=== PATIENT | male | born 1945 | race Caucasian/White ===

== ENCOUNTER 2017-06-18 12:40 | Emergency (ER) | payer OTHER, MEDICARE ==
--- NOTE | 2017-06-18 13:07 | ER Document Report ---
ED General - General Chief Complaint: Blurred Vision Stated Complaint: BLURRED VISION Time Seen by Provider: 06/18/17 12:57 Notes: Patient is a 72-year-old male, past medical history hypertension, spinal stenosis, type 2 diabetes, A. fib, presents from [facility] after 1 day of blurry and double vision and hallucinations. He has also had mild swelling and redness around his GIOVANNI drain. The patient was admitted to [facility] ICU for 2 months after an elective spinal surgery where he became trach dependent, had renal failure and was on hemodialysis and then had a cholecystectomy. He still has a GIOVANNI drain from his right abdomen that has now clotted, but he has an appointment with surgery in 2 days to discuss removal. He is no longer on dialysis. He says that he wears glasses, but he does not have them with him. He has had this intermittent blurry vision in the past. He denies eye injury, nausea, vomiting, fevers, chest pain, shortness of breath , diarrhea, constipation or leg swelling. TRAVEL OUTSIDE OF THE [place] IN LAST 30 DAYS: No - Related Data Allergies/Adverse Reactions: Penicillins Allergy (Verified 06/18/17 13:38) Past Medical History - General Information source: Patient - Social History Smoking Status: Unknown if Ever Smoked Family History: Reviewed & Not Pertinent - Past Medical History Cardiac Medical History: Reports: Hx Atrial Fibrillation, Hx Congestive Heart Failure, Hx Coronary Artery Disease, Hx Hypercholesterolemia, Hx Hypertension, Hx Pulmonary Embolism Denies: Hx Heart Attack, Hx Peripheral Vascular Disease, Hx Heart Murmur Pulmonary Medical History: Reports: Hx Asthma, Hx Bronchitis, Hx COPD, Hx Sleep Apnea - unable to wear cpap Denies: Hx Pneumonia, Hx Respiratory Failure, Hx Tuberculosis Neurological Medical History: Reports: Hx Seizures - in 1968. Denies: Hx Cerebrovascular Accident Endocrine Medical History: Reports: Hx Diabetes Mellitus Type 1, Hx Diabetes Mellitus Type 2. Denies: Hx Graves' Disease, Hx Hyperthyroidism, Hx Hypothyroidism Renal/ Medical History: Reports: Hx Benign Prostatic Hyperplasia. Denies: Hx End Stage Renal Disease, Hx Kidney Stones, Hx Peritoneal Dialysis Malignancy Medical History: Denies Hx Leukemia, Denies Hx Lung Cancer GI Medical History: Reports: Hx Gastroesophageal Reflux Disease, Hx Hiatal Hernia, Hx Irritable Bowel. Denies: Hx Crohn's Disease, Hx Hepatitis, Hx Liver Failure, Hx Ulcer Musculoskeltal Medical History: Reports Hx Arthritis, Denies Hx Fibromyalgia, Denies Hx Multiple Sclerosis, Denies Hx Muscular Dystrophy Psychiatric Medical History: Reports: Hx Depression, Hx Post Traumatic Stress Disorder - nightmares Denies: Hx Bipolar Disorder, Hx Dementia, Hx Schizophrenia Traumatic Medical History: Reports: Hx Fractures - Rt elbow and scattered radial head Infectious Medical History: Denies: Hx Hepatitis, Hx HIV Past Surgical History: Reports: Hx Appendectomy, Hx Cardiac Catheterization - 3 VESSEL DISEASE NOT CANDIDATE FOR INTERVENTION, Hx Orthopedic Surgery - CERVICAL AND L-S FUSION. Denies: Hx Bowel Surgery, Hx Cholecystectomy, Hx Colostomy, Hx Coronary Artery Bypass Graft, Hx Gastric Bypass Surgery, Hx Herniorrhaphy, Hx Open Heart Surgery, Hx Pacemaker, Hx Tonsillectomy - Immunizations Hx Diphtheria, Pertussis, Tetanus Vaccination: Yes Hx Pneumococcal Vaccination: 08/22/12 Review of Systems - Review of Systems Notes: REVIEW OF SYSTEMS: CONSTITUTIONAL: -fevers, -chills EENT: -eye pain, +blurry vision, -difficulty swallowing, -nasal congestion CARDIOVASCULAR:-chest pain, -syncope. RESPIRATORY: -cough, -SOB GASTROINTESTINAL: -abdominal pain, - nausea, -vomiting, -diarrhea GENITOURINARY: -dysuria, -hematuria MUSCULOSKELETAL: -back pain, -neck pain SKIN: +redness around GIOVANNI site HEMATOLOGIC: -easy bruising or bleeding. LYMPHATIC: -swollen, enlarged glands. NEUROLOGICAL: -altered mental status or loss of consciousness, -headache, - neurologic symptoms PSYCHIATRIC: +hallucinations, -anxiety, -depression. ALL OTHER SYSTEMS REVIEWED AND NEGATIVE. Physical Exam - Vital signs Vitals: Temp 98.8 F 06/18/17 12:40 - Notes Notes: PHYSICAL EXAMINATION: GENERAL: Well-appearing, well-nourished and in no acute distress. HEAD: Atraumatic, normocephalic. EYES: Pupils equal round and reactive to light, extraocular movements intact, sclera anicteric, conjunctiva are normal. No retinal detachment on bedside ultrasound. ENT: nares patent, oropharynx clear without exudates. Moist mucous membranes. NECK: Normal range of motion, supple without lymphadenopathy. Healing tracheotomy scar. LUNGS: Breath sounds clear to auscultation bilaterally and equal. No wheezes rales or rhonchi. HEART: Irregularly irregular heart rate ABDOMEN: Soft, nontender, normoactive bowel sounds. GIOVANNI drain out of right anterior abdomen without drainage, small amount of erythema and tenderness. No guarding, no rebound. No masses appreciated. EXTREMITIES: Normal range of motion, no pitting or edema. No cyanosis. NEUROLOGICAL: Cranial nerves grossly intact. Normal speech, normal gait. Normal sensory and motor exams. PSYCH: Normal mood, normal affect. Course - Re-evaluation Re-evalutation: Patient appears well. He has evidence of early cellulitis surrounding his GIOVANNI drain. CT abdomen and pelvis obtained to assess for presence of abscess, but no acute changes noted. Will begin doxycycline and have him follow-up with the surgeon in 2 days for a recheck and removal. No evidence of retinal detachment on eye exam and head CT does not show any evidence of a head bleed. He is not wearing his glasses and says that this is leading to the blurry vision. Instructed him to follow-up with the relays draftsperson this week for further evaluation and testing. Patient slightly tachycardic, which may be from the early cellulitis and pain. He was offered pain meds, but he refuses at this time. His lactate and blood pressure are normal. Given strict return precautions and patient/family understand. - Vital Signs Vital signs: Temp Pulse Resp BP Pulse Ox 98.8 F 25 H 126/92 H 100 06/18/17 12:40 06/18/17 13:02 06/18/17 13:02 06/18/17 13:02 - Laboratory Result Diagrams: 06/18/17 12:55 06/18/17 12:55 Laboratory results interpreted by me: 06/18/17 06/18/17 06/18/17 12:55 12:55 12:55 WBC 16.1 H RBC 3.76 L Hgb 9.6 L Hct 31.1 L MCH 25.4 L MCHC 30.7 L RDW 20.7 H Seg Neuts % (Manual) 82 H Lymphocytes % (Manual) 7 L Abs Neuts (Manual) 13.2 H Abs Monocytes (Manual) 1.6 H PT 16.7 H APTT 45.6 H Glucose 171 H Calcium 8.2 L Creatine Kinase 28 L NT-Pro-B Natriuret Pep 06/18/17 12:55 WBC RBC Hgb Hct MCH MCHC RDW Seg Neuts % (Manual) Lymphocytes % (Manual) Abs Neuts (Manual) Abs Monocytes (Manual) PT APTT Glucose Calcium Creatine Kinase NT-Pro-B Natriuret Pep 64051 H - Diagnostic Test Radiology reviewed: Image reviewed, Reports reviewed Radiology results interpreted by me: Head CT: NAD CT A/P: GIOVANNI drain in place, no abscesses Discharge - Discharge Clinical Impression: Abdominal wall cellulitis, Blurry vision Condition: Stable Disposition: HOME, SELF-CARE Additional Instructions: Take the full course of antibiotics to help with your early abdominal wall cellulitis. Follow-up with surgeon as already scheduled this week. Follow-up with the relays draftsperson for further evaluation of your eyes. Wear your glasses. MRSA CELLULITIS: You have an infection of your skin and underlying soft tissues called cellulitis. This is due to bacteria, which can enter through any break in the skin, or even through an irritated hair follicle. Untreated, cellulitis will usually worsen and may form an abscess which requires draining. Although many bacterial organisms can cause cellulitis and abscess formations, the most likely bacteria is Methicillin-Resistant Staph Aureus, or MRSA for short. Antibiotics are required. Usually, warm packs or warm soaks, and elevation of the infected area are recommended. You should start getting better within 24 to 36 hours. Most infections respond quickly to the right medication. Follow-up care is important, however, to check for abscess (boil) formation, unsuspected foreign body, or resistant infection. If you develop fever, chills, or if the area of infection is becoming rapidly more swollen or painful, call the doctor at once. ANTIBIOTIC THERAPY: You have been given an antibiotic prescription. It's important that you take all the medication, unless instructed otherwise by your physician. Failure to complete the entire course can result in relapse of your condition. Common side effects of antibiotics include nausea, intestinal cramping, or diarrhea. Women may develop vaginal yeast infections, and babies can get yeast (thrush) in the mouth following the use of antibiotics. Contact your physician if you develop significant side effects from this medication. Allergy to this antibiotic can result in hives, wheezing, faintness, or itching. If symptoms of allergy occur, stop the medication and call the doctor. DOXYCYCLINE: Doxycycline (Vibramycin, Doryx) is an antibiotic of the tetracycline family. This type of drug is useful for infections of the respiratory tract and genital tract, and is sometimes used for intestinal infections. Unlike most tetracyclines, doxycycline can be taken with food. It is longer acting, and (usually) less prone to side effects than regular tetracycline. Tetracycline antibiotics can stain immature teeth and SHOULD NOT BE TAKEN BY CHILDREN, NURSING MOTHERS, OR WOMEN. Tetracyclines can make you more prone to sunburn. Abdominal cramping, nausea, and diarrhea are occasional side effects. Women may experience vaginal yeast infections. Call the doctor at once if you develop hives, itching, shortness of breath , or lightheadedness. FOLLOW-UP CARE: If you have been referred to a physician for follow-up care, call the physician s office for an appointment as you were instructed or within the next two days. If you experience worsening or a significant change in your symptoms, notify the physician immediately or return to the Emergency Department at any time for re-evaluation. Prescriptions: Doxycycline Hyclate 100 mg PO BID #14 capsule Referrals: MARS BRAUN DO [Primary Care Provider] - Follow up as needed ZULEIMA MCNEAL DO [ACTIVE STAFF] - Follow up as needed
[2017-06-18 13:31] LABS: HEMATOCRIT 31.1 % (37.9-51.0); HEMOGLOBIN 9.6 g/dL (13.5-17.0); HGB HCT DIFFERENCE -2.3; MEAN CORPUSCULAR HEMOGLOBIN 25.4 pg (27.0-33.4); MEAN CORPUSCULAR HGB CONC 30.7 g/dL (32.0-36.0); MEAN CORPUSCULAR VOLUME 83 fl (80-97); RED BLOOD COUNT 3.76 10^6/uL (4.35-5.55); RED CELL DISTRIBUTION WIDTH 20.7 % (11.5-14.0); WHITE BLOOD COUNT 16.1 10^3/uL (4.0-10.5)
[2017-06-18 13:32] LABS: PROTHROMBIN TIME 16.7 SEC (11.4-15.4)
[2017-06-18 13:33] LABS: PARTIAL THROMBOPLASTIN TIME 45.6 SEC (23.5-35.8)
--- NOTE | 2017-06-18 13:33 | RADIOLOGY REPORT (SQ) ---
EXAM DESCRIPTION: CT HEAD WITHOUT COMPLETED DATE/TIME: 06/18/2017 1:23 pm REASON FOR STUDY: blurry vision COMPARISON: 09/30/2012. TECHNIQUE: Axial images acquired through the brain without intravenous contrast. Images reviewed wi th bone, brain and subdural windows. Images stored on PACS. All CT scanners at this facility use dose modulation, iterative reconstruction, and/or weight based d osing when appropriate to reduce radiation dose to as low as reasonably achievable (ALARA). [facility]: Dose Right [facility]: CareDose [facility]: Dose Right [facility]: Teradose 4D [facility]: Smart VisualShare RADIATION DOSE: Up-to-date CT equipment and radiation dose reduction techniques were employed. CTDIv ol: 64.6 mGy. DLP: 1163 mGy-cm. mGy. LIMITATIONS: None. FINDINGS: VENTRICLES: Normal size and contour. CEREBRUM: No masses. No hemorrhage. No midline shift. Normal miller/white matter differentiation. N o evidence for acute infarction. CEREBELLUM: No masses. No hemorrhage. No alteration of density. No evidence for acute infarction. EXTRAAXIAL SPACES: No fluid collections. No masses. ORBITS AND GLOBE: No intra- or extraconal masses. Normal contour of globe without masses. CALVARIUM: No fracture. PARANASAL SINUSES: No fluid or mucosal thickening. SOFT TISSUES: No mass or hematoma. OTHER: No other significant finding. IMPRESSION: NORMAL BRAIN CT WITHOUT CONTRAST. TECHNICAL DOCUMENTATION: JOB ID: [id number] Quality ID # [id number]: Final reports with documentation of one or more dose reduction techniques (e.g., Au tomated exposure control, adjustment of the mA and/or kV according to patient size, use of iterative reconstruction technique) 2010 [employer]- All Rights Reserved
--- NOTE | 2017-06-18 13:46 | RADIOLOGY REPORT (SQ) ---
EXAM DESCRIPTION: CHEST SINGLE VIEW COMPLETED DATE/TIME: 06/18/2017 1:32 pm REASON FOR STUDY: fever COMPARISON: 10/13/2016. NUMBER OF VIEWS: One view. TECHNIQUE: Single frontal radiographic view of the chest acquired. LIMITATIONS: None. FINDINGS: LUNGS AND PLEURA: No opacities, masses or pneumothorax. No pleural effusion. MEDIASTINUM AND HILAR STRUCTURES: No masses or contour abnormality. HEART AND VASCULATURE: Cardiac enlargement. Mild vascular congestion. BONES: No acute findings. HARDWARE: Cardiac recorder. Hardware in the cervical spine. OTHER: No other significant finding. IMPRESSION: CARDIAC ENLARGEMENT. MILD VASCULAR CONGESTION. TECHNICAL DOCUMENTATION: JOB ID: [id number] [employer]- All Rights Reserved
[2017-06-18 13:52] LABS: BASOPHILS % (MANUAL) 1 % (0-2); EOSINOPHILS % (MANUAL) 0 % (0-6); LYMPHOCYTES % (MANUAL) 7 % (13-45); TOTAL CELLS COUNTED 100; TOXIC GRANULATION SLIGHT
[2017-06-18 13:53] LABS: ANISOCYTOSIS 2+; HYPOCHROMASIA 1+; OVALOCYTES 1+; PLATELET CLUMPS PRESENT; POIKILOCYTOSIS 1+
[2017-06-18 13:54] LABS: ANION GAP 9 (5-19); BLOOD UREA NITROGEN 18 mg/dL (7-20); CALCIUM 8.2 mg/dL (8.4-10.2); CARBON DIOXIDE 28 mmol/L (22-30); CHLORIDE 102 mmol/L (98-107); CREATINE KINASE 28 U/L (55-170); CREATININE RESULT 1.19 mg/dL (0.52-1.25); GLUCOSE 171 mg/dL (75-110); LIPASE 44.8 U/L (23-300); POTASSIUM 4.1 mmol/L (3.6-5.0); SODIUM 139.4 mmol/L (137-145)
[2017-06-18 14:05] LABS: TROPONIN I 0.019 ng/mL
--- NOTE | 2017-06-18 15:22 | RADIOLOGY REPORT (SQ) ---
EXAM DESCRIPTION: CT ABD/PELVIS WITH IV ONLY COMPLETED DATE/TIME: 06/18/2017 3:00 pm REASON FOR STUDY: RUQ pain, indwelling GIOVANNI drain; abscess? COMPARISON: None. TECHNIQUE: CT scan of the abdomen and pelvis performed using helical scanning technique with dynamic intravenous contrast injection. No oral contrast. Images reviewed with lung, soft tissue, and bone windows. Reconstructed coronal and sagittal MPR images reviewed. Delayed images for evaluation of the urinary system also acquired. All images stored on PACS. All CT scanners at this facility use dose modulation, iterative reconstruction, and/or weight based d osing when appropriate to reduce radiation dose to as low as reasonably achievable (ALARA). [facility]: Dose Right [facility]: CareDose [facility]: Dose Right [facility]: Teradose 4D [facility]: Fighters CONTRAST TYPE AND DOSE: contrast/concentration: Isovue 370.00 mg/ml; Total Contrast Delivered: 100.0 ml; Total Saline Delivered: 68.0 ml RENAL FUNCTION: BUN 18 creatinine 1.19. RADIATION DOSE: Up-to-date CT equipment and radiation dose reduction techniques were employed. CTDIv ol: 21.0 - 24.6 mGy. DLP: 2675 mGy-cm.. LIMITATIONS: None. FINDINGS: LOWER CHEST: Small pleural effusions with basilar atelectasis/scarring. LIVER: Normal size. No masses. No dilated ducts. SPLEEN: Normal size. No focal lesions. PANCREAS: No masses. No significant calcifications. No adjacent inflammation or peripancreatic fluid collections. Pancreatic duct not dilated. GALLBLADDER: Surgically absent. There is an external drainage catheter with the proximal portion in the gallbladder fossa. ADRENAL GLANDS: No significant masses or asymmetry. RIGHT KIDNEY AND URETER: No solid masses. No significant calcifications. No hydronephrosis or hyd roureter. LEFT KIDNEY AND URETER: No solid masses. No significant calcifications. No hydronephrosis or hydr oureter. AORTA AND VESSELS: No aneurysm. No dissection. Renal arteries, SMA, celiac without stenosis. RETROPERITONEUM: No retroperitoneal adenopathy, hemorrhage or masses. BOWEL AND PERITONEAL CAVITY: No masses or inflammatory changes. Small amount of free fluid throughou t the abdomen. APPENDIX: Not visualized. PELVIS: No mass. No free fluid. Normal bladder. ABDOMINAL WALL: No masses. No hernias. BONES: No significant or acute findings. Surgical changes in the spine with hardware. OTHER: No other significant finding. IMPRESSION: 1. EXTERNAL DRAINAGE CATHETER WITH THE PROXIMAL PORTION IN THE GALLBLADDER FOSSA. SMALL AMOUNT OF FR EE FLUID THROUGHOUT THE ABDOMEN. NO EVIDENCE OF ABSCESS. 2. SMALL PLEURAL EFFUSIONS WITH BASILAR ATELECTASIS/SCARRING. 3. NO OTHER SIGNIFICANT OR ACUTE FINDING IN THE ABDOMEN OR PELVIS ON CT SCAN WITH IV CONTRAST. TECHNICAL DOCUMENTATION: JOB ID: [id number] Quality ID # [id number]: Final reports with documentation of one or more dose reduction techniques (e.g., Au tomated exposure control, adjustment of the mA and/or kV according to patient size, use of iterative reconstruction technique) 2010 [employer]- All Rights Reserved
[2017-06-18] MEDS ORDERED: DOXYCYCLINE HYCLATE 100 MG TABLET PO ONE (15:43)
[2017-06-18 18:06] VITALS: BP 145/86
--- NOTE | 2017-06-18 18:57 | EKG REPORT ---
SEVERITY:- ABNORMAL ECG - SINUS TACHYCARDIA LEFT ANTERIOR FASCICULAR BLOCK PROBABLE LVH WITH SECONDARY REPOL ABNRM : Confirmed by: Trisha Llamas MD 18-Jun-2017 18:57:24
== END 2017-06-18 18:17 | disposition home or self-care (01) ==
LOC: ER 12:40
DX: L03.311 Cellulitis of abdominal wall (principal); H53.8 Other visual disturbances; I10 Essential (primary) hypertension; E11.9 Type 2 diabetes mellitus without complications; I48.91 Unspecified atrial fibrillation
CPT/HCPCS: 36415; 70450; 71010; 74177; 80048; 82550; 83605; 83690; 83880; 84484; 85025; 85610; 85730; 87040; 93005; 93010; 99285

== ENCOUNTER 2017-06-19 13:41 | Inpatient (IN) | payer OTHER, MEDICARE ==
--- NOTE | 2017-06-19 14:18 | ER Document Report ---
ED General - General Chief Complaint: Fall Stated Complaint: HALLUCINATIONS Time Seen by Provider: 06/19/17 13:45 Mode of Arrival: Medic Information source: Patient, Relative, Emergency Med Personnel Notes: 72-year-old male who has a percutaneous biliary drain presents from care facility with concerns for hallucinations. Patient was seen here yesterday at that time CT was performed patient was noted to have an elevated white count, and started on antibiotics. Patient was noted today to be talking to people that were not in the room. Denies any fevers TRAVEL OUTSIDE OF THE [place] IN LAST 30 DAYS: No - HPI Onset: Yesterday Onset/Duration: Sudden Quality of pain: No pain Severity: Mild Pain Level: Denies Associated symptoms: Other Exacerbated by: Denies Relieved by: Denies Similar symptoms previously: No Recently seen / treated by doctor: No - Related Data Allergies/Adverse Reactions: Penicillins Allergy (Verified 06/18/17 13:38) Past Medical History - Social History Smoking Status: Never Smoker Cigarette use (# per day): No Chew tobacco use (# tins/day): No Smoking Education Provided: No Family History: Reviewed & Not Pertinent - Past Medical History Cardiac Medical History: Reports: Hx Atrial Fibrillation, Hx Congestive Heart Failure, Hx Coronary Artery Disease, Hx Hypercholesterolemia, Hx Hypertension, Hx Pulmonary Embolism Denies: Hx Heart Attack, Hx Peripheral Vascular Disease, Hx Heart Murmur Pulmonary Medical History: Reports: Hx Asthma, Hx Bronchitis, Hx COPD, Hx Sleep Apnea - unable to wear cpap Denies: Hx Pneumonia, Hx Respiratory Failure, Hx Tuberculosis Neurological Medical History: Reports: Hx Seizures - in 1968. Denies: Hx Cerebrovascular Accident Endocrine Medical History: Reports: Hx Diabetes Mellitus Type 1, Hx Diabetes Mellitus Type 2. Denies: Hx Graves' Disease, Hx Hyperthyroidism, Hx Hypothyroidism Renal/ Medical History: Reports: Hx Benign Prostatic Hyperplasia. Denies: Hx End Stage Renal Disease, Hx Kidney Stones, Hx Peritoneal Dialysis Malignancy Medical History: Denies Hx Leukemia, Denies Hx Lung Cancer GI Medical History: Reports: Hx Gastroesophageal Reflux Disease, Hx Hiatal Hernia, Hx Irritable Bowel. Denies: Hx Crohn's Disease, Hx Hepatitis, Hx Liver Failure, Hx Ulcer Musculoskeltal Medical History: Reports Hx Arthritis, Denies Hx Fibromyalgia, Denies Hx Multiple Sclerosis, Denies Hx Muscular Dystrophy Psychiatric Medical History: Reports: Hx Depression, Hx Post Traumatic Stress Disorder - nightmares Denies: Hx Bipolar Disorder, Hx Dementia, Hx Schizophrenia Traumatic Medical History: Reports: Hx Fractures - Rt elbow and scattered radial head Infectious Medical History: Denies: Hx Hepatitis, Hx HIV Past Surgical History: Reports: Hx Appendectomy, Hx Cardiac Catheterization - 3 VESSEL DISEASE NOT CANDIDATE FOR INTERVENTION, Hx Orthopedic Surgery - CERVICAL AND L-S FUSION. Denies: Hx Bowel Surgery, Hx Cholecystectomy, Hx Colostomy, Hx Coronary Artery Bypass Graft, Hx Gastric Bypass Surgery, Hx Herniorrhaphy, Hx Open Heart Surgery, Hx Pacemaker, Hx Tonsillectomy - Immunizations Hx Diphtheria, Pertussis, Tetanus Vaccination: Yes Hx Pneumococcal Vaccination: 08/22/12 Review of Systems - Review of Systems Notes: REVIEW OF SYSTEMS: CONSTITUTIONAL : Denies fever, chills, or sweats. Denies recent illness. EENT: Denies eye, ear, throat, or mouth pain or symptoms. Denies nasal or sinus congestion or discharge. Denies throat, tongue, or mouth swelling or difficulty swallowing. CARDIOVASCULAR: Denies chest pain. Denies palpitations or racing or irregular heart beat. Denies ankle edema. RESPIRATORY: Denies cough, cold, or chest congestion. Denies shortness of breath, difficulty breathing, or wheezing. GASTROINTESTINAL: Denies abdominal pain or distention. Denies nausea, vomiting , or diarrhea. Denies blood in vomitus, stools, or per rectum. Denies black, tarry stools. Denies constipation. GENITOURINARY: Denies difficulty urinating, painful urination, burning, frequency, blood in urine, or discharge. MUSCULOSKELETAL: Denies back or neck pain or stiffness. Denies joint pain or swelling. SKIN: Denies rash, lesions or sores. HEMATOLOGIC : Denies easy bruising or bleeding. LYMPHATIC: Denies swollen, enlarged glands. NEUROLOGICAL: Admits to altered mental status PSYCHIATRIC: Denies anxiety or stress. Denies depression, suicidal ideation, or homicidal ideation. ALL OTHER SYSTEMS REVIEWED AND NEGATIVE. Dictation was performed using [employer] voice recognition software PHYSICAL EXAMINATION: GENERAL: Well-appearing, well-nourished and in no acute distress. HEAD: Atraumatic, normocephalic. EYES: Pupils equal round and reactive to light, extraocular movements intact, sclera anicteric, conjunctiva are normal. ENT: Nares patent, oropharynx clear without exudates. Moist mucous membranes. NECK: Normal range of motion, supple without lymphadenopathy LUNGS: Breath sounds clear to auscultation bilaterally and equal. No wheezes rales or rhonchi. HEART: Regular rate and rhythm without murmurs ABDOMEN: Soft, nontender, nondistended abdomen. No guarding, no rebound. No masses appreciated. Musculoskeletal: Normal range of motion, no pitting or edema. No cyanosis. NEUROLOGICAL: Cranial nerves grossly intact. Normal speech, normal gait. Normal sensory, motor exams PSYCH: Normal mood, normal affect. SKIN: Pus draining from around abdominal drain Physical Exam - Vital signs Vitals: Temp Pulse Resp BP Pulse Ox 97.7 F 72 18 113/87 H 100 06/19/17 13:53 06/19/17 13:53 06/19/17 13:53 06/19/17 13:53 06/19/17 13:53 Course - Re-evaluation Re-evalutation: 06/19/17 15:29 I spoke with surgeon transmission worker as vitals as the hospitalist. We will admit the patient as he has obvious pus draining from the wound. Patient otherwise looks well white count has improved since yesterday - Vital Signs Vital signs: Temp Pulse Resp BP Pulse Ox 97.7 F 72 18 113/87 H 100 06/19/17 13:53 06/19/17 13:53 06/19/17 13:53 06/19/17 13:53 06/19/17 13:53 - Laboratory Result Diagrams: 06/19/17 14:43 06/19/17 14:43 Laboratory results interpreted by me: 06/19/17 06/19/17 14:43 14:43 WBC 12.2 H RBC 3.40 L Hgb 8.5 L Hct 27.8 L MCH 25.2 L MCHC 30.8 L RDW 20.4 H Lymphocytes % 7.7 L Monocytes % 13.3 H Absolute Neutrophils 9.2 H Absolute Monocytes 1.6 H Glucose 124 H Calcium 7.8 L Direct Bilirubin 0.5 H AST 12 L ALT 19 L Albumin 2.8 L Discharge - Discharge Clinical Impression: Abdominal abscess Leukocytosis Qualifiers: Leukocytosis type: unspecified Qualified Code(s): D72.829 - Elevated white blood cell count, unspecified Altered mental status Qualifiers: Altered mental status type: disorientation Qualified Code(s): R41.0 - Disorientation, unspecified Condition: Stable Disposition: ADMITTED INPATIENT Admitting Provider: Hospitalist Unit Admitted: Telemetry
[2017-06-19] MEDS ORDERED: ERTAPENEM SODIUM INJ 1 GM VIAL IV ONE (14:36)
[2017-06-19 15:02] LABS: VENOUS BLOOD BASE EXCESS -0.1 mmol/L; VENOUS BLOOD HCO3 25.7 mmol/L (20-32); VENOUS BLOOD PCO2 47.1 mmHg (35-63); VENOUS BLOOD PH 7.36 (7.30-7.42)
[2017-06-19 15:04] LABS: ABSOLUTE BASOPHILS # (AUTO) 0.2 10^3/uL (0.0-0.2); ABSOLUTE EOSINOPHILS # (AUTO) 0.3 10^3/uL (0.0-0.6); ABSOLUTE LYMPHOCYTES (AUTO) 0.9 10^3/uL (0.5-4.7); ABSOLUTE MONOCYTES (AUTO) 1.6 10^3/uL (0.1-1.4); ABSOLUTE NEUT (AUTO) 9.2 10^3/uL (1.7-8.2); BASOPHILS % (AUTO) 1.3 % (0-2); EOSINOPHILS % (AUTO) 2.1 % (0-6); HEMATOCRIT 27.8 % (37.9-51.0); HEMOGLOBIN 8.5 g/dL (13.5-17.0); HGB HCT DIFFERENCE -2.3; LYMPHOCYTES % (AUTO) 7.7 % (13-45); MEAN CORPUSCULAR HEMOGLOBIN 25.2 pg (27.0-33.4); MEAN CORPUSCULAR HGB CONC 30.8 g/dL (32.0-36.0); MEAN CORPUSCULAR VOLUME 82 fl (80-97); MONOCYTES % (AUTO) 13.3 % (3-13); RED CELL DISTRIBUTION WIDTH 20.4 % (11.5-14.0); SEGMENTED NEUTROPHILS % (AUTO) 75.6 % (42-78); WHITE BLOOD COUNT 12.2 10^3/uL (4.0-10.5)
[2017-06-19 15:18] LABS: ALANINE AMINOTRANSFERASE 19 U/L (21-72); ALBUMIN 2.8 g/dL (3.5-5.0); ALKALINE PHOSPHATASE 91 U/L (38-126); ANION GAP 8 (5-19); ASPARTATE AMINO TRANSFERASE 12 U/L (17-59); BILIRUBIN,DIRECT 0.5 mg/dL (0.0-0.4); BLOOD UREA NITROGEN 16 mg/dL (7-20); CALCIUM 7.8 mg/dL (8.4-10.2); CARBON DIOXIDE 28 mmol/L (22-30); CHLORIDE 104 mmol/L (98-107); CREATININE RESULT 1.18 mg/dL (0.52-1.25); GLUCOSE 124 mg/dL (75-110); POTASSIUM 3.6 mmol/L (3.6-5.0); SODIUM 139.9 mmol/L (137-145); TOTAL PROTEIN 6.3 g/dL (6.3-8.2)
[2017-06-19] MEDS ORDERED: ACETAMINOPHEN 325 MG TABLET PO PRN (15:27)
[2017-06-19] MEDS ORDERED: ALBUTEROL SULFATE 0.083% NEB 2.5 MG/3 ML AMPUL NEB PRN (15:27)
[2017-06-19] MEDS ORDERED: ONDANSETRON HCL INJ/PF 4 MG/2 ML SDV IV PRN (15:27)
[2017-06-19] MEDS ORDERED: VANCOMYCIN HCL 0 MG in DEXTROSE 5%-WATER 250 ML IV NR (15:30)
[2017-06-19] MEDS ORDERED: DEXTROSE 40% GEL 15 GM TUBE PO PRN ×2 (15:35)
[2017-06-19] MEDS ORDERED: GLUCAGON,HUMAN RECOMB 1 MG INJ IM PRN (15:35)
[2017-06-19] MEDS ORDERED: DEXTROSE 50%-WATER 25 GM/50 ML DISP.SYRIN IV PRN ×2 (15:35)
[2017-06-19] MEDS ORDERED: INSULIN LISPRO 100 UNIT/ML 3 ML VIAL SUBCUT PRN (15:35)
--- NOTE | 2017-06-19 16:08 | PDOC H&P ---
History of Present Illness Admission Date/PCP: [place] Patient complains of: Confusion History of Present Illness: DIVYA JAIN is a 72 year old male with very complex past medical history is sent to the emergency department for the second time and 24 hours for confusion. Patient was admitted to [facility] for elective spine surgery that resulted in complications in prolonged hospitalization for approximately 2 months recently. He had a prolonged ICU course and required tracheostomy and gastrostomy tube placement. He was subsequently decannulated and gastrostomy tube was removed at [facility] in [facility]. He had acute cholecystitis and underwent it appears open cholecystectomy at which time he had right upper quadrant drain placed in the gallbladder fossa. Drain has been placed for the past couple months and remains in place at this time. After being at [facility] patient was transferred to [place] for ongoing rehab. Recently he has developed worsening confusion. He was noted in the emergency department to have elevated white blood count and purulent drainage from around right upper quadrant drain. Medications have not been verified Past Medical History Cardiac Medical History: Reports: Atrial Fibrillation, Congestive Heart Failure , Coronary Artery Disease, Hyperlipidema, Hypertension, Pulmonary Embolism Denies: Myocardial Infarction, Peripheral Vascular Disease, Heart Murmur Pulmonary Medical History: Reports: Asthma, Bronchitis, Chronic Obstructive Pulmonary Disease (COPD), Sleep Apnea - unable to wear cpap Denies: Pneumonia, Respiratory Failure, Tuberculosis Neurological Medical History: Reports: Seizures - in 1968 Endocrine Medical History: Reports: Diabetes Mellitus Type 1 Denies: Hyperthyroidism, Hypothyroidism Renal/ Medical History: Denies: End Stage Renal Disease Malignancy Medical History: Denies: Leukemia, Lung Cancer GI Medical History: Reports: Gastroesophageal Reflux Disease, Hiatal Hernia Denies: Crohn's Disease, Hepatitis Musculoskeltal Medical History: Reports: Arthritis Denies: Fibromyalgia Psychiatric Medical History: Reports: Depression, Post Traumatic Stress Disorder - nightmares Denies: Bipolar Disorder, Dementia Hematology: Denies: Anemia, Hemophilia, Sickle Cell Disease Infectious Medical History: Denies: HIV Past Surgical History Past Surgical History: Reports: Appendectomy, Cardiac Catheterization - 3 VESSEL DISEASE NOT CANDIDATE FOR INTERVENTION, Cholecystectomy, Orthopedic Surgery - CERVICAL AND L-S FUSION, Other - Tracheostomy-decannulated. PEG tube- removed Denies: Colostomy, Coronary Artery Bypass Graft, Gastric Bypass Surgery, Herniorrhaphy, Pacemaker, Tonsillectomy Social History Information Source: Relative Lives with: Assisted Smoking Status: Never Smoker Frequency of Alcohol Use: None Hx Recreational Drug Use: No Hx Prescription Drug Abuse: No - Advance Directive Resuscitation Status: Full Code Family History Family History: Reviewed & Not Pertinent Parental Family History Reviewed: Yes Children Family History Reviewed: Yes Sibling(s) Family History Reviewed.: Yes Medication/Allergy Home Medications: Carvedilol [Coreg 3.125 mg Tablet] 12.5 mg PO BID 05/12/12 Amitriptyline HCl [Elavil 25 Mg Tablet] 25 mg PO QHS 02/24/13 Nitroglycerin [Nitrostat 0.4 mg (1/150 Gr) Tabs 25/Bottle] 1 tab SL Q5MP PRN 04/03 Aspirin [Aspirin 81 mg Chewable Tablet] 81 mg PO DAILY 04/08/14 Magnesium Oxide [Magnesium] 400 mg PO DAILY 04/08/14 Prasugrel Hydrochloride [Effient] 10 mg PO DAILY 04/08/14 Acetaminophen [Pain Relief] 650 mg PO Q6HP PRN 06/19/17 Amiodarone HCl [Cordarone 200 mg Tablet] 200 mg PO Q12 06/19/17 Atorvastatin Calcium 40 mg PO DAILY 06/19/17 Famotidine [Acid Employee Relations Director] 20 mg PO Q12 06/19/17 Gabapentin 300 mg PO Q12 06/19/17 Insulin Lispro [Humalog Insulin 100 Unit/1 ml 3 ml Vial] 0 unit SUBCUT .SLD SCALE 06/19/17 Ondansetron [Zofran Odt 4 mg Tablet] 4 mg PO Q4HP PRN 06/19/17 Quetiapine Fumarate [Seroquel] 50 mg PO Q8HP PRN 06/19/17 Sertraline HCl [Zoloft] 25 mg PO DAILY 06/19/17 Allergies/Adverse Reactions: Penicillins Allergy (Verified 06/18/17 13:38) Review of Systems ROS unobtainable: Due to mental status Physical Exam Vital Signs: Temp Pulse Resp BP Pulse Ox 97.7 F 72 18 113/87 H 100 06/19/17 13:53 06/19/17 13:53 06/19/17 13:53 06/19/17 13:53 06/19/17 13:53 Intake & Output 06/18/17 06/19/17 06/20/17 06:59 06:59 06:59 Weight 104.099 kg PHYSICAL EXAM: GENERAL: Appears well, no acute distress HEENT: Normocephalic, no scleral icterus, conjunctiva clear, EOEM intact, PERRLA , moist mucous membranes NECK: trachea midline, no thyromegally RESPIRATORY: Clear to auscultation, no wheezes/rhonchi CARDIAC: Regular rate and rhythm, no murmur/anibal/rub ABDOMEN: Soft, obese, right upper quadrant drain in place with purulent discharge around drain and surrounding erythema RECTAL: deferred : deferred EXTREMITIES: 2+ bilateral lower extremity edema MUSCULOSKELETAL: No joint swelling or deformity VASCULAR: normal peripheral pulses NEUROLOGIC: Alert, disoriented, normal speech, cranial nerves grossly intact, 5/ 5 strength in all extremities, tactile sensation intact in all extremities SKIN: Sedated and erythema around right upper quadrant PSYCHIATRIC: Normal mood, normal affect Results Laboratory Results: 06/19/17 14:43 06/19/17 14:43 06/19/17 06/19/17 06/19/17 14:43 14:43 14:43 WBC 12.2 H RBC 3.40 L Hgb 8.5 L Hct 27.8 L MCV 82 MCH 25.2 L MCHC 30.8 L RDW 20.4 H Plt Count 282 Seg Neutrophils % 75.6 Lymphocytes % 7.7 L Monocytes % 13.3 H Eosinophils % 2.1 Basophils % 1.3 Absolute Neutrophils 9.2 H Absolute Lymphocytes 0.9 Absolute Monocytes 1.6 H Absolute Eosinophils 0.3 Absolute Basophils 0.2 VBG pH 7.36 VBG pCO2 47.1 VBG HCO3 25.7 VBG Base Excess -0.1 Sodium 139.9 Potassium 3.6 Chloride 104 Carbon Dioxide 28 Anion Gap 8 BUN 16 Creatinine 1.18 Est GFR ( Amer) > 60 Est GFR (Non-Af Amer) > 60 Glucose 124 H Lactic Acid Calcium 7.8 L Total Bilirubin 1.0 AST 12 L ALT 19 L Alkaline Phosphatase 91 Total Protein 6.3 Albumin 2.8 L 06/19/17 14:43 WBC RBC Hgb Hct MCV MCH MCHC RDW Plt Count Seg Neutrophils % Lymphocytes % Monocytes % Eosinophils % Basophils % Absolute Neutrophils Absolute Lymphocytes Absolute Monocytes Absolute Eosinophils Absolute Basophils VBG pH VBG pCO2 VBG HCO3 VBG Base Excess Sodium Potassium Chloride Carbon Dioxide Anion Gap BUN Creatinine Est GFR ( Amer) Est GFR (Non-Af Amer) Glucose Lactic Acid 1.5 Calcium Total Bilirubin AST ALT Alkaline Phosphatase Total Protein Albumin ProBNP 06/18/2017: 10,700 EKG Comments: EKG 06/10/2017: Sinus tachycardia Impressions: Chest x-ray 06/18/2017: Cardiomegaly, vascular congestion Assessment & Plan - Diagnosis (1) Systemic inflammatory response syndrome Is this a current diagnosis for this admission?: YesPlan: Secondary to abdominal wall cellulitis/abscess. (2) Abdominal wall cellulitis Is this a current diagnosis for this admission?: YesPlan: Likely introduced by prolonged GIOVANNI drain in right upper quadrant. CT scan from shows drain in gallbladder fossa, no abscess in gallbladder fossa, gallbladder surgically absent. Start IV ertapenem and IV vancomycin. Check wound culture. Check blood cultures. Consult surgery for recommendations. Perhaps IGOVANNI drain can be discontinued at this point. (3) Encephalopathy Is this a current diagnosis for this admission?: YesPlan: Likely secondary to infection. Continue supportive care. (4) Acute CHF Qualifiers: Congestive heart failure type: unspecified congestive heart failure type Qualified Code(s): I50.9 - Heart failure, unspecified Is this a current diagnosis for this admission?: YesPlan: Start Lasix 20 mg IV every 12 hours. Verify outpatient medications and resume. Check echocardiogram. (5) Anemia Is this a current diagnosis for this admission?: YesPlan: Hemoccult stool. Check iron studies. Monitor H&H. Transfuse for hemoglobin less than 8.0. (6) History of pulmonary embolism Is this a current diagnosis for this admission?: YesPlan: Verify outpatient medications. Prophylactic Lovenox for now. (7) Coronary artery disease Is this a current diagnosis for this admission?: Yes (8) Diabetes Is this a current diagnosis for this admission?: YesPlan: Sliding scale insulin for now. Verify outpatient medication (9) Atrial fibrillation Is this a current diagnosis for this admission?: YesPlan: Currently in sinus rhythm. Monitor on telemetry. Verify outpatient medications. (10) Obstructive sleep apnea Is this a current diagnosis for this admission?: Yes (11) Hypertension Is this a current diagnosis for this admission?: Yes (12) Pulmonary hypertension Is this a current diagnosis for this admission?: Yes - Time Time Spent: Greater than 70 Minutes Anticipated discharge: SNF
--- NOTE | 2017-06-19 16:32 | RADIOLOGY REPORT (SQ) ---
EXAM DESCRIPTION: CT HEAD WITHOUT COMPLETED DATE/TIME: 06/19/2017 3:50 pm REASON FOR STUDY: altered COMPARISON: 06/18/2017 TECHNIQUE: Axial images acquired through the brain without intravenous contrast. Images reviewed wi th bone, brain and subdural windows. Images stored on PACS. All CT scanners at this facility use dose modulation, iterative reconstruction, and/or weight based d osing when appropriate to reduce radiation dose to as low as reasonably achievable (ALARA). [facility]: Dose Right [facility]: CareDose [facility]: Dose Right [facility]: Teradose 4D [facility]: [employer] RADIATION DOSE: Up-to-date CT equipment and radiation dose reduction techniques were employed. CTDIv ol: 64.6 mGy. DLP: 1163 mGy-cm. mGy. LIMITATIONS: None. FINDINGS: VENTRICLES: Normal size and contour. CEREBRUM: No masses. No hemorrhage. No midline shift. Subtly decreased attenuation within the yony ventricular white matter (left greater than right) is consistent with microvascular ischemic change. No evidence for acute infarction. CEREBELLUM: No masses. No hemorrhage. No alteration of density. No evidence for acute infarction. EXTRAAXIAL SPACES: No fluid collections. No masses. ORBITS AND GLOBE: No intra- or extraconal masses. Normal contour of globe without masses. CALVARIUM: No fracture. PARANASAL SINUSES: No fluid or mucosal thickening. SOFT TISSUES: No mass or hematoma. OTHER: Dense atherosclerotic vascular calcifications are seen within the cavernous segments of the in ternal carotid arteries bilaterally. IMPRESSION: Stable CT appearance of the brain. TECHNICAL DOCUMENTATION: JOB ID: [id number] Quality ID # [id number]: Final reports with documentation of one or more dose reduction techniques (e.g., Au tomated exposure control, adjustment of the mA and/or kV according to patient size, use of iterative reconstruction technique) 2010 [employer]- All Rights Reserved
--- NOTE | 2017-06-19 16:44 | RADIOLOGY REPORT (SQ) ---
EXAM DESCRIPTION: CT ABDOMEN IV CONTRAST ONLY COMPLETED DATE/TIME: 06/19/2017 3:50 pm REASON FOR STUDY: pus from around biliary drain COMPARISON: CT abdomen 06/18/2017 TECHNIQUE: CT scan of the abdomen performed with intravenous and without oral contrast using helical scanning technique with dynamic intravenous contrast injection. Images reviewed with lung, soft tiss ue, and bone windows. Reconstructed coronal and sagittal MPR images reviewed. Delayed images for eval uation of the urinary system also acquired and evaluated. All images stored on PACS. All CT scanners at this facility use dose modulation, iterative reconstruc tion, and/or weight based dosing when appropriate to reduce radiation dose to as low as reasonably ac hievable (ALARA). [facility]: Dose Right [facility]: CareDose [facility]: Dose Right [facility]: Teradose 4D [facility]: ProtAb CONTRAST TYPE AND DOSE: contrast/concentration: Isovue 370.00 mg/ml; Total Contrast Delivered: 100.0 ml; Total Saline Delivered: 72.0 ml RENAL FUNCTION: BUN 18; creatinine 1.19 RADIATION DOSE: Up-to-date CT equipment and radiation dose reduction techniques were employed. CTDIv ol: 9.6 - 14.4 mGy. DLP: 921 mGy-cm. . LIMITATIONS: None. FINDINGS: LOWER CHEST: Re- demonstration of small bilateral pleural effusions. LIVER: Normal size. No masses. No dilated ducts. SPLEEN: Normal size. No focal lesions. PANCREAS: No masses. No significant calcifications. No adjacent inflammation or peripancreatic fluid collections. Pancreatic duct not dilated. GALLBLADDER: Surgically absent. Re- demonstration of a percutaneous drainage catheter with the tip i n the gallbladder fossa. ADRENAL GLANDS: No significant masses or asymmetry. RIGHT KIDNEY AND URETER: No solid masses. No significant calcifications. No hydronephrosis or hyd roureter. LEFT KIDNEY AND URETER: No solid masses. No significant calcifications. No hydronephrosis or hydr oureter. AORTA AND VESSELS: No aneurysm. No dissection. Renal arteries, SMA, celiac without stenosis. RETROPERITONEUM: No retroperitoneal adenopathy, hemorrhage or masses. BOWEL AND PERITONEAL CAVITY: Visualized bowel appears grossly normal. Re- demonstration of mild, dif fuse ascites. APPENDIX: Not visualized. ABDOMINAL WALL: Persistent subcutaneous fat stranding. BONES: No significant or acute findings. OTHER: No other significant finding. IMPRESSION: Percutaneous biliary drain demonstrating stable position and appearance. No evidence of abscess. Persistent mild ascites. TECHNICAL DOCUMENTATION: JOB ID: [id number] Quality ID # [id number]: Final reports with documentation of one or more dose reduction techniques (e.g., Au tomated exposure control, adjustment of the mA and/or kV according to patient size, use of iterative reconstruction technique) 2010 [employer]- All Rights Reserved
[2017-06-19] MEDS ORDERED: ENOXAPARIN SODIUM INJ 40 MG/0.4 ML DISP.SYRIN SUBCUT ONE ×2 (17:00→18:15)
[2017-06-19] MEDS ORDERED: FUROSEMIDE INJ/PF 20 MG/2 ML SDV IV SCH (18:00)
[2017-06-19 18:02] LABS: FOLATE 6.15 ng/mL (>2.76)
[2017-06-19] MEDS: VANCOMYCIN HCL 1,500 MG in DEXTROSE 5%-WATER 250 ML IV SCH (18:16)
[2017-06-19] MEDS ORDERED: FUROSEMIDE INJ/PF 20 MG/2 ML SDV IV ONE (20:45)
[2017-06-19] MEDS: GABAPENTIN 300 MG CAPSULE PO SCH (22:27)
[2017-06-19] MEDS: AMITRIPTYLINE HCL 25 MG TABLET PO SCH (22:27)
[2017-06-19] MEDS: FAMOTIDINE 20 MG TABLET PO SCH (22:27)
[2017-06-19] MEDS: MAGNESIUM OXIDE 400 MG TABLET PO SCH (22:28)
[2017-06-19] MEDS: CARVEDILOL 3.125 MG TABLET PO SCH (22:29)
[2017-06-19] MEDS: AMIODARONE HCL 200 MG TABLET PO SCH (22:29)
[2017-06-20 04:58] LABS: APPEARANCE,URINE CLEAR; BILIRUBIN,URINE NEGATIVE (NEGATIVE); GLUCOSE, URINE NEGATIVE (NEGATIVE); KETONES,URINE NEGATIVE (NEGATIVE); LEUKOCYTE ESTERASE,URINE NEGATIVE (NEGATIVE); NITRITE,URINE NEGATIVE (NEGATIVE); PROTEIN,URINE NEGATIVE (NEGATIVE); URINE SPECIFIC GRAVITY 1.018; UROBILINOGEN,URINE NEGATIVE mg/dL (<2.0)
[2017-06-20] MEDS: FUROSEMIDE INJ/PF 20 MG/2 ML SDV IV SCH ×2 (05:23→17:02)
[2017-06-20 05:35] LABS: ABSOLUTE BASOPHILS # (AUTO) 0.1 10^3/uL (0.0-0.2); ABSOLUTE EOSINOPHILS # (AUTO) 0.3 10^3/uL (0.0-0.6); ABSOLUTE LYMPHOCYTES (AUTO) 0.9 10^3/uL (0.5-4.7); ABSOLUTE MONOCYTES (AUTO) 1.1 10^3/uL (0.1-1.4); ABSOLUTE NEUT (AUTO) 6.6 10^3/uL (1.7-8.2); BASOPHILS % (AUTO) 1.1 % (0-2); HEMATOCRIT 29.1 % (37.9-51.0); HEMOGLOBIN 9.1 g/dL (13.5-17.0); HGB HCT DIFFERENCE -1.8; LYMPHOCYTES % (AUTO) 10.4 % (13-45); MEAN CORPUSCULAR HEMOGLOBIN 25.6 pg (27.0-33.4); MEAN CORPUSCULAR HGB CONC 31.1 g/dL (32.0-36.0); MEAN CORPUSCULAR VOLUME 82 fl (80-97); MONOCYTES % (AUTO) 12.7 % (3-13); RED BLOOD COUNT 3.55 10^6/uL (4.35-5.55); RED CELL DISTRIBUTION WIDTH 19.9 % (11.5-14.0); SEGMENTED NEUTROPHILS % (AUTO) 72.8 % (42-78)
[2017-06-20 05:48] LABS: ANION GAP 12 (5-19); BLOOD UREA NITROGEN 18 mg/dL (7-20); CALCIUM 8.3 mg/dL (8.4-10.2); CARBON DIOXIDE 24 mmol/L (22-30); CHLORIDE 103 mmol/L (98-107); CREATININE RESULT 1.33 mg/dL (0.52-1.25); GLUCOSE 142 mg/dL (75-110); MAGNESIUM 1.7 mg/dL (1.6-2.3); POTASSIUM 4.3 mmol/L (3.6-5.0)
[2017-06-20 05:50] LABS: PROTHROMBIN TIME 16.1 SEC (11.4-15.4)
[2017-06-20 05:51] LABS: PARTIAL THROMBOPLASTIN TIME 58.3 SEC (23.5-35.8)
[2017-06-20] MEDS ORDERED: ATORVASTATIN CALCIUM 40 MG TABLET PO SCH (10:00)
[2017-06-20] MEDS: ERTAPENEM SODIUM 1 GM in NORMAL SALINE 50 ML IV SCH (10:00)
[2017-06-20] MEDS ORDERED: ENOXAPARIN SODIUM INJ 40 MG/0.4 ML DISP.SYRIN SUBCUT SCH (10:00)
[2017-06-20] MEDS: GABAPENTIN 300 MG CAPSULE PO SCH ×2 (10:42→22:00)
[2017-06-20] MEDS: AMIODARONE HCL 200 MG TABLET PO SCH ×2 (10:43→22:00)
[2017-06-20] MEDS: FAMOTIDINE 20 MG TABLET PO SCH ×2 (10:43→22:00)
[2017-06-20] MEDS: CARVEDILOL 3.125 MG TABLET PO SCH ×2 (10:43→22:00)
[2017-06-20] MEDS: MAGNESIUM OXIDE 400 MG TABLET PO SCH ×2 (10:44→22:00)
[2017-06-20] MEDS: ASPIRIN 81 MG TABLET, CHEWABLE PO SCH (10:45)
[2017-06-20] MEDS: SERTRALINE HCL 50 MG TABLET PO SCH (10:45)
--- NOTE | 2017-06-20 11:10 | EKG REPORT ---
SEVERITY:- ABNORMAL ECG - ATRIAL FLUTTER/FIBRILLATION, A-RATE 226 LEFT BUNDLE BRANCH BLOCK : Confirmed by: Trisha Llamas MD 20-Jun-2017 11:09:27
[2017-06-20] MEDS ORDERED: LORAZEPAM INJ 2 MG/1 ML VIAL IV PRN (11:32)
--- NOTE | 2017-06-20 12:12 | PDOC PROGRESS REPORT ---
Subjective Progress Note for:: 06/20/17 Subjective:: Patient is more alert today but he is still very confused and having visual hallucinations. He denies somatic pain, chest pain, abdominal pain, shortness of breath. Physical Exam Vital Signs: Temp Pulse Resp BP Pulse Ox 98.1 F 115 H 16 141/94 H 98 06/20/17 04:41 06/20/17 04:41 06/20/17 04:41 06/20/17 04:41 06/20/17 04:41 Intake & Output 06/19/17 06/20/17 06/21/17 06:59 06:59 06:59 Intake Total 265 Output Total 0 Balance 265 Weight 104.09 kg GENERAL: No acute distress HEENT: Conjunctiva clear, nonicteric, moist mucous membranes, no JVD, midline trachea RESPIRATORY: Clear to auscultation bilaterally, no wheezes, no rhonchi CARDIAC: Irregular ABDOMEN: Soft, nondistended, nontender, positive bowel sounds, no rebound, no guarding EXTREMETIES: 1+ bilateral lower extremity edema NEUROLOGIC: Alert, disoriented, CN's grossly intact, no focal deficits SKIN: Prior drain site in right upper quadrant with decreased erythema PSYCH: Unusual affect Results Laboratory Results: 06/20/17 04:34 06/20/17 04:34 06/20/17 06/20/17 06/20/17 00:00 04:34 04:34 WBC 9.0 RBC 3.55 L Hgb 9.1 L Hct 29.1 L MCV 82 MCH 25.6 L MCHC 31.1 L RDW 19.9 H Plt Count 294 Seg Neutrophils % 72.8 Lymphocytes % 10.4 L Monocytes % 12.7 Eosinophils % 3.0 Basophils % 1.1 Absolute Neutrophils 6.6 Absolute Lymphocytes 0.9 Absolute Monocytes 1.1 Absolute Eosinophils 0.3 Absolute Basophils 0.1 Sodium 139.0 Potassium 4.3 Chloride 103 Carbon Dioxide 24 Anion Gap 12 BUN 18 Creatinine 1.33 H Est GFR ( Amer) > 60 Est GFR (Non-Af Amer) 53 L Glucose 142 H Calcium 8.3 L Magnesium 1.7 TSH Urine Color Urine Appearance Urine pH Ur Specific [place] Urine Protein Urine Glucose (UA) Urine Ketones Urine Blood Urine Nitrite Ur Leukocyte Esterase Urine WBC (Auto) Urine RBC (Auto) Stool Occult Blood NEGATIVE 06/20/17 06/20/17 04:34 04:40 WBC RBC Hgb Hct MCV MCH MCHC RDW Plt Count Seg Neutrophils % Lymphocytes % Monocytes % Eosinophils % Basophils % Absolute Neutrophils Absolute Lymphocytes Absolute Monocytes Absolute Eosinophils Absolute Basophils Sodium Potassium Chloride Carbon Dioxide Anion Gap BUN Creatinine Est GFR ( Amer) Est GFR (Non-Af Amer) Glucose Calcium Magnesium TSH 8.98 H Urine Color YELLOW Urine Appearance CLEAR Urine pH 5.0 Ur Specific [place] 1.018 Urine Protein NEGATIVE Urine Glucose (UA) NEGATIVE Urine Ketones NEGATIVE Urine Blood SMALL H Urine Nitrite NEGATIVE Ur Leukocyte Esterase NEGATIVE Urine WBC (Auto) 1 Urine RBC (Auto) 1 Stool Occult Blood Impressions: Head CT 06/19/17 13:45 IMPRESSION: Stable CT appearance of the brain. Abdomen CT 06/19/17 14:20 IMPRESSION: Percutaneous biliary drain demonstrating stable position and appearance. No evidence of abscess. Persistent mild ascites. Assessment & Plan - Diagnosis (1) Systemic inflammatory response syndrome Is this a current diagnosis for this admission?: YesPlan: Secondary to abdominal wall cellulitis/abscess. (2) Abdominal wall cellulitis Is this a current diagnosis for this admission?: YesPlan: Likely introduced by prolonged GIOVANNI drain in right upper quadrant. CT scan from shows drain in gallbladder fossa, no abscess in gallbladder fossa, gallbladder surgically absent. Continue IV ertapenem and IV vancomycin pending wound culture and blood cultures. Surgery removed GIOVANNI drain on day of admission. (3) Encephalopathy Is this a current diagnosis for this admission?: YesPlan: Likely secondary to infection. Continue supportive care. Start Seroquel 50 mg nightly. (4) Acute CHF Qualifiers: Congestive heart failure type: unspecified congestive heart failure type Qualified Code(s): I50.9 - Heart failure, unspecified Is this a current diagnosis for this admission?: YesPlan: Continue Lasix 20 mg IV every 12 hours. Repeat chest x-ray in proBNP level in the morning. Check echocardiogram. (5) Anemia Is this a current diagnosis for this admission?: YesPlan: Hemoccult stool negative. Start iron supplementation. Monitor H&H. Transfuse for hemoglobin less than 8.0. (6) Coronary artery disease Is this a current diagnosis for this admission?: YesPlan: Continue Effient, Coreg, Lipitor, aspirin. (7) Diabetes Is this a current diagnosis for this admission?: YesPlan: Sliding scale insulin for now. (8) Atrial fibrillation Is this a current diagnosis for this admission?: YesPlan: Heart rate stable on amiodarone. Monitor on telemetry. (9) Obstructive sleep apnea Is this a current diagnosis for this admission?: Yes (10) Hypertension Is this a current diagnosis for this admission?: Yes (11) Pulmonary hypertension Is this a current diagnosis for this admission?: Yes - Time Time Spent with patient: 35 or more minutes Anticipated discharge: SNF Within: within 72 hours
--- NOTE | 2017-06-20 13:39 | PDOC PROGRESS REPORT ---
Subjective Progress Note for:: 06/20/17 Subjective:: Pain minimal tolerating diet Physical Exam Vital Signs: Temp Pulse Resp BP Pulse Ox 98.1 F 115 H 16 141/94 H 98 06/20/17 04:41 06/20/17 04:41 06/20/17 04:41 06/20/17 04:41 06/20/17 04:41 Intake & Output 06/19/17 06/20/17 06/21/17 06:59 06:59 06:59 Intake Total 265 Output Total 0 Balance 265 Weight 104.09 kg GI/Abdominal exam: PRESENT: other - Right upper quadrqant area - 1-2 cm area of the wound hall cleaner, minimal drainage Results Laboratory Results: 06/20/17 04:34 06/20/17 04:34 06/20/17 06/20/17 06/20/17 00:00 04:34 04:34 WBC 9.0 RBC 3.55 L Hgb 9.1 L Hct 29.1 L MCV 82 MCH 25.6 L MCHC 31.1 L RDW 19.9 H Plt Count 294 Seg Neutrophils % 72.8 Lymphocytes % 10.4 L Monocytes % 12.7 Eosinophils % 3.0 Basophils % 1.1 Absolute Neutrophils 6.6 Absolute Lymphocytes 0.9 Absolute Monocytes 1.1 Absolute Eosinophils 0.3 Absolute Basophils 0.1 Sodium 139.0 Potassium 4.3 Chloride 103 Carbon Dioxide 24 Anion Gap 12 BUN 18 Creatinine 1.33 H Est GFR ( Amer) > 60 Est GFR (Non-Af Amer) 53 L Glucose 142 H Calcium 8.3 L Magnesium 1.7 TSH Urine Color Urine Appearance Urine pH Ur Specific [place] Urine Protein Urine Glucose (UA) Urine Ketones Urine Blood Urine Nitrite Ur Leukocyte Esterase Urine WBC (Auto) Urine RBC (Auto) Stool Occult Blood NEGATIVE 06/20/17 06/20/17 04:34 04:40 WBC RBC Hgb Hct MCV MCH MCHC RDW Plt Count Seg Neutrophils % Lymphocytes % Monocytes % Eosinophils % Basophils % Absolute Neutrophils Absolute Lymphocytes Absolute Monocytes Absolute Eosinophils Absolute Basophils Sodium Potassium Chloride Carbon Dioxide Anion Gap BUN Creatinine Est GFR ( Amer) Est GFR (Non-Af Amer) Glucose Calcium Magnesium TSH 8.98 H Urine Color YELLOW Urine Appearance CLEAR Urine pH 5.0 Ur Specific [place] 1.018 Urine Protein NEGATIVE Urine Glucose (UA) NEGATIVE Urine Ketones NEGATIVE Urine Blood SMALL H Urine Nitrite NEGATIVE Ur Leukocyte Esterase NEGATIVE Urine WBC (Auto) 1 Urine RBC (Auto) 1 Stool Occult Blood Impressions: Head CT 06/19/17 13:45 IMPRESSION: Stable CT appearance of the brain. Abdomen CT 06/19/17 14:20 IMPRESSION: Percutaneous biliary drain demonstrating stable position and appearance. No evidence of abscess. Persistent mild ascites. Assessment & Plan - Plan Summary Plan Summary: S/p Removal of the 2 months old surgical drain yesterday in ER by myself , along with draiange of associated abscess, wound site much better expect to have continued drainage for few days, , wound care wet to dry dressings daily Patient can be discharged when his medical problems resolved Follow up in surgery clinic 2 weeks
[2017-06-20] MEDS ORDERED: ENOXAPARIN SODIUM INJ 40 MG/0.4 ML DISP.SYRIN SUBCUT ONE (13:45)
[2017-06-20] MEDS ORDERED: VANCOMYCIN HCL INJ 1000 MG VIAL ONE (18:43)
[2017-06-20] MEDS: VANCOMYCIN HCL 1,500 MG in DEXTROSE 5%-WATER 250 ML IV SCH (19:00)
[2017-06-20] MEDS: AMITRIPTYLINE HCL 25 MG TABLET PO SCH (22:00)
[2017-06-20] MEDS ORDERED: (PENDING PHARMACY ID) (Quetiapine Fumarate [Seroquel] 50 MG) PO SCH (22:00)
[2017-06-20] MEDS: QUETIAPINE FUMARATE 25 MG TABLET PO SCH (22:00)
--- NOTE | 2017-06-21 00:09 | CONSULTATION REPORT E ---
Consultation Report NAME: DIVYA JAIN : 1945 AGE: 72Y DATE: 06/19/2017 307 A TO: VIET WATERMAN M.D. FROM: POONAM DICKERSON Requesting Physician HISTORY OF PRESENT ILLNESS: The patient is a 72-year-old male patient, consultation from the hospitalist for evaluation and management of abdominal wall cellulitis on the right side, and also there is an abscess around the peritoneal drain from the previous surgery 2 months. The patient apparently has had a complicated cholecystitis. He had an open cholecystectomy about 03/2017, almost 2-1/2 months ago, and then he was sent to rehab. He was suppose to be followed up, but then he developed pain and abdominal wall cellulitis and draining first and altered mental status and brought to the emergency room in [facility]. He was found to have a lot of redness and induration, swelling in the right upper quadrant area where the drain is still present, and there is a purulent drainage around the drain. From the drain itself, apparently has not had any fluid at all which has been draining for the last several weeks. It has been dry now. No drainage from intra-abdominal cavity. PAST MEDICAL HISTORY: 1. History of complicated cholecystitis. 2. Diabetes. 3. Hypertension. 4. Debility. PAST SURGICAL HISTORY: Open cholecystectomy. REVIEW OF FURTHER SYSTEMS: As per examination. PHYSICAL EXAMINATION: GENERAL: This is an elderly gentleman, 72 year old, not in any apparent distress. He is still able to communicate verbally. HEAD AND NECK: No lymphadenopathy, no masses, and no thyromegaly. RESPIRATORY: Both lungs are clear to auscultation. CARDIOVASCULAR: Rhythm is regular. ABDOMEN: Soft. Obese abdomen. In the right upper quadrant area there is a significant amount of cellulitis of the abdominal wall present, and there is a necrotic wound with a subcutaneous abscess around a Brando drain present in the right upper quadrant area, and there is some a more indurated area along with abscess in that area. EXTREMITIES: Warm, well perfused. DIAGNOSTIC DATA: He had a CT scan done which revealed no intra-abdominal abscess, but there is a subcutaneous area of possibly collection cellulitis. His white cell count was 17. IMPRESSION: 1. Abdominal wall cellulitis. 2. Abdominal wall abscess due to indwelling and longstanding drainage catheter and a foreign body reaction. PLAN: 1. He is being admitted to the hospital under the hospitalist service. I will be following as a surgical consult. The plan is for intravenous antibiotic Zosyn. 2. The Brando drain tube had been removed completely with . 3. I will drain the subcutaneous loculated abdominal wall abscess at the bedside after cleaning the area. PROCEDURE NOTE: After explaining to the patient and patient's family about the need for the drainage of the abscess, the area was cleaned and draped. He already had a pain medication, did not require a local anesthetic and also because of inflammation. Continued with the removal of the suture and then the subcutaneous pocket area opened up with the scissors, and then the underlying pus was drained out and the entire abscess cavity drained, and then the wound was irrigated copiously with a dilute Betadine. The wound was packed. Dressings were applied. The patient tolerated the procedure very well, and for the wound care daily dressings on the floor and he will receive IV antibiotic. TIME SPENT: Entire consultation about close to an hour and 10 minutes; evaluation/management/dictation is about 45 minutes and the procedure about 15 minutes. DICTATING PHYSICIAN: VIET WATERMAN M.D. [id number] PHY#: [id number] ID: [id number] JOB#: [id number] ACCT: [id number] cc:VIET WATERMAN M.D. > MTDD
[2017-06-21 05:04] LABS: ABSOLUTE BASOPHILS # (AUTO) 0.1 10^3/uL (0.0-0.2); ABSOLUTE EOSINOPHILS # (AUTO) 0.2 10^3/uL (0.0-0.6); ABSOLUTE LYMPHOCYTES (AUTO) 1.1 10^3/uL (0.5-4.7); ABSOLUTE MONOCYTES (AUTO) 0.9 10^3/uL (0.1-1.4); ABSOLUTE NEUT (AUTO) 4.2 10^3/uL (1.7-8.2); BASOPHILS % (AUTO) 1.1 % (0-2); EOSINOPHILS % (AUTO) 3.6 % (0-6); HEMATOCRIT 30.7 % (37.9-51.0); HEMOGLOBIN 9.5 g/dL (13.5-17.0); HGB HCT DIFFERENCE -2.2; LYMPHOCYTES % (AUTO) 16.7 % (13-45); MEAN CORPUSCULAR HEMOGLOBIN 25.7 pg (27.0-33.4); MEAN CORPUSCULAR HGB CONC 31.1 g/dL (32.0-36.0); MEAN CORPUSCULAR VOLUME 83 fl (80-97); MONOCYTES % (AUTO) 14.1 % (3-13); RED BLOOD COUNT 3.71 10^6/uL (4.35-5.55); RED CELL DISTRIBUTION WIDTH 19.7 % (11.5-14.0); SEGMENTED NEUTROPHILS % (AUTO) 64.5 % (42-78); WHITE BLOOD COUNT 6.6 10^3/uL (4.0-10.5)
[2017-06-21 05:27] LABS: ANION GAP 15 (5-19); BLOOD UREA NITROGEN 20 mg/dL (7-20); CALCIUM 8.6 mg/dL (8.4-10.2); CARBON DIOXIDE 28 mmol/L (22-30); CHLORIDE 101 mmol/L (98-107); CREATININE RESULT 1.44 mg/dL (0.52-1.25); GLUCOSE 152 mg/dL (75-110); POTASSIUM 4.4 mmol/L (3.6-5.0); SODIUM 143.6 mmol/L (137-145)
[2017-06-21 05:39] LABS: FREE T3 3.13 pg/mL (2.77-5.27)
[2017-06-21 05:53] LABS: THYROID STIMULATING HORMONE 6.47 uIU/mL (0.47-4.68)
[2017-06-21] MEDS: FUROSEMIDE INJ/PF 20 MG/2 ML SDV IV SCH ×2 (06:15→17:32)
[2017-06-21] MEDS ORDERED: ONDANSETRON HCL INJ/PF 4 MG/2 ML SDV IV PRN (07:35)
--- NOTE | 2017-06-21 10:15 | RADIOLOGY REPORT (SQ) ---
EXAM DESCRIPTION: CHEST SINGLE VIEW COMPLETED DATE/TIME: 06/21/2017 8:37 am REASON FOR STUDY: CHF COMPARISON: 06/18/2017 NUMBER OF VIEWS: One view. TECHNIQUE: Single frontal radiographic view of the chest acquired. LIMITATIONS: Patient body habitus FINDINGS: LUNGS AND PLEURA: No opacities, masses or pneumothorax. No pleural effusion. MEDIASTINUM AND HILAR STRUCTURES: Stable appearance. HEART AND VASCULAR STRUCTURES: Cardiomegaly stable. Minor vascular congestion. BONES: No acute findings. HARDWARE: Operative changes lower cervical spine. OTHER: No other significant finding. IMPRESSION: Cardiomegaly. Mild vascular congestion. TECHNICAL DOCUMENTATION: JOB ID: [id number] [employer]- All Rights Reserved
[2017-06-21] MEDS: ASPIRIN 81 MG TABLET, CHEWABLE PO SCH (10:16)
[2017-06-21] MEDS: CARVEDILOL 12.5 MG TABLET PO SCH ×2 (10:17→21:24)
[2017-06-21] MEDS: FAMOTIDINE 20 MG TABLET PO SCH ×2 (10:17→21:24)
[2017-06-21] MEDS: MAGNESIUM OXIDE 400 MG TABLET PO SCH ×2 (10:17→21:24)
[2017-06-21] MEDS: SERTRALINE HCL 50 MG TABLET PO SCH (10:18)
[2017-06-21] MEDS: FERROUS SULFATE 325 MG TABLET PO SCH (10:18)
[2017-06-21] MEDS: GABAPENTIN 300 MG CAPSULE PO SCH ×2 (10:18→21:24)
[2017-06-21] MEDS: AMIODARONE HCL 200 MG TABLET PO SCH ×2 (10:19→21:29)
[2017-06-21] MEDS: ERTAPENEM SODIUM 1 GM in NORMAL SALINE 50 ML IV SCH (10:19)
--- NOTE | 2017-06-21 12:49 | Physician Advisory Note ---
Physician Advisor ProgressNote .: Pursuant to the plan for [facility], I have reviewed the medical record for this patient. Physician Advisor Statement: Please document: 1. Findings that support the initial dx Acute ___ type CHF - at present, there is no mention of SOB/crackles/... - just BLE edema & high BNP, lungs documented as CTA consistently. - CXR was 06/18, 1 day prior to adm, then repeat 06/21 without change per report despite IV Lasix x 2 days. 2. CHF type - "[?Acute on] chronic ____ CHF" [syst? diast? ...] 3. type of Afib - persistent or paroxysmal? 4. "obesity w/BMI 42.3" - & note what extra measures required because of this. 5. Is pt developing possible ARF? (BNP worsening while on IV Lasix, Cr up from 1.18 to 1.44 now) 6. Please make it clear whether pt clinically septic or not, to avoid query later. It is FINE to say you don't think pt was septic, if that is accurate - it's just that coders have to ask whenever SIRS is documented with cause being an infection. Status: 72yo w/very complex PMH, underlying chronic __ type CHF, __ type Afib, CAD 3vessel not candidate for intervention, HTN, HLD, past PE, asthma, COPD, RE unable to tolerate CPAP, DM type __, BPH, GERD, IBS, PTSD, depression, cervical & L-S fusion, recent 2mo stay at [facility] for elective spinal surg, prolonged ICU course w/trach & G-tube, then LTAC, required open irving with RUQ drain which was left in place x 2mo despite stopping draining fluid several weeks ago. Developed confusion/disorientation w/leukocytosis, meeting SIRS criteria on the day before this adm w/HR 112, BP 94/80, RR22, WBC 16, & on day of adm w/HR 90s at times, WBC 12.2. Draining pus from around tube site, w/surrounding erythema & subcutaneous abscess. BNP high at 10,700. Last BNP was only 3010 in September 2016. Begun on IV abx, drain removed, abscess drained, though with continued significant confusion & continued hallucinations the day after admission, along with tachycardia to 115. Treated for possible mild acute on chronic __ CHF with IV Lasix bid, with resultant worsened BNP & Cr. Ongoing persistent tachycardia increases his risks for ACS & acute CHF. It also indicates he may not yet be hemodynamically stable. HR was baseline 60s- 70s in Sep 2016. Now cleared for d/c from surgical perspective, but with worsened renal function he is not likely to be considered ready for d/c from medical perspective. Appropriate for Inpt status. Thanks! CK
--- NOTE | 2017-06-21 13:34 | PDOC PROGRESS REPORT ---
Subjective Progress Note for:: 06/21/17 Subjective:: No complaints; sonorous respirations; arouses but appears stuporous Physical Exam Vital Signs: Temp Pulse Resp BP Pulse Ox 97.8 F 104 H 18 146/89 H 97 06/21/17 11:36 06/21/17 11:36 06/21/17 11:36 06/21/17 11:36 06/21/17 11:36 Intake & Output 06/20/17 06/21/17 06/22/17 06:59 06:59 06:59 Intake Total 265 697 80 Output Total 0 Balance 265 697 80 Weight 104.09 kg 108.4 kg 108.4 kg GI/Abdominal exam: PRESENT: other - All dressings removed; I right upper quadrant status post debridement clean with minimal fibrinous debris Results Laboratory Results: 06/21/17 04:25 06/21/17 04:25 06/21/17 06/21/17 06/21/17 04:25 04:25 04:25 WBC 6.6 RBC 3.71 L Hgb 9.5 L Hct 30.7 L MCV 83 MCH 25.7 L MCHC 31.1 L RDW 19.7 H Plt Count 350 Seg Neutrophils % 64.5 Lymphocytes % 16.7 Monocytes % 14.1 H Eosinophils % 3.6 Basophils % 1.1 Absolute Neutrophils 4.2 Absolute Lymphocytes 1.1 Absolute Monocytes 0.9 Absolute Eosinophils 0.2 Absolute Basophils 0.1 Sodium 143.6 Potassium 4.4 Chloride 101 Carbon Dioxide 28 Anion Gap 15 BUN 20 Creatinine 1.44 H Est GFR ( Amer) 59 L Est GFR (Non-Af Amer) 48 L Glucose 152 H Calcium 8.6 TSH 6.47 H Free T4 1.85 Free T3 pg/mL 3.13 06/19/17 18:15 Abdomen - Abscess Gram Stain - Final 06/21/17 04:25 NT-Pro-B Natriuret Pep [id number] H Impressions: Head CT 06/19/17 13:45 IMPRESSION: Stable CT appearance of the brain. Abdomen CT 06/19/17 14:20 IMPRESSION: Percutaneous biliary drain demonstrating stable position and appearance. No evidence of abscess. Persistent mild ascites. Chest X-Ray 06/21/17 06:00 IMPRESSION: Cardiomegaly. Mild vascular congestion. Assessment & Plan - Diagnosis (1) Abdominal abscess Is this a current diagnosis for this admission?: YesPlan: Status post debridement, with clean wound, beginning to granulate. Plan 1. Can switch to p.o. antibiotics as cellulitis is resolved\ 2. Begin dressing changes; discussed with nursing staff 3. Reconsult surgery if needed.
--- NOTE | 2017-06-21 13:40 | PDOC PROGRESS REPORT ---
Subjective Progress Note for:: 06/21/17 Subjective:: Patient has no complaints today. Patient denies fever, chills, headache, new focal weakness, chest pain, shortness of breath, abdominal pain, nausea, vomiting, diarrhea, constipation. Physical Exam Vital Signs: Temp Pulse Resp BP Pulse Ox 97.8 F 104 H 18 146/89 H 97 06/21/17 11:36 06/21/17 11:36 06/21/17 11:36 06/21/17 11:36 06/21/17 11:36 Intake & Output 06/20/17 06/21/17 06/22/17 06:59 06:59 06:59 Intake Total 265 697 80 Output Total 0 Balance 265 697 80 Weight 104.09 kg 108.4 kg 108.4 kg GENERAL: No acute distress HEENT: Conjunctiva clear, nonicteric, moist mucous membranes, no JVD, midline trachea with previous tracheostomy site healing well RESPIRATORY: Clear to auscultation bilaterally, no wheezes, no rhonchi CARDIAC: Irregular ABDOMEN: Soft, nondistended, nontender, positive bowel sounds, no rebound, no guarding EXTREMETIES: 1+ bilateral lower extremity edema NEUROLOGIC: Drowsy but arousable, oriented 3, CN's grossly intact, no focal deficits SKIN: Prior drain site in right upper quadrant with decreased erythema PSYCH: Unusual affect Results Laboratory Results: 06/21/17 04:25 06/21/17 04:25 06/21/17 06/21/17 06/21/17 04:25 04:25 04:25 WBC 6.6 RBC 3.71 L Hgb 9.5 L Hct 30.7 L MCV 83 MCH 25.7 L MCHC 31.1 L RDW 19.7 H Plt Count 350 Seg Neutrophils % 64.5 Lymphocytes % 16.7 Monocytes % 14.1 H Eosinophils % 3.6 Basophils % 1.1 Absolute Neutrophils 4.2 Absolute Lymphocytes 1.1 Absolute Monocytes 0.9 Absolute Eosinophils 0.2 Absolute Basophils 0.1 Sodium 143.6 Potassium 4.4 Chloride 101 Carbon Dioxide 28 Anion Gap 15 BUN 20 Creatinine 1.44 H Est GFR ( Amer) 59 L Est GFR (Non-Af Amer) 48 L Glucose 152 H Calcium 8.6 TSH 6.47 H Free T4 1.85 Free T3 pg/mL 3.13 06/19/17 18:15 Abdomen - Abscess Gram Stain - Final 06/21/17 04:25 NT-Pro-B Natriuret Pep [id number] H Impressions: Head CT 06/19/17 13:45 IMPRESSION: Stable CT appearance of the brain. Abdomen CT 06/19/17 14:20 IMPRESSION: Percutaneous biliary drain demonstrating stable position and appearance. No evidence of abscess. Persistent mild ascites. Chest X-Ray 06/21/17 06:00 IMPRESSION: Cardiomegaly. Mild vascular congestion. Assessment & Plan - Diagnosis (1) Systemic inflammatory response syndrome Is this a current diagnosis for this admission?: YesPlan: Secondary to abdominal wall cellulitis/abscess. (2) Abdominal wall cellulitis Is this a current diagnosis for this admission?: YesPlan: Likely introduced by prolonged GIOVANNI drain in right upper quadrant. CT scan from shows drain in gallbladder fossa, no abscess in gallbladder fossa, gallbladder surgically absent. Continue IV ertapenem and IV vancomycin pending wound culture and blood cultures. Wound culture tentatively growing gram-positive cocci. Surgery removed GIOVANNI drain on day of admission. Patient can discharge back to [facility] once culture and sensitivity are back and we can determine antibiotic regimen (3) Encephalopathy Is this a current diagnosis for this admission?: YesPlan: Much improved. Patient alert and oriented 3 still a little drowsy. (4) Acute CHF Qualifiers: Congestive heart failure type: unspecified congestive heart failure type Qualified Code(s): I50.9 - Heart failure, unspecified Is this a current diagnosis for this admission?: YesPlan: Patient has acutely CHF with unknown EF. Continue Lasix 20 mg IV every 12 hours. Repeat chest x-ray in proBNP level in the morning. Echocardiogram pending. Continue Coreg. (5) Anemia Is this a current diagnosis for this admission?: YesPlan: Hemoccult stool negative. Started iron supplementation. Monitor H&H. Transfuse for hemoglobin less than 8.0. (6) Coronary artery disease Is this a current diagnosis for this admission?: YesPlan: Continue Effient, Coreg, Lipitor, aspirin. (7) Diabetes Is this a current diagnosis for this admission?: YesPlan: Sliding scale insulin for now. (8) Atrial fibrillation Is this a current diagnosis for this admission?: YesPlan: Heart rate stable on amiodarone. Monitor on telemetry. (9) Obstructive sleep apnea Is this a current diagnosis for this admission?: Yes (10) Hypertension Is this a current diagnosis for this admission?: Yes (11) Pulmonary hypertension Is this a current diagnosis for this admission?: Yes - Time Time Spent with patient: 35 or more minutes Anticipated discharge: Acute Rehab Within: within 48 hours
[2017-06-21] MEDS ORDERED: ENOXAPARIN SODIUM INJ 40 MG/0.4 ML DISP.SYRIN SUBCUT ONE (16:00)
[2017-06-21] MEDS: VANCOMYCIN HCL 1,500 MG in DEXTROSE 5%-WATER 250 ML IV SCH (17:32)
--- NOTE | 2017-06-21 19:01 | XCELERA REPORT ---
[address] [address] Transthoracic Echocardiogram Report Name: DIVYA JAIN Age: 72 yrs Gender: Male : 1945 Patient Status: Inpatient Patient Location: [id number]\307\[id number]\A Study Date: 06/21/2017 09:19 AM Height: 63 in Weight: 229 lb BSA: 2.0 m2 Procedure: A complete two-dimensional transthoracic echocardiogram was performed (2D, M-mode, spectral and color flow Doppler). The study was technically difficult with many images being suboptimal in quality. Reason For Study: acute CHF Ordering Physician: POONAM DICKERSON Performed By: Ana Maria Eckert Interpretation Summary The Ejection Fraction estimate is 40-45% Left ventricular systolic function is mildly reduced. Doppler measurements suggest pseudonormalized left ventricular relaxation, which is associated with grade II/IV or mild to moderate diastolic dysfunction There is septal wall hypokinesis The left ventricle is grossly normal size. There is moderate concentric left ventricular hypertrophy. The right ventricular systolic function is moderately reduced. The right ventricle appears to be hypertrophied The right ventricle is moderately dilated. The left atrium is moderately dilated. The right atrium is moderately dilated. There is a mild amount of mitral regurgitation There is no mitral valve stenosis. There is no aortic valve stenosis No aortic regurgitation is present. There is a trace to mild amount of tricuspid regurgitation There is mild to moderate pulmonary hypertension by echo Right ventricular systolic pressure is estimated to be elevated at 40- 50mmHg. The aortic root is not well visualized but is probably normal size. The inferior vena cava appeared normal and decreased < 50% with respiration (RAP 10-15 mmHg) There is no pericardial effusion. MMode/2D Measurements \T\ Calculations RVDd: 3.3 cm LVIDd: 3.5 cm FS: 8.2 % Ao root diam: 3.0 cm IVSd: 1.5 cm LVIDs: 3.2 cm EDV(Teich): 50.8 ml LVPWd: 1.5 cm ESV(Teich): 41.2 ml Ao root area: 7.2 cm2 EF(Teich): 18.8 % LA dimension: 4.6 cm LVOT diam: 1.8 cm LVOT area: 2.4 cm2 Doppler Measurements \T\ Calculations MV E max jaswinder: MV P1/2t max jaswinder: Ao V2 max: LV V1 max P.6 cm/sec 107.1 cm/sec 120.7 cm/sec 2.7 mmHg MV A max jaswinder: MV P1/2t: 22.5 msec Ao max PG: LV V1 max: 49.4 cm/sec MVA(P1/2t): 9.8 cm2 5.8 mmHg 81.4 cm/sec MV E/A: 2.1 MV dec slope: NOREEN(V,D): 1.6 cm2 1395 cm/sec2 PA V2 max: PI end-d jaswinder: TR max jaswinder: 67.1 cm/sec 146.6 cm/sec 265.0 cm/sec PA max P.8 mmHg TR max P.1 mmHg Left Ventricle The left ventricle is grossly normal size. There is moderate concentric left ventricular hypertrophy. Left ventricular systolic function is mildly reduced. The Ejection Fraction estimate is 40-45%. Doppler measurements suggest pseudonormalized left ventricular relaxation, which is associated with grade II/IV or mild to moderate diastolic dysfunction. There is septal wall hypokinesis. Right Ventricle The right ventricle is moderately dilated. The right ventricle appears to be hypertrophied. The right ventricular systolic function is moderately reduced. Atria The right atrium is moderately dilated. The left atrium is moderately dilated. Interarterial septum not well visualized and not well dopplered. Cannot comment on ASD/PFO presence. Mitral Valve The mitral valve leaflets are sclerotic and show some degree of functional abnormality. There is mild mitral annular calcification. There is no mitral valve stenosis. There is a mild amount of mitral regurgitation. Aortic Valve The aortic valve is grossly normal. There is no aortic valve stenosis. No aortic regurgitation is present. Tricuspid Valve The tricuspid valve is not well visualized secondary to technical limitations. There is no tricuspid stenosis. There is a trace to mild amount of tricuspid regurgitation. There is mild to moderate pulmonary hypertension by echo. Right ventricular systolic pressure is estimated to be elevated at 40-50mmHg. Pulmonic Valve The pulmonic valve is not well visualized. Great Vessels The aortic root is not well visualized but is probably normal size. The inferior vena cava appeared normal and decreased < 50% with respiration (RAP 10-15 mmHg). Effusions There is no pericardial effusion. : POONAM DICKERSON Shyamal
[2017-06-21] MEDS: QUETIAPINE FUMARATE 25 MG TABLET PO SCH (21:23)
[2017-06-21] MEDS: ATORVASTATIN CALCIUM 40 MG TABLET PO SCH (21:24)
[2017-06-21] MEDS: AMITRIPTYLINE HCL 25 MG TABLET PO SCH (21:27)
[2017-06-22 04:29] LABS: ABSOLUTE BASOPHILS # (AUTO) 0.1 10^3/uL (0.0-0.2); ABSOLUTE EOSINOPHILS # (AUTO) 0.4 10^3/uL (0.0-0.6); ABSOLUTE LYMPHOCYTES (AUTO) 0.9 10^3/uL (0.5-4.7); ABSOLUTE MONOCYTES (AUTO) 0.9 10^3/uL (0.1-1.4); BASOPHILS % (AUTO) 1.2 % (0-2); EOSINOPHILS % (AUTO) 6.3 % (0-6); HEMATOCRIT 28.6 % (37.9-51.0); HEMOGLOBIN 9.1 g/dL (13.5-17.0); HGB HCT DIFFERENCE -1.3; LYMPHOCYTES % (AUTO) 14.8 % (13-45); MEAN CORPUSCULAR HEMOGLOBIN 25.8 pg (27.0-33.4); MEAN CORPUSCULAR HGB CONC 31.8 g/dL (32.0-36.0); MEAN CORPUSCULAR VOLUME 81 fl (80-97); MONOCYTES % (AUTO) 14.2 % (3-13); RED BLOOD COUNT 3.53 10^6/uL (4.35-5.55); RED CELL DISTRIBUTION WIDTH 20.4 % (11.5-14.0); SEGMENTED NEUTROPHILS % (AUTO) 63.5 % (42-78); WHITE BLOOD COUNT 6.4 10^3/uL (4.0-10.5)
[2017-06-22 04:47] LABS: ANION GAP 12 (5-19); BLOOD UREA NITROGEN 20 mg/dL (7-20); CALCIUM 8.1 mg/dL (8.4-10.2); CARBON DIOXIDE 29 mmol/L (22-30); CHLORIDE 101 mmol/L (98-107); GLUCOSE 141 mg/dL (75-110); POTASSIUM 3.6 mmol/L (3.6-5.0); SODIUM 141.7 mmol/L (137-145)
[2017-06-22] MEDS: FUROSEMIDE INJ/PF 20 MG/2 ML SDV IV SCH (06:38)
[2017-06-22] MEDS ORDERED: PHARMACY COMMUNICATION ORDER MC NR ×2 (07:45→15:45)
[2017-06-22] MEDS ORDERED: ALBUTEROL SULFATE 0.083% NEB 2.5 MG/3 ML AMPUL NEB PRN (09:35)
[2017-06-22] MEDS: ENOXAPARIN SODIUM INJ 40 MG/0.4 ML DISP.SYRIN SUBCUT SCH (11:22)
[2017-06-22] MEDS: CARVEDILOL 12.5 MG TABLET PO SCH ×2 (11:22→23:01)
[2017-06-22] MEDS: FERROUS SULFATE 325 MG TABLET PO SCH (11:23)
[2017-06-22] MEDS: SERTRALINE HCL 50 MG TABLET PO SCH (11:23)
[2017-06-22] MEDS: MAGNESIUM OXIDE 400 MG TABLET PO SCH ×2 (11:24→23:02)
[2017-06-22] MEDS: FAMOTIDINE 20 MG TABLET PO SCH ×2 (11:24→23:02)
[2017-06-22] MEDS: AMIODARONE HCL 200 MG TABLET PO SCH ×2 (11:25→23:02)
[2017-06-22] MEDS: GABAPENTIN 300 MG CAPSULE PO SCH ×2 (11:25→22:55)
[2017-06-22] MEDS: ASPIRIN 81 MG TABLET, CHEWABLE PO SCH (11:25)
[2017-06-22] MEDS ORDERED: CEFUROXIME 500 MG TABLET PO ONE (12:00)
[2017-06-22] MEDS ORDERED: CLINDAMYCIN HCL 150 MG CAPSULE PO SCH (12:00)
[2017-06-22] MEDS: CLOPIDOGREL BISULFATE 75 MG TABLET PO SCH (12:15)
--- NOTE | 2017-06-22 15:59 | PDOC PROGRESS REPORT ---
Subjective Progress Note for:: 06/22/17 Subjective:: Patient is seen with and nurse at bedside. No acute events overnight. Patient denies chest pain, shortness of breath, abdominal pain, nausea, vomiting , fevers, chills, diarrhea, constipation, headache, new onset weakness. Patient slightly somnolent but arouses and is oriented and appropriate. Physical Exam Vital Signs: Temp Pulse Resp BP Pulse Ox 97.5 F 69 18 119/73 91 L 06/22/17 04:13 06/22/17 04:13 06/22/17 04:13 06/22/17 04:13 06/22/17 04:13 Intake & Output 06/21/17 06/22/17 06/23/17 06:59 06:59 06:59 Intake Total 697 600 Balance 697 600 Weight 108.4 kg 104.2 kg Exam: GENERAL: No acute distress, A+Ox3 HEENT: Conjunctiva clear, nonicteric, pale conjunctiva, moist mucous membranes, no JVD, midline trachea with previous tracheostomy site healing well, mild surrounding hyperemia RESPIRATORY: Clear to auscultation bilaterally, no wheezes, no rhonchi CARDIAC: Irregular ABDOMEN: Soft, nondistended, nontender, positive bowel sounds, no rebound, no guarding EXTREMETIES: 1+ bilateral lower extremity edema NEUROLOGIC: Drowsy but arousable, oriented 3, CN's grossly intact, no focal deficits SKIN: Prior drain site in right upper quadrant with minimal erythema PSYCH: flat affect, unusual mood Results Laboratory Results: 06/22/17 04:10 06/22/17 04:10 06/22/17 06/22/17 04:10 04:10 WBC 6.4 RBC 3.53 L Hgb 9.1 L Hct 28.6 L MCV 81 MCH 25.8 L MCHC 31.8 L RDW 20.4 H Plt Count 331 Seg Neutrophils % 63.5 Lymphocytes % 14.8 Monocytes % 14.2 H Eosinophils % 6.3 H Basophils % 1.2 Absolute Neutrophils 4.0 Absolute Lymphocytes 0.9 Absolute Monocytes 0.9 Absolute Eosinophils 0.4 Absolute Basophils 0.1 Sodium 141.7 Potassium 3.6 Chloride 101 Carbon Dioxide 29 Anion Gap 12 BUN 20 Creatinine 1.30 H Est GFR ( Amer) > 60 Est GFR (Non-Af Amer) 55 L Glucose 141 H Calcium 8.1 L 07/29/17 18:15 Abdomen - Abscess Gram Stain - Final 06/19/17 18:15 Abdomen - Abscess Wound Culture - Final Staphylococcus Aureus No Anaerobic Organisms 06/21/17 04:25 NT-Pro-B Natriuret Pep 76607 H Impressions: Head CT 06/19/17 13:45 IMPRESSION: Stable CT appearance of the brain. Abdomen CT 06/19/17 14:20 IMPRESSION: Percutaneous biliary drain demonstrating stable position and appearance. No evidence of abscess. Persistent mild ascites. Chest X-Ray 06/21/17 06:00 IMPRESSION: Cardiomegaly. Mild vascular congestion. Assessment & Plan - Diagnosis (1) Sepsis Qualifiers: Sepsis type: methicillin susceptible Staphylococcus aureus Qualified Code(s): A41.01 - Sepsis due to Methicillin susceptible Staphylococcus aureus Is this a current diagnosis for this admission?: YesPlan: Likely present on admission. SIRS criteria met on admission with source of abdominal wall abscess also present on admission now growing MSSA. WBC 12.2, encephalopathic, and tachycardic. (2) Abdominal abscess Is this a current diagnosis for this admission?: YesPlan: Patient with MSSA Placed on Doxycyline 100mg po bid. At this time, am concerned that this may have infiltrated patient's ascitic fluid which was not sampled. At this time, sampling patient's ascitic fluid would have low yield due to being on IV antibiotics, vancomycin and ertapenem, for [address] patient on Ceftin twice daily. Recheck CBC in a.m. Monitor for fever curve (3) Acute CHF Qualifiers: Congestive heart failure type: unspecified congestive heart failure type Qualified Code(s): I50.9 - Heart failure, unspecified Is this a current diagnosis for this admission?: YesPlan: Patient currently euvolemic EF of 40-45% Grade 2 out of 4 diastolic dysfunction Mild to moderate pulmonary hypertension Transition patient to oral Lasix. Patient not required to be on DANUTA or ARB due to EF>40%. Patient's blood pressure at this time will not tolerate additional DANUTA/ARB and GFR is marginal. Patient on Coreg. Generic Name Dose Route Start Last Admin Trade Name Freq PRN Reason Stop Dose Admin Aspirin 81 mg 06/20/17 10:00 06/22/17 11:25 Aspirin 81 Mg Chewable Tablet PO 07/20/17 09:59 81 mg DAILY STEFFI Carvedilol 12.5 mg 06/21/17 10:00 06/22/17 11:22 Coreg 12.5 Mg Tablet PO 07/21/17 09:59 12.5 mg Q12 [facility] Clopidogrel Bisulfate 75 mg 06/22/17 12:00 06/22/17 12:15 Plavix 75 Mg Tablet PO 07/22/17 11:59 75 mg DAILY@1200 STEFFI 06/22/17 04:10 Est GFR (Non-Af Amer) 55 L (4) Anemia Qualifiers: Anemia type: iron deficiency Iron deficiency anemia type: unspecified iron deficiency Qualified Code(s): D50.9 - Iron deficiency anemia, unspecified Is this a current diagnosis for this admission?: YesPlan: Continue patient on oral iron replacement (5) Atrial fibrillation Qualifiers: Atrial fibrillation type: chronic Qualified Code(s): I48.2 - Chronic atrial fibrillation Is this a current diagnosis for this admission?: YesPlan: Patient on aspirin and Plavix On Coreg well-controlled (6) Coronary artery disease Is this a current diagnosis for this admission?: YesPlan: On aspirin, Plavix, Coreg. No DANUTA/ARB secondary to recent hemodialysis at [facility]. 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 Continue patient on sliding scale insulin. Patient has marginal oral intake at this time. Continue diabetic diet (8) Encephalopathy Is this a current diagnosis for this admission?: YesPlan: Improved Likely secondary to polysubstances and sepsis. Stop q8h as needed Seroquel and placed on Seroquel nightly alone. (9) Hypertension Qualifiers: Hypertension type: essential hypertension Qualified Code(s): I10 - Essential (primary) hypertension Is this a current diagnosis for this admission?: YesPlan: Well-controlled on Coreg Generic Name Dose Route Start Last Admin Trade Name Freq PRN Reason Stop Dose Admin Carvedilol 12.5 mg 06/21/17 10:00 06/22/17 11:22 Coreg 12.5 Mg Tablet PO 07/21/17 09:59 12.5 mg Q12 STEFFI (10) Obstructive sleep apnea Is this a current diagnosis for this admission?: YesPlan: Place patient on CPAP at night. Feel that this is contributing to his hypersomnolence. (11) Pulmonary hypertension Is this a current diagnosis for this admission?: YesPlan: Continue oxygen as needed (12) Morbid obesity with BMI of 40.0-44.9, adult Is this a current diagnosis for this admission?: YesPlan: Encourage weight loss and consult dietary. (13) CKD (chronic kidney disease) stage 3, GFR 30-59 ml/min Is this a current diagnosis for this admission?: YesPlan: Patient was initial presenting creatinine that was normal, but suspect that this was secondary to volume overloaded status. Patient's current creatinine likely reflects his underlying GFR. Renally adjust all medications. - Time Time Spent with patient: 45 minute Time Spent with patient: 35 or more minutes Medications reviewed and adjusted accordingly: Yes Anticipated discharge: Acute Rehab Within: within 24 hours - Inpatient Certification Based on my medical assessment, after consideration of the patient's comorbidities, presenting symptoms, or acuity I expect that the services needed warrant INPATIENT care.: Yes I certify that my determination is in accordance with my understanding of Medicare's requirements for reasonable and necessary INPATIENT services [42 CFR 412.3e].: Yes Medical Necessity: Need for IV Antibiotics Post Hospital Care: D/C Marine Cargo Specialist Documentation - Plan Summary Plan Summary: Total time spent with patient including patient education, physical examination , discussion with consultants, and formulation of plan was 45 minutes.
[2017-06-22] MEDS: DOXYCYCLINE HYCLATE 100 MG TABLET PO SCH (20:25)
[2017-06-22] MEDS: AMITRIPTYLINE HCL 25 MG TABLET PO SCH (23:02)
[2017-06-22] MEDS: QUETIAPINE FUMARATE 25 MG TABLET PO SCH (23:02)
[2017-06-22] MEDS: ATORVASTATIN CALCIUM 40 MG TABLET PO SCH (23:02)
[2017-06-22] MEDS: CEFUROXIME 500 MG TABLET PO SCH (23:03)
[2017-06-23 07:06] LABS: ABSOLUTE BASOPHILS # (AUTO) 0.1 10^3/uL (0.0-0.2); ABSOLUTE EOSINOPHILS # (AUTO) 0.5 10^3/uL (0.0-0.6); ABSOLUTE MONOCYTES (AUTO) 0.8 10^3/uL (0.1-1.4); ABSOLUTE NEUT (AUTO) 3.4 10^3/uL (1.7-8.2); BASOPHILS % (AUTO) 1.3 % (0-2); EOSINOPHILS % (AUTO) 8.4 % (0-6); HEMATOCRIT 29.7 % (37.9-51.0); HEMOGLOBIN 9.4 g/dL (13.5-17.0); HGB HCT DIFFERENCE -1.5; LYMPHOCYTES % (AUTO) 17.8 % (13-45); MEAN CORPUSCULAR HEMOGLOBIN 25.5 pg (27.0-33.4); MEAN CORPUSCULAR HGB CONC 31.5 g/dL (32.0-36.0); MEAN CORPUSCULAR VOLUME 81 fl (80-97); RED BLOOD COUNT 3.68 10^6/uL (4.35-5.55); SEGMENTED NEUTROPHILS % (AUTO) 59.5 % (42-78); WHITE BLOOD COUNT 5.8 10^3/uL (4.0-10.5)
[2017-06-23 07:26] LABS: ANION GAP 9 (5-19); BLOOD UREA NITROGEN 20 mg/dL (7-20); CARBON DIOXIDE 32 mmol/L (22-30); CHLORIDE 100 mmol/L (98-107); CREATININE RESULT 1.25 mg/dL (0.52-1.25); GLUCOSE 137 mg/dL (75-110); POTASSIUM 3.6 mmol/L (3.6-5.0); SODIUM 141.1 mmol/L (137-145)
[2017-06-23] MEDS: GABAPENTIN 300 MG CAPSULE PO SCH (10:58)
[2017-06-23] MEDS: FAMOTIDINE 20 MG TABLET PO SCH (10:58)
[2017-06-23] MEDS: ASPIRIN 81 MG TABLET, CHEWABLE PO SCH (10:58)
[2017-06-23] MEDS: DOXYCYCLINE HYCLATE 100 MG TABLET PO SCH (10:59)
[2017-06-23] MEDS: FERROUS SULFATE 325 MG TABLET PO SCH (10:59)
[2017-06-23] MEDS: MAGNESIUM OXIDE 400 MG TABLET PO SCH (10:59)
[2017-06-23] MEDS: SERTRALINE HCL 50 MG TABLET PO SCH (10:59)
[2017-06-23] MEDS: AMIODARONE HCL 200 MG TABLET PO SCH (10:59)
[2017-06-23] MEDS: ENOXAPARIN SODIUM INJ 40 MG/0.4 ML DISP.SYRIN SUBCUT SCH (11:00)
[2017-06-23] MEDS: CARVEDILOL 12.5 MG TABLET PO SCH (11:07)
[2017-06-23] MEDS: CEFUROXIME 500 MG TABLET PO SCH (11:21)
[2017-06-23] MEDS: CLOPIDOGREL BISULFATE 75 MG TABLET PO SCH (11:25)
--- NOTE | 2017-06-23 14:09 | PDOC TRANSFER SUMMARY ---
General - Admit/Disc Date/PCP Admission Date/Primary Care Provider: 06/19/17 15:27 Discharge Date: 06/23/17 - Discharge Diagnosis (1) Sepsis Is this a current diagnosis for this admission?: Yes (2) Abdominal abscess Is this a current diagnosis for this admission?: Yes (3) Acute CHF Is this a current diagnosis for this admission?: Yes (4) Anemia Is this a current diagnosis for this admission?: Yes (5) Atrial fibrillation Is this a current diagnosis for this admission?: Yes (6) Coronary artery disease Is this a current diagnosis for this admission?: Yes (7) Diabetes Is this a current diagnosis for this admission?: Yes (8) Encephalopathy Is this a current diagnosis for this admission?: Yes (9) Hypertension Is this a current diagnosis for this admission?: Yes (10) Obstructive sleep apnea Is this a current diagnosis for this admission?: Yes (11) Pulmonary hypertension Is this a current diagnosis for this admission?: Yes (12) Morbid obesity with BMI of 40.0-44.9, adult Is this a current diagnosis for this admission?: Yes (13) CKD (chronic kidney disease) stage 3, GFR 30-59 ml/min Is this a current diagnosis for this admission?: Yes - Additional Information Resuscitation Status: Full Code Discharge Diet: Cardiac, Diabetic, Other (Comments) - glucerna tid with meals Discharge Activity: Activity As Tolerated, Balance Activity w/Rest, Weigh Daily Home Medications: Carvedilol [Coreg 3.125 mg Tablet] 12.5 mg PO BID 05/12/12 Amitriptyline HCl [Elavil 25 mg Tablet] 25 mg PO QHS 02/24/13 Nitroglycerin [Nitrostat 0.4 mg (1/150 Gr) Tabs 25/Bottle] 1 tab SL Q5MP PRN 04/03 Aspirin [Aspirin 81 mg Chewable Tablet] 81 mg PO DAILY 04/08/14 Magnesium Oxide [Magnesium] 400 mg PO Q12 04/08/14 Prasugrel Hydrochloride [Effient] 10 mg PO DAILY 04/08/14 Acetaminophen [Pain Relief] 650 mg PO Q6HP PRN 06/19/17 Amiodarone HCl [Cordarone 200 mg Tablet] 200 mg PO Q12 06/19/17 Atorvastatin Calcium 40 mg PO DAILY 06/19/17 Famotidine [Acid Butter Maker] 20 mg PO Q12 06/19/17 Gabapentin 300 mg PO Q12 06/19/17 Insulin Lispro [Humalog Insulin (Lispro) 100 unit/mL] 0 unit SUBCUT .SLD SCALE 06/19/17 Ondansetron [Zofran Odt 4 mg Tablet] 4 mg PO Q4HP PRN 06/19/17 Sertraline HCl [Zoloft] 25 mg PO DAILY 06/19/17 Cefuroxime Axetil [Ceftin 500 mg Tablet] 500 mg PO Q12 #14 tablet 06/23/17 Doxycycline Hyclate [Vibramycin 100 mg Tablet] 100 mg PO Q12@0800,2000 #20 tablet 06/23/17 Ferrous Sulfate [Feosol 325 mg Tablet] 325 mg PO DAILY #90 tablet 06/23/17 Quetiapine Fumarate [Seroquel 25 mg Tablet] 50 mg PO QHS #30 tablet 06/23/17 History of Present Illness Admission Date/PCP: 06/19/17 15:27 History of Present Illness: DIVYA JAIN is a 72 year old male with very complex past medical history is sent to the emergency department for the second time and 24 hours for confusion. Patient was admitted to [facility] for elective spine surgery that resulted in complications in prolonged hospitalization for approximately 2 months recently. He had a prolonged ICU course and required tracheostomy and gastrostomy tube placement. He was subsequently decannulated and gastrostomy tube was removed at [facility] in [facility]. He had acute cholecystitis and underwent it appears open cholecystectomy at which time he had right upper quadrant drain placed in the gallbladder fossa. Drain has been placed for the past couple months and remains in place at this time. After being at [facility] patient was transferred to [facility] for ongoing rehab. Recently he has developed worsening confusion. He was noted in the emergency department to have elevated white blood count and purulent drainage from around right upper quadrant drain. Medications have not been verified Hospital Course Hospital Course: Patient was admitted and started initially on Vancomycin and Cefepime. Patient had I+D in ER by surgicalist religious education coordinator. Culture obtained at that time was postive for MSSA. Patient transitioned to doxycycline and ceftin orally. Patient much improved and stable for transfer back to rehab. Patient will need dressing change bid with washed with equal parts chlorhexadine and sterile water then cover with gauze 4x4. Resume all previous services. Patient will need Lasix 40mg po every other day. BMP should be done and reported to [place] physician qweek. Remainder of stay unremarkable. Physical Exam Vital Signs: Temp Pulse Resp BP Pulse Ox 97.3 F 64 18 125/73 94 06/23/17 07:31 06/23/17 07:31 06/23/17 07:31 06/23/17 07:31 06/23/17 07:31 Intake & Output 06/22/17 06/23/17 06/24/17 06:59 06:59 06:59 Intake Total 600 800 Output Total 850 Balance 600 -50 Weight 104.2 kg 104.2 kg Exam: GENERAL: No acute distress, A+Ox3 HEENT: Conjunctiva clear, nonicteric, pale conjunctiva, moist mucous membranes, no JVD, midline trachea with previous tracheostomy site healing well, mild surrounding hyperemia RESPIRATORY: Clear to auscultation bilaterally, no wheezes, no rhonchi CARDIAC: Irregular ABDOMEN: Soft, nondistended, nontender, positive bowel sounds, no rebound, no guarding EXTREMETIES: 1+ bilateral lower extremity edema NEUROLOGIC: Drowsy but arousable, oriented 3, CN's grossly intact, no focal deficits SKIN: Prior drain site in right upper quadrant with minimal erythema PSYCH: flat affect, unusual mood Results Laboratory Results: 06/23/17 06:34 06/23/17 06:34 06/22/17 06/23/17 06/23/17 11:05 06:34 06:34 WBC 5.8 RBC 3.68 L Hgb 9.4 L Hct 29.7 L MCV 81 MCH 25.5 L MCHC 31.5 L RDW 20.0 H Plt Count 354 Seg Neutrophils % 59.5 Lymphocytes % 17.8 Monocytes % 13.0 Eosinophils % 8.4 H Basophils % 1.3 Absolute Neutrophils 3.4 Absolute Lymphocytes 1.0 Absolute Monocytes 0.8 Absolute Eosinophils 0.5 Absolute Basophils 0.1 Sodium 141.1 Potassium 3.6 Chloride 100 Carbon Dioxide 32 H Anion Gap 9 BUN 20 Creatinine 1.25 Est GFR ( Amer) > 60 Est GFR (Non-Af Amer) 57 L Glucose 137 H Calcium 8.0 L Ammonia 13.2 06/21/17 04:25 NT-Pro-B Natriuret Pep 31397 H Impressions: Head CT 06/19/17 13:45 IMPRESSION: Stable CT appearance of the brain. Abdomen CT 06/19/17 14:20 IMPRESSION: Percutaneous biliary drain demonstrating stable position and appearance. No evidence of abscess. Persistent mild ascites. Chest X-Ray 06/21/17 06:00 IMPRESSION: Cardiomegaly. Mild vascular congestion. Transfer Plan - Time Spent with Patient Time spent with patient: Less than 30 Minutes
[2017-06-23 15:54] VITALS: BP 127/71
== END 2017-06-23 16:31 | DRG 920 ==
LOC: ER 13:41 → EH 15:27 → UNDOADMIN 15:47 → EH 16:05 → UNDOADMIN 16:05 → 3N 20:16
PROVIDERS: ADMIT Family Medicine; ATTEND Family Medicine
PROC: 3E0F73Z Introduction of Anti-inflammatory into Respiratory Tract, Via Natural or Artificial Opening (ICD-10-PCS; principal; 2017-06-19)
DX: T85.79XA Infection and inflammatory reaction due to other internal prosthetic devices, implants and grafts, initial encounter (principal); L02.211 Cutaneous abscess of abdominal wall; L03.311 Cellulitis of abdominal wall; I13.0 Hypertensive heart and chronic kidney disease with heart failure and stage 1 through stage 4 chronic kidney disease, or unspecified chronic kidney disease; Z68.41 Body mass index [BMI] 40.0-44.9, adult; I50.9 Heart failure, unspecified; B95.61 Methicillin susceptible Staphylococcus aureus infection as the cause of diseases classified elsewhere; Y83.3 Surgical operation with formation of external stoma as the cause of abnormal reaction of the patient, or of later complication, without mention of misadventure at the time of the procedure; N18.3 Chronic kidney disease, stage 3 (moderate); E11.22 Type 2 diabetes mellitus with diabetic chronic kidney disease; D63.1 Anemia in chronic kidney disease; I48.2 Chronic atrial fibrillation; I25.10 Atherosclerotic heart disease of native coronary artery without angina pectoris; G47.33 Obstructive sleep apnea (adult) (pediatric); I27.2 Other secondary pulmonary hypertension; E66.01 Morbid (severe) obesity due to excess calories; J44.9 Chronic obstructive pulmonary disease, unspecified; M19.90 Unspecified osteoarthritis, unspecified site; F32.9 Major depressive disorder, single episode, unspecified; F43.10 Post-traumatic stress disorder, unspecified; R00.0 Tachycardia, unspecified; N40.0 Benign prostatic hyperplasia without lower urinary tract symptoms; K21.9 Gastro-esophageal reflux disease without esophagitis; K44.9 Diaphragmatic hernia without obstruction or gangrene; K58.9 Irritable bowel syndrome, unspecified; Z79.4 Long term (current) use of insulin; Z79.899 Other long term (current) drug therapy; Z93.1 Gastrostomy status; Z86.711 Personal history of pulmonary embolism; Z90.49 Acquired absence of other specified parts of digestive tract; Z88.0 Allergy status to penicillin
CPT/HCPCS: 36415; 70450; 71010; 74160; 80048; 80053; 81001; 82140; 82272; 82607; 82728; 82746; 82803; 82962; 83036; 83540; 83550; 83605; 83735; 83880; 84439; 84443; 84466; 84481; 85025; 85045; 85610; 85730; 87040; 87070; 87075; 87077; 87186; 87205; 93005; 93010; 93306; 99285; J1335; J1650; J1940; J2060; J3370; J3490; J7060

== ENCOUNTER 2017-06-25 14:57 | Emergency (ER) | payer OTHER, MEDICARE ==
--- NOTE | 2017-06-25 15:18 | ER Document Report ---
ED GI/ - General Chief Complaint: Penile Problem Stated Complaint: PENILE SWELLING Time Seen by Provider: 06/25/17 15:14 Notes: The patient is a 72-year-old male, complicated past medical history after complications from spinal surgery 3 months ago, presents with 1 week of increased swelling of his penis and testicles. He is at [facility] and was sent by EMS. He is taking 40 mg Lasix every other day to help with peripheral edema. He was admitted last week for abdominal wall cellulitis and drainage from his GIOVANNI drain after a cholecystectomy and he said that the pain and swelling has improved around the surgical site. Patient has been bedbound for the past 3 months and is just starting physical therapy. Patient no longer has any blurry vision and is not experiencing any hallucinations, which he was having last week. Patient denies difficulty urinating, penile discharge, fevers , pain in his perineum, diarrhea, constipation, nausea or vomiting. TRAVEL OUTSIDE OF THE [place] IN LAST 30 DAYS: No - Related Data Allergies/Adverse Reactions: Penicillins Allergy (Verified 06/25/17 15:08) piperacillin Allergy (Verified 06/25/17 15:08) Past Medical History - General Information source: Patient - Social History Smoking Status: Never Smoker Family History: Reviewed & Not Pertinent - Past Medical History Cardiac Medical History: Reports: Hx Atrial Fibrillation, Hx Congestive Heart Failure, Hx Coronary Artery Disease, Hx Hypercholesterolemia, Hx Hypertension, Hx Pulmonary Embolism Denies: Hx Heart Attack, Hx Peripheral Vascular Disease, Hx Heart Murmur Pulmonary Medical History: Reports: Hx Asthma, Hx Bronchitis, Hx COPD, Hx Sleep Apnea - unable to wear cpap Denies: Hx Pneumonia, Hx Respiratory Failure, Hx Tuberculosis Neurological Medical History: Reports: Hx Seizures - in 1968. Denies: Hx Cerebrovascular Accident Endocrine Medical History: Reports: Hx Diabetes Mellitus Type 1, Hx Diabetes Mellitus Type 2. Denies: Hx Graves' Disease, Hx Hyperthyroidism, Hx Hypothyroidism Renal/ Medical History: Reports: Hx Benign Prostatic Hyperplasia. Denies: Hx End Stage Renal Disease, Hx Kidney Stones, Hx Peritoneal Dialysis Malignancy Medical History: Denies Hx Leukemia, Denies Hx Lung Cancer GI Medical History: Reports: Hx Gastroesophageal Reflux Disease, Hx Hiatal Hernia, Hx Irritable Bowel. Denies: Hx Crohn's Disease, Hx Hepatitis, Hx Liver Failure, Hx Ulcer Musculoskeltal Medical History: Reports Hx Arthritis, Denies Hx Fibromyalgia, Denies Hx Multiple Sclerosis, Denies Hx Muscular Dystrophy Psychiatric Medical History: Reports: Hx Depression, Hx Post Traumatic Stress Disorder - nightmares Denies: Hx Bipolar Disorder, Hx Dementia, Hx Schizophrenia Traumatic Medical History: Reports: Hx Fractures - Rt elbow and scattered radial head Infectious Medical History: Denies: Hx Hepatitis, Hx HIV Past Surgical History: Reports: Hx Appendectomy, Hx Cardiac Catheterization - 3 VESSEL DISEASE NOT CANDIDATE FOR INTERVENTION, Hx Cholecystectomy, Hx Orthopedic Surgery - CERVICAL AND L-S FUSION, Other - Tracheostomy- decannulated. PEG tube-removed. Denies: Hx Bowel Surgery, Hx Colostomy, Hx Coronary Artery Bypass Graft, Hx Gastric Bypass Surgery, Hx Herniorrhaphy, Hx Open Heart Surgery, Hx Pacemaker, Hx Tonsillectomy - Immunizations Hx Diphtheria, Pertussis, Tetanus Vaccination: Yes Hx Pneumococcal Vaccination: 08/22/12 Review of Systems - Review of Systems Notes: REVIEW OF SYSTEMS: CONSTITUTIONAL: -fevers, -chills EENT: -eye pain, -difficulty swallowing, -nasal congestion CARDIOVASCULAR:-chest pain, -syncope. RESPIRATORY: -cough, -SOB GASTROINTESTINAL: -abdominal pain, - nausea, -vomiting, -diarrhea GENITOURINARY: -dysuria, -hematuria, +penis and testicle swelling MUSCULOSKELETAL: -back pain, -neck pain SKIN: -rash or skin lesions. HEMATOLOGIC: -easy bruising or bleeding. LYMPHATIC: -swollen, enlarged glands. NEUROLOGICAL: -altered mental status or loss of consciousness, -headache, - neurologic symptoms PSYCHIATRIC: -anxiety, -depression. ALL OTHER SYSTEMS REVIEWED AND NEGATIVE. Physical Exam - Vital signs Vitals: Resp 18 06/25/17 15:00 - Notes Notes: PHYSICAL EXAMINATION: GENERAL: Well-appearing, well-nourished and in no acute distress. HEAD: Atraumatic, normocephalic. EYES: Pupils equal round and reactive to light, extraocular movements intact, sclera anicteric, conjunctiva are normal. ENT: nares patent, oropharynx clear without exudates. Moist mucous membranes. NECK: Normal range of motion, supple without lymphadenopathy LUNGS: Breath sounds clear to auscultation bilaterally and equal. No wheezes rales or rhonchi. HEART: Regular rate and rhythm without murmurs ABDOMEN: Soft, nontender, normoactive bowel sounds. No erythema around RUQ surgical site, no drainage and non-tender. No guarding, no rebound. No masses appreciated. : Swollen, non-tender penis and scrotum, easily retracted foreskin, non- tender and normal lie of testicles, no erythema or crepitus EXTREMITIES: Normal range of motion, no pitting or edema. No cyanosis. NEUROLOGICAL: Cranial nerves grossly intact. Normal speech, normal gait. Normal sensory and motor exams. PSYCH: Normal mood, normal affect. SKIN: Warm, Dry, normal turgor, no rashes or lesions noted. Course - Re-evaluation Re-evalutation: No signs of crepitus, erythema or penineal pain to suggest Fourneir's Gangrene. Patient has evidence of mild anasarca in his penis and testicles, most likely from being bedbound. Labs are unremarkable and her pro-BNP is decreased from his prior levels. He is already on 40 mg Lasix every other day. Will increase this to 40 mg daily and have him follow-up with his primary care physician. - Vital Signs Vital signs: Temp Pulse Resp BP Pulse Ox 98.1 F 69 20 155/83 H 98 06/25/17 15:05 06/25/17 15:05 06/25/17 15:05 06/25/17 15:05 06/25/17 15:05 - Laboratory Result Diagrams: 06/25/17 15:25 06/25/17 15:25 Laboratory results interpreted by me: 06/25/17 06/25/17 06/25/17 15:25 15:25 15:25 RBC 3.94 L Hgb 10.1 L Hct 32.8 L MCH 25.5 L MCHC 30.7 L RDW 19.7 H Carbon Dioxide 32 H Glucose 151 H Calcium 8.2 L Direct Bilirubin 0.5 H NT-Pro-B Natriuret Pep 8210 H Albumin 3.3 L Discharge - Discharge Clinical Impression: Anasarca Condition: Stable Additional Instructions: Increase your Lasix dose to 40 mg every day. Swelling around your penis and scrotum is from fluid in your subcutaneous tissue. You must follow-up with your primary care physician for further evaluation and treatment. Physical therapy will also help with your symptoms.
[2017-06-25 15:42] LABS: ABSOLUTE BASOPHILS # (AUTO) 0.1 10^3/uL (0.0-0.2); ABSOLUTE EOSINOPHILS # (AUTO) 0.4 10^3/uL (0.0-0.6); ABSOLUTE MONOCYTES (AUTO) 0.9 10^3/uL (0.1-1.4); ABSOLUTE NEUT (AUTO) 5.1 10^3/uL (1.7-8.2); BASOPHILS % (AUTO) 1.1 % (0-2); EOSINOPHILS % (AUTO) 4.9 % (0-6); HEMATOCRIT 32.8 % (37.9-51.0); HEMOGLOBIN 10.1 g/dL (13.5-17.0); HGB HCT DIFFERENCE -2.5; LYMPHOCYTES % (AUTO) 13.2 % (13-45); MEAN CORPUSCULAR HEMOGLOBIN 25.5 pg (27.0-33.4); MEAN CORPUSCULAR HGB CONC 30.7 g/dL (32.0-36.0); MEAN CORPUSCULAR VOLUME 83 fl (80-97); MONOCYTES % (AUTO) 12.4 % (3-13); RED BLOOD COUNT 3.94 10^6/uL (4.35-5.55); RED CELL DISTRIBUTION WIDTH 19.7 % (11.5-14.0); SEGMENTED NEUTROPHILS % (AUTO) 68.4 % (42-78); WHITE BLOOD COUNT 7.5 10^3/uL (4.0-10.5)
[2017-06-25 15:56] LABS: ALANINE AMINOTRANSFERASE 51 U/L (21-72); ALBUMIN 3.3 g/dL (3.5-5.0); ALKALINE PHOSPHATASE 116 U/L (38-126); ANION GAP 11 (5-19); ASPARTATE AMINO TRANSFERASE 21 U/L (17-59); BILIRUBIN,DIRECT 0.5 mg/dL (0.0-0.4); BILIRUBIN,TOTAL 0.7 mg/dL (0.2-1.3); BLOOD UREA NITROGEN 17 mg/dL (7-20); CALCIUM 8.2 mg/dL (8.4-10.2); CARBON DIOXIDE 32 mmol/L (22-30); CHLORIDE 101 mmol/L (98-107); CREATININE RESULT 1.15 mg/dL (0.52-1.25); GLUCOSE 151 mg/dL (75-110); POTASSIUM 3.9 mmol/L (3.6-5.0); SODIUM 143.9 mmol/L (137-145); TOTAL PROTEIN 6.7 g/dL (6.3-8.2)
[2017-06-25] MEDS ORDERED: FUROSEMIDE 40 MG TABLET PO ONE (16:06)
[2017-06-25 19:00] VITALS: BP 149/101
[2017-06-25] MEDS ORDERED: HALOPERIDOL LACTATE INJ 5 MG/1 ML VIAL IM ONE (19:15)
== END 2017-06-25 19:30 ==
LOC: ER 14:57
DX: R60.1 Generalized edema (principal); I25.10 Atherosclerotic heart disease of native coronary artery without angina pectoris; I10 Essential (primary) hypertension; E11.9 Type 2 diabetes mellitus without complications; J44.9 Chronic obstructive pulmonary disease, unspecified; N48.89 Other specified disorders of penis; Z98.890 Other specified postprocedural states; Z79.899 Other long term (current) drug therapy; Z88.0 Allergy status to penicillin; Z86.711 Personal history of pulmonary embolism
CPT/HCPCS: 99285; 96372; 36415; 85025; 80053; 83880; J1630

== ENCOUNTER 2017-07-05 13:08 | Emergency (ER) | payer OTHER, MEDICARE ==
--- NOTE | 2017-07-05 13:48 | ER Document Report ---
ED Medical Screen (RME) - General Chief Complaint: Fall Stated Complaint: FALL HEAD PAIN Time Seen by Provider: 07/05/17 13:42 Notes: 9-year-old male patient is at [facility] and suffered from lower extremity weakness. Last night he was using the walker returning from the bathroom when his legs gave out and he fell backwards striking the back of his head on a nightstand. He states he did feel little bit dizzy and the symptoms have come and gone but are gone at this time. He is on Plavix. I have greeted and performed a rapid initial assessment of this patient. A comprehensive ED assessment and evaluation of the patient, analysis of test results and completion of the medical decision making process will be conducted by additional ED providers. TRAVEL OUTSIDE OF THE [place] IN LAST 30 DAYS: No - Related Data Allergies/Adverse Reactions: Penicillins Allergy (Verified 07/05/17 13:32) piperacillin Allergy (Verified 07/05/17 13:32) Past Medical History - Past Medical History Cardiac Medical History: Reports: Hx Atrial Fibrillation, Hx Congestive Heart Failure, Hx Coronary Artery Disease, Hx Hypercholesterolemia, Hx Hypertension, Hx Pulmonary Embolism Denies: Hx Heart Attack, Hx Peripheral Vascular Disease, Hx Heart Murmur Pulmonary Medical History: Reports: Hx Asthma, Hx Bronchitis, Hx COPD, Hx Sleep Apnea - unable to wear cpap Denies: Hx Pneumonia, Hx Respiratory Failure, Hx Tuberculosis Neurological Medical History: Reports: Hx Seizures - in 1968. Denies: Hx Cerebrovascular Accident Endocrine Medical History: Reports: Hx Diabetes Mellitus Type 1, Hx Diabetes Mellitus Type 2. Denies: Hx Graves' Disease, Hx Hyperthyroidism, Hx Hypothyroidism Renal/ Medical History: Reports: Hx Benign Prostatic Hyperplasia. Denies: Hx End Stage Renal Disease, Hx Kidney Stones, Hx Peritoneal Dialysis Malignancy Medical History: Denies Hx Leukemia, Denies Hx Lung Cancer GI Medical History: Reports: Hx Gastroesophageal Reflux Disease, Hx Hiatal Hernia, Hx Irritable Bowel. Denies: Hx Crohn's Disease, Hx Hepatitis, Hx Liver Failure, Hx Ulcer Musculoskeltal Medical History: Reports Hx Arthritis, Denies Hx Fibromyalgia, Denies Hx Multiple Sclerosis, Denies Hx Muscular Dystrophy Psychiatric Medical History: Reports: Hx Depression, Hx Post Traumatic Stress Disorder - nightmares Denies: Hx Bipolar Disorder, Hx Dementia, Hx Schizophrenia Traumatic Medical History: Reports: Hx Fractures - Rt elbow and scattered radial head Infectious Medical History: Denies: Hx Hepatitis, Hx HIV Past Surgical History: Reports: Hx Appendectomy, Hx Cardiac Catheterization - 3 VESSEL DISEASE NOT CANDIDATE FOR INTERVENTION, Hx Cholecystectomy, Hx Orthopedic Surgery - CERVICAL AND L-S FUSION, Other - Tracheostomy- decannulated. PEG tube-removed. Denies: Hx Bowel Surgery, Hx Colostomy, Hx Coronary Artery Bypass Graft, Hx Gastric Bypass Surgery, Hx Herniorrhaphy, Hx Open Heart Surgery, Hx Pacemaker, Hx Tonsillectomy - Immunizations Hx Diphtheria, Pertussis, Tetanus Vaccination: Yes Physical Exam - Vital signs Vitals: Temp Pulse Resp BP Pulse Ox 98.6 F 70 18 131/78 H 98 07/05/17 13:29 07/05/17 13:29 07/05/17 13:29 07/05/17 13:29 07/05/17 13:29 Course - Vital Signs Vital signs: Temp Pulse Resp BP Pulse Ox 98.6 F 70 18 131/78 H 98 07/05/17 13:29 07/05/17 13:29 07/05/17 13:29 07/05/17 13:29 07/05/17 13:29
--- NOTE | 2017-07-05 14:16 | RADIOLOGY REPORT (SQ) ---
EXAM DESCRIPTION: CT HEAD WITHOUT COMPLETED DATE/TIME: 07/05/2017 2:04 pm REASON FOR STUDY: fall, hit head, on Plavix COMPARISON: 06/19/2017 TECHNIQUE: Axial images acquired through the brain without intravenous contrast. Images reviewed wi th bone, brain and subdural windows. Images stored on PACS. All CT scanners at this facility use dose modulation, iterative reconstruction, and/or weight based d osing when appropriate to reduce radiation dose to as low as reasonably achievable (ALARA). [facility]: Dose Right [facility]: CareDose [facility]: Dose Right [facility]: Teradose 4D [facility]: Greystripe RADIATION DOSE: Up-to-date CT equipment and radiation dose reduction techniques were employed. CTDIv ol: 64.6 mGy. DLP: 1163 mGy-cm. mGy. LIMITATIONS: None. FINDINGS: VENTRICLES: Prominent. CEREBRUM: No masses. No hemorrhage. No midline shift. Areas of low density in the white matter mos t likely due to chronic micro-vascular ischemic change. No evidence for acute infarction. CEREBELLUM: No masses. No hemorrhage. No alteration of density. No evidence for acute infarction. EXTRAAXIAL SPACES: Mild age-related involutional change. No fluid collections. No masses. ORBITS AND GLOBE: No intra- or extraconal masses. Normal contour of globe without masses. CALVARIUM: No fracture. PARANASAL SINUSES: No fluid or mucosal thickening. SOFT TISSUES: No mass or hematoma. OTHER: No other significant finding. IMPRESSION: MILD CHRONIC CHANGES OF ATROPHY AND MICROVASCULAR ISCHEMIA. NO ACUTE PROCESS. TECHNICAL DOCUMENTATION: JOB ID: [id number] Quality ID # [id number]: Final reports with documentation of one or more dose reduction techniques (e.g., Au tomated exposure control, adjustment of the mA and/or kV according to patient size, use of iterative reconstruction technique) 2010 [employer]- All Rights Reserved
--- NOTE | 2017-07-05 14:19 | ER Document Report ---
ED General - General Chief Complaint: Fall Stated Complaint: FALL HEAD PAIN Time Seen by Provider: 07/05/17 13:42 Mode of Arrival: Medic Information source: Patient Notes: 72-year-old male presents with complaints of mild headache dizziness when he moves his head around. Patient notes last night he had a mechanical fall striking his head on a cabinet. Patient is on Plavix, at that time he refused home in. Patient notes his nurse insisted he be seen today given the symptoms TRAVEL OUTSIDE OF THE [place] IN LAST 30 DAYS: No - HPI Onset: Yesterday Onset/Duration: Sudden, Gone - Patient notes all symptoms have since resolved Quality of pain: Sharp Severity: Mild Pain Level: 1 Associated symptoms: Headache Exacerbated by: Denies Relieved by: Denies Similar symptoms previously: No Recently seen / treated by doctor: No - Related Data Allergies/Adverse Reactions: Penicillins Allergy (Verified 07/05/17 13:32) piperacillin Allergy (Verified 07/05/17 13:32) Past Medical History - Social History Smoking Status: Never Smoker Cigarette use (# per day): No Chew tobacco use (# tins/day): No Smoking Education Provided: No Frequency of alcohol use: None Drug Abuse: None Family History: Reviewed & Not Pertinent - Past Medical History Cardiac Medical History: Reports: Hx Atrial Fibrillation, Hx Congestive Heart Failure, Hx Coronary Artery Disease, Hx Hypercholesterolemia, Hx Hypertension, Hx Pulmonary Embolism Denies: Hx Heart Attack, Hx Peripheral Vascular Disease, Hx Heart Murmur Pulmonary Medical History: Reports: Hx Asthma, Hx Bronchitis, Hx COPD, Hx Sleep Apnea - unable to wear cpap Denies: Hx Pneumonia, Hx Respiratory Failure, Hx Tuberculosis Neurological Medical History: Reports: Hx Seizures - in 1968. Denies: Hx Cerebrovascular Accident Endocrine Medical History: Reports: Hx Diabetes Mellitus Type 1, Hx Diabetes Mellitus Type 2. Denies: Hx Graves' Disease, Hx Hyperthyroidism, Hx Hypothyroidism Renal/ Medical History: Reports: Hx Benign Prostatic Hyperplasia. Denies: Hx End Stage Renal Disease, Hx Kidney Stones, Hx Peritoneal Dialysis Malignancy Medical History: Denies Hx Leukemia, Denies Hx Lung Cancer GI Medical History: Reports: Hx Gastroesophageal Reflux Disease, Hx Hiatal Hernia, Hx Irritable Bowel. Denies: Hx Crohn's Disease, Hx Hepatitis, Hx Liver Failure, Hx Ulcer Musculoskeltal Medical History: Reports Hx Arthritis, Denies Hx Fibromyalgia, Denies Hx Multiple Sclerosis, Denies Hx Muscular Dystrophy Psychiatric Medical History: Reports: Hx Depression, Hx Post Traumatic Stress Disorder - nightmares Denies: Hx Bipolar Disorder, Hx Dementia, Hx Schizophrenia Traumatic Medical History: Reports: Hx Fractures - Rt elbow and scattered radial head Infectious Medical History: Denies: Hx Hepatitis, Hx HIV Past Surgical History: Reports: Hx Appendectomy, Hx Cardiac Catheterization - 3 VESSEL DISEASE NOT CANDIDATE FOR INTERVENTION, Hx Cholecystectomy, Hx Orthopedic Surgery - CERVICAL AND L-S FUSION, Other - Tracheostomy- decannulated. PEG tube-removed. Denies: Hx Bowel Surgery, Hx Colostomy, Hx Coronary Artery Bypass Graft, Hx Gastric Bypass Surgery, Hx Herniorrhaphy, Hx Open Heart Surgery, Hx Pacemaker, Hx Tonsillectomy - Immunizations Hx Diphtheria, Pertussis, Tetanus Vaccination: Yes Hx Pneumococcal Vaccination: 08/22/12 Review of Systems - Review of Systems Notes: REVIEW OF SYSTEMS: CONSTITUTIONAL : Denies fever, chills, or sweats. Denies recent illness. EENT: Denies eye, ear, throat, or mouth pain or symptoms. Denies nasal or sinus congestion or discharge. Denies throat, tongue, or mouth swelling or difficulty swallowing. CARDIOVASCULAR: Denies chest pain. Denies palpitations or racing or irregular heart beat. Denies ankle edema. RESPIRATORY: Denies cough, cold, or chest congestion. Denies shortness of breath, difficulty breathing, or wheezing. GASTROINTESTINAL: Denies abdominal pain or distention. Denies nausea, vomiting , or diarrhea. Denies blood in vomitus, stools, or per rectum. Denies black, tarry stools. Denies constipation. GENITOURINARY: Denies difficulty urinating, painful urination, burning, frequency, blood in urine, or discharge. MUSCULOSKELETAL: Denies back or neck pain or stiffness. Denies joint pain or swelling. SKIN: Denies rash, lesions or sores. HEMATOLOGIC : Denies easy bruising or bleeding. LYMPHATIC: Denies swollen, enlarged glands. NEUROLOGICAL: Admits to dizziness headache PSYCHIATRIC: Denies anxiety or stress. Denies depression, suicidal ideation, or homicidal ideation. ALL OTHER SYSTEMS REVIEWED AND NEGATIVE. Dictation was performed using [employer] voice recognition software PHYSICAL EXAMINATION: GENERAL: Well-appearing, well-nourished and in no acute distress. HEAD: Atraumatic, normocephalic. EYES: Pupils equal round and reactive to light, extraocular movements intact, sclera anicteric, conjunctiva are normal. ENT: Nares patent, oropharynx clear without exudates. Moist mucous membranes. NECK: Normal range of motion, supple without lymphadenopathy LUNGS: Breath sounds clear to auscultation bilaterally and equal. No wheezes rales or rhonchi. HEART: Regular rate and rhythm without murmurs ABDOMEN: Soft, nontender, nondistended abdomen. No guarding, no rebound. No masses appreciated. Musculoskeletal: Normal range of motion, no pitting or edema. No cyanosis. NEUROLOGICAL: Cranial nerves grossly intact. Normal speech, normal gait. Normal sensory, motor exams PSYCH: Normal mood, normal affect. SKIN: Warm, Dry, normal turgor, no rashes or lesions noted. Physical Exam - Vital signs Vitals: Temp Pulse Resp BP Pulse Ox 98.6 F 70 18 131/78 H 98 07/05/17 13:29 07/05/17 13:29 07/05/17 13:29 07/05/17 13:29 07/05/17 13:29 Course - Re-evaluation Re-evalutation: 07/05/17 16:44 CT head noted no acute abnormality, patient overall looks well is in no distress, patient has been given Antivert since symptoms seem to worsen with movement of the head. Patient has probable mild concussion, very strict return precautions have been provided to the patient and . They are happy with the imaging results and discharge home After performing a Medical Screening Examination, I estimate there is LOW risk for ACUTE GLAUCOMA, TEMPORAL ARTERITIS, MENINGITIS, INCRANIAL HEMORRHAGE, or ISCHEMIC STROKE thus I consider the discharge disposition reasonable. I have reevaluated this patient multiple times and no significant life threatening changes are noted. The patient and I have discussed the diagnosis and risks, and we agree with discharging home with close follow-up with the understanding that symptoms and presentations can change. We also discussed returning to the Emergency Department immediately if new or worsening symptoms occur. We have discussed the symptoms which are most concerning (e.g., changing or worsening symptoms, new numbness or weakness, vomiting, fever) that necessitate immediate return. - Vital Signs Vital signs: Temp Pulse Resp BP Pulse Ox 98.2 F 74 18 146/76 H 99 07/05/17 15:30 07/05/17 15:30 07/05/17 13:29 07/05/17 15:30 07/05/17 15:30 - Diagnostic Test Radiology reviewed: Image reviewed, Reports reviewed - No acute abnormality Discharge - Discharge Clinical Impression: Vertigo Head injury Qualifiers: Encounter type: initial encounter Qualified Code(s): S09.90XA - Unspecified injury of head, initial encounter Condition: Stable Disposition: HOME, SELF-CARE Instructions: Concussion ([facility]) Prescriptions: Meclizine HCl [Antivert 25 mg Tablet] 25 mg PO TID PRN #21 tablet PRN Reason: Referrals: SAVI STEPHENS MD [ACTIVE STAFF] - Follow up tomorrow
[2017-07-05 15:08] VITALS: BP 146/76
== END 2017-07-05 17:05 | disposition home or self-care (01) ==
LOC: ER 13:08
DX: S09.90XA Unspecified injury of head, initial encounter (principal); R42 Dizziness and giddiness; R51 Headache; W18.00XA Striking against unspecified object with subsequent fall, initial encounter
CPT/HCPCS: 70450; 99284

== ENCOUNTER 2017-08-10 13:16 | Inpatient (IN) | payer OTHER, MEDICARE ==
[2017-08-10 14:15] LABS: VENOUS BLOOD BASE EXCESS 3.4 mmol/L; VENOUS BLOOD HCO3 29.7 mmol/L (20-32); VENOUS BLOOD PCO2 53.6 mmHg (35-63); VENOUS BLOOD PH 7.36 (7.30-7.42)
[2017-08-10 14:18] LABS: ABSOLUTE BASOPHILS # (AUTO) 0.1 10^3/uL (0.0-0.2); ABSOLUTE EOSINOPHILS # (AUTO) 0.2 10^3/uL (0.0-0.6); ABSOLUTE MONOCYTES (AUTO) 0.9 10^3/uL (0.1-1.4); ABSOLUTE NEUT (AUTO) 5.4 10^3/uL (1.7-8.2); EOSINOPHILS % (AUTO) 2.8 % (0-6); HEMATOCRIT 30.6 % (37.9-51.0); HEMOGLOBIN 9.6 g/dL (13.5-17.0); HGB HCT DIFFERENCE -1.8; LYMPHOCYTES % (AUTO) 13.6 % (13-45); MEAN CORPUSCULAR HGB CONC 31.4 g/dL (32.0-36.0); MEAN CORPUSCULAR VOLUME 80 fl (80-97); MONOCYTES % (AUTO) 11.2 % (3-13); RED BLOOD COUNT 3.83 10^6/uL (4.35-5.55); RED CELL DISTRIBUTION WIDTH 18.5 % (11.5-14.0); SEGMENTED NEUTROPHILS % (AUTO) 71.4 % (42-78); WHITE BLOOD COUNT 7.6 10^3/uL (4.0-10.5)
[2017-08-10 14:28] LABS: ALANINE AMINOTRANSFERASE 16 U/L (21-72); ALKALINE PHOSPHATASE 133 U/L (38-126); ANION GAP 12 (5-19); ASPARTATE AMINO TRANSFERASE 19 U/L (17-59); BILIRUBIN,DIRECT 0.7 mg/dL (0.0-0.4); BILIRUBIN,TOTAL 1.2 mg/dL (0.2-1.3); BLOOD UREA NITROGEN 25 mg/dL (7-20); CALCIUM 9.2 mg/dL (8.4-10.2); CARBON DIOXIDE 26 mmol/L (22-30); CHLORIDE 104 mmol/L (98-107); CREATINE KINASE 41 U/L (55-170); CREATININE RESULT 1.46 mg/dL (0.52-1.25); GLUCOSE 175 mg/dL (75-110); POTASSIUM 4.1 mmol/L (3.6-5.0); SODIUM 141.8 mmol/L (137-145); TOTAL PROTEIN 8.1 g/dL (6.3-8.2)
--- NOTE | 2017-08-10 14:38 | ER Document Report ---
ED General - General Chief Complaint: Shortness Of Breath Stated Complaint: SCROTUM SWELLING SUDDEN WEIGHT GAIN Time Seen by Provider: 08/10/17 14:32 Notes: Patient is here because he has experienced a significant weight gain over the past 4 or 5 days and also he has some swelling of his scrotum noted for the past couple of days. Patient has an extensive history including congestive heart failure. Patient had back surgery March 26 at another hospital. He says he awakened 2 months later, on May 26! Patient says that he went into congestive heart failure, kidney failure and was on dialysis, but not now, had a trach performed , and had his gallbladder removed. He has no memory of what happened for 2 months, but was then transferred to another hospital and then to a snf where he spent 6 weeks at [facility] locally. He was discharged home from that facility on July 23. He has visiting home nurses twice a week and they noted that he had gained 7 pounds in weight since Wednesday. In addition , when sitting on the toilet, over the weekend, patient mashed his scrotum and now it swollen and he is concerned about that. He has swelling of his legs chronically. His belly is swollen and tight. Has shortness of breath and difficulty breathing. On home oxygen at 2 L/min. Ambulates with a walker. He has chronic difficulty breathing and shortness of breath. He is on Lasix 60 mg twice a day which he has been taking any still making urine. Patient has a history of CHF, coronary stents, tachycardia, and a loop monitor. Patient recalls his weight being about 234 pounds when he came home from the snf on July 23. Currently in triage, his weight is 256. TRAVEL OUTSIDE OF THE [place] IN LAST 30 DAYS: No - Related Data Allergies/Adverse Reactions: Penicillins Allergy (Verified 08/10/17 13:43) piperacillin Allergy (Verified 08/10/17 13:43) Past Medical History - Social History Smoking Status: Unknown if Ever Smoked Family History: Reviewed & Not Pertinent Patient has suicidal ideation: No Patient has homicidal ideation: No - Past Medical History Cardiac Medical History: Reports: Hx Atrial Fibrillation, Hx Congestive Heart Failure, Hx Coronary Artery Disease, Hx Hypercholesterolemia, Hx Hypertension, Hx Pulmonary Embolism, Other - Has had coronary stents placed. Denies: Hx Heart Attack, Hx Peripheral Vascular Disease, Hx Heart Murmur Pulmonary Medical History: Reports: Hx Asthma, Hx Bronchitis, Hx COPD, Hx Sleep Apnea - unable to wear cpap Denies: Hx Pneumonia, Hx Respiratory Failure, Hx Tuberculosis Neurological Medical History: Reports: Hx Seizures - in 1968. Denies: Hx Cerebrovascular Accident Endocrine Medical History: Reports: Hx Diabetes Mellitus Type 1, Hx Diabetes Mellitus Type 2. Denies: Hx Graves' Disease, Hx Hyperthyroidism, Hx Hypothyroidism Renal/ Medical History: Reports: Hx Benign Prostatic Hyperplasia, Hx Hemodialysis - Temporarily while he was in the hospital, but no longer requires dialysis.. Denies: Hx End Stage Renal Disease, Hx Kidney Stones, Hx Peritoneal Dialysis Malignancy Medical History: Denies Hx Leukemia, Denies Hx Lung Cancer GI Medical History: Reports: Hx Gastroesophageal Reflux Disease, Hx Hiatal Hernia, Hx Irritable Bowel. Denies: Hx Crohn's Disease, Hx Hepatitis, Hx Liver Failure, Hx Ulcer Musculoskeltal Medical History: Reports Hx Arthritis, Denies Hx Fibromyalgia, Denies Hx Multiple Sclerosis, Denies Hx Muscular Dystrophy Psychiatric Medical History: Reports: Hx Depression, Hx Post Traumatic Stress Disorder - nightmares Denies: Hx Bipolar Disorder, Hx Dementia, Hx Schizophrenia Traumatic Medical History: Reports: Hx Fractures - Rt elbow and scattered radial head Infectious Medical History: Denies: Hx Hepatitis, Hx HIV Past Surgical History: Reports: Hx Appendectomy, Hx Cardiac Catheterization - 3 VESSEL DISEASE NOT CANDIDATE FOR INTERVENTION, Hx Cholecystectomy, Hx Orthopedic Surgery - CERVICAL AND L-S FUSION, Other - Tracheostomy- decannulated. PEG tube-removed. Denies: Hx Bowel Surgery, Hx Colostomy, Hx Coronary Artery Bypass Graft, Hx Gastric Bypass Surgery, Hx Herniorrhaphy, Hx Open Heart Surgery, Hx Pacemaker, Hx Tonsillectomy - Immunizations Hx Diphtheria, Pertussis, Tetanus Vaccination: Yes Hx Pneumococcal Vaccination: 08/22/12 Review of Systems - Review of Systems Notes: REVIEW OF SYSTEMS: CONSTITUTIONAL : Denies fever. EENT: Denies eye, ear, nose or mouth or throat pain or other symptoms. CARDIOVASCULAR: Denies chest pain. RESPIRATORY: Has difficulty breathing and shortness of breath on home oxygen at 2 L/min. See HPI. GASTROINTESTINAL: Denies abdominal pain or nausea, vomiting, or diarrhea. Abdomen is swollen and "tight". GENITOURINARY: Denies difficulty or painful urinating, urinary frequency, blood in urine. Swelling of the scrotum and foreskin. See HPI. MUSCULOSKELETAL: Denies back or neck pain. Denies joint pain or swelling. SKIN: Reports scratches on the lower legs bilaterally with some erythema of the mid anterior lower legs bilaterally. NEUROLOGICAL: Denies LOC or altered mental status. Denies headache. Denies sensory loss or motor deficits. ALL OTHER SYSTEMS REVIEWED AND NEGATIVE. Physical Exam - Vital signs Vitals: Temp Pulse BP Pulse Ox 98.2 F 108 H 106/66 84 L 08/10/17 13:39 08/10/17 13:39 08/10/17 13:39 08/10/17 13:39 Interpretation: Tachycardic, Hypoxic - However, in his bed, patient's O2 sat is 100% on 2 L of oxygen. - Notes Notes: PHYSICAL EXAMINATION: GENERAL: Calm and cooperative and answers questions appropriately. Oriented 3. HEAD: Atraumatic, normocephalic. EYES: Pupils equal round and reactive to light, extraocular movements intact. ENT: oropharynx clear without exudates. Moist mucous membranes. NECK: Normal range of motion, supple. LUNGS: Bi-basilar rales posterior bases. HEART: Regular rate and rhythm without murmurs. ABDOMEN: Appears to be swollen as if with ascites. Tense and tight to palpate or percuss. Scars and wounds from previous surgery for his gallbladder and drainage of the abdomen after that surgery. BACK: No tenderness throughout entire back. EXTREMITIES: Normal range of motion without pain. +3 pitting edema both lower legs. About 10-12 small excoriations of both lower legs anteriorly. There is also some mild erythema of both shins. NEUROLOGICAL: Normal speech, normal gait. Normal sensory, motor, and reflex exams. Awake, alert, and oriented x3. Cranial nerves normal. PSYCH: Normal mood, normal affect. SKIN: Warm, dry, no rashes. Genitourinary: Patient has edema of the penis foreskin and of both sides of the scrotum, but there is no erythema. No evidence of any serious injury. Has no tenderness of either testicle. I think all of this is truly dependent edema. Course - Re-evaluation Re-evalutation: 08/10/17 14:[address] Maza, hospitalist on duty and he will admit the patient to [facility] for care. - Vital Signs Vital signs: Temp Pulse Resp BP Pulse Ox 98.2 F 108 H 26 H 125/83 100 08/10/17 13:39 08/10/17 13:39 08/10/17 14:47 08/10/17 14:47 08/10/17 14:47 - Laboratory Result Diagrams: 08/10/17 14:00 08/10/17 14:00 Laboratory results interpreted by me: 08/10/17 08/10/17 08/10/17 14:00 14:00 14:00 RBC 3.83 L Hgb 9.6 L Hct 30.6 L MCH 25.0 L MCHC 31.4 L RDW 18.5 H BUN 25 H Creatinine 1.46 H Est GFR ( Amer) 58 L Est GFR (Non-Af Amer) 48 L Glucose 175 H Direct Bilirubin 0.7 H ALT 16 L Alkaline Phosphatase 133 H Creatine Kinase 41 L NT-Pro-B Natriuret Pep 4850 H - Diagnostic Test Radiology results interpreted by me: 08/10/17 14:52 Chest x-ray shows cardiomegaly and some congestive changes. - EKG Interpretation by Me EKG shows normal: Sinus rhythm Rate: Tachycardia Rhythm: NSR Discharge - Discharge Clinical Impression: Congestive heart failure, Scrotal edema, Weight gain, Ascites Condition: Fair Disposition: ADMITTED INPATIENT Admitting Provider: Hospitalist Unit Admitted: [facility]
[2017-08-10 14:39] LABS: CREATINE KINASE MB 1.13 ng/mL (<4.55); TROPONIN I < 0.012 ng/mL
[2017-08-10] MEDS ORDERED: FUROSEMIDE INJ/PF 40 MG/4 ML SDV IV ONE (14:44)
--- NOTE | 2017-08-10 15:01 | RADIOLOGY REPORT (SQ) ---
EXAM DESCRIPTION: CHEST SINGLE VIEW COMPLETED DATE/TIME: 08/10/2017 2:33 pm REASON FOR STUDY: shortness of breath COMPARISON: 06/21/2017. NUMBER OF VIEWS: One view. TECHNIQUE: Single frontal radiographic view of the chest acquired. LIMITATIONS: None. FINDINGS: LUNGS AND PLEURA: No opacities, masses or pneumothorax. No pleural effusion. MEDIASTINUM AND HILAR STRUCTURES: No masses or contour abnormality. HEART AND VASCULATURE: Cardiac enlargement. Minimal vascular congestion. BONES: No acute findings. HARDWARE: Hardware in the cervical spine. Cardiac recorder. OTHER: No other significant finding. IMPRESSION: CARDIAC ENLARGEMENT. MINIMAL VASCULAR CONGESTION. TECHNICAL DOCUMENTATION: JOB ID: [id number] [employer]- All Rights Reserved
[2017-08-10 15:53] LABS: APPEARANCE,URINE CLEAR; BILIRUBIN,URINE NEGATIVE (NEGATIVE); GLUCOSE, URINE NEGATIVE (NEGATIVE); KETONES,URINE NEGATIVE (NEGATIVE); LEUKOCYTE ESTERASE,URINE NEGATIVE (NEGATIVE); NITRITE,URINE NEGATIVE (NEGATIVE); PROTEIN,URINE NEGATIVE (NEGATIVE); URINE SPECIFIC GRAVITY 1.008; UROBILINOGEN,URINE NEGATIVE mg/dL (<2.0)
[2017-08-10] MEDS ORDERED: ACETAMINOPHEN 325 MG TABLET PO PRN (16:01)
[2017-08-10] MEDS ORDERED: ONDANSETRON HCL INJ/PF 4 MG/2 ML SDV IV PRN (16:01)
[2017-08-10] MEDS ORDERED: DEXTROSE 50%-WATER 25 GM/50 ML DISP.SYRIN IV PRN ×2 (16:10)
[2017-08-10] MEDS ORDERED: DEXTROSE 40% GEL 15 GM TUBE PO PRN ×2 (16:10)
[2017-08-10] MEDS ORDERED: GLUCAGON,HUMAN RECOMB 1 MG INJ IM PRN (16:10)
[2017-08-10] MEDS ORDERED: INSULIN REG, HUMAN 100 UNIT/ML 3 ML VIAL (PYX) SUBCUT PRN (16:10)
--- NOTE | 2017-08-10 16:17 | PDOC H&P ---
History of Present Illness Admission Date/PCP: 08/10/17 15:26 MARS BRAUN DO Patient complains of: Increasing lower extremity edema History of Present Illness: Patient is here because he has experienced a significant weight gain over the past 4 or 5 days and also he has some swelling of his scrotum noted for the past couple of days. Patient has an extensive history including congestive heart failure. Patient had back surgery March 26 at another hospital. He says he awakened 2 months later, on May 26! Patient says that he went into congestive heart failure, kidney failure and was on dialysis, but not now, had a trach performed , and had his gallbladder removed. He has no memory of what happened for 2 months, but was then transferred to another hospital and then to a [facility] where he spent 6 weeks at [facility] locally. He was discharged home from that facility on July 23. He has visiting home nurses twice a week and they noted that he had gained 7 pounds in weight since Wednesday. In addition , when sitting on the toilet, over the weekend, patient mashed his scrotum and now it swollen and he is concerned about that. He has swelling of his legs chronically. His belly is swollen and tight. Has shortness of breath and difficulty breathing. On home oxygen at 2 L/min. Ambulates with a walker. He has chronic difficulty breathing and shortness of breath. He is on Lasix 60 mg twice a day which he has been taking any still making urine. He was recently discharged from senior living facility for subacute rehabilitation. He has been on home health monitoring for the past 2 weeks. He denies increasing intake of salt or fluid. He denies noncompliance with his medication. He denies any chest pain, substernal nocturnal dyspnea nor any orthopnea. He does have increasing shortness of breath on exertion for the past few days. Patient has a history of CHF, coronary stents, tachycardia, and a loop monitor. Patient recalls his weight being about 234 pounds when he came home from the [facility] on July 23. Currently in triage, his weight is 256. In the emergency room chest x-ray showed mild congestion, intravenous Lasix was given and the patient was referred for admission. Past Medical History Past Medical History: Medication reconciliation pending verification from the patient's pharmacist. Cardiac Medical History: Reports: Atrial Fibrillation, Congestive Heart Failure , Coronary Artery Disease, Hyperlipidema, Hypertension, Pulmonary Embolism, Other - Has had coronary stents placed. Denies: Myocardial Infarction, Peripheral Vascular Disease, Heart Murmur Pulmonary Medical History: Reports: Asthma, Bronchitis, Chronic Obstructive Pulmonary Disease (COPD), Sleep Apnea - unable to wear cpap Denies: Pneumonia, Respiratory Failure, Tuberculosis Neurological Medical History: Reports: Seizures - in 1968 Endocrine Medical History: Reports: Diabetes Mellitus Type 1, Diabetes Mellitus Type 2 Denies: Hyperthyroidism, Hypothyroidism Renal/ Medical History: Denies: End Stage Renal Disease Malignancy Medical History: Denies: Leukemia, Lung Cancer GI Medical History: Reports: Gastroesophageal Reflux Disease, Hiatal Hernia Denies: Crohn's Disease, Hepatitis Musculoskeltal Medical History: Reports: Arthritis Denies: Fibromyalgia Psychiatric Medical History: Reports: Depression, Post Traumatic Stress Disorder - nightmares Denies: Bipolar Disorder, Dementia Hematology: Denies: Anemia, Hemophilia, Sickle Cell Disease Infectious Medical History: Denies: HIV Past Surgical History Past Surgical History: Reports: Appendectomy, Cardiac Catheterization - 3 VESSEL DISEASE NOT CANDIDATE FOR INTERVENTION, Cholecystectomy, Orthopedic Surgery - CERVICAL AND L-S FUSION, Other - Tracheostomy-decannulated. PEG tube- removed Denies: Colostomy, Coronary Artery Bypass Graft, Gastric Bypass Surgery, Herniorrhaphy, Pacemaker, Tonsillectomy Social History Information Source: Patient Smoking Status: Former Smoker Frequency of Alcohol Use: None Hx Recreational Drug Use: No Drugs: None Hx Prescription Drug Abuse: No Family History Family History: CAD, DM, Hypertension Parental Family History Reviewed: Yes Children Family History Reviewed: Yes Sibling(s) Family History Reviewed.: Yes Medication/Allergy Home Medications: Carvedilol [Coreg 3.125 mg Tablet] 12.5 mg PO BID 05/12/12 Amitriptyline HCl [Elavil 25 mg Tablet] 25 mg PO QHS 02/24/13 Nitroglycerin [Nitrostat 0.4 mg (1/150 Gr) Tabs 25/Bottle] 1 tab SL Q5MP PRN 04/03 Aspirin [Aspirin 81 mg Chewable Tablet] 81 mg PO DAILY 04/08/14 Magnesium Oxide [Magnesium] 400 mg PO Q12 04/08/14 Prasugrel Hydrochloride [Effient] 10 mg PO DAILY 04/08/14 Acetaminophen [Pain Relief] 650 mg PO Q6HP PRN 07/29/17 Amiodarone HCl [Cordarone 200 mg Tablet] 200 mg PO Q12 06/19/17 Atorvastatin Calcium 40 mg PO DAILY 06/19/17 Famotidine [Acid Bicycle Assembler] 20 mg PO Q12 06/19/17 Gabapentin 300 mg PO Q12 06/19/17 Insulin Lispro [Humalog Insulin (Lispro) 100 unit/mL] 0 unit SUBCUT .SLD SCALE 06/19/17 Ondansetron [Zofran Odt 4 mg Tablet] 4 mg PO Q4HP PRN 06/19/17 Sertraline HCl [Zoloft] 25 mg PO DAILY 06/19/17 Cefuroxime Axetil [Ceftin 500 mg Tablet] 500 mg PO Q12 #14 tablet 06/23/17 Doxycycline Hyclate [Vibramycin 100 mg Tablet] 100 mg PO Q12@0800,2000 #20 tablet 06/23/17 Ferrous Sulfate [Feosol 325 mg Tablet] 325 mg PO DAILY #90 tablet 06/23/17 Quetiapine Fumarate [Seroquel 25 mg Tablet] 50 mg PO QHS #30 tablet 06/23/17 Meclizine HCl [Antivert 25 mg Tablet] 25 mg PO TID PRN #21 tablet 07/05/17 Allergies/Adverse Reactions: Penicillins Allergy (Verified 08/10/17 13:43) piperacillin Allergy (Verified 08/10/17 13:43) Review of Systems Constitutional: PRESENT: weakness - Generalized, weight gain - As stated above. ABSENT: chills, fever(s), headache(s), night sweats, weight loss Eyes: ABSENT: visual disturbances Ears: ABSENT: hearing changes Nose, Mouth, and Throat: ABSENT: mouth pain, sore throat Cardiovascular: PRESENT: dyspnea on exertion, edema. ABSENT: chest pain, orthropnea, palpitations Respiratory: ABSENT: cough, hemoptysis Gastrointestinal: ABSENT: abdominal pain, constipation, diarrhea, hematemesis, hematochezia, melena, nausea, vomiting Genitourinary: ABSENT: difficulty urinating, dysuria, hematuria Musculoskeletal: ABSENT: joint swelling Integumentary: ABSENT: pruritus, rash, wounds Neurological: ABSENT: abnormal gait, abnormal speech, confusion, dizziness, focal weakness, syncope Psychiatric: ABSENT: anxiety, depression, homidical ideation, suicidal ideation Endocrine: ABSENT: cold intolerance, heat intolerance, polydipsia, polyuria Hematologic/Lymphatic: ABSENT: easy bleeding, easy bruising Physical Exam Vital Signs: Temp Pulse Resp BP Pulse Ox 98.2 F 108 H 28 H 128/79 H 99 08/10/17 13:39 08/10/17 13:39 08/10/17 15:01 08/10/17 15:01 08/10/17 15:01 General appearance: PRESENT: no acute distress, morbidly obese Head exam: PRESENT: atraumatic, normocephalic Eye exam: PRESENT: conjunctiva pale, EOMI, PERRLA. ABSENT: scleral icterus Ear exam: PRESENT: normal external ear exam Mouth exam: PRESENT: moist, neck supple, tongue midline Throat exam: ABSENT: post pharyngeal erythema, tonsillar erythema, tonsillar exudate Neck exam: ABSENT: carotid bruit, JVD, lymphadenopathy, thyromegaly Respiratory exam: PRESENT: clear to auscultation miguel - Anteriorly bilateral, rales - Posteriorly on the lung bases, bilaterally. ABSENT: rhonchi, wheezes Cardiovascular exam: PRESENT: irregular rhythm, +S1, +S2. ABSENT: diastolic murmur, rubs, systolic murmur Pulses: PRESENT: normal dorsalis pedis pul Vascular exam: PRESENT: normal capillary refill GI/Abdominal exam: PRESENT: normal bowel sounds, soft. ABSENT: distended, guarding, mass - Exam limited due to increased abdominal girth, organolmegaly - Exam limited due to increased abdominal girth, rebound, tenderness Rectal exam: PRESENT: deferred Extremities exam: PRESENT: full ROM, +1 edema - From the lower abdomen down to the lower extremities including the scrotum. ABSENT: calf tenderness, clubbing Neurological exam: PRESENT: alert, awake, oriented to person, oriented to place , oriented to time, oriented to situation Psychiatric exam: PRESENT: appropriate affect, normal mood. ABSENT: homicidal ideation, suicidal ideation Skin exam: PRESENT: dry, intact, warm. ABSENT: cyanosis, rash Results Laboratory Results: 08/10/17 15:34 Urine Color YELLOW Urine Appearance CLEAR Urine pH 5.0 Ur Specific [place] 1.008 Urine Protein NEGATIVE Urine Glucose (UA) NEGATIVE Urine Ketones NEGATIVE Urine Blood NEGATIVE Urine Nitrite NEGATIVE Ur Leukocyte Esterase NEGATIVE Urine WBC (Auto) 0 Urine RBC (Auto) 5 Impressions: Chest X-Ray 08/10/17 13:56 IMPRESSION: CARDIAC ENLARGEMENT. MINIMAL VASCULAR CONGESTION. Assessment & Plan - Diagnosis (1) Congestive heart failure Qualifiers: Congestive heart failure type: systolic Congestive heart failure chronicity : acute on chronic Qualified Code(s): I50.23 - Acute on chronic systolic ( congestive) heart failure Is this a current diagnosis for this admission?: Yes (2) Anemia Qualifiers: Anemia type: iron deficiency Iron deficiency anemia type: unspecified iron deficiency Qualified Code(s): D50.9 - Iron deficiency anemia, unspecified Is this a current diagnosis for this admission?: Yes (3) Atrial fibrillation Qualifiers: Atrial fibrillation type: chronic Qualified Code(s): I48.2 - Chronic atrial fibrillation Is this a current diagnosis for this admission?: Yes (4) CKD (chronic kidney disease) stage 3, GFR 30-59 ml/min Is this a current diagnosis for this admission?: Yes (5) Coronary artery disease Qualifiers: Coronary Disease-Associated Artery/Lesion type: [place] artery [place] vs. 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 insulin use: unspecified [facility] insulin use status Qualified Code(s): E11.42 - Type 2 diabetes mellitus with diabetic polyneuropathy Is this a current diagnosis for this admission?: Yes (7) Hypertension Qualifiers: Hypertension type: essential hypertension Qualified Code(s): I10 - Essential (primary) hypertension Is this a current diagnosis for this admission?: Yes (8) Morbid obesity with BMI of 40.0-44.9, adult Is this a current diagnosis for this admission?: Yes (9) Obstructive sleep apnea Is this a current diagnosis for this admission?: Yes (10) Pulmonary hypertension Is this a current diagnosis for this admission?: Yes - Time Time Spent: 50 to 70 Minutes Within: within 72 hours - Inpatient Certification Based on my medical assessment, after consideration of the patient's comorbidities, presenting symptoms, or acuity I expect that the services needed warrant INPATIENT care.: Yes I certify that my determination is in accordance with my understanding of Medicare's requirements for reasonable and necessary INPATIENT services [42 CFR 412.3e].: Yes Medical Necessity: Significant Comorbidiites Make Outpatient Treatment Too Risky , Need Close Monitoring Due to Risk of Patient Decompensation, Need For Continuous Telemetry Monitoring, Risk of Complication if Not Cared For in Hospital, Risk of Diagnosis Which Will Require Inpatient Eval/Care/Monitoring Post Hospital Care: D/C Web Project Manager Documentation - Plan Summary Plan Summary: Admit the patient to [facility]. We will begin intravenous Lasix oral Zaroxolyn. We will monitor creatinine and weight daily. In the meantime I will continue the patient's cardiac medications including amiodarone and likewise his anticoagulant including Effient. Plan mental oxygen will be given. He will be on sliding scale insulin. Further testing depends on initial evaluations outlined above.
[2017-08-10] MEDS ORDERED: ENOXAPARIN SODIUM INJ 40 MG/0.4 ML DISP.SYRIN SUBCUT ONE (17:00)
--- NOTE | 2017-08-10 18:27 | EKG REPORT ---
SEVERITY:- ABNORMAL ECG - SINUS TACHYCARDIA LEFT ANTERIOR FASCICULAR BLOCK PROBABLE LVH WITH SECONDARY REPOL ABNRM : Confirmed by: Benjamin Jane MD 10-Aug-2017 18:26:49
[2017-08-10 18:31] LABS: THYROID STIMULATING HORMONE 14.2 uIU/mL (0.47-4.68)
[2017-08-10] MEDS: FUROSEMIDE INJ/PF 40 MG/4 ML SDV IV SCH (21:04)
[2017-08-10] MEDS: GABAPENTIN 300 MG CAPSULE PO SCH (21:05)
[2017-08-10] MEDS: CARVEDILOL 3.125 MG TABLET PO SCH (21:05)
[2017-08-10] MEDS: AMIODARONE HCL 200 MG TABLET PO SCH (21:05)
[2017-08-10] MEDS: METOLAZONE 2.5 MG TABLET PO SCH (21:05)
[2017-08-11] MEDS: METOLAZONE 2.5 MG TABLET PO SCH (05:08)
[2017-08-11] MEDS: LANSOPRAZOLE 30 MG TAB.RAP.DR PO SCH (05:10)
[2017-08-11] MEDS: FUROSEMIDE INJ/PF 40 MG/4 ML SDV IV SCH ×3 (05:10→21:28)
[2017-08-11 05:50] LABS: ANION GAP 13 (5-19); BLOOD UREA NITROGEN 27 mg/dL (7-20); CALCIUM 9.1 mg/dL (8.4-10.2); CARBON DIOXIDE 30 mmol/L (22-30); CHLORIDE 100 mmol/L (98-107); CREATININE RESULT 1.52 mg/dL (0.52-1.25); GLUCOSE 65 mg/dL (75-110); MAGNESIUM 1.8 mg/dL (1.6-2.3); POTASSIUM 3.5 mmol/L (3.6-5.0); SODIUM 142.8 mmol/L (137-145)
[2017-08-11] MEDS: CARVEDILOL 3.125 MG TABLET PO SCH (10:00)
[2017-08-11] MEDS: AMIODARONE HCL 200 MG TABLET PO SCH (10:00)
[2017-08-11] MEDS ORDERED: CARVEDILOL 3.125 MG TABLET PO SCH (10:50)
--- NOTE | 2017-08-11 11:02 | PDOC PROGRESS REPORT ---
Subjective Progress Note for:: 08/11/17 Subjective:: Patient breathing better. Lower extremity swelling is likewise better. Denies any chest pain or shortness of breath. No nausea or vomiting or sweating. No chills nor fever. Physical Exam Vital Signs: Temp Pulse Resp BP Pulse Ox 97.5 F 107 H 23 H 130/89 H 100 08/11/17 07:25 08/11/17 07:25 08/11/17 07:25 08/11/17 07:25 08/11/17 07:45 Pulse Oximeter Continuous Start: 08/10/17 16: 02 Freq: RTQ4 Status: Active Document 08/11/17 07:45 HCR (Rec: 08/11/17 09:44 HCR [email or web address]) Pulse Oximetry Assessment Oxygen Saturation (92-100) 99 Oxygen Flow Rate (L/min) 4 Oxygen Delivery Method Nasal Cannula Equipment Usage Equipment in Use Continuous SpO2 Machine # 2 Additional RT Notes Other flow decreased to 2lpm nc Intake & Output 08/10/17 08/11/17 08/12/17 06:59 06:59 06:59 Intake Total 936 Output Total 3100 Balance -2164 Weight 108.6 kg General appearance: PRESENT: no acute distress, morbidly obese Head exam: PRESENT: normocephalic Eye exam: PRESENT: EOMI Mouth exam: PRESENT: moist, neck supple Neck exam: ABSENT: JVD Respiratory exam: PRESENT: clear to auscultation miguel - Anteriorly bilateral. ABSENT: rhonchi, wheezes Cardiovascular exam: PRESENT: irregular rhythm. ABSENT: gallop GI/Abdominal exam: PRESENT: soft. ABSENT: distended - Obese Extremities exam: PRESENT: +1 edema Skin exam: PRESENT: dry, warm. ABSENT: cyanosis Results Laboratory Results: 08/11/17 05:07 08/11/17 05:07 Sodium 142.8 Potassium 3.5 L Chloride 100 Carbon Dioxide 30 Anion Gap 13 BUN 27 H Creatinine 1.52 H Est GFR ( Amer) 55 L Est GFR (Non-Af Amer) 46 L Glucose 65 L Calcium 9.1 Magnesium 1.8 Impressions: Chest X-Ray 08/10/17 13:56 IMPRESSION: CARDIAC ENLARGEMENT. MINIMAL VASCULAR CONGESTION. Assessment & Plan - Diagnosis (1) Congestive heart failure Qualifiers: Congestive heart failure type: systolic Congestive heart failure chronicity : acute on chronic Qualified Code(s): I50.23 - Acute on chronic systolic ( congestive) heart failure Is this a current diagnosis for this admission?: Yes (2) Anemia Qualifiers: Anemia type: iron deficiency Iron deficiency anemia type: unspecified iron deficiency Qualified Code(s): D50.9 - Iron deficiency anemia, unspecified Is this a current diagnosis for this admission?: Yes (3) Atrial fibrillation Qualifiers: Atrial fibrillation type: chronic Qualified Code(s): I48.2 - Chronic atrial fibrillation Is this a current diagnosis for this admission?: Yes (4) CKD (chronic kidney disease) stage 3, GFR 30-59 ml/min Is this a current diagnosis for this admission?: Yes (5) Coronary artery disease Qualifiers: Coronary Disease-Associated Artery/Lesion type: [place] artery [place] vs. transplanted heart: [place] heart Associated angina: without angina Qualified Code(s): I25.10 - Atherosclerotic heart disease of [place] coronary artery without angina pectoris Is this a current diagnosis for this admission?: Yes (6) Diabetes Qualifiers: Diabetes mellitus type: type 2 Diabetes mellitus complication status: with neurologic complications Diabetes mellitus complication detail: with polyneuropathy Diabetes mellitus [facility] insulin use: unspecified [facility] insulin use status Qualified Code(s): E11.42 - Type 2 diabetes mellitus with diabetic polyneuropathy Is this a current diagnosis for this admission?: Yes (7) Hypertension Qualifiers: Hypertension type: essential hypertension Qualified Code(s): I10 - Essential (primary) hypertension Is this a current diagnosis for this admission?: Yes (8) Morbid obesity with BMI of 40.0-44.9, adult Is this a current diagnosis for this admission?: Yes (9) Obstructive sleep apnea Is this a current diagnosis for this admission?: Yes (10) Pulmonary hypertension Is this a current diagnosis for this admission?: Yes - Time Time Spent with patient: 25-34 minutes - Plan Summary Plan Summary: We are going to increase the beta-lana. Continue Zaroxolyn and keep the IV Lasix. Again physical therapy and resume his insulin long-acting home dose.
[2017-08-11] MEDS: ASPIRIN 325 MG TABLET, ENT COATED PO SCH (11:17)
[2017-08-11] MEDS: GABAPENTIN 300 MG CAPSULE PO SCH ×2 (11:17→21:28)
[2017-08-11] MEDS: DOCUSATE SODIUM 100 MG CAPSULE PO SCH (11:18)
[2017-08-11] MEDS: ENOXAPARIN SODIUM INJ 40 MG/0.4 ML DISP.SYRIN SUBCUT SCH (11:25)
[2017-08-11] MEDS ORDERED: CARVEDILOL 12.5 MG TABLET PO ONE (11:30)
--- NOTE | 2017-08-11 14:26 | Physician Advisory Note ---
Physician Advisor ProgressNote .: Pursuant to the plan for [facility], I have reviewed the medical record for this patient. Physician Advisor Statement: Please consider documentin. "Acute on chronic hypoxemic respiratory failure, with O2 sat of 84% on his usual 2L O2, with labored breathing per ED nurse assessment " - improved since tx began in ED. Thx, CK
[2017-08-11] MEDS: CARVEDILOL 12.5 MG TABLET PO SCH (21:29)
[2017-08-11] MEDS: INSULIN GLARGINE,HUM.REC.ANLOG 300 UNIT/3 ML INSULN.PEN SUBCUT SCH (22:29)
[2017-08-12] MEDS: FUROSEMIDE INJ/PF 40 MG/4 ML SDV IV SCH (06:23)
[2017-08-12] MEDS: LANSOPRAZOLE 30 MG TAB.RAP.DR PO SCH (06:25)
[2017-08-12] MEDS: DOCUSATE SODIUM 100 MG CAPSULE PO SCH (09:42)
[2017-08-12] MEDS: CARVEDILOL 12.5 MG TABLET PO SCH (09:43)
[2017-08-12] MEDS: ASPIRIN 325 MG TABLET, ENT COATED PO SCH (09:43)
[2017-08-12] MEDS: ENOXAPARIN SODIUM INJ 40 MG/0.4 ML DISP.SYRIN SUBCUT SCH (09:44)
[2017-08-12] MEDS: GABAPENTIN 300 MG CAPSULE PO SCH (09:44)
[2017-08-12] MEDS: INSULIN GLARGINE,HUM.REC.ANLOG 300 UNIT/3 ML INSULN.PEN SUBCUT SCH (09:45)
[2017-08-12] MEDS ORDERED: TAMSULOSIN HCL 0.4 MG CAP.SR.24H PO SCH (10:00)
[2017-08-12] MEDS ORDERED: CLOPIDOGREL BISULFATE 75 MG TABLET PO SCH (10:00)
--- NOTE | 2017-08-12 11:00 | PDOC DISCHARGE SUMMARY ---
General - Admit/Disc Date/PCP Admission Date/Primary Care Provider: 08/10/17 16:01 MARS BRAUN DO Discharge Date: 08/12/17 - Discharge Diagnosis (1) Congestive heart failure Is this a current diagnosis for this admission?: Yes (2) Anemia Is this a current diagnosis for this admission?: Yes (3) Atrial fibrillation Is this a current diagnosis for this admission?: Yes (4) CKD (chronic kidney disease) stage 3, GFR 30-59 ml/min Is this a current diagnosis for this admission?: Yes (5) Coronary artery disease Is this a current diagnosis for this admission?: Yes (6) Diabetes Is this a current diagnosis for this admission?: Yes (7) Hypertension Is this a current diagnosis for this admission?: Yes (8) Morbid obesity with BMI of 40.0-44.9, adult Is this a current diagnosis for this admission?: Yes (9) Obstructive sleep apnea Is this a current diagnosis for this admission?: Yes (10) Pulmonary hypertension Is this a current diagnosis for this admission?: Yes - Additional Information Resuscitation Status: Full Code Discharge Diet: Cardiac - Low-fat low-salt, Diabetic - No concentrated sweets Discharge Activity: Activity As Tolerated, Balance Activity w/Rest, Weigh Daily Home Medications: Aspirin [Aspirin 81 mg Chewable Tablet] 81 mg PO DAILY 08/10/17 Atorvastatin Calcium [Lipitor 80 mg Tablet] 80 mg PO QHS 08/10/17 Clopidogrel Bisulfate [Plavix 75 mg Tablet] 75 mg PO DAILY 08/10/17 Dextrose [Glucose] 4 gm PO PRN PRN 08/10/17 Ferrous Sulfate [Iron] 325 mg PO Q12 08/10/17 Gabapentin [Neurontin 300 mg Capsule] 600 mg PO Q12 08/10/17 Hydralazine HCl [Apresoline 25 mg Tablet] 25 mg PO Q8 08/10/17 Insulin Glargine,Hum.rec.anlog [Lantus Solostar] 45 units SQ Q12 08/10/17 Loratadine [Claritin 10 mg Tablet] 10 mg PO DAILY 08/10/17 Magnesium Oxide [Mag-Ox 400 mg Tablet] 400 mg PO Q12 08/10/17 Pantoprazole Sodium [Protonix] 70 mg PO Q12 08/10/17 Potassium Chloride [Klor-Con 10 Meq Tablet.sa] 20 meq PO Q12 08/10/17 Tamsulosin HCl [Flomax 0.4 mg Cap.sr] 0.4 mg PO DAILY 08/10/17 Carvedilol [Coreg 12.5 mg Tablet] 25 mg PO Q12 #120 tablet 08/12/17 Furosemide [Lasix 20 mg Tablet] 80 mg PO BID #240 08/12/17 Additional Information: Patient to have a basic metabolic as outpatient with primary care physician on next visit History of Present Illness Patient complains of: Increasing edema History of Present Illness: Patient is here because he has experienced a significant weight gain over the past 4 or 5 days and also he has some swelling of his scrotum noted for the past couple of days. Patient has an extensive history including congestive heart failure. Patient had back surgery March 26 at another hospital. He says he awakened 2 months later, on May 26! Patient says that he went into congestive heart failure, kidney failure and was on dialysis, but not now, had a trach performed , and had his gallbladder removed. He has no memory of what happened for 2 months, but was then transferred to another hospital and then to a [facility] where he spent 6 weeks at [facility] locally. He was discharged home from that facility on July 23. He has visiting home nurses twice a week and they noted that he had gained 7 pounds in weight since Wednesday. In addition , when sitting on the toilet, over the weekend, patient mashed his scrotum and now it swollen and he is concerned about that. He has swelling of his legs chronically. His belly is swollen and tight. Has shortness of breath and difficulty breathing. On home oxygen at 2 L/min. Ambulates with a walker. He has chronic difficulty breathing and shortness of breath. He is on Lasix 60 mg twice a day which he has been taking any still making urine. He was recently discharged from [facility] facility for subacute rehabilitation. He has been on home health monitoring for the past 2 weeks. He denies increasing intake of salt or fluid. He denies noncompliance with his medication. He denies any chest pain, substernal nocturnal dyspnea nor any orthopnea. He does have increasing shortness of breath on exertion for the past few days. Patient has a history of CHF, coronary stents, tachycardia, and a loop monitor. Patient recalls his weight being about 234 pounds when he came home from the [facility] on July 23. Currently in triage, his weight is 256. In the emergency room chest x-ray showed mild congestion, intravenous Lasix was given and the patient was referred for admission. Hospital Course Hospital Course: The patient was admitted to [facility]. Patient was continued on Coreg. Norvasc was discontinued due to significant lower extremity edema. Diuretics was given with Zaroxolyn and intravenous Lasix. After 48 hours of hospitalization the patient significantly improved. Swelling improved. Patient has been on chronic oxygen at home on 2 L nasal cannula. Initial chest x-ray revealed some congestion and subsequently patient dramatically improved as well in terms of his respirations. He was noted to be slightly tachycardic but the patient stated has been tachycardic since he had his surgery in his back that became complicated with kidney failure. His Coreg was increased tachycardia improved. He began to ambulate around that improve as well. Patient eventually was to be discharged home the rest of the hospital stays unremarkable. Patient was advised to follow-up with his physician in 5 days and have a basic metabolic panel to recheck creatinine and potassium. Physical Exam Vital Signs: Temp Pulse Resp BP Pulse Ox 97.5 F 103 H 20 105/88 H 94 08/12/17 07:11 08/12/17 07:11 08/12/17 07:11 08/12/17 07:11 08/12/17 07:35 Pulse Oximeter Continuous Start: 08/10/17 16: 02 Freq: RTQ4 Status: Active Document 08/12/17 07:35 HCR (Rec: 08/12/17 10:04 HCR [email or web address]) Pulse Oximetry Assessment Oxygen Saturation (92-100) 94 Oxygen Flow Rate (L/min) 2 Oxygen Delivery Method Nasal Cannula Equipment Usage Equipment in Use Continuous SpO2 Machine # 2 Intake & Output 08/11/17 08/12/17 08/13/17 06:59 06:59 06:59 Intake Total 937 1668 Output Total 5149 0973 Balance -2164 -397 Weight 108.6 kg 108.8 kg General appearance: PRESENT: no acute distress, cooperative, obese Head exam: PRESENT: normocephalic Eye exam: PRESENT: EOMI Mouth exam: PRESENT: moist, neck supple Neck exam: ABSENT: JVD Respiratory exam: PRESENT: clear to auscultation miguel. ABSENT: rhonchi, wheezes Cardiovascular exam: PRESENT: RRR GI/Abdominal exam: PRESENT: soft. ABSENT: distended - Obese, tenderness Extremities exam: PRESENT: other - Trace to +1 lower extremity edema Neurological exam: PRESENT: alert, awake, oriented to person, oriented to place , oriented to time, oriented to situation Skin exam: PRESENT: dry, warm. ABSENT: cyanosis Results Laboratory Results: 08/11/17 05:07 Impressions: Chest X-Ray 08/10/17 13:56 IMPRESSION: CARDIAC ENLARGEMENT. MINIMAL VASCULAR CONGESTION. Qualifiers PATEINT BEING DISCHARGED WITH ANY OF THE FOLLOWING DIAGNOSIS?: Heart Failure HF Pt being discharged on ACEI for LVEF less than 40%?: No Reason(s) for not prescribing ACEI:: Not indicated - renal failure, EF >40% HF Pt being discharged on ARBS for LVEF less than 40%?: No Reason(s) for not prescribing ARBS:: Not indicated - Renal failure, EF > 40% HF Pt with Afib discharged with Warfarin?: No Reason(s) for not prescribing Warfarin:: Drug declined by patient - Patient reports hx of afib but level vial setter at [facility] said no afib and does not want new anticoags. HF Pt discharged on evidence-based Beta Yoan:: Yes Plan Discharge Plan: Follow-up with primary care physician in 3-5 days. Time Spent: Less than 30 Minutes
[2017-08-12 11:28] VITALS: BP 122/88
== END 2017-08-12 11:42 | disposition home health service (06) | DRG 291 ==
LOC: ER 13:16 → EH 15:26 → UNDOADMIN 15:26 → 3S 16:01 → EH 16:45 → 3S 16:45
DX: I13.0 Hypertensive heart and chronic kidney disease with heart failure and stage 1 through stage 4 chronic kidney disease, or unspecified chronic kidney disease (principal); I50.23 Acute on chronic systolic (congestive) heart failure; Z68.41 Body mass index [BMI] 40.0-44.9, adult; N18.3 Chronic kidney disease, stage 3 (moderate); E11.22 Type 2 diabetes mellitus with diabetic chronic kidney disease; E11.42 Type 2 diabetes mellitus with diabetic polyneuropathy; I48.2 Chronic atrial fibrillation; D50.9 Iron deficiency anemia, unspecified; I27.2 Other secondary pulmonary hypertension; I25.10 Atherosclerotic heart disease of native coronary artery without angina pectoris; G47.33 Obstructive sleep apnea (adult) (pediatric); E66.01 Morbid (severe) obesity due to excess calories; Z79.82 Long term (current) use of aspirin; Z79.4 Long term (current) use of insulin; Z79.899 Other long term (current) drug therapy; Z99.81 Dependence on supplemental oxygen
CPT/HCPCS: 36415; 71010; 80048; 80053; 81001; 82550; 82553; 82803; 82962; 83036; 83735; 83880; 84439; 84443; 84484; 85025; 93005; 93010; 94762; 99285; G8978-GP; G8979-GP; J1650; J1815; J1940; J3490

== ENCOUNTER 2017-09-02 12:33 | Inpatient (IN) | payer OTHER, MEDICARE ==
[2017-09-02 13:51] LABS: ABSOLUTE BASOPHILS # (AUTO) 0.1 10^3/uL (0.0-0.2); ABSOLUTE EOSINOPHILS # (AUTO) 0.2 10^3/uL (0.0-0.6); ABSOLUTE LYMPHOCYTES (AUTO) 0.8 10^3/uL (0.5-4.7); ABSOLUTE MONOCYTES (AUTO) 0.8 10^3/uL (0.1-1.4); ABSOLUTE NEUT (AUTO) 5.1 10^3/uL (1.7-8.2); BASOPHILS % (AUTO) 1.2 % (0-2); EOSINOPHILS % (AUTO) 2.9 % (0-6); HEMATOCRIT 28.7 % (37.9-51.0); HEMOGLOBIN 8.9 g/dL (13.5-17.0); MEAN CORPUSCULAR HEMOGLOBIN 24.6 pg (27.0-33.4); MEAN CORPUSCULAR HGB CONC 30.8 g/dL (32.0-36.0); MEAN CORPUSCULAR VOLUME 80 fl (80-97); MONOCYTES % (AUTO) 11.2 % (3-13); RED CELL DISTRIBUTION WIDTH 18.7 % (11.5-14.0); SEGMENTED NEUTROPHILS % (AUTO) 73.7 % (42-78)
[2017-09-02 13:52] LABS: VENOUS BLOOD HCO3 21.9 mmol/L (20-32); VENOUS BLOOD PCO2 43.1 mmHg (35-63); VENOUS BLOOD PH 7.32 (7.30-7.42)
[2017-09-02] MEDS ORDERED: FUROSEMIDE INJ/PF 40 MG/4 ML SDV IV ONE (13:54)
[2017-09-02 14:19] LABS: ALANINE AMINOTRANSFERASE 14 U/L (21-72); ALBUMIN 4.3 g/dL (3.5-5.0); ALKALINE PHOSPHATASE 119 U/L (38-126); ANION GAP 18 (5-19); ASPARTATE AMINO TRANSFERASE 20 U/L (17-59); BILIRUBIN,DIRECT 0.7 mg/dL (0.0-0.4); BILIRUBIN,TOTAL 1.1 mg/dL (0.2-1.3); BLOOD UREA NITROGEN 44 mg/dL (7-20); CALCIUM 8.8 mg/dL (8.4-10.2); CARBON DIOXIDE 23 mmol/L (22-30); CHLORIDE 100 mmol/L (98-107); CREATINE KINASE 70 U/L (55-170); CREATINE KINASE MB 1.97 ng/mL (<4.55); CREATININE RESULT 1.87 mg/dL (0.52-1.25); GLUCOSE 233 mg/dL (75-110); POTASSIUM 4.3 mmol/L (3.6-5.0); SODIUM 140.8 mmol/L (137-145); TOTAL PROTEIN 8.7 g/dL (6.3-8.2); TROPONIN I 0.013 ng/mL
--- NOTE | 2017-09-02 14:26 | RADIOLOGY REPORT (SQ) ---
EXAM DESCRIPTION: CHEST SINGLE VIEW COMPLETED DATE/TIME: 09/02/2017 2:10 pm REASON FOR STUDY: bed 19 db COMPARISON: 08/10/2017 EXAM PARAMETERS: NUMBER OF VIEWS: One view. TECHNIQUE: Single frontal radiographic view of the chest acquired. RADIATION DOSE: NA LIMITATIONS: None. FINDINGS: LUNGS AND PLEURA: No opacities, masses or pneumothorax. No pleural effusion. MEDIASTINUM AND HILAR STRUCTURES: No masses. Contour normal. HEART AND VASCULAR STRUCTURES: Cardiomegaly is present. There is no failure. BONES: No acute findings. HARDWARE: Loop recorder OTHER: No other significant finding. IMPRESSION: Cardiomegaly without failure. TECHNICAL DOCUMENTATION: JOB ID: [id number]
[2017-09-02 14:57] LABS: APPEARANCE,URINE SLIGHTLY-CLOUDY; BILIRUBIN,URINE NEGATIVE (NEGATIVE); GLUCOSE, URINE NEGATIVE (NEGATIVE); KETONES,URINE NEGATIVE (NEGATIVE); LEUKOCYTE ESTERASE,URINE TRACE (NEGATIVE); NITRITE,URINE NEGATIVE (NEGATIVE); PROTEIN,URINE NEGATIVE (NEGATIVE); URINE SPECIFIC GRAVITY 1.009; UROBILINOGEN,URINE NEGATIVE mg/dL (<2.0)
--- NOTE | 2017-09-02 15:33 | ER Document Report ---
ED General - General Chief Complaint: Breathing Difficulty Stated Complaint: DIFFICULTY BREATHING Time Seen by Provider: 09/02/17 13:44 Mode of Arrival: Ambulatory Information source: Patient Notes: This is a 72-year-old male with a coronary artery disease, history of CHF, COPD , obstructive sleep apnea who presents to the emergency room with shortness of breath, increased swelling of the lower extremities and a 12 pound weight gain in the last 2 weeks. TRAVEL OUTSIDE OF THE [place] IN LAST 30 DAYS: No - HPI Onset: Last week Onset/Duration: Gradual Quality of pain: No pain Severity: None Pain Level: Denies Associated symptoms: Shortness of breath. denies: Chest pain, Fever Exacerbated by: Denies Relieved by: Denies Similar symptoms previously: Yes Recently seen / treated by doctor: Yes - Related Data Allergies/Adverse Reactions: Penicillins Allergy (Verified 09/02/17 12:38) piperacillin Allergy (Verified 09/02/17 12:38) Home Medications: Current Home Medications Amlodipine Besylate [Norvasc 10 mg Tablet] 10 mg PO DAILY 09/02/17 [History] Insulin Aspart [Novolog Flexpen] 30 units SQ QAM 09/02/17 [History] Insulin Aspart [Novolog Flexpen] 37 units SQ NOON 09/02/17 [History] Insulin Aspart [Novolog Flexpen] 40 units SQ QPM 09/02/17 [History] Past Medical History - General Information source: Patient - Social History Smoking Status: Never Smoker Cigarette use (# per day): No Chew tobacco use (# tins/day): No Frequency of alcohol use: None Drug Abuse: None Lives with: Family Family History: CAD, DM, Hypertension Patient has suicidal ideation: No - Past Medical History Cardiac Medical History: Reports: Hx Atrial Fibrillation, Hx Congestive Heart Failure, Hx Coronary Artery Disease, Hx Hypercholesterolemia, Hx Hypertension, Hx Pulmonary Embolism Denies: Hx Heart Attack, Hx Peripheral Vascular Disease, Hx Heart Murmur Pulmonary Medical History: Reports: Hx Asthma, Hx Bronchitis, Hx COPD, Hx Sleep Apnea - unable to wear cpap Denies: Hx Pneumonia, Hx Respiratory Failure, Hx Tuberculosis Neurological Medical History: Reports: Hx Seizures - in 1968. Denies: Hx Cerebrovascular Accident Endocrine Medical History: Reports: Hx Diabetes Mellitus Type 1, Hx Diabetes Mellitus Type 2. Denies: Hx Graves' Disease, Hx Hyperthyroidism, Hx Hypothyroidism Renal/ Medical History: Reports: Hx Benign Prostatic Hyperplasia, Hx Hemodialysis - Temporarily while he was in the hospital, but no longer requires dialysis.. Denies: Hx End Stage Renal Disease, Hx Kidney Stones, Hx Peritoneal Dialysis Malignancy Medical History: Denies Hx Leukemia, Denies Hx Lung Cancer GI Medical History: Reports: Hx Gastroesophageal Reflux Disease, Hx Hiatal Hernia, Hx Irritable Bowel. Denies: Hx Crohn's Disease, Hx Hepatitis, Hx Liver Failure, Hx Pancreatitis, Hx Ulcer Musculoskeltal Medical History: Reports Hx Arthritis, Denies Hx Fibromyalgia, Denies Hx Multiple Sclerosis, Denies Hx Muscular Dystrophy Psychiatric Medical History: Reports: Hx Depression, Hx Post Traumatic Stress Disorder - nightmares Denies: Hx Bipolar Disorder, Hx Dementia, Hx Schizophrenia Traumatic Medical History: Reports: Hx Fractures - Rt elbow and scattered radial head Infectious Medical History: Denies: Hx Hepatitis, Hx HIV Past Surgical History: Reports: Hx Appendectomy, Hx Cardiac Catheterization - 3 VESSEL DISEASE NOT CANDIDATE FOR INTERVENTION, Hx Cholecystectomy, Hx Orthopedic Surgery - CERVICAL AND L-S FUSION, Other - Tracheostomy- decannulated. PEG tube-removed. Denies: Hx Bowel Surgery, Hx Colostomy, Hx Coronary Artery Bypass Graft, Hx Gastric Bypass Surgery, Hx Herniorrhaphy, Hx Open Heart Surgery, Hx Pacemaker, Hx Tonsillectomy - Immunizations Hx Diphtheria, Pertussis, Tetanus Vaccination: Yes Hx Pneumococcal Vaccination: 08/22/12 Review of Systems - Review of Systems Constitutional: denies: Chills, Fever EENT: No symptoms reported Cardiovascular: See HPI Respiratory: No symptoms reported Gastrointestinal: No symptoms reported Genitourinary: No symptoms reported Male Genitourinary: No symptoms reported Musculoskeletal: No symptoms reported Skin: No symptoms reported Hematologic/Lymphatic: No symptoms reported Neurological/Psychological: No symptoms reported Physical Exam - Vital signs Vitals: Temp Pulse Resp BP Pulse Ox 97.6 F 98 24 H 96/60 L 86 L 09/02/17 12:41 09/02/17 12:41 09/02/17 12:41 09/02/17 12:41 09/02/17 12:41 Notes: Physical exam: GENERAL: 72-year-old man, alert and oriented 3, no acute distress HEAD: Atraumatic, normocephalic. EYES: Pupils equal round and reactive to light, extraocular movements intact, sclera anicteric, conjunctiva are normal. ENT: TMs normal, nares patent, oropharynx clear without exudates. Moist mucous membranes. NECK: Normal range of motion, supple without obvious mass or JVD. LUNGS: Crackles bilaterally HEART: Regular rate and rhythm without murmurs, rubs or gallops. ABDOMEN: Soft, normoactive bowel sounds. No tenderness to palpation. No guarding, no rebound. No masses appreciated. EXTREMITIES: 3+ lower extremity edema ormal range of motion, no pitting or edema. No clubbing or cyanosis. NEUROLOGICAL: Cranial nerves II through XII grossly intact. Normal speech, moving all extremities. PSYCH: Normal mood, normal affect. SKIN: Warm, Dry, normal turgor, no rashes or lesions noted. Course - Vital Signs Vital signs: Temp Pulse Resp BP Pulse Ox 97.6 F 98 21 H 122/80 95 09/02/17 12:41 09/02/17 12:41 09/02/17 17:01 09/02/17 17:00 09/02/17 17:01 - Laboratory Result Diagrams: 09/02/17 13:30 09/02/17 13:30 Laboratory results interpreted by me: 09/02/17 09/02/17 09/02/17 13:30 13:30 13:30 RBC 3.60 L Hgb 8.9 L Hct 28.7 L MCH 24.6 L MCHC 30.8 L RDW 18.7 H Lymphocytes % 11.0 L BUN 44 H Creatinine 1.87 H Est GFR ( Amer) 43 L Est GFR (Non-Af Amer) 36 L Glucose 233 H Lactic Acid 2.2 H Direct Bilirubin 0.7 H ALT 14 L NT-Pro-B Natriuret Pep Total Protein 8.7 H Ur Leukocyte Esterase 09/02/17 09/02/17 13:30 14:10 RBC Hgb Hct MCH MCHC RDW Lymphocytes % BUN Creatinine Est GFR ( Amer) Est GFR (Non-Af Amer) Glucose Lactic Acid Direct Bilirubin ALT NT-Pro-B Natriuret Pep 2910 H Total Protein Ur Leukocyte Esterase TRACE H - Diagnostic Test Radiology reviewed: Image reviewed, Reports reviewed - EKG Interpretation by Me Rate: Normal Rhythm: NSR - EKG shows sinus tachycardia with a ventricular rate of 102, left anterior hemiblock, poor R-wave progression. No significant change from previous Critical Care Note - Critical Care Note Total time excluding time spent on procedures (mins): 60 Discharge - Discharge Clinical Impression: CHF (congestive heart failure) Qualifiers: Congestive heart failure type: systolic Congestive heart failure chronicity: acute on chronic Qualified Code(s): I50.23 - Acute on chronic systolic ( congestive) heart failure Condition: Serious Disposition: ADMITTED INPATIENT Admitting Provider: Hospitalist - Dr Teran/Christianne wheatley Unit Admitted: Telemetry
--- NOTE | 2017-09-02 19:17 | PDOC H&P ---
History of Present Illness Admission Date/PCP: 09/02/17 16:23 MARS BRAUN DO History of Present Illness: DIVYA JAIN is a 72 year old male who presented to the emergency room with weight gain and shortness of breath. The patient's past medical history is significant for coronary artery disease status post multiple interventions since and stent placements. He has underlying obstructive sleep apnea but is noncompliant with CPAP therapy. During this past year the patient had acute cholecystitis and developed sepsis and multiorgan failure requiring dialysis. During this time. The patient had a tracheostomy. He was in the hospital for several weeks and eventually discharged to an LTAC followed by subacute rehabilitation. He has been doing fairly well but is been having issues with recurrent congestive heart failure exacerbations since that time. He presented to the emergency room with increasing shortness of breath and weight gain. Past Medical History Cardiac Medical History: Reports: Atrial Fibrillation, Congestive Heart Failure , Coronary Artery Disease, Hyperlipidema, Hypertension, Pulmonary Embolism Denies: Myocardial Infarction, Peripheral Vascular Disease, Heart Murmur Pulmonary Medical History: Reports: Asthma, Bronchitis, Chronic Obstructive Pulmonary Disease (COPD), Sleep Apnea - unable to wear cpap Denies: Pneumonia, Respiratory Failure, Tuberculosis EENT Medical History: Reports: None Neurological Medical History: Reports: Seizures - in 1968 Endocrine Medical History: Reports: Diabetes Mellitus Type 1, Diabetes Mellitus Type 2 Denies: Hyperthyroidism, Hypothyroidism Renal/ Medical History: Reports: Other - History of acute kidney injury requiring temporary dialysis. Denies: End Stage Renal Disease Malignancy Medical History: Reports: None Denies: Leukemia, Lung Cancer GI Medical History: Reports: Gastroesophageal Reflux Disease, Hiatal Hernia, Other Denies: Crohn's Disease, Hepatitis Musculoskeltal Medical History: Reports: Arthritis Denies: Fibromyalgia Psychiatric Medical History: Reports: Depression, Post Traumatic Stress Disorder - nightmares Denies: Bipolar Disorder, Dementia Traumatic Medical History: Reports: None Hematology: Denies: Anemia, Hemophilia, Sickle Cell Disease Infectious Medical History: Reports: None Denies: HIV Past Surgical History Past Surgical History: Reports: Appendectomy, Cardiac Catheterization - 3 VESSEL DISEASE NOT CANDIDATE FOR INTERVENTION, Cholecystectomy, Orthopedic Surgery - CERVICAL AND L-S FUSION, Other - Tracheostomy-decannulated. PEG tube- removed Denies: Colostomy, Coronary Artery Bypass Graft, Gastric Bypass Surgery, Herniorrhaphy, Pacemaker, Tonsillectomy Social History Information Source: Patient Lives with: Spouse/Significant other Smoking Status: Unknown if Ever Smoked Frequency of Alcohol Use: None Hx Recreational Drug Use: No Drugs: None Hx Prescription Drug Abuse: No Family History Family History: CAD, DM, Hypertension Parental Family History Reviewed: Yes Children Family History Reviewed: No Sibling(s) Family History Reviewed.: No Medication/Allergy Home Medications: Aspirin [Aspirin 81 mg Chewable Tablet] 81 mg PO DAILY 08/10/17 Atorvastatin Calcium [Lipitor 80 mg Tablet] 80 mg PO QHS 08/10/17 Clopidogrel Bisulfate [Plavix 75 mg Tablet] 75 mg PO DAILY 08/10/17 Dextrose [Glucose] 4 gm PO PRN PRN 08/10/17 Ferrous Sulfate [Iron] 325 mg PO Q12 08/10/17 Gabapentin [Neurontin 300 mg Capsule] 600 mg PO Q12 08/10/17 Hydralazine HCl [Apresoline 25 mg Tablet] 25 mg PO Q8 08/10/17 Insulin Glargine,Hum.rec.anlog [Lantus Solostar] 45 units SQ Q12 08/10/17 Loratadine [Claritin 10 mg Tablet] 10 mg PO DAILY 08/10/17 Magnesium Oxide [Mag-Ox 400 mg Tablet] 400 mg PO Q12 08/10/17 Pantoprazole Sodium [Protonix] 40 mg PO Q12 08/10/17 Potassium Chloride [Klor-Con 10 Meq Tablet.sa] 20 meq PO Q12 08/10/17 Tamsulosin HCl [Flomax 0.4 mg Cap.sr] 0.4 mg PO DAILY 08/10/17 Carvedilol [Coreg 12.5 mg Tablet] 25 mg PO Q12 #120 tablet 08/12/17 Furosemide [Lasix 20 mg Tablet] 80 mg PO BID #240 08/12/17 Amlodipine Besylate [Norvasc 10 mg Tablet] 10 mg PO DAILY 09/02/17 Insulin Aspart [Novolog Flexpen] 30 units SQ QAM 09/02/17 Insulin Aspart [Novolog Flexpen] 37 units SQ NOON 09/02/17 Insulin Aspart [Novolog Flexpen] 40 units SQ QPM 09/02/17 Allergies/Adverse Reactions: Penicillins Allergy (Verified 09/02/17 12:38) piperacillin Allergy (Verified 09/02/17 12:38) Review of Systems Constitutional: PRESENT: fatigue, headache(s), weakness, weight gain. ABSENT: anorexia, chills, fever(s) Eyes: ABSENT: visual disturbances Ears: ABSENT: hearing changes Nose, Mouth, and Throat: PRESENT: headache(s), other - He complains of dizziness recently. ABSENT: mouth pain, sore throat Cardiovascular: PRESENT: dyspnea on exertion, edema, orthropnea. ABSENT: chest pain, palpitations Respiratory: PRESENT: cough, dyspnea Gastrointestinal: ABSENT: abdominal pain, bloating, constipation, diarrhea, dysphagia, heartburn, nausea, vomiting Genitourinary: ABSENT: difficulty urinating, dysuria, hematuria Musculoskeletal: PRESENT: back pain. ABSENT: joint swelling, muscle weakness Integumentary: ABSENT: diaphoresis, erythema, lesions, rash, wounds Neurological: PRESENT: weakness. ABSENT: abnormal movements, abnormal speech, confusion, convulsions, frequent falls, lack of coordination, syncope, tingling Psychiatric: PRESENT: depression. ABSENT: anxiety, homidical ideation, suicidal ideation Endocrine: ABSENT: cold intolerance, heat intolerance, polydipsia, polyuria Hematologic/Lymphatic: ABSENT: easy bleeding, easy bruising, lymphadenopathy Allergic/Immunologic: ABSENT: seasonal rhinorrhea Physical Exam Vital Signs: Temp Pulse Resp BP Pulse Ox 97.6 F 98 21 H 122/80 95 09/02/17 12:41 09/02/17 12:41 09/02/17 17:01 09/02/17 17:00 09/02/17 17:01 General appearance: PRESENT: morbidly obese, other - He looks as if he does not feel well but is in no acute distress Head exam: PRESENT: atraumatic, normocephalic Eye exam: PRESENT: conjunctiva pink, EOMI, PERRLA. ABSENT: scleral icterus Ear exam: PRESENT: normal external ear exam Mouth exam: PRESENT: moist, tongue midline Teeth exam: ABSENT: dental caries Neck exam: ABSENT: carotid bruit, JVD, lymphadenopathy, thyromegaly Respiratory exam: PRESENT: crackles, decreased breath sounds Cardiovascular exam: PRESENT: tachycardia. ABSENT: diastolic murmur, rubs, systolic murmur Pulses: PRESENT: normal dorsalis pedis pul GI/Abdominal exam: PRESENT: normal bowel sounds, soft. ABSENT: distended, guarding, mass, organolmegaly, rebound, tenderness Rectal exam: PRESENT: deferred Gentrourinary exam: ABSENT: indwelling catheter Extremities exam: PRESENT: +2 edema. ABSENT: calf tenderness, tenderness Musculoskeletal exam: ABSENT: ambulatory - Money for, full ROM - now we will get bonuses, tenderness Neurological exam: PRESENT: alert - changed, awake, oriented to person, oriented to place, oriented to time, oriented to situation, CN II-XII grossly intact. ABSENT: motor sensory deficit Psychiatric exam: PRESENT: appropriate affect, normal mood. ABSENT: homicidal ideation, suicidal ideation Skin exam: PRESENT: dry, intact, warm. ABSENT: cyanosis, rash Results Laboratory Results: 09/02/17 17:50 Lactic Acid 1.3 Impressions: Chest X-Ray 09/02/17 13:01 IMPRESSION: Cardiomegaly without failure. Assessment & Plan - Diagnosis (1) Acute and chronic respiratory failure with hypoxia Plan: The patient is requiring more than his baseline oxygen of 2 L at home. His acute respiratory failure is due to his congestive heart failure exacerbation. His morbid obesity is playing a role as well. Therapy will be outlined below. (2) Acute on chronic combined systolic and diastolic CHF (congestive heart failure) Plan: I will start the patient on 80 mg of IV Lasix twice daily. He will be started on his home medications. If he does not improve we will get cardiology involved. We will keep accurate I's and O's and keep him on a telemetry bed. (3) Acute on chronic renal failure Plan: His creatinine at the time of discharge of his last admission was 1.5. Currently 1.87. We will recheck labs in the morning. We will have to watch his renal function very carefully in light of aggressive diuresis. The patient has a history of acute kidney injury requiring dialysis within the past year. (4) Coronary artery disease Plan: At this point no complaints of chest pain. He has inoperable coronary artery disease. He has had multiple interventions and stents placed. He will continue aspirin and Plavix. Coreg and his other home medications. (5) Diabetes Qualifiers: Diabetes mellitus type: type 2 Diabetes mellitus complication status: with neurologic complications Diabetes mellitus complication detail: with polyneuropathy Diabetes mellitus fpc insulin use: unspecified fpc insulin use status Qualified Code(s): E11.42 - Type 2 diabetes mellitus with diabetic polyneuropathy Plan: He will resume Lantus twice daily. He will have Humalog sliding scale available as well. (7) Obstructive sleep apnea Plan: He is noncompliant with CPAP. Continue oxygen at night. (8) Atrial fibrillation Qualifiers: Atrial fibrillation type: chronic Qualified Code(s): I48.2 - Chronic atrial fibrillation Plan: Currently in a sinus rhythm and rate controlled. No issues at this point. (9) Hypertension Qualifiers: Hypertension type: essential hypertension Qualified Code(s): I10 - Essential (primary) hypertension Plan: Currently stable. Continue to watch him quite closely (10) Morbid obesity with BMI of 40.0-44.9, adult Plan: Dietary discretion is advised. Certainly his weight is playing a role in his respiratory issues. - Time Time Spent: 50 to 70 Minutes - Inpatient Certification Medical Necessity: Failure to Improve With Outpatient Therapy, Other - Inpatient hospitalization remains necessary. I expect this patient to be in the hospital greater than 2 midnights. He has significant comorbidities and is having an acute congestive heart failure exacerbation requiring IV diuresis and close monitoring.
--- NOTE | 2017-09-02 19:48 | EKG REPORT ---
SEVERITY:- ABNORMAL ECG - SINUS TACHYCARDIA LEFT BUNDLE BRANCH BLOCK : Confirmed by: Benjamin Jane MD 02-Sep-2017 19:47:30
[2017-09-02] MEDS ORDERED: ENOXAPARIN SODIUM INJ 40 MG/0.4 ML DISP.SYRIN SUBCUT ONE (20:00)
[2017-09-02] MEDS: GABAPENTIN 300 MG CAPSULE PO SCH (21:44)
[2017-09-02] MEDS: HYDRALAZINE HCL 25 MG TABLET PO SCH (21:44)
[2017-09-02] MEDS: FERROUS SULFATE 325 MG TABLET PO SCH (21:45)
[2017-09-02] MEDS: MAGNESIUM OXIDE 400 MG TABLET PO SCH (21:45)
[2017-09-02] MEDS: ATORVASTATIN CALCIUM 80 MG TABLET PO SCH (21:45)
[2017-09-02] MEDS: FUROSEMIDE INJ/PF 40 MG/4 ML SDV IV SCH (21:46)
[2017-09-02] MEDS: METOPROLOL SUCCINATE 25 MG TAB.SR.24H PO SCH (21:46)
[2017-09-02] MEDS: INSULIN GLARGINE,HUM.REC.ANLOG 300 UNIT/3 ML INSULN.PEN SUBCUT SCH (21:54)
[2017-09-03 05:45] LABS: ABSOLUTE BASOPHILS # (AUTO) 0.1 10^3/uL (0.0-0.2); ABSOLUTE EOSINOPHILS # (AUTO) 0.2 10^3/uL (0.0-0.6); ABSOLUTE LYMPHOCYTES (AUTO) 0.9 10^3/uL (0.5-4.7); ABSOLUTE MONOCYTES (AUTO) 0.9 10^3/uL (0.1-1.4); ABSOLUTE NEUT (AUTO) 5.1 10^3/uL (1.7-8.2); BASOPHILS % (AUTO) 1.1 % (0-2); EOSINOPHILS % (AUTO) 2.6 % (0-6); HEMATOCRIT 27.7 % (37.9-51.0); HEMOGLOBIN 8.7 g/dL (13.5-17.0); HGB HCT DIFFERENCE -1.6; LYMPHOCYTES % (AUTO) 12.1 % (13-45); MEAN CORPUSCULAR HEMOGLOBIN 24.9 pg (27.0-33.4); MEAN CORPUSCULAR HGB CONC 31.4 g/dL (32.0-36.0); MEAN CORPUSCULAR VOLUME 79 fl (80-97); RED BLOOD COUNT 3.49 10^6/uL (4.35-5.55); RED CELL DISTRIBUTION WIDTH 18.3 % (11.5-14.0); SEGMENTED NEUTROPHILS % (AUTO) 72.2 % (42-78); WHITE BLOOD COUNT 7.1 10^3/uL (4.0-10.5)
[2017-09-03] MEDS: HYDRALAZINE HCL 25 MG TABLET PO SCH ×3 (05:50→21:13)
[2017-09-03] MEDS: LANSOPRAZOLE 30 MG TAB.RAP.DR PO SCH (05:50)
[2017-09-03 06:11] LABS: ALANINE AMINOTRANSFERASE 27 U/L (21-72); ALBUMIN 4.1 g/dL (3.5-5.0); ALKALINE PHOSPHATASE 118 U/L (38-126); ANION GAP 18 (5-19); ASPARTATE AMINO TRANSFERASE 20 U/L (17-59); BILIRUBIN,DIRECT 0.8 mg/dL (0.0-0.4); BILIRUBIN,TOTAL 1.4 mg/dL (0.2-1.3); BLOOD UREA NITROGEN 45 mg/dL (7-20); CALCIUM 9.1 mg/dL (8.4-10.2); CARBON DIOXIDE 25 mmol/L (22-30); CHLORIDE 102 mmol/L (98-107); CHOLESTEROL 87.75 mg/dL (0-200); CREATININE RESULT 1.79 mg/dL (0.52-1.25); Direct HDL 35 mg/dL (>40); GLUCOSE 79 mg/dL (75-110); MAGNESIUM 2.1 mg/dL (1.6-2.3); POTASSIUM 3.9 mmol/L (3.6-5.0); SODIUM 144.5 mmol/L (137-145); TOTAL PROTEIN 8.1 g/dL (6.3-8.2); TRIGLYCERIDES 88 mg/dL (<150)
[2017-09-03 06:26] LABS: DIRECT LDL < 30 mg/dL (<100)
[2017-09-03] MEDS ORDERED: GLUCAGON,HUMAN RECOMB 1 MG INJ IM PRN (08:18)
[2017-09-03] MEDS ORDERED: DEXTROSE 40% GEL 15 GM TUBE PO PRN ×2 (08:18)
[2017-09-03] MEDS ORDERED: INSULIN REG, HUMAN 100 UNIT/ML 3 ML VIAL (PYX) SUBCUT PRN (08:18)
[2017-09-03] MEDS ORDERED: DEXTROSE 50%-WATER 25 GM/50 ML DISP.SYRIN IV PRN ×2 (08:18)
--- NOTE | 2017-09-03 08:30 | RADIOLOGY REPORT (SQ) ---
EXAM DESCRIPTION: CHEST SINGLE VIEW COMPLETED DATE/TIME: 09/03/2017 8:13 am REASON FOR STUDY: chf COMPARISON: Chest films 06/18/2017, 06/21/2017, 08/10/2017, 09/02/2017 EXAM PARAMETERS: NUMBER OF VIEWS: One view. TECHNIQUE: Single frontal radiographic view of the chest acquired. RADIATION DOSE: NA LIMITATIONS: Lordotic portable film with EKG leads over the chest FINDINGS: LUNGS AND PLEURA: No opacities, masses or pneumothorax. No pleural effusion. MEDIASTINUM AND HILAR STRUCTURES: No masses. Contour normal. HEART AND VASCULAR STRUCTURES: Stable marked cardiomegaly BONES: No acute findings. HARDWARE: None in the chest. OTHER: No other significant finding. IMPRESSION: Stable cardiomegaly. No acute infiltrates TECHNICAL DOCUMENTATION: JOB ID: [id number]
[2017-09-03] MEDS: FUROSEMIDE INJ/PF 40 MG/4 ML SDV IV SCH ×2 (10:45→21:15)
[2017-09-03] MEDS: POTASSIUM CHLORIDE 10 MEQ TABLET.SA PO SCH (10:45)
[2017-09-03] MEDS: GABAPENTIN 300 MG CAPSULE PO SCH ×2 (10:46→21:12)
[2017-09-03] MEDS: METOPROLOL SUCCINATE 25 MG TAB.SR.24H PO SCH ×2 (10:46→21:13)
[2017-09-03] MEDS: TAMSULOSIN HCL 0.4 MG CAP.SR.24H PO SCH (10:46)
[2017-09-03] MEDS: FERROUS SULFATE 325 MG TABLET PO SCH ×2 (10:46→21:11)
[2017-09-03] MEDS: MAGNESIUM OXIDE 400 MG TABLET PO SCH ×2 (10:46→21:11)
[2017-09-03] MEDS: ASPIRIN 81 MG TABLET, ENT COATED PO SCH (10:47)
[2017-09-03] MEDS: CLOPIDOGREL BISULFATE 75 MG TABLET PO SCH (10:47)
[2017-09-03] MEDS: ENOXAPARIN SODIUM INJ 40 MG/0.4 ML DISP.SYRIN SUBCUT SCH (10:48)
[2017-09-03] MEDS: LORATADINE 10 MG TABLET PO SCH (11:00)
[2017-09-03] MEDS: INSULIN GLARGINE,HUM.REC.ANLOG 300 UNIT/3 ML INSULN.PEN SUBCUT SCH ×2 (12:14→21:19)
--- NOTE | 2017-09-03 12:54 | XCELERA REPORT ---
[address] [address] Transthoracic Echocardiogram Report Name: DIVYA JAIN Age: 72 yrs Gender: Male : 1945 Patient Status: Inpatient Patient Location: [address] [place] [address] Study Date: 09/03/2017 11:09 AM Height: 63 in Weight: 246 lb BSA: 2.1 m2 Procedure: A complete two-dimensional transthoracic echocardiogram was performed (2D, M-mode, spectral and color flow Doppler). The study was technically difficult with many images being suboptimal in quality. The study was technically limited with all images being suboptimal in quality. Reason For Study: chf Ordering Physician: DOMINGO GRULLON Performed By: Kusum Humphrey Interpretation Summary Due to the poor quality of the echocardiogram, an assessment of left ventricular ejection fraction cannot be made. Best estimate is 40-45. The study was technically difficult with many images being suboptimal in quality. The study was technically limited with all images being suboptimal in quality. Left ventricular systolic function is mild to moderately reduced. LV diastolic function could not be adequately assessed. There is mild concentric left ventricular hypertrophy. The left ventricle is grossly normal size. Regional wall motion abnormalities cannot be excluded due to limited visualization. Right ventricular function cannot be assessed due to poor image quality. The right atrium is moderately dilated. The left atrium is moderately dilated. There is a mild amount of mitral regurgitation There is no mitral valve stenosis. No aortic regurgitation is present. There is no aortic valve stenosis There is a trace to mild amount of tricuspid regurgitation Tricuspid regurgitation jet envelope not well defined to measure RV systolic pressure accurately. The aortic root is not well visualized. The inferior vena cava was not well visualized There is no pericardial effusion. MMode/2D Measurements & Calculations RVDd: 3.2 cm LVIDd: 4.4 cm FS: 15.8 % Ao root diam: 2.7 cm IVSd: 1.3 cm LVIDs: 3.7 cm EDV(Teich): 87.9 ml LVPWd: 1.2 cm ESV(Teich): 58.5 ml Ao root area: 5.9 cm2 EF(Teich): 33.4 % LA dimension: 4.3 cm Doppler Measurements & Calculations MV E max jaswinder: MV P1/2t max jaswinder: Ao V2 max: LV V1 max P.5 cm/sec 153.0 cm/sec 107.0 cm/sec 3.4 mmHg MV A max jaswinder: MV P1/2t: 38.3 msec Ao max PG: LV V1 max: 47.7 cm/sec 4.6 mmHg 92.7 cm/sec MV E/A: 3.2 MVA(P1/2t): 5.7 cm2 MV dec slope: 1169 cm/sec2 PA V2 max: PI end-d jaswinder: TR max jaswinder: 53.3 cm/sec 67.5 cm/sec 256.5 cm/sec PA max P.1 mmHg TR max P.3 mmHg Left Ventricle The left ventricle is grossly normal size. There is mild concentric left ventricular hypertrophy. Left ventricular systolic function is mild to moderately reduced. Due to the poor quality of the echocardiogram, an assessment of left ventricular ejection fraction cannot be made. Best estimate is 40-45. LV diastolic function could not be adequately assessed. Regional wall motion abnormalities cannot be excluded due to limited visualization. Right Ventricle The right ventricle is moderately dilated. Right ventricular function cannot be assessed due to poor image quality. Atria The right atrium is moderately dilated. The left atrium is moderately dilated. Interarterial septum not well visualized and not well dopplered. Cannot comment on ASD/PFO presence. Mitral Valve There is moderate mitral annular calcification. There is no mitral valve stenosis. There is a mild amount of mitral regurgitation. Aortic Valve The aortic valve is not well visualized secondary to technical limitations. There is no aortic valve stenosis. No aortic regurgitation is present. Tricuspid Valve The tricuspid valve is not well visualized secondary to technical limitations. There is a trace to mild amount of tricuspid regurgitation. Tricuspid regurgitation jet envelope not well defined to measure RV systolic pressure accurately. Pulmonic Valve The pulmonic valve is not well visualized. Great Vessels The aortic root is not well visualized. The inferior vena cava was not well visualized. Effusions There is no pericardial effusion. : DOMINGO GRULLON > Hadley Izaguirre
--- NOTE | 2017-09-03 15:17 | PDOC PROGRESS REPORT ---
Subjective Progress Note for:: 09/03/17 Subjective:: The patient is a 72-year-old morbidly obese male who presented to the emergency room with weight gain and shortness of breath. He has an extensive past medical history significant for coronary artery disease status post multiple interventions and stent placements. He has underlying obstructive sleep apnea but is noncompliant with CPAP therapy. During this past year the patient had acute cholecystitis and developed sepsis and multiorgan failure requiring dialysis. During this time the patient had a tracheostomy placed as well as a feeding tube. He was in the hospital for several weeks and eventually discharged to an LTAC and eventually downgraded to subacute rehabilitation. He has been doing fairly well for the past several months but is been having issues with recurrent congestive heart failure exacerbation since that time. In the emergency room the patient was found to have evidence of a congestive heart failure exacerbation. He was referred for admission. He was started on Lasix 80 mg twice daily. Today when I saw him he states that he is maybe feeling a little bit better but he is still requiring more oxygen that he does have baseline. He denies fever or chills. He has had no chest pressure or pain. No heart palpitations that he is aware of. He has had no nausea, vomiting or diarrhea. He did finally have a bowel movement. He is not voiding as well as he would like. Physical Exam Vital Signs: Temp Pulse Resp BP Pulse Ox 98.4 F 88 18 128/97 H 97 09/03/17 12:16 09/03/17 14:00 09/03/17 12:16 09/03/17 12:16 09/03/17 12:16 Intake & Output 09/02/17 09/03/17 09/04/17 06:59 06:59 06:59 Intake Total 500 Output Total 1000 Balance -500 Weight 108.4 kg General appearance: PRESENT: no acute distress, morbidly obese, well-developed, well-nourished, other - He is receiving oxygen via nasal cannula. He has mild conversational dyspnea Head exam: PRESENT: atraumatic, normocephalic Eye exam: PRESENT: conjunctiva pink, EOMI, PERRLA. ABSENT: scleral icterus Ear exam: PRESENT: normal external ear exam Mouth exam: PRESENT: moist, tongue midline Respiratory exam: PRESENT: crackles, decreased breath sounds - He is diminished in the lower bases bilaterally Cardiovascular exam: PRESENT: RRR. ABSENT: diastolic murmur, rubs, systolic murmur GI/Abdominal exam: PRESENT: firm, normal bowel sounds. ABSENT: tenderness Rectal exam: PRESENT: deferred Extremities exam: PRESENT: full ROM, pedal edema, +2 edema. ABSENT: calf tenderness, clubbing Neurological exam: PRESENT: alert, awake, oriented to person, oriented to place , oriented to time, oriented to situation, CN II-XII grossly intact. ABSENT: motor sensory deficit Psychiatric exam: PRESENT: appropriate affect, normal mood. ABSENT: homicidal ideation, suicidal ideation Skin exam: PRESENT: dry, intact, warm. ABSENT: cyanosis, rash Results Laboratory Results: 09/03/17 04:56 09/03/17 04:56 09/03/17 09/03/17 04:56 04:56 WBC 7.1 RBC 3.49 L Hgb 8.7 L Hct 27.7 L MCV 79 L MCH 24.9 L MCHC 31.4 L RDW 18.3 H Plt Count 286 Seg Neutrophils % 72.2 Lymphocytes % 12.1 L Monocytes % 12.0 Eosinophils % 2.6 Basophils % 1.1 Absolute Neutrophils 5.1 Absolute Lymphocytes 0.9 Absolute Monocytes 0.9 Absolute Eosinophils 0.2 Absolute Basophils 0.1 Sodium 144.5 Potassium 3.9 Chloride 102 Carbon Dioxide 25 Anion Gap 18 BUN 45 H Creatinine 1.79 H Est GFR ( Amer) 46 L Est GFR (Non-Af Amer) 38 L Glucose 79 Calcium 9.1 Magnesium 2.1 Total Bilirubin 1.4 H AST 20 ALT 27 Alkaline Phosphatase 118 Total Protein 8.1 Albumin 4.1 Triglycerides 88 Cholesterol 87.75 LDL Cholesterol Direct < 30 VLDL Cholesterol 18.0 HDL Cholesterol 35 L 09/03/17 04:56 NT-Pro-B Natriuret Pep 2710 H Impressions: Chest X-Ray 09/03/17 06:00 IMPRESSION: Stable cardiomegaly. No acute infiltrates Assessment & Plan - Diagnosis (1) Acute and chronic respiratory failure with hypoxia Plan: The patient is requiring more than his baseline oxygen of 3 L at home. His acute respiratory failure is due to his congestive heart failure exacerbation. His morbid obesity is playing a role as well. Therapy will be outlined below. (2) Acute on chronic combined systolic and diastolic CHF (congestive heart failure) Plan: I will continue the patient on 80 mg of IV Lasix twice daily. I am going to get cardiology to see the patient as he does not seem much improved today. (3) Acute on chronic renal failure Plan: His creatinine at the time of discharge of his last admission was 1.5. Creatinine was somewhat improved today down to 1.7. He is still above baseline. We need to track very carefully with him due to his acute kidney injury requiring dialysis earlier in the year. Currently he is tolerating the diuresis. (4) Coronary artery disease Plan: At this point no complaints of chest pain. He has inoperable coronary artery disease. He has had multiple interventions and stents placed. He will continue aspirin and Plavix. Coreg and his other home medications. (5) Diabetes Qualifiers: Diabetes mellitus type: type 2 Diabetes mellitus complication status: with neurologic complications Diabetes mellitus complication detail: with polyneuropathy Diabetes mellitus correction insulin use: unspecified correction insulin use status Qualified Code(s): E11.42 - Type 2 diabetes mellitus with diabetic polyneuropathy Plan: He will resume Lantus twice daily. He will have Humalog sliding scale available as well. (6) Anemia Plan: Stable. This is an anemia of chronic disease. (7) Obstructive sleep apnea Plan: He is noncompliant with CPAP. Continue oxygen at night. (8) Atrial fibrillation Qualifiers: Atrial fibrillation type: chronic Qualified Code(s): I48.2 - Chronic atrial fibrillation Plan: Currently in a sinus rhythm and rate controlled. No issues at this point. (9) Hypertension Qualifiers: Hypertension type: essential hypertension Qualified Code(s): I10 - Essential (primary) hypertension Plan: Currently stable. Continue to watch him quite closely (10) Morbid obesity with BMI of 40.0-44.9, adult Plan: Dietary discretion is advised. Certainly his weight is playing a role in his respiratory issues. - Time Time Spent with patient: 25-34 minutes - Inpatient Certification Medical Necessity: Need Close Monitoring Due to Risk of Patient Decompensation, Other - Inpatient hospitalization remains necessary. The patient is at high risk of decompensation. He is requiring parenteral diuresis and quite close monitoring. He needs cardiology evaluation as well.
[2017-09-03] MEDS: ATORVASTATIN CALCIUM 80 MG TABLET PO SCH (21:12)
[2017-09-04] MEDS: ACETAMINOPHEN 325 MG TABLET PO PRN ×2 (01:11→16:34)
[2017-09-04] MEDS: LANSOPRAZOLE 30 MG TAB.RAP.DR PO SCH (05:46)
[2017-09-04] MEDS: HYDRALAZINE HCL 25 MG TABLET PO SCH ×3 (05:47→21:55)
--- NOTE | 2017-09-04 07:56 | RADIOLOGY REPORT (SQ) ---
EXAM DESCRIPTION: CHEST SINGLE VIEW COMPLETED DATE/TIME: 09/04/2017 7:36 am REASON FOR STUDY: chf COMPARISON: 09/03/2017. EXAM PARAMETERS: NUMBER OF VIEWS: One view. TECHNIQUE: Single frontal radiographic view of the chest acquired. RADIATION DOSE: NA LIMITATIONS: None. FINDINGS: LUNGS AND PLEURA: Fine prominence of interstitium. Minimal blunting - layered effusion of the right costophrenic angle. MEDIASTINUM AND HILAR STRUCTURES: No masses. Contour normal. HEART AND VASCULAR STRUCTURES: Mild enlargement of the cardiac silhouette. Atherosclerosis. BONES: No acute findings. HARDWARE: Lower cervical hardware fusion. Stimulation device of the left mid hemithorax. OTHER: No other significant finding. IMPRESSION: No significant interval change. TECHNICAL DOCUMENTATION: JOB ID: [id number]
[2017-09-04] MEDS ORDERED: METOLAZONE 5 MG TABLET PO ONE (09:30)
--- NOTE | 2017-09-04 09:48 | PROGRESS NOTE E ---
Progress Note NAME: DIVYA JAIN : 1945 AGE: 72Y DATE: 09/04/2017 ROOM: 427 SUBJECTIVE: The patient is a pleasant 72-year-old, morbidly obese, male, who presented to the emergency room with weight gain, who has history of congestive heart failure. He has sleep apnea on CPAP. The patient had difficulty swallowing. He was taking Lasix 80 mg p.o. twice a day. The patient was placed on Lasix 80 mg IV twice a day, feeling better. OBJECTIVE: GENERAL: Patient lying in bed, not in distress. VITALS SIGNS: Temperature 98.1, heart rate 101, respiratory 20, blood pressure 119/90, saturation 96% on 3 liters. HEENT: Normocephalic, atraumatic. Pupils round and reactive to light and accommodation bilaterally. Extraocular movements intact. Ears: Tympanic membranes intact bilaterally. No discharge from the ears. No discharge from the nose. NECK: Supple. No increased JVD. No thyromegaly. No lymphadenopathy. CARDIOVASCULAR: Normal S1, S2. RESPIRATORY: Lungs with bilateral crackles. ABDOMEN: Soft, obese. MUSCULOSKELETAL: Edema 2+. NEUROLOGIC: Awake, alert. SKIN: No rash. LABORATORY: White blood count is 7.1, hemoglobin 8.7. Creatinine 1.7. ASSESSMENT: 1. DHEBR-LD-[id number] RESPIRATORY FAILURE WITH HYPOXEMIA. 2. [id number]-[id number] COMBINED SYSTOLIC AND DIASTOLIC HEART FAILURE. 3. MFULN-RA-YALRYFX RENAL FAILURE. 4. CORONARY ARTERY DISEASE. 5. MORBID OBESITY. 6. DIABETES. 7. OBSTRUCTIVE SLEEP APNEA. 8. HYPERTENSION. PLAN: Continue Lasix IV 80 mg twice a day. I will add Zaroxolyn 5 mg one dose today. MEDICAL NECESSITY: He is on IV Lasix. DICTATING PHYSICIAN: MAURICIO CARTWRIGHT M.D. [id number] PHY#: [id number] ID: [id number] JOB#: [id number] ACCT: [id number] cc: > MTDD
[2017-09-04] MEDS: POTASSIUM CHLORIDE 10 MEQ TABLET.SA PO SCH (10:07)
[2017-09-04] MEDS: ASPIRIN 81 MG TABLET, ENT COATED PO SCH (10:08)
[2017-09-04] MEDS: GABAPENTIN 300 MG CAPSULE PO SCH ×2 (10:08→21:55)
[2017-09-04] MEDS: TAMSULOSIN HCL 0.4 MG CAP.SR.24H PO SCH (10:08)
[2017-09-04] MEDS: FERROUS SULFATE 325 MG TABLET PO SCH ×2 (10:09→21:56)
[2017-09-04] MEDS: METOPROLOL SUCCINATE 25 MG TAB.SR.24H PO SCH ×2 (10:09→21:55)
[2017-09-04] MEDS: MAGNESIUM OXIDE 400 MG TABLET PO SCH ×2 (10:10→21:55)
[2017-09-04] MEDS: CLOPIDOGREL BISULFATE 75 MG TABLET PO SCH (10:10)
[2017-09-04] MEDS: ENOXAPARIN SODIUM INJ 40 MG/0.4 ML DISP.SYRIN SUBCUT SCH (10:10)
[2017-09-04] MEDS: LORATADINE 10 MG TABLET PO SCH (10:10)
[2017-09-04] MEDS: FUROSEMIDE INJ/PF 40 MG/4 ML SDV IV SCH ×2 (10:10→21:56)
[2017-09-04] MEDS: INSULIN GLARGINE,HUM.REC.ANLOG 300 UNIT/3 ML INSULN.PEN SUBCUT SCH ×2 (10:12→21:56)
--- NOTE | 2017-09-04 12:56 | PDOC CONSULTATION ---
Consultation Consult Date: 09/03/17 Attending physician:: DOMINGO NICOLE Consult reason:: CHF History of Present Illness Admission Date/PCP: 09/02/17 17:54 MARS BRAUN DO Patient complains of: Shortness of breath and increasing pedal edema History of Present Illness: DIVYA JAIN is a 72 year old male who presented to the emergency room with weight gain and shortness of breath. The patient's past medical history is significant for coronary artery disease status post multiple interventions since and stent placements. He has underlying obstructive sleep apnea but is noncompliant with CPAP therapy. During this past year the patient had acute cholecystitis and developed sepsis and multiorgan failure requiring dialysis. During this time. The patient had a tracheostomy. He was in the hospital for several weeks and eventually discharged to an LTAC followed by subacute rehabilitation. He has been doing fairly well but is been having issues with recurrent congestive heart failure exacerbations since that time. He presented to the emergency room with increasing shortness of breath and weight gain. This history was reviewed and confirmed. On repeated questioning, patient denied any chest pain. His main symptoms are shortness of breath and increasing pedal edema. He also claims to have gained 20 pounds within a few days. Patient denied any sustained palpitations, syncope, near syncope. Have been asked to follow patient as regards has been managing CHF. Past Medical History Cardiac Medical History: Reports: Atrial Fibrillation, Congestive Heart Failure , Coronary Artery Disease, Hyperlipidema, Hypertension, Pulmonary Embolism Denies: Myocardial Infarction, Peripheral Vascular Disease, Heart Murmur Pulmonary Medical History: Reports: Asthma, Bronchitis, Chronic Obstructive Pulmonary Disease (COPD), Sleep Apnea - unable to wear cpap Denies: Pneumonia, Respiratory Failure, Tuberculosis EENT Medical History: Reports: None Neurological Medical History: Reports: Seizures - in 1968 Endocrine Medical History: Reports: Diabetes Mellitus Type 1, Diabetes Mellitus Type 2 Denies: Hyperthyroidism, Hypothyroidism Renal/ Medical History: Reports: Other - History of acute kidney injury requiring temporary dialysis. Denies: End Stage Renal Disease Malignancy Medical History: Reports: None Denies: Leukemia, Lung Cancer GI Medical History: Reports: Gastroesophageal Reflux Disease, Hiatal Hernia, Other Denies: Crohn's Disease, Hepatitis Musculoskeltal Medical History: Reports: Arthritis Denies: Fibromyalgia Psychiatric Medical History: Reports: Depression, Post Traumatic Stress Disorder - nightmares Denies: Bipolar Disorder, Dementia Traumatic Medical History: Reports: None Hematology: Denies: Anemia, Hemophilia, Sickle Cell Disease Infectious Medical History: Reports: None Denies: HIV Past Surgical History Past Surgical History: Reports: Appendectomy, Cardiac Catheterization - 3 VESSEL DISEASE NOT CANDIDATE FOR INTERVENTION, Cholecystectomy, Orthopedic Surgery - CERVICAL AND L-S FUSION, Other - Tracheostomy-decannulated. PEG tube- removed Denies: Colostomy, Coronary Artery Bypass Graft, Gastric Bypass Surgery, Herniorrhaphy, Pacemaker, Tonsillectomy Social History Information Source: Patient Lives with: Spouse/Significant other Smoking Status: Never Smoker Frequency of Alcohol Use: None Hx Recreational Drug Use: No Drugs: None Hx Prescription Drug Abuse: No - Advance Directive Resuscitation Status: Full Code Family History Family History: CAD, DM, Hypertension Parental Family History Reviewed: Yes Children Family History Reviewed: Yes Sibling(s) Family History Reviewed.: Yes Medication/Allergy Home Medications: Aspirin [Aspirin 81 mg Chewable Tablet] 81 mg PO DAILY 08/10/17 Atorvastatin Calcium [Lipitor 80 mg Tablet] 80 mg PO QHS 08/10/17 Clopidogrel Bisulfate [Plavix 75 mg Tablet] 75 mg PO DAILY 08/10/17 Dextrose [Glucose] 4 gm PO PRN PRN 08/10/17 Ferrous Sulfate [Iron] 325 mg PO Q12 08/10/17 Gabapentin [Neurontin 300 mg Capsule] 600 mg PO Q12 08/10/17 Hydralazine HCl [Apresoline 25 mg Tablet] 25 mg PO Q8 08/10/17 Insulin Glargine,Hum.rec.anlog [Lantus Solostar] 45 units SQ Q12 08/10/17 Loratadine [Claritin 10 mg Tablet] 10 mg PO DAILY 08/10/17 Magnesium Oxide [Mag-Ox 400 mg Tablet] 400 mg PO Q12 08/10/17 Pantoprazole Sodium [Protonix] 40 mg PO Q12 08/10/17 Potassium Chloride [Klor-Con 10 Meq Tablet.sa] 20 meq PO Q12 08/10/17 Tamsulosin HCl [Flomax 0.4 mg Cap.sr] 0.4 mg PO DAILY 08/10/17 Carvedilol [Coreg 12.5 mg Tablet] 25 mg PO Q12 #120 tablet 08/12/17 Furosemide [Lasix 20 mg Tablet] 80 mg PO BID #240 08/12/17 Amlodipine Besylate [Norvasc 10 mg Tablet] 10 mg PO DAILY 09/02/17 Insulin Aspart [Novolog Flexpen] 30 units SQ QAM 09/02/17 Insulin Aspart [Novolog Flexpen] 37 units SQ NOON 09/02/17 Insulin Aspart [Novolog Flexpen] 40 units SQ QPM 09/02/17 Allergies/Adverse Reactions: Penicillins Allergy (Verified 09/02/17 12:38) piperacillin Allergy (Verified 09/02/17 12:38) Physical Exam Vital Signs: Temp Pulse Resp BP Pulse Ox 98.4 F 96 18 128/97 H 97 09/03/17 12:16 09/03/17 19:00 09/03/17 12:16 09/03/17 12:16 09/03/17 12:16 Intake & Output 09/02/17 09/03/17 09/04/17 06:59 06:59 06:59 Intake Total 500 552 Output Total 1000 550 Balance -500 2 Weight 108.4 kg Exam: GENERAL: well-nourished and in no acute distress. Alert and oriented x3 HEAD: Atraumatic, normocephalic. EYES: Pupils equal round and reactive to light, extraocular movements intact, sclera anicteric, conjunctiva are normal. ENT: TMs normal, nares patent, oropharynx clear without exudates. Moist mucous membranes. No oral ulcerations or bleeding gums noted NECK: supple without lymphadenopathy. Trachea is central. No cervical or axillary lymphadenopathy noted. Carotids are 2+, JVD difficult to evaluate but felt to be distended. LUNGS: Respiration seems nonlabored, no significant accessory muscle action noted. Bibasilar fine crackles and few bilateral wheezing noted. CHEST: Palpation of the chest wall shows no significant chest wall tenderness. No other significant abnormalities noted. 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 ABDOMEN: Soft, no significant tenderness appreciated, normoactive bowel sounds. No guarding, no rebound. No rigidity noted . No masses appreciated. EXTREMITIES: Pedal pulses are 1-2+, no calf tenderness noted. No clubbing or cyanosis. 2-3 + pedal edema noted NEUROLOGICAL: Focused neurological exam showed no significant neurologic deficit. Normal speech, no focal weakness appreciated. PSYCH: Normal mood, normal affect. Judgment and insight within normal limits. SKIN: No significant ecchymosis, rash, ulcerations or signs of pruritus noted. MUSCULOSKELETAL EXAM: No significant joint swelling noted. Results Laboratory Results: 09/03/17 04:56 09/03/17 04:56 09/03/17 09/03/17 04:56 04:56 WBC 7.1 RBC 3.49 L Hgb 8.7 L Hct 27.7 L MCV 79 L MCH 24.9 L MCHC 31.4 L RDW 18.3 H Plt Count 286 Seg Neutrophils % 72.2 Lymphocytes % 12.1 L Monocytes % 12.0 Eosinophils % 2.6 Basophils % 1.1 Absolute Neutrophils 5.1 Absolute Lymphocytes 0.9 Absolute Monocytes 0.9 Absolute Eosinophils 0.2 Absolute Basophils 0.1 Sodium 144.5 Potassium 3.9 Chloride 102 Carbon Dioxide 25 Anion Gap 18 BUN 45 H Creatinine 1.79 H Est GFR ( Amer) 46 L Est GFR (Non-Af Amer) 38 L Glucose 79 Calcium 9.1 Magnesium 2.1 Total Bilirubin 1.4 H AST 20 ALT 27 Alkaline Phosphatase 118 Total Protein 8.1 Albumin 4.1 Triglycerides 88 Cholesterol 87.75 LDL Cholesterol Direct < 30 VLDL Cholesterol 18.0 HDL Cholesterol 35 L 09/03/17 04:56 NT-Pro-B Natriuret Pep 2710 H EKG Comments: Tachycardia with nonspecific IVCD. Atrial rhythm difficult to evaluate. Cannot rule out paroxysmal atrial tachycardia with 3-1 conduction versus a flutter with predominantly 3:1 conduction, versus sinus rhythm. Impressions: Chest X-Ray 09/03/17 06:00 IMPRESSION: Stable cardiomegaly. No acute infiltrates Assessment & Plan - Diagnosis (1) Acute and chronic respiratory failure with hypoxia Is this a current diagnosis for this admission?: Yes (2) Acute on chronic combined systolic and diastolic CHF (congestive heart failure) Is this a current diagnosis for this admission?: Yes (3) Chronic kidney disease (CKD) Qualifiers: Chronic kidney disease stage: stage 3 (moderate) Qualified Code(s): N18.3 - Chronic kidney disease, stage 3 (moderate) Is this a current diagnosis for this admission?: Yes (4) Anemia Qualifiers: Anemia type: unspecified type Qualified Code(s): D64.9 - Anemia, unspecified Is this a current diagnosis for this admission?: Yes (5) COPD (chronic obstructive pulmonary disease) Qualifiers: Emphysema type: unspecified Is this a current diagnosis for this admission?: Yes (6) Coronary artery disease Qualifiers: Coronary Disease-Associated Artery/Lesion type: [place] artery [place] vs. transplanted heart: [place] heart Associated angina: without angina Qualified Code(s): I25.10 - Atherosclerotic heart disease of [place] coronary artery without angina pectoris Is this a current diagnosis for this admission?: Yes (7) Obstructive sleep apnea Is this a current diagnosis for this admission?: Yes (8) Atrial fibrillation Qualifiers: Atrial fibrillation type: unspecified Qualified Code(s): I48.91 - Unspecified atrial fibrillation Is this a current diagnosis for this admission?: Yes - Notes Notes: Acute and chronic respiratory failure with hypoxemia: Patient seems to have underlying COPD. Agree with oxygen supplementation. Patient will benefit from noninvasive positive pressure ventilation. May consider pulmonary evaluation. Acute on chronic combined systolic plus diastolic heart failure along with contribution from right heart failure: Patient noted to have significant right heart failure as well. Recommend diuretic therapy along with DANUTA inhibitor/ angiotensin receptor lana/entresto therapy. May consider beta-lana therapy. Chronic kidney disease: Currently stable. Monitor renal function. Anemia: Hemoglobin is noted to be low. Consider further evaluation and keep hemoglobin above 8 g percent. COPD: Continue current management plans with oxygen supplementation and bronchodilators as needed. Obstructive sleep apnea: Patient noncompliant with CPAP therapy. Hopefully he could be eczematous to CPAP therapy while in the hospital. Atrial fibrillation: Patient has a history of it. Recommend rate control. 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 Patient has history of chronic noncompliance. Will be happy to follow patient in the office. Dr. Llamas similar to cover from tomorrow. 2D echo shows was technically difficult. Please review full dictated report. - Time Time Spent: 50 to 70 Minutes - Patient remains full code. More than 50% of the time spent coordinating care, discussing management plans with involved caregivers. Management plans discussed with involved personnels. Medical decision making was of moderate to high complexity, patient's has multiple comorbidities. Medications reviewed and adjusted accordingly: Yes
[2017-09-04] MEDS: ATORVASTATIN CALCIUM 80 MG TABLET PO SCH (21:55)
[2017-09-05 04:44] LABS: ABSOLUTE BASOPHILS # (AUTO) 0.1 10^3/uL (0.0-0.2); ABSOLUTE EOSINOPHILS # (AUTO) 0.2 10^3/uL (0.0-0.6); ABSOLUTE LYMPHOCYTES (AUTO) 0.9 10^3/uL (0.5-4.7); ABSOLUTE MONOCYTES (AUTO) 1.1 10^3/uL (0.1-1.4); ABSOLUTE NEUT (AUTO) 5.1 10^3/uL (1.7-8.2); EOSINOPHILS % (AUTO) 2.8 % (0-6); HEMATOCRIT 28.5 % (37.9-51.0); HEMOGLOBIN 9.1 g/dL (13.5-17.0); HGB HCT DIFFERENCE -1.2; LYMPHOCYTES % (AUTO) 11.9 % (13-45); MEAN CORPUSCULAR HGB CONC 31.9 g/dL (32.0-36.0); MEAN CORPUSCULAR VOLUME 78 fl (80-97); MONOCYTES % (AUTO) 14.4 % (3-13); RED BLOOD COUNT 3.64 10^6/uL (4.35-5.55); RED CELL DISTRIBUTION WIDTH 18.9 % (11.5-14.0); SEGMENTED NEUTROPHILS % (AUTO) 69.9 % (42-78); WHITE BLOOD COUNT 7.3 10^3/uL (4.0-10.5)
[2017-09-05 05:01] LABS: ALBUMIN 4.2 g/dL (3.5-5.0); ANION GAP 15 (5-19); BLOOD UREA NITROGEN 46 mg/dL (7-20); CALCIUM 9.6 mg/dL (8.4-10.2); CARBON DIOXIDE 31 mmol/L (22-30); CHLORIDE 100 mmol/L (98-107); CREATININE RESULT 1.95 mg/dL (0.52-1.25); GLUCOSE 65 mg/dL (75-110); PHOSPHORUS 4.4 mg/dL (2.5-4.5); POTASSIUM 3.4 mmol/L (3.6-5.0); SODIUM 146.3 mmol/L (137-145)
[2017-09-05] MEDS: HYDRALAZINE HCL 25 MG TABLET PO SCH ×3 (05:17→22:37)
[2017-09-05] MEDS: LANSOPRAZOLE 30 MG TAB.RAP.DR PO SCH (05:17)
--- NOTE | 2017-09-05 07:38 | RADIOLOGY REPORT (SQ) ---
EXAM DESCRIPTION: CHEST SINGLE VIEW COMPLETED DATE/TIME: 09/05/2017 7:26 am REASON FOR STUDY: chf COMPARISON: 09/04/2017 NUMBER OF VIEWS: One view. TECHNIQUE: Single frontal radiographic view of the chest acquired. LIMITATIONS: None. FINDINGS: LUNGS AND PLEURA: No opacities, masses or pneumothorax. No pleural effusion. MEDIASTINUM AND HILAR STRUCTURES: No masses. Contour normal. HEART AND VASCULAR STRUCTURES: Heart enlarged without failure. Normal vasculature. BONES: No acute findings. HARDWARE: None in the chest. OTHER: No other significant finding. IMPRESSION: HEART ENLARGED WITHOUT FAILURE. NO OTHER SIGNIFICANT RADIOGRAPHIC FINDING IN THE CHEST. TECHNICAL DOCUMENTATION: JOB ID: [id number] [employer]- All Rights Reserved
[2017-09-05] MEDS: POTASSIUM CHLORIDE 10 MEQ TABLET.SA PO SCH (09:13)
[2017-09-05] MEDS: INSULIN GLARGINE,HUM.REC.ANLOG 300 UNIT/3 ML INSULN.PEN SUBCUT SCH ×2 (09:13→22:37)
[2017-09-05] MEDS: ENOXAPARIN SODIUM INJ 40 MG/0.4 ML DISP.SYRIN SUBCUT SCH (09:13)
[2017-09-05] MEDS: LORATADINE 10 MG TABLET PO SCH (09:14)
[2017-09-05] MEDS: FUROSEMIDE INJ/PF 40 MG/4 ML SDV IV SCH (09:14)
[2017-09-05] MEDS: FERROUS SULFATE 325 MG TABLET PO SCH ×2 (09:15→22:37)
[2017-09-05] MEDS: MAGNESIUM OXIDE 400 MG TABLET PO SCH ×2 (09:15→22:37)
[2017-09-05] MEDS: TAMSULOSIN HCL 0.4 MG CAP.SR.24H PO SCH (09:15)
[2017-09-05] MEDS: METOPROLOL SUCCINATE 25 MG TAB.SR.24H PO SCH ×2 (09:15→22:37)
[2017-09-05] MEDS: GABAPENTIN 300 MG CAPSULE PO SCH ×2 (09:15→22:37)
[2017-09-05] MEDS: ASPIRIN 81 MG TABLET, ENT COATED PO SCH (09:15)
[2017-09-05] MEDS: CLOPIDOGREL BISULFATE 75 MG TABLET PO SCH (09:16)
--- NOTE | 2017-09-05 10:38 | PROGRESS NOTE E ---
Progress Note NAME: DIVYA JAIN : 1945 AGE: 72Y DATE: 09/05/2017 ROOM: 427 SUBJECTIVE: The patient is a 72-year-old male who had a past medical history of congestive heart failure, morbid obesity, hypertension, admitted with worsening of heart failure. He is on CPAP and he is on Lasix 80 mg IV twice a day. Yesterday he received Zaroxolyn 1 dose 5 mg with significant diuresis and he made urine output around 1400. So far he is -3.7 L. He is feeling much better but he still has some swelling in his legs. OBJECTIVE: GENERAL: Patient lying in bed, comfortable, not in distress. VITALS SIGNS: Heart rate is 109, blood pressure is 111/62, temperature 98.4, saturation 96% on 3 L. HEENT: Normocephalic, atraumatic. Pupils round and reactive to light and accommodation bilaterally. Extraocular movements intact. Ears: Tympanic membranes intact bilaterally. No discharge from the ears. No discharge from the nose. NECK: Supple. No increased JVD. No thyromegaly. No lymphadenopathy. CARDIOVASCULAR: Normal S1, S2. Regular rate and rhythm, no murmur. RESPIRATORY: Bilateral crackles. ABDOMEN: Obese. MUSCULOSKELETAL: Edema 2+. NEUROLOGIC: Awake, alert. SKIN: No rash. LABORATORY: White blood count is 7.3, hemoglobin 9.1. Sodium 146, potassium 3.4, creatinine 1.9. ASSESSMENT: 1. [id number] RESPIRATORY FAILURE WITH HYPOXEMIA. 2. IDGSB-RE-IGLUQBO COMBINED SYSTOLIC AND DIASTOLIC HEART FAILURE. 3. RLMSN-WX-QPANKHD RENAL FAILURE STAGE 3. 4. CORONARY ARTERY DISEASE. 5. MORBID OBESITY. 6. DIABETES. 7. OBSTRUCTIVE SLEEP APNEA. 8. HYPERTENSION. 9. HYPOKALEMIA. PLAN: 1. Will change Lasix to 80 mg p.o. daily. We will add Zaroxolyn 2.5 mg p.o. daily. 2. Replace electrolytes. 3. Continue CPAP. 4. Labs tomorrow morning. 5. The patient needs to follow with Nephrology for consult. This can be done as outpatient with Dr. Colbert. 6. Disposition: Can be discharged home tomorrow morning. DICTATING PHYSICIAN: MAURICIO CARTWRIGHT M.D. [id number] PHY#: [id number] ID: [id number] JOB#: [id number] ACCT: [id number] cc: >
[2017-09-05] MEDS ORDERED: METOLAZONE 2.5 MG TABLET PO ONE (11:00)
[2017-09-05] MEDS: ACETAMINOPHEN 325 MG TABLET PO PRN (15:03)
[2017-09-05] MEDS: FUROSEMIDE 80 MG TABLET PO SCH (17:24)
[2017-09-05] MEDS: ATORVASTATIN CALCIUM 80 MG TABLET PO SCH (22:37)
--- NOTE | 2017-09-06 02:33 | PROGRESS NOTE E ---
Progress Note NAME: DIVYA JAIN : 1945 AGE: 72Y DATE: 09/05/2017 ROOM: 427 SUBJECTIVE: Note that the patient denies any chest pain or discomfort. There is no shortness of breath. There is no PND or orthopnea but he continues to have mild pedal edema in spite of improved diuresis. He has no TIA or CVA symptoms. There are no clear cut anginal symptoms. OBJECTIVE: GENERAL: The patient is morbidly obese, in no acute distress. He is well groomed. VITAL SIGNS: He is afebrile with a temperature of 97.9 degrees Fahrenheit, his pulse is 107 beats per minutes, blood pressure 126/68, respirations 16 per minute, O2 sat is 97% on 2 L nasal cannula. HEAD: Atraumatic, normocephalic. EYES: Pupils are equal, round, regular, reactive to light and accommodation. Extraocular movements are normal. There is no conjunctival pallor. There is no scleral icterus. ENT: Negative. NECK: Supple. There is +/- JVD elevation present. There is no goiter. There is no lymphadenopathy. Trachea is central. LUNGS: Clear to auscultation and percussion. S1 and S2 are heard. There is no S3 gallop. There is no S4 gallop. There is a systolic murmur in the left sternal border at the apex. There is no rub. There are no gallops. Note, S1 is of normal intensity. ABDOMEN: Soft, nontender. There is no hepatosplenomegaly. Bowel sounds are well heard. There is no rigidity noted. There are no masses noted. EXTREMITIES: Pedal pulses are 1-2+. There is no calf tenderness noted. There is no clubbing or cyanosis. There is 1+ pedal edema still present. There is no cellulitis. SHOWROOM CONSULTANT: The patient is conscious, awake, alert, oriented x3, with no focal deficit. PSYCHIATRIC: The patient's judgement and insight are intact. Mood and affect is normal. The patient's 24-hour intake was 1926 mL; output was 5650 mL. The patient's chest x-ray shows heart enlarged, without failure. No evidence of any radiographic findings of the chest. The patient's white count is 7,300, hemoglobin 9.1, hematocrit 28.5, and his platelet count is 310,000. The patient's sodium is 146.8, potassium is 3.4, chloride is 100, CO2 is 31, BUN is 46, creatinine is 1.95. GFR is reduced to 34 mL which is chronic kidney disease stage III. His glucose is 65. His calcium is 9.6, and his phosphorus is 4.4. IMPRESSION: 1. ACUTE ON CHRONIC LEFT VENTRICULAR SYSTOLIC FAILURE. At present, compensated. Note that the patient has mild to moderate reduction in LV function. 2. MOST LIKELY THE PATIENT HAS RIGHT HEART FAILURE. Hence, the pedal edema. The pedal edema could be a combination of volume overload, and also the patient's right heart failure. The patient has good diuresis so far. He is on Lasix IV and also metolazone. 3. CHRONIC KIDNEY DISEASE STAGE III. Moderate. 4. ANAEMIA. 5. CHRONIC OBSTRUCTIVE PULMONARY DISEASE. At present at baseline. 6. CORONARY ARTERY DISEASE. No anginal symptoms. 7. HISTORY OF 2 NV's AND A [id number] MYOCARDIAL INFARCTION IN THE PAST, after each of which he had 2 stents put in. The details of this are not known. 8. HISTORY OF HYPERTENSION. Blood pressure is well controlled. 9. OBSTRUCTIVE SLEEP APNEA. Patient is not able to use CPAP. 10. REMOTE HISTORY OF ATRIAL FIBRILLATION. Now patient in sinus tachycardia. 11. HISTORY OF ASTHMA/COPD. Stable. 12. MILD HYPERKALEMIA. We will give an extra dose of potassium today. Note that the patient's acute respiratory failure has resolved. RECOMMENDATIONS: His medications have been reviewed. Continue aspirin and Plavix. Continue hypoglycemic precautions with Glucagon and IV Dextrose 50%. Continue Lovenox at 40 mg subcutaneously. The patient has been started on ferrous sulfate; continue this. He is on furosemide now 80 mg p.o. b.i.d. He is also on Glucagon for hypoglycemic precautions. He is on hydralazine 25 mg p.o. q.8 h. He is on Lantus insulin. He is on metolazone 2.5 mg p.o. daily. He is on metoprolol 25 mg p.o. q.12 h. He is also on Flomax 0.4 mg p.o. for his enlarged prostate symptoms. NOTE: I discussed the finding with the patient. Thirty minutes were spent on this patient, with more than 50% of the time spent on direct patient care. His medications have been reviewed. Discussed the case with *------* on the case and other personnel on the case, and discussed with the patient and patient's . Note, that the decision making is of high complexity in view of the patient's multiple comorbidities. We will follow up in the morning. As stated, I have increased the patient's metoprolol since in the past he has had bradycardia. In view of his kidney function, he is on hydralazine. DICTATING PHYSICIAN: DIEGO ROSAS M.D. [id number] YIN#: [id number] ID: [id number] JOB#: [id number] ACCT: [id number] cc: >
[2017-09-06] MEDS: ACETAMINOPHEN 325 MG TABLET PO PRN ×2 (02:34→21:07)
[2017-09-06] MEDS: HYDRALAZINE HCL 25 MG TABLET PO SCH ×3 (05:55→21:09)
[2017-09-06] MEDS: LANSOPRAZOLE 30 MG TAB.RAP.DR PO SCH (05:55)
--- NOTE | 2017-09-06 08:15 | PROGRESS NOTE E ---
Progress Note NAME: DIVYA JAIN : 1945 AGE: 72Y DATE: 09/04/2017 ROOM: 427 SUBJECTIVE: The patient states that his shortness of breath is much better. There is no PND or orthopnea. He still has leg edema. There is no chest pain or discomfort. There are no TIA or CVA symptoms. PAST MEDICAL HISTORY: The patient states that in 2014 he was in [place], when he had some chest pain and was found to have 3-vessel coronary artery disease but had only 1 stent. He was at that time found to have alx-WZ-hxoteebzg [place] prior to the intervention. He also states that in May of 2016 he came to this hospital with elevated troponin-I and was sent to [facility], where he had another stent put. The patient states he has a past history of atrial fibrillation but now is in sinus tachycardia. He also states that he had bradycardia about 2 years ago and was transferred to [facility]. It was thought due to his medications, and he is only on Coreg now. INCOMPLETE DICTATION OBJECTIVE: @ ASSESSMENT: @ PLAN: @ DICTATING PHYSICIAN: DIEGO ROSAS M.D. [id number] PHY#: [id number] ID: [id number] JOB#: [id number] ACCT: [id number] cc: >
--- NOTE | 2017-09-06 08:18 | PROGRESS NOTE E ---
Progress Note NAME: DIVYA JAIN : 1945 AGE: 72Y DATE: 09/04/2017 ROOM: 427 SUBJECTIVE: The patient states the shortness of breath is much better. He has no PND orthopnea. He denies any cough or wheezing. He has still some leg edema. PAST MEDICAL HISTORY: In the past he has a history of a gallbladder infection which turned into a multiorgan system failure, and he temporarily required dialysis. At present the patient has chronic kidney disease stage III with a CGR of 38. He also told me that in 2014, when he was in [place], he had some chest pain and was admitted to the hospital in [place] and had a [id number] OK and had a cardiac catheterization which showed 3-vessel disease, but he had only 1 stent. He also states that in May of 2016, he came to [facility] and was found to have an elevated troponin-I and was transferred to [facility], where he had another stent put in. He has not had angina for a little while. He also states in the past he has had atrial fibrillation but now seems to be in sinus tachycardia. He also states over 2 years ago he was transferred to [facility] due to severe bradycardia, and his medications were adjusted, and he was placed on a beta lana, and the sinus bradycardia resolved. He also states in the past he has had seizures, but not for a long time. He also states that about a few years ago he had a small vessel in his brain which clotted, and he had a problem with speech which about a week. He also has a history of diabetes mellitus, chronic kidney disease stage III. He also has a loop monitor installed. As per the patient, this was checked at the [place], and they told him that there were no major problems with it. He has had a tracheostomy in the past, when he had the multiorgan system failure. The tracheostomy tube has been taken off. He also has a history of sleep apnea but is noncompliant with the CPAP. He says he gets significant cough with the CPAP machine, and [facility], and started that, he had the same problems. OBJECTIVE: On examination, the patient is morbidly obese. He is well groomed, at present in no major distress. He is afebrile with a temperature of 97.7 degrees Fahrenheit. His pulse was 105 beats per minute, which is sinus tachycardia. Blood pressure is 128/77. Respirations are 20 per minute. O2 sats are 97% on 2 liters nasal cannula. Head is atraumatic, normocephalic. Eyes: Pupils are equal, round, regular, reactive to light and accommodation. Extraocular movements are normal. There is benign conjunctival pallor. There is no scleral icterus. ENT is negative. Neck is supple. There is mild JVD present. Carotids are equal. There are no bruits, in spite of the fact that the patient states that he had a 70-80% blockage on the right side and 80% blockage on the left side. Because of his heart problems, he has not addressed it. There is no lymphadenopathy. Trachea is central. Lungs have diminished air entry. Prolonged expiration. A few fine rales in the bases and very mild wheezing. There are also some rhonchi. S1/S2 is heard. There is no S3 gallop. There is no S4 gallop. There is a systolic murmur at the left sternal border and the apex. There is no rub. S1 is of normal intensity. Abdomen is soft, obese, nontender. There is no hepatosplenomegaly. Bowel sounds are well heard. There are no masses. Extremities: Pedal pulses , femorals are reduced, and there are no femoral bruits. There is 2- pedal edema bilaterally. There is no cyanosis or clubbing. There is no cellulitis. There is no calf tenderness. 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 Psychiatric: The patient's judgement and insight are intact. His affect is normal. His mood is normal. Skin: There is no ecchymosis, rashes, ulcerations, or petechiae or other lesions seen. Note that the patient's echo showed poor quality of the echocardiogram. Best estimate is 40-45%, which is mildly to moderately reduced. Left ventricular diastolic function could not be adequately assessed. There is mild concentric left ventricular hypertrophy. Regional wall motion abnormality cannot be excluded due to limited visualization. Right ventricular function cannot be assessed due to poor image quality. The right atrium was moderately dilated. The left atrium was moderately dilated. There was mitral regurgitation. There is no aortic regurgitation. There is no aortic valve stenosis. There is trace to mild amount of tricuspid regurgitation. A tricuspid regurgitation jet was not well visualized to make estimation of the right ventricular pressure. The patient's 24-hour intake was 952 mL, output was 1450 mL. The patient's chest x-ray shows of interstitial minimal blunting, *------* effusion of the right costophrenic angle. Please look at the report. The patient's monitor shows that he is not having sinus tachycardia. The patient's hemoglobin yesterday was 8.7 with a hematocrit of 27.7. The patient's glucose is 154. ASSESSMENT: 1. Acute on chronic respiratory failure with hypoxia. This is much improved. The patient's O2 sat is 97% on 2 liters nasal cannula. 2. Acute on chronic, systolic and diastolic heart failure. 3. Right ventricular failure, most likely. 4. Chronic kidney disease, stage III, which is moderate. 5. Anemia. 6. Chronic obstructive pulmonary disease with acute exacerbation, now seems to be getting better. 7. Coronary artery disease of [place] vessels with 2 stents in the coronary arteries with no angina symptoms. 8. History of 2 [id number] myocardial infarctions, after which he had 2 stents put in. 9. Obstructive sleep apnea. Patient intolerant to CPAP. 10. Past history of atrial fibrillation. 11. History of bradycardia and loop monitor placement. 12. The patient is an insulin-dependent diabetic, type 2, with chronic kidney disease. RECOMMENDATIONS: Continue metoprolol 25 mg p.o. q. 12 hours. Continue hydralazine at 25 mg p.o. q. 8 hours. Continue insulin. Continue Lasix at 80 mg IV q. 12 hours. Will continue the patient on aspirin and Plavix. Continue the patient atorvastatin for hyperlipidemia. Note that the patient has chronic back pain and leg pain. He had a cervical spine fusion and also had lumbosacral spine fusion. Hence, he is on gabapentin. Note that the patient's echo was discussed with the patient. The patient is a FULL CODE. His is his surrogate healthcare decision maker. Note 35 minutes spent on this patient, including review of his records and taking another history from the patient, especially the Past Medical History. More 50% of this time was spent on direct patient care. Medications have been reviewed. We will see if we can increase the patient's hydralazine or increase the patient's metoprolol cautiously. Will recommend respiratory treatments. Medical decision making is of high complexity due to the multiple medical problems this patient has. Also, we tried to get records from [facility] regarding his stents. Will follow with you. DICTATING PHYSICIAN: DIEGO ROSAS M.D. [id number] YIN#: [id number] ID: [id number] JOB#: [id number] ACCT: [id number] cc: >
[2017-09-06] MEDS: INSULIN GLARGINE,HUM.REC.ANLOG 300 UNIT/3 ML INSULN.PEN SUBCUT SCH ×2 (09:06→22:16)
[2017-09-06] MEDS: POTASSIUM CHLORIDE 10 MEQ TABLET.SA PO SCH (09:13)
[2017-09-06] MEDS: CLOPIDOGREL BISULFATE 75 MG TABLET PO SCH (09:14)
[2017-09-06] MEDS: FUROSEMIDE 80 MG TABLET PO SCH ×2 (09:14→17:16)
[2017-09-06] MEDS: ASPIRIN 81 MG TABLET, ENT COATED PO SCH (09:14)
[2017-09-06] MEDS: GABAPENTIN 300 MG CAPSULE PO SCH ×2 (09:14→21:07)
[2017-09-06] MEDS: TAMSULOSIN HCL 0.4 MG CAP.SR.24H PO SCH (09:14)
[2017-09-06] MEDS: MAGNESIUM OXIDE 400 MG TABLET PO SCH ×2 (09:14→21:07)
[2017-09-06] MEDS: FERROUS SULFATE 325 MG TABLET PO SCH ×2 (09:15→21:07)
[2017-09-06] MEDS: METOPROLOL SUCCINATE 25 MG TAB.SR.24H PO SCH (09:15)
[2017-09-06] MEDS: LORATADINE 10 MG TABLET PO SCH (09:15)
[2017-09-06] MEDS ORDERED: METOLAZONE 2.5 MG TABLET PO SCH (10:00)
[2017-09-06] MEDS ORDERED: METOPROLOL SUCCINATE 25 MG TAB.SR.24H PO ONE (11:00)
--- NOTE | 2017-09-06 12:33 | PDOC DISCHARGE SUMMARY ---
General - Admit/Disc Date/PCP Admission Date/Primary Care Provider: 09/02/17 17:54 MARS BRAUN DO Skidder: Dr. Llamas Doubling Machine Operator: Dr. Filemon Villanueva Discharge Date: 09/07/17 - Discharge Diagnosis (1) Acute and chronic respiratory failure with hypoxia Is this a current diagnosis for this admission?: Yes Summary: The patient is back to his baseline oxygen requirements. His acute respiratory failure was due to decompensated heart failure. (2) Acute on chronic combined systolic and diastolic CHF (congestive heart failure) Is this a current diagnosis for this admission?: Yes Summary: Initially on IV Lasix. He was evaluated by cardiology who has added metolazone to his regimen. He has been transitioned back to oral Lasix. He will obtain nephrology evaluation as an outpatient as well as cardiology follow-up. (3) Acute on chronic renal failure Summary: He will need nephrology evaluation as an outpatient. An appointment is being scheduled at the time of discharge. Unfortunately his renal function did not improve during this hospitalization. This is likely his new baseline. (4) Coronary artery disease Summary: He will be followed closely as an outpatient by cardiology. He is being kept in the hospital 1 more day as his medications have been adjusted by Dr. Llamas. (5) Diabetes Summary: He will resume his home regimen. (6) Anemia Summary: Stable. This is an anemia of chronic disease (7) Obstructive sleep apnea Is this a current diagnosis for this admission?: Yes Summary: Noncompliant with CPAP (8) Atrial fibrillation Summary: Currently in a sinus rhythm and rate controlled. There have been no issues during this hospitalization have (9) Hypertension Summary: Stable (10) Morbid obesity with BMI of 40.0-44.9, adult Summary: Certainly his weight is playing a role in his respiratory status. Dietary discretion is advised. - Additional Information Resuscitation Status: Full Code Discharge Diet: Cardiac, Diabetic Discharge Activity: Activity As Tolerated, Balance Activity w/Rest, Weigh Daily Home Medications: Atorvastatin Calcium [Lipitor 80 mg Tablet] 80 mg PO QHS 08/10/17 Ferrous Sulfate [Iron] 325 mg PO Q12 08/10/17 Gabapentin [Neurontin 300 mg Capsule] 600 mg PO Q12 08/10/17 Hydralazine HCl [Apresoline 25 mg Tablet] 25 mg PO Q8 08/10/17 Insulin Glargine,Hum.rec.anlog [Lantus Solostar] 45 units SQ Q12 08/10/17 Loratadine [Claritin 10 mg Tablet] 10 mg PO DAILY 08/10/17 Magnesium Oxide [Mag-Ox 400 mg Tablet] 400 mg PO Q12 08/10/17 Pantoprazole Sodium [Protonix] 40 mg PO Q12 08/10/17 Insulin Aspart [Novolog Flexpen] 30 units SQ QAM 09/02/17 Insulin Aspart [Novolog Flexpen] 37 units SQ NOON 09/02/17 Insulin Aspart [Novolog Flexpen] 40 units SQ QPM 09/02/17 Aspirin [Ecotrin 81 mg EC Tablet] 81 mg PO DAILY tabec 09/06/17 Clopidogrel Bisulfate [Plavix 75 mg Tablet] 75 mg PO DAILY tablet 09/06/17 Furosemide [Lasix 80 mg Tablet] 80 mg PO BID tablet 09/06/17 Metolazone [Zaroxolyn 2.5 mg Tablet] 2.5 mg PO QAM #30 tablet 09/06/17 Metoprolol Succinate [Toprol Xl 50 mg Tab.sr] 50 mg PO Q12 #60 tab.sr.24h Tamsulosin HCl [Flomax 0.4 mg Cap.sr] 0.4 mg PO DAILY #30 cap.sr.24h 09/06/17 History of Present Illness History of Present Illness: DIVYA JAIN is a 72 year old male who presented to the emergency room with weight gain and shortness of breath. The patient's past medical history is significant for coronary artery disease status post multiple interventions since and stent placements. He has underlying obstructive sleep apnea but is noncompliant with CPAP therapy. During this past year the patient had acute cholecystitis and developed sepsis and multiorgan failure requiring dialysis. During this time. The patient had a tracheostomy. He was in the hospital for several weeks and eventually discharged to an LTAC followed by subacute rehabilitation. He has been doing fairly well but is been having issues with recurrent congestive heart failure exacerbations since that time. He presented to the emergency room with increasing shortness of breath and weight gain. Hospital Course Hospital Course: The patient was found to have decompensated heart failure. He was admitted to the hospital and started on IV Lasix. In spite of this he was still quite short of breath the next day. Cardiology consult was obtained. It was felt that his worsening renal function is playing a role as well. Metolazone was added to his regimen and the patient started diuresing quite well. He was started on metoprolol on 09/06/2017 and it was requested that we keep him in the hospital 1 more night to make sure he tolerated this. If he tolerates the medication well and has no further issues overnight he will be discharged on with close outpatient follow-up. The patient does follow with the [place]. I am going to make him an appointment to follow-up locally with cardiology as well as set him up an outpatient nephrology appointment with Dr. Rich Colbert. If the patient remained stable overnight he will be discharged in the morning in stable condition. Physical Exam Vital Signs: Temp Pulse Resp BP Pulse Ox 98.4 F 109 H 20 120/74 100 09/06/17 07:26 09/06/17 07:26 09/06/17 07:26 09/06/17 07:26 09/06/17 07:26 Intake & Output 09/05/17 09/06/17 09/07/17 06:59 06:59 06:59 Intake Total 1926 1092 Output Total 5650 9825 Balance -3754 -1683 Weight 105.4 kg 102.1 kg General appearance: PRESENT: no acute distress, obese, well-developed, well- nourished Respiratory exam: PRESENT: clear to auscultation miguel. ABSENT: rales, rhonchi, wheezes Cardiovascular exam: PRESENT: RRR. ABSENT: diastolic murmur, rubs, systolic murmur GI/Abdominal exam: PRESENT: normal bowel sounds, soft, other - His abdomen is morbidly obese. ABSENT: distended, guarding, mass, rebound, tenderness Rectal exam: PRESENT: deferred Extremities exam: PRESENT: full ROM. ABSENT: calf tenderness, clubbing, pedal edema Neurological exam: PRESENT: alert, awake, oriented to person, oriented to place , oriented to time, oriented to situation, CN II-XII grossly intact. ABSENT: motor sensory deficit Psychiatric exam: PRESENT: appropriate affect, normal mood. ABSENT: homicidal ideation, suicidal ideation Skin exam: PRESENT: dry, intact, warm. ABSENT: cyanosis, rash Results Laboratory Results: 09/05/17 04:20 09/05/17 04:20 09/03/17 04:56 NT-Pro-B Natriuret Pep 2710 H Impressions: Chest X-Ray 09/05/17 06:00 IMPRESSION: HEART ENLARGED WITHOUT FAILURE. NO OTHER SIGNIFICANT RADIOGRAPHIC FINDING IN THE CHEST. Qualifiers PATEINT BEING DISCHARGED WITH ANY OF THE FOLLOWING DIAGNOSIS?: Heart Failure HF Pt being discharged on ACEI for LVEF less than 40%?: No HF Pt being discharged on ARBS for LVEF less than 40%?: Yes Plan Time Spent: Greater than 30 Minutes
--- NOTE | 2017-09-06 12:35 | PDOC PROGRESS REPORT ---
Subjective Progress Note for:: 09/06/17 Subjective:: Patient is doing well today. We discussed disposition tomorrow. All of his questions were answered. He has no complaints today and is doing well Physical Exam Vital Signs: Temp Pulse Resp BP Pulse Ox 98.4 F 109 H 20 120/74 100 09/06/17 07:26 09/06/17 07:26 09/06/17 07:26 09/06/17 07:26 09/06/17 07:26 Intake & Output 09/05/17 09/06/17 09/07/17 06:59 06:59 06:59 Intake Total 1926 1092 Output Total 5650 6701 Balance -0642 -6930 Weight 105.4 kg 102.1 kg General appearance: PRESENT: no acute distress, morbidly obese, well-developed, well-nourished Mouth exam: PRESENT: moist, tongue midline Respiratory exam: PRESENT: clear to auscultation miguel. ABSENT: rales, rhonchi, wheezes Cardiovascular exam: PRESENT: RRR. ABSENT: diastolic murmur, rubs, systolic murmur GI/Abdominal exam: PRESENT: normal bowel sounds, soft. ABSENT: distended, guarding, mass, rebound, tenderness Extremities exam: PRESENT: full ROM. ABSENT: calf tenderness, clubbing, pedal edema Neurological exam: PRESENT: alert, awake, oriented to person, oriented to place , oriented to time, oriented to situation, CN II-XII grossly intact. ABSENT: motor sensory deficit Psychiatric exam: PRESENT: appropriate affect, normal mood. ABSENT: homicidal ideation, suicidal ideation Skin exam: PRESENT: dry, intact, warm. ABSENT: cyanosis, rash Results Laboratory Results: 09/05/17 04:20 09/05/17 04:20 09/03/17 04:56 NT-Pro-B Natriuret Pep 2710 H Impressions: Chest X-Ray 09/05/17 06:00 IMPRESSION: HEART ENLARGED WITHOUT FAILURE. NO OTHER SIGNIFICANT RADIOGRAPHIC FINDING IN THE CHEST. Assessment & Plan - Diagnosis (1) Acute and chronic respiratory failure with hypoxia Is this a current diagnosis for this admission?: Yes Plan: Secondary to decompensated congestive heart failure. Resolved (2) Acute on chronic combined systolic and diastolic CHF (congestive heart failure) Is this a current diagnosis for this admission?: Yes (3) Acute on chronic renal failure Plan: Unfortunately not improved. He will follow-up with nephrology as an outpatient. (4) Coronary artery disease Plan: Stable. He is being followed by cardiology (5) Diabetes Qualifiers: Diabetes mellitus type: type 2 Diabetes mellitus complication status: with neurologic complications Diabetes mellitus complication detail: with polyneuropathy Diabetes mellitus jail insulin use: unspecified jail insulin use status Qualified Code(s): E11.42 - Type 2 diabetes mellitus with diabetic polyneuropathy Plan: Stable (6) Anemia Plan: This is an anemia of chronic disease and is stable (7) Obstructive sleep apnea Is this a current diagnosis for this admission?: Yes Plan: Continue oxygen. He is noncompliant with CPAP (8) Atrial fibrillation Qualifiers: Atrial fibrillation type: chronic Qualified Code(s): I48.2 - Chronic atrial fibrillation Plan: No issues during this hospitalization (9) Hypertension Qualifiers: Hypertension type: essential hypertension Qualified Code(s): I10 - Essential (primary) hypertension Plan: Stable (10) Morbid obesity with BMI of 40.0-44.9, adult Plan: Dietary discretion is advised - Time Time Spent with patient: 25-34 minutes - Inpatient Certification Medical Necessity: Other - Inpatient hospitalization remains necessary. The patient has multiple comorbidities and just had a major medication change today. Cardiology is recommended that he stay in the hospital overnight on telemetry monitoring. If he is stable he can be discharged in the morning.
[2017-09-06] MEDS: ENOXAPARIN SODIUM INJ 40 MG/0.4 ML DISP.SYRIN SUBCUT SCH (13:42)
[2017-09-06] MEDS: ATORVASTATIN CALCIUM 80 MG TABLET PO SCH (21:07)
[2017-09-06] MEDS: METOPROLOL SUCCINATE 50 MG TAB.SR.24H PO SCH (21:07)
--- NOTE | 2017-09-07 00:48 | PROGRESS NOTE E ---
Progress Note NAME: DIVYA JAIN : 1945 AGE: 72Y DATE: 09/06/2017 ROOM: 427 SUBJECTIVE: Note that the patient denies any chest pain or discomfort. There is no PND or orthopnea. There is no shortness of breath. His leg edema is much improved. There is no increased leg edema. The patient has no clear cut anginal symptoms. There are no TIA or CVA symptoms. There are no symptoms or acute exacerbation of COPD. The only problem is the patient's heart rate still is 109 with a stable blood pressure. OBJECTIVE: GENERAL: The patient is moderately obese, in no acute distress. He is well groomed. VITAL SIGNS: He is afebrile with a temperature of 98.2 degrees Fahrenheit, pulse is 109 beats per minute. Monitor shows sinus tachycardia. His blood pressure is 120/74, respirations are 20 per minute, O2 sats are 100% on room air. HEAD: Atraumatic, normocephalic. EYES: Pupils are equal, round, regular, reactive to light and accommodation. Extraocular movements are normal. There is no conjunctival pallor. There is no scleral icterus. ENT: Negative. NECK: Supple. There is no JVD present. There is no goiter. There is no lymphadenopathy. Trachea is central. LUNGS: Clear to auscultation and percussion. There is diminished air entry and prolonged expiration on auscultation, and on percussion there is hyperresonance. HEART: S1 and S2 are heard. S1 is not long in intensity. There is no S3 gallop. There is no S4 gallop. There is a systolic murmur in the left sternal border and the apex. There is no rub. There are no gallops. ABDOMEN: Soft, nontender. There is no hepatosplenomegaly. Bowel sounds are well heard. There is no guarding or rigidity noted. There are no masses. EXTREMITIES: Pedal pulses are slightly diminished. Femorals are slightly diminished. There is no femoral bruits. There is no calf tenderness noted. There is no clubbing or cyanosis. There is trace pedal edema present. There is no cellulitis. FINE PATCHER: The patient is conscious, awake, alert, oriented x3, with no focal deficit. PSYCHIATRIC: The patient's judgement and insight are intact. His mood and affect are normal. The patient's 24-hour intake was 1092 mL; output was 2775 mL. The patient's blood sugar is 117. IMPRESSION: 1. ACUTE ON CHRONIC LEFT VENTRICULAR SYSTOLIC FAILURE. At present, compensated. Note that the patient has mild to moderate reduction in LV function. 2. MOST LIKELY THE PATIENT HAS RIGHT HEART FAILURE, which is improving. His right ventricle is noted to be enlarged on the echo. 3. SINUS TACHYCARDIA. Question *------* etiology. 4. CHRONIC KIDNEY DISEASE STAGE III. Moderate. 5. ANEMIA. 6. CHRONIC OBSTRUCTIVE PULMONARY DISEASE. At present, stable at baseline. 7. CORONARY ARTERY DISEASE. No anginal symptoms. 8. HISTORY OF 2 MIs IN THE PAST AND A [id number] MYOCARDIAL INFARCTION IN THE PAST, after each of which he had 2 stents put in. Details of this are not known. 9. HISTORY OF HYPERTENSION. Blood pressure is well controlled. 10. OBSTRUCTIVE SLEEP APNEA. Patient is not able to use CPAP. 11. REMOTE HISTORY OF ATRIAL FIBRILLATION. Now patient is in sinus tachycardia. 12. HISTORY OF ASTHMA/COPD. Stable. 13. MILD HYPOKALEMIA. The patient is being given potassium. RECOMMENDATIONS: We will continue the patient's current medications. Continue aspirin and Plavix. Continue hypoglycemic precautions with Glucagon and IV Dextrose 50%. Continue Lovenox at 40 mg subcutaneously. The patient has been changed to Lasix 80 mg p.o. b.i.d. He is also on Glucagon for hypoglycemic reaction precautions. He is also on hydralazine 25 mg p.o. q.8 h. He is on Lantus insulin. He is on metolazone. We will increase the patient's metoprolol succinate from 25 mg p.o. q.12 h to 50 mg p.o. q.12 h to see if that will control his sinus tachycardia. He is also on Flomax. In view of the patient's metoprolol being increased, we will keep him through today and discharge him on 09/07/17 if the patient is stable. This has been discussed with the patient, the patient's , and the attending physician who is the Hospitalist. NOTE: Thirty-five minutes spent on this patient, with more than 50% of time spent on direct patient care. His medications have been reviewed, and his medications have been increased, especially metoprolol succinate. The patient is asked to follow up with me in the office as he has seen me in the past; hence, I have given him my cell phone number and my office card. NOTE: Decision making has been moderate to complex in view of the multiple comorbidities with this patient. We will follow up with patient in the office. DICTATING PHYSICIAN: DIEGO ROSAS M.D. [id number] [place]#: [id number] ID: [id number] JOB#: [id number] ACCT: [id number] cc: >
[2017-09-07] MEDS: HYDRALAZINE HCL 25 MG TABLET PO SCH (05:20)
[2017-09-07] MEDS: LANSOPRAZOLE 30 MG TAB.RAP.DR PO SCH (05:20)
[2017-09-07] MEDS: ACETAMINOPHEN 325 MG TABLET PO PRN (05:21)
[2017-09-07] MEDS ORDERED: METOLAZONE 2.5 MG TABLET PO SCH (08:00)
[2017-09-07] MEDS: ENOXAPARIN SODIUM INJ 40 MG/0.4 ML DISP.SYRIN SUBCUT SCH (09:18)
[2017-09-07] MEDS: INSULIN GLARGINE,HUM.REC.ANLOG 300 UNIT/3 ML INSULN.PEN SUBCUT SCH (09:18)
[2017-09-07] MEDS: CLOPIDOGREL BISULFATE 75 MG TABLET PO SCH (09:23)
[2017-09-07] MEDS: LORATADINE 10 MG TABLET PO SCH (09:24)
[2017-09-07] MEDS: GABAPENTIN 300 MG CAPSULE PO SCH (09:24)
[2017-09-07] MEDS: TAMSULOSIN HCL 0.4 MG CAP.SR.24H PO SCH (09:24)
[2017-09-07] MEDS: MAGNESIUM OXIDE 400 MG TABLET PO SCH (09:24)
[2017-09-07] MEDS: FERROUS SULFATE 325 MG TABLET PO SCH (09:24)
[2017-09-07] MEDS: METOPROLOL SUCCINATE 50 MG TAB.SR.24H PO SCH (09:25)
[2017-09-07] MEDS: FUROSEMIDE 80 MG TABLET PO SCH (09:25)
[2017-09-07] MEDS ORDERED: POTASSIUM CHLORIDE 10 MEQ TABLET.SA PO SCH (10:00)
[2017-09-07] MEDS ORDERED: ASPIRIN 81 MG TABLET, ENT COATED PO SCH (10:00)
[2017-09-07 12:18] VITALS: BP 121/76
--- NOTE | 2017-09-07 17:12 | PDOC PROGRESS REPORT ---
Subjective Progress Note for:: 09/07/17 Subjective:: This is a 72-year-old male who came in with acute on chronic respiratory failure with hypoxemia requiring BiPAP. He also was treated for decompensated heart failure responded well to IV Lasix. His renal function which was stage III chronic continue to worsen so he was treated for that as well. No new change in his condition today discharge summary was dictated and reviewed no new changes in his diagnosis or medication needed at this time. Okay to discharge rishi. Physical Exam Vital Signs: Temp Pulse Resp BP Pulse Ox 98.7 F 113 H 16 121/76 97 09/07/17 12:17 09/07/17 12:17 09/07/17 12:17 09/07/17 12:17 09/07/17 12:17 Intake & Output 09/06/17 09/07/17 09/08/17 06:59 06:59 06:59 Intake Total 1092 1628 Output Total 2775 2200 Balance -1683 -572 Weight 102.1 kg 102.1 kg General appearance: PRESENT: no acute distress Head exam: PRESENT: atraumatic, normocephalic Eye exam: PRESENT: conjunctiva pink, EOMI, PERRLA. ABSENT: scleral icterus Ear exam: PRESENT: normal external ear exam Mouth exam: PRESENT: moist, tongue midline Neck exam: ABSENT: carotid bruit, JVD, lymphadenopathy, thyromegaly Respiratory exam: PRESENT: clear to auscultation miguel. ABSENT: rales, rhonchi, wheezes Cardiovascular exam: PRESENT: RRR. ABSENT: diastolic murmur, rubs, systolic murmur Pulses: PRESENT: normal dorsalis pedis pul Vascular exam: PRESENT: normal capillary refill GI/Abdominal exam: PRESENT: normal bowel sounds, soft. ABSENT: distended, guarding, mass, organolmegaly, rebound, tenderness Rectal exam: PRESENT: deferred Extremities exam: PRESENT: full ROM. ABSENT: calf tenderness, clubbing, pedal edema Neurological exam: PRESENT: alert, awake, oriented to person, oriented to place , oriented to time, oriented to situation, CN II-XII grossly intact. ABSENT: motor sensory deficit Psychiatric exam: PRESENT: appropriate affect, normal mood. ABSENT: homicidal ideation, suicidal ideation Results Laboratory Results: 09/05/17 04:20 09/05/17 04:20 09/03/17 04:56 NT-Pro-B Natriuret Pep 2710 H Impressions: Chest X-Ray 09/05/17 06:00 IMPRESSION: HEART ENLARGED WITHOUT FAILURE. NO OTHER SIGNIFICANT RADIOGRAPHIC FINDING IN THE CHEST. Assessment & Plan - Time Time Spent with patient: 15-24 minutes Disposition: Discharge home today 09/07/2017 see discharge summary for hospital course. No changes in diagnosis and medication.
--- NOTE | 2017-09-07 19:29 | PDOC PROGRESS REPORT ---
Subjective Progress Note for:: 09/07/17 Subjective:: Patient seems to be doing better with gradual improvement. Pt is denying any chest arm or neck discomfort. Patient denying any PND, orthopnea. Patient denied any sustained palpitations, dizziness, syncope, near syncope. Patient denying any fever chills. Patient denying any other significant discomfort. Patient claims he is feeling much better. His pedal edema is significantly improved. He was offered follow-up with me but he prefers to follow-up with [facility]. Review of systems: Rest review of systems negative. Medications: Medications have been reviewed. Physical Exam Vital Signs: Temp Pulse Resp BP Pulse Ox 98.7 F 113 H 16 121/76 97 09/07/17 12:17 09/07/17 12:17 09/07/17 12:17 09/07/17 12:17 09/07/17 12:17 Intake & Output 09/06/17 09/07/17 09/08/17 06:59 06:59 06:59 Intake Total 1092 1628 Output Total 2775 2200 Balance -1683 -572 Weight 102.1 kg 102.1 kg Exam: GENERAL: well-nourished and in no acute distress. Alert and oriented x3 HEAD: Atraumatic, normocephalic. EYES: Pupils equal round and reactive to light, extraocular movements intact, sclera anicteric, conjunctiva are normal. ENT: TMs normal, nares patent, oropharynx clear without exudates. Moist mucous membranes. No oral ulcerations or bleeding gums noted NECK: supple without lymphadenopathy. Trachea is central. No cervical or axillary lymphadenopathy noted. Carotids are 2+, JVD WNL LUNGS: Respiration seems nonlabored, no significant accessory muscle action noted. Breath sounds clear to auscultation bilaterally and equal noted. No wheezes rales or rhonchi noted. No significant dullness noted on percussion. CHEST: Palpation of the chest wall shows no significant chest wall tenderness. No other significant abnormalities noted. HEART: [place] PLEAT TAPER, No PSH, 1/6 JENNIFER aortic area, 1/6 love systolic murmur mitral area, no rubs, no gallops. ABDOMEN: Soft, no significant tenderness appreciated, normoactive bowel sounds. No guarding, no rebound. No rigidity noted . No masses appreciated. EXTREMITIES: Pedal pulses are 1-2+, no calf tenderness noted. No clubbing or cyanosis.trace to 1+ pedal edema noted NEUROLOGICAL: Focused neurological exam showed no significant neurologic deficit. Normal speech, no focal weakness appreciated. PSYCH: Normal mood, normal affect. Judgment and insight within normal limits. SKIN: No significant ecchymosis, rash, ulcerations or signs of pruritus noted. MUSCULOSKELETAL EXAM: No significant joint swelling noted. Results Laboratory Results: 09/05/17 04:20 09/05/17 04:20 09/03/17 04:56 NT-Pro-B Natriuret Pep 2710 H Impressions: Chest X-Ray 09/05/17 06:00 IMPRESSION: HEART ENLARGED WITHOUT FAILURE. NO OTHER SIGNIFICANT RADIOGRAPHIC FINDING IN THE CHEST. Assessment & Plan - Diagnosis (1) Acute and chronic respiratory failure with hypoxia Is this a current diagnosis for this admission?: Yes (2) Acute on chronic combined systolic and diastolic CHF (congestive heart failure) Is this a current diagnosis for this admission?: Yes (3) Chronic kidney disease (CKD) Qualifiers: Chronic kidney disease stage: stage 3 (moderate) Qualified Code(s): N18.3 - Chronic kidney disease, stage 3 (moderate) Is this a current diagnosis for this admission?: Yes (4) Anemia Qualifiers: Anemia type: unspecified type Qualified Code(s): D64.9 - Anemia, unspecified Is this a current diagnosis for this admission?: Yes (5) COPD (chronic obstructive pulmonary disease) Qualifiers: Emphysema type: unspecified Is this a current diagnosis for this admission?: Yes (6) Coronary artery disease Qualifiers: Coronary Disease-Associated Artery/Lesion type: [place] artery [place] vs. transplanted heart: [place] heart Associated angina: without angina Qualified Code(s): I25.10 - Atherosclerotic heart disease of [place] coronary artery without angina pectoris Is this a current diagnosis for this admission?: Yes (7) Obstructive sleep apnea Is this a current diagnosis for this admission?: Yes (8) Atrial fibrillation Qualifiers: Atrial fibrillation type: unspecified Qualified Code(s): I48.91 - Unspecified atrial fibrillation Is this a current diagnosis for this admission?: Yes - Notes Notes: Acute and chronic respiratory failure with hypoxemia: This has significantly improved. Patient may need to be evaluated as an outpatient with a nocturnal oximetry. Acute on chronic combined systolic plus diastolic heart failure along with contribution from right heart failure: This has significantly improved. Continue current diuretic therapy. Patient advised on salt and fluid restriction, daily weighing etc. Chronic kidney disease: Currently stable. Patient advised to avoid nephrotoxic agents such as nonsteroidal anti-inflammatory and contrast agent. Anemia: Hemoglobin is noted to be low. Consider further evaluation and keep hemoglobin above 8 g percent. COPD: Continue current management plans with oxygen supplementation and bronchodilators as needed. Obstructive sleep apnea: Patient noncompliant with CPAP therapy. Because that I would be able to help him with this should he wish to follow-up with me.. Atrial fibrillation: Patient has a history of it. Recommend rate control. Decision about chronic anticoagulation is best left to the pcu rn but patient is candidate for chronic anticoagulation by [id number]. Patient has history of chronic noncompliance. 2D echo results were reviewed with patient.
== END 2017-09-07 12:46 | disposition home or self-care (01) | DRG 291 ==
LOC: ER 12:33 → UNDOADMIN 16:23 → EH 16:23 → 4S 20:48
PROVIDERS: ADMIT Internal Medicine; ATTEND Internal Medicine
DX: I13.0 Hypertensive heart and chronic kidney disease with heart failure and stage 1 through stage 4 chronic kidney disease, or unspecified chronic kidney disease (principal); I50.43 Acute on chronic combined systolic (congestive) and diastolic (congestive) heart failure; J96.21 Acute and chronic respiratory failure with hypoxia; N17.9 Acute kidney failure, unspecified; Z68.41 Body mass index [BMI] 40.0-44.9, adult; E11.22 Type 2 diabetes mellitus with diabetic chronic kidney disease; N18.3 Chronic kidney disease, stage 3 (moderate); J44.9 Chronic obstructive pulmonary disease, unspecified; G47.33 Obstructive sleep apnea (adult) (pediatric); I25.10 Atherosclerotic heart disease of native coronary artery without angina pectoris; E78.00 Pure hypercholesterolemia, unspecified; K21.9 Gastro-esophageal reflux disease without esophagitis; K44.9 Diaphragmatic hernia without obstruction or gangrene; N40.0 Benign prostatic hyperplasia without lower urinary tract symptoms; I48.2 Chronic atrial fibrillation; E87.6 Hypokalemia; D64.9 Anemia, unspecified; E66.01 Morbid (severe) obesity due to excess calories; E11.42 Type 2 diabetes mellitus with diabetic polyneuropathy; Z91.19 Patient's noncompliance with other medical treatment and regimen; Z99.81 Dependence on supplemental oxygen; Z88.0 Allergy status to penicillin; Z86.711 Personal history of pulmonary embolism; Z79.01 Long term (current) use of anticoagulants; Z79.82 Long term (current) use of aspirin; Z79.4 Long term (current) use of insulin; Z79.899 Other long term (current) drug therapy
CPT/HCPCS: 36415; 71010; 80048; 80053; 80061; 80069; 80076; 81001; 82550; 82553; 82803; 82962; 83036; 83605; 83735; 83880; 84484; 85025; 87040; 93005; 93010; 93306; 96374; 99291; J1650; J1815; J1940; J3490

== ENCOUNTER → 2017-09-15 | Outpatient (CLI) | payer MEDICARE, OTHER ==
--- NOTE | 2017-09-15 10:38 | RADIOLOGY REPORT (SQ) ---
EXAM DESCRIPTION: U/S RETROPERITON (RENAL/AORTA) COMPLETED DATE/TIME: 09/15/2017 8:39 am REASON FOR STUDY: CKD III (N18.3), HEART FAILURE (I50.9), HYPERTENSIVE CKD (I12.9) N18.3 CHRONIC KI DNEY DISEASE, STAGE 3 (MODERATE) I50.9 HEART FAILURE, UNSPECIFIED I12.9 HYPERTENSIVE CHRONIC KIDNEY DISEASE W STG 1-4/UNSP CHR COMPARISON: CT abdomen 06/09/2017, 06/18/2017 TECHNIQUE: Dynamic and static grayscale images acquired of the kidneys and bladder and recorded on P ACS. Additional selected color Doppler and spectral images recorded. LIMITATIONS: Large patient FINDINGS: RIGHT KIDNEY: Normal size, 10.2 cm in length. Normal echogenicity. No solid or suspicious masses. No hydronephrosis. No calcifications. LEFT KIDNEY: Normal size, 11.1 cm in length. Normal echogenicity. No solid or suspicious masses. No hydronephrosis. No calcifications. BLADDER: No masses. OTHER FINDINGS: No other significant finding. IMPRESSION: NORMAL RENAL AND BLADDER ULTRASOUND. TECHNICAL DOCUMENTATION: JOB ID: [id number] [employer]- All Rights Reserved
== END ==
LOC: RAD 07:42
PROVIDERS: ATTEND Internal Medicine Nephrology
DX: I12.9 Hypertensive chronic kidney disease with stage 1 through stage 4 chronic kidney disease, or unspecified chronic kidney disease (principal); N18.3 Chronic kidney disease, stage 3 (moderate); I50.9 Heart failure, unspecified
CPT/HCPCS: 76770

== ENCOUNTER → 2017-09-30 | Outpatient (CLI) | payer OTHER, MEDICARE ==
[2017-09-30 14:16] LABS: APPEARANCE,URINE CLEAR; BILIRUBIN,URINE NEGATIVE (NEGATIVE); GLUCOSE, URINE >=500 mg/dL (NEGATIVE); KETONES,URINE NEGATIVE (NEGATIVE); LEUKOCYTE ESTERASE,URINE NEGATIVE (NEGATIVE); NITRITE,URINE NEGATIVE (NEGATIVE); PROTEIN,URINE NEGATIVE (NEGATIVE); URINE SPECIFIC GRAVITY 1.007; UROBILINOGEN,URINE NEGATIVE mg/dL (<2.0)
[2017-09-30 14:26] LABS: HEMATOCRIT 33.7 % (37.9-51.0); HEMOGLOBIN 10.7 g/dL (13.5-17.0); HGB HCT DIFFERENCE -1.6; MEAN CORPUSCULAR HEMOGLOBIN 24.7 pg (27.0-33.4); MEAN CORPUSCULAR HGB CONC 31.6 g/dL (32.0-36.0); MEAN CORPUSCULAR VOLUME 78 fl (80-97); RED BLOOD COUNT 4.32 10^6/uL (4.35-5.55); RED CELL DISTRIBUTION WIDTH 17.6 % (11.5-14.0); WHITE BLOOD COUNT 6.9 10^3/uL (4.0-10.5)
[2017-09-30 14:43] LABS: ANISOCYTOSIS 2+; BASOPHILS % (MANUAL) 3 % (0-2); EOSINOPHILS % (MANUAL) 0 % (0-6); LYMPHOCYTES % (MANUAL) 12 % (13-45); TOTAL CELLS COUNTED 100; TOXIC GRANULATION 2+
[2017-09-30 14:44] LABS: HYPOCHROMASIA SLIGHT; MICROCYTOSIS SLIGHT; POLYCHROMASIA SLIGHT
[2017-09-30 15:15] LABS: ALANINE AMINOTRANSFERASE 27 U/L (21-72); ALBUMIN 4.2 g/dL (3.5-5.0); ALKALINE PHOSPHATASE 93 U/L (38-126); ASPARTATE AMINO TRANSFERASE 18 U/L (17-59); BILIRUBIN,DIRECT 0.5 mg/dL (0.0-0.4); BILIRUBIN,TOTAL 0.6 mg/dL (0.2-1.3); BLOOD UREA NITROGEN 70 mg/dL (7-20); CALCIUM 8.7 mg/dL (8.4-10.2); CARBON DIOXIDE 28 mmol/L (22-30); CHLORIDE 86 mmol/L (98-107); CREATININE RESULT 2.24 mg/dL (0.52-1.25); MAGNESIUM 1.9 mg/dL (1.6-2.3); POTASSIUM 3.1 mmol/L (3.6-5.0)
[2017-09-30 15:36] LABS: GLUCOSE 636 mg/dL (75-110)
[2017-09-30 15:38] LABS: SODIUM 134.3 mmol/L (137-145)
[2017-09-30 15:40] LABS: ANION GAP 20 (5-19)
[2017-10-04 14:39] LABS: A/G RATIO 0.8 (0.7-1.7); ALBUMIN 2 3.6 g/dL (2.9-4.4); ALPHA-1-GLOBULIN 2 0.2 g/dL (0.0-0.4); GAMMA GLOBULIN 2.1 g/dL (0.4-1.8); PROTEIN TOTAL SERUM 7.9 g/dL (6.0-8.5)
== END ==
LOC: OD 13:14
PROVIDERS: ATTEND Internal Medicine Nephrology
DX: I12.9 Hypertensive chronic kidney disease with stage 1 through stage 4 chronic kidney disease, or unspecified chronic kidney disease (principal); N18.3 Chronic kidney disease, stage 3 (moderate); I50.9 Heart failure, unspecified; E11.9 Type 2 diabetes mellitus without complications
CPT/HCPCS: 36415; 80053; 81001; 82728; 83540; 83550; 83735; 84165; 84443; 85025

== ENCOUNTER → 2017-10-04 | Outpatient (CLI) | payer OTHER, MEDICARE | LOC: OD 11:31 | PROVIDERS: ATTEND Internal Medicine Nephrology | DX: E87.6 Hypokalemia (principal) | CPT/HCPCS: 36415; 84132 ==

== ENCOUNTER → 2017-11-08 | Outpatient (CLI) | payer MEDICARE, OTHER ==
[2017-11-08 14:47] LABS: HEMATOCRIT 32.9 % (37.9-51.0); HEMOGLOBIN 10.8 g/dL (13.5-17.0); HGB HCT DIFFERENCE -0.5; MEAN CORPUSCULAR HEMOGLOBIN 25.7 pg (27.0-33.4); MEAN CORPUSCULAR HGB CONC 32.9 g/dL (32.0-36.0); MEAN CORPUSCULAR VOLUME 78 fl (80-97); RED BLOOD COUNT 4.23 10^6/uL (4.35-5.55); WHITE BLOOD COUNT 6.9 10^3/uL (4.0-10.5)
[2017-11-08 15:13] LABS: ANION GAP 17 (5-19); BLOOD UREA NITROGEN 40 mg/dL (7-20); CALCIUM 9.1 mg/dL (8.4-10.2); CARBON DIOXIDE 27 mmol/L (22-30); CHLORIDE 99 mmol/L (98-107); GLUCOSE 153 mg/dL (75-110); MAGNESIUM 2.1 mg/dL (1.6-2.3); PHOSPHORUS 4.1 mg/dL (2.5-4.5); POTASSIUM 3.6 mmol/L (3.6-5.0); SODIUM 142.6 mmol/L (137-145)
== END ==
LOC: OD 13:56
PROVIDERS: ATTEND Internal Medicine Nephrology
DX: I13.0 Hypertensive heart and chronic kidney disease with heart failure and stage 1 through stage 4 chronic kidney disease, or unspecified chronic kidney disease (principal); N18.3 Chronic kidney disease, stage 3 (moderate); I50.9 Heart failure, unspecified; D64.9 Anemia, unspecified
CPT/HCPCS: 36415; 80048; 82043; 83735; 83970; 84100; 84443; 85027

== ENCOUNTER → 2017-11-08 | Outpatient (CLI) | payer MEDICARE, OTHER ==
--- NOTE | 2017-11-08 16:19 | RADIOLOGY REPORT (SQ) ---
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 TECHNIQUE: Images of the axial and proximal appendicular skeleton are obtained, along with lateral s kull and frontal chest films. LIMITATIONS: None. FINDINGS: AP CHEST: No bony findings. Mild increased interstitial markings at the lung bases, stabl e. Mild cardiomegaly. Left-sided pacemaker/ defibrillator. LATERAL SKULL: No worrisome bone lesions. AP BOTH HUMERI: No worrisome bone lesions. TWO-VIEW LUMBAR SPINE: No worrisome bone lesions. Prior lumbar fusion from L2 through S1. TWO-VIEW THORACIC SPINE: No worrisome bone lesions. TWO VIEW CERVICAL SPINE: No worrisome bone lesions. Post fusion from C4 through C7. AP PELVIS: No worrisome bone lesions. AP BOTH FEMURS: No worrisome bone lesions. OTHER: No other significant finding. IMPRESSION: NO WORRISOME BONE LESIONS. TECHNICAL DOCUMENTATION: JOB ID: [id number] [employer]- All Rights Reserved
== END ==
LOC: RAD 14:32
PROVIDERS: ATTEND Internal Medicine Medical Oncology
DX: E88.09 Other disorders of plasma-protein metabolism, not elsewhere classified (principal)
CPT/HCPCS: 77075

== ENCOUNTER 2018-01-27 17:15 | Emergency (ER) | payer OTHER, MEDICARE ==
[2018-01-27] MEDS ORDERED: PHYTONADIONE 5 MG TABLET PO ONE (17:41)
--- NOTE | 2018-01-27 17:44 | ER Document Report ---
ED Medical Screen (RME) - General Chief Complaint: Abnormal Lab Results Stated Complaint: ABNORMAL LABS Time Seen by Provider: 01/27/18 17:32 Notes: RME DISCLOSURE I have seen this patient as part of a Rapid Medical Evaluation and, if applicable, placed any initially appropriate orders. The patient will be seen and fully evaluated, including a full history and physical exam, by a provider ( in Main ED or Fast Track) when a room becomes available. 72-year-old male on Coumadin sent here by the [place] [facility] for INR greater than 10. He has also been having some low back pain that radiates up to his upper back and involves his left neck since last night. He has not taken anything for the pain. He denies any abdominal pain or chest pain[facility]. He also states his systolic BP this AM was 106 and it is never this low. It is usually in 130-140s. EXAM RRR TRAVEL OUTSIDE OF THE [place]. IN LAST 30 DAYS: No - Related Data Allergies/Adverse Reactions: Penicillins Allergy (Verified 01/27/18 17:17) piperacillin Allergy (Verified 01/27/18 17:17) Past Medical History - Social History Chew tobacco use (# tins/day): No Frequency of alcohol use: None Drug Abuse: None - Past Medical History Cardiac Medical History: Reports: Hx Atrial Fibrillation, Hx Congestive Heart Failure, Hx Coronary Artery Disease, Hx Hypercholesterolemia, Hx Hypertension, Hx Pulmonary Embolism Denies: Hx Heart Attack, Hx Peripheral Vascular Disease, Hx Heart Murmur Pulmonary Medical History: Reports: Hx Asthma, Hx Bronchitis, Hx COPD, Hx Sleep Apnea - unable to wear cpap Denies: Hx Pneumonia, Hx Respiratory Failure, Hx Tuberculosis Neurological Medical History: Reports: Hx Seizures - in 1968. Denies: Hx Cerebrovascular Accident Endocrine Medical History: Reports: Hx Diabetes Mellitus Type 1, Hx Diabetes Mellitus Type 2. Denies: Hx Graves' Disease, Hx Hyperthyroidism, Hx Hypothyroidism Renal/ Medical History: Reports: Hx Benign Prostatic Hyperplasia, Hx Hemodialysis - Temporarily while he was in the hospital, but no longer requires dialysis.. Denies: Hx End Stage Renal Disease, Hx Kidney Stones, Hx Peritoneal Dialysis Malignancy Medical History: Denies Hx Leukemia, Denies Hx Lung Cancer GI Medical History: Reports: Hx Gastroesophageal Reflux Disease, Hx Hiatal Hernia, Hx Irritable Bowel. Denies: Hx Crohn's Disease, Hx Hepatitis, Hx Liver Failure, Hx Pancreatitis, Hx Ulcer Musculoskeltal Medical History: Reports Hx Arthritis, Denies Hx Fibromyalgia, Denies Hx Multiple Sclerosis, Denies Hx Muscular Dystrophy Psychiatric Medical History: Reports: Hx Depression, Hx Post Traumatic Stress Disorder - nightmares Denies: Hx Bipolar Disorder, Hx Dementia, Hx Schizophrenia Traumatic Medical History: Reports: Hx Fractures - Rt elbow and scattered radial head Infectious Medical History: Denies: Hx Hepatitis, Hx HIV Past Surgical History: Reports: Hx Appendectomy, Hx Cardiac Catheterization - 3 VESSEL DISEASE NOT CANDIDATE FOR INTERVENTION, Hx Cholecystectomy, Hx Orthopedic Surgery - CERVICAL AND L-S FUSION, Other - Tracheostomy- decannulated. PEG tube-removed. Denies: Hx Bowel Surgery, Hx Colostomy, Hx Coronary Artery Bypass Graft, Hx Gastric Bypass Surgery, Hx Herniorrhaphy, Hx Open Heart Surgery, Hx Pacemaker, Hx Tonsillectomy - Immunizations Hx Diphtheria, Pertussis, Tetanus Vaccination: Yes History of Influenza Vaccine for 08/2017 - 01/2018 Season: Yes Physical Exam - Vital signs Vitals: Temp Pulse BP Pulse Ox 97.4 F 71 112/62 91 L 01/27/18 17:21 01/27/18 17:21 01/27/18 17:21 01/27/18 17:21 Course - Vital Signs Vital signs: Temp Pulse Resp BP Pulse Ox 97.4 F 71 112/62 91 L 01/27/18 17:21 01/27/18 17:21 01/27/18 17:21 01/27/18 17:21 Doctor's Discharge - Discharge Referrals: MARS BRAUN DO [Primary Care Provider] - Follow up as needed
[2018-01-27 19:00] LABS: ABSOLUTE EOSINOPHILS # (AUTO) 0.2 10^3/uL (0.0-0.6); ABSOLUTE LYMPHOCYTES (AUTO) 1.1 10^3/uL (0.5-4.7); ABSOLUTE MONOCYTES (AUTO) 0.8 10^3/uL (0.1-1.4); ABSOLUTE NEUT (AUTO) 5.8 10^3/uL (1.7-8.2); BASOPHILS % (AUTO) 0.2 % (0-2); HEMATOCRIT 36.8 % (37.9-51.0); HEMOGLOBIN 11.7 g/dL (13.5-17.0); LYMPHOCYTES % (AUTO) 13.9 % (13-45); MEAN CORPUSCULAR HEMOGLOBIN 23.5 pg (27.0-33.4); MEAN CORPUSCULAR HGB CONC 31.8 g/dL (32.0-36.0); MEAN CORPUSCULAR VOLUME 74 fl (80-97); MONOCYTES % (AUTO) 10.2 % (3-13); PLATELET COUNT 564 10^3/uL (150-450); RED BLOOD COUNT 4.97 10^6/uL (4.35-5.55); RED CELL DISTRIBUTION WIDTH 18.2 % (11.5-14.0); SEGMENTED NEUTROPHILS % (AUTO) 72.7 % (42-78); TOTAL CELLS COUNTED % (AUTO) 100 %
--- NOTE | 2018-01-27 19:14 | ER Document Report ---
ED General - General Chief Complaint: Abnormal Lab Results Stated Complaint: ABNORMAL LABS Time Seen by Provider: 01/27/18 17:32 Mode of Arrival: Ambulatory Information source: Patient TRAVEL OUTSIDE OF THE [place] IN LAST 30 DAYS: No - HPI Patient complains to provider of: inr 10 Onset: This morning Quality of pain: Other - had back pain earlier today-now resolved Associated symptoms: Other - dizzy Exacerbated by: Denies Relieved by: Denies Similar symptoms previously: No Recently seen / treated by doctor: Yes - had blood work this am Notes: This is a 72-year-old male who presents to the emergency department with his . Patient states the [facility] called him this afternoon and told him to present to the nearest emergency department because his INR was 10. Patient states he had blood drawn this morning. Patient is not quite sure why he is on anticoagulation. He does state he he did have a history of atrial fibrillation in the past. He states that in mid December his Coumadin was increased from 2.5 mg daily to 2.5 mg/5 mg varied throughout the week. He states his INR was not high enough so then he was on 5 mg p.o. daily. He states that he went to [place] and has not had it checked in the last 2 weeks. He states today he had some dizziness as well as bilateral low back pain that radiated into his thoracic area. There is no aggravating or alleviating factors and the patient states it is now resolved. - Related Data Allergies/Adverse Reactions: Penicillins Allergy (Verified 01/27/18 17:17) piperacillin Allergy (Verified 01/27/18 17:17) Past Medical History - General Information source: Patient, Relative - Patient's - Social History Smoking Status: Never Smoker Chew tobacco use (# tins/day): No Smoking Education Provided: No Frequency of alcohol use: None Drug Abuse: None Lives with: Family Family History: CAD, DM, Hypertension Patient has suicidal ideation: No Patient has homicidal ideation: No - Medical History Notes: Patient states that in March he went in for cervical disc surgery and "I woke up 2 months later". Patient states that he went into kidney failure and had an infected gallbladder that needed to be removed. Patient went to an extended care facility after 2 months with a trach and a PEG tube. He states that spontaneously one day he just woke up. - Past Medical History Cardiac Medical History: Reports: Hx Atrial Fibrillation, Hx Congestive Heart Failure, Hx Coronary Artery Disease, Hx Hypercholesterolemia, Hx Hypertension, Hx Pulmonary Embolism Denies: Hx Heart Attack, Hx Peripheral Vascular Disease, Hx Heart Murmur Pulmonary Medical History: Reports: Hx Asthma, Hx Bronchitis, Hx COPD, Hx Sleep Apnea - unable to wear cpap Denies: Hx Pneumonia, Hx Respiratory Failure, Hx Tuberculosis EENT Medical History: Reports: Throat - History of trach last March for 2 months Neurological Medical History: Reports: Hx Seizures - in 1968. Denies: Hx Cerebrovascular Accident Endocrine Medical History: Reports: Hx Diabetes Mellitus Type 1, Hx Diabetes Mellitus Type 2. Denies: Hx Graves' Disease, Hx Hyperthyroidism, Hx Hypothyroidism Renal/ Medical History: Reports: Hx Benign Prostatic Hyperplasia, Hx Hemodialysis - Temporarily while he was in the hospital, but no longer requires dialysis.. Denies: Hx End Stage Renal Disease, Hx Kidney Stones, Hx Peritoneal Dialysis Malignancy Medical History: Reports None, Denies Hx Leukemia, Denies Hx Lung Cancer GI Medical History: Reports: Hx Gastroesophageal Reflux Disease, Hx Hiatal Hernia, Hx Irritable Bowel. Denies: Hx Crohn's Disease, Hx Hepatitis, Hx Liver Failure, Hx Pancreatitis, Hx Ulcer Musculoskeltal Medical History: Reports Hx Arthritis, Denies Hx Fibromyalgia, Denies Hx Multiple Sclerosis, Denies Hx Muscular Dystrophy Skin Medical History: Reports None Psychiatric Medical History: Reports: Hx Depression, Hx Post Traumatic Stress Disorder - nightmares Denies: Hx Bipolar Disorder, Hx Dementia, Hx Schizophrenia Traumatic Medical History: Reports: Hx Fractures - Rt elbow and scattered radial head Infectious Medical History: Denies: Hx Hepatitis, Hx HIV Past Surgical History: Reports: Hx Appendectomy, Hx Cardiac Catheterization - 3 VESSEL DISEASE NOT CANDIDATE FOR INTERVENTION, Hx Cholecystectomy, Hx Orthopedic Surgery - CERVICAL AND L-S FUSION, Hx Pacemaker. Denies: Hx Bowel Surgery, Hx Colostomy, Hx Coronary Artery Bypass Graft, Hx Gastric Bypass Surgery, Hx Herniorrhaphy, Hx Open Heart Surgery, Hx Tonsillectomy - Immunizations Hx Diphtheria, Pertussis, Tetanus Vaccination: Yes Hx Pneumococcal Vaccination: 08/22/12 Review of Systems - Review of Systems Constitutional: No symptoms reported EENT: No symptoms reported Cardiovascular: No symptoms reported Respiratory: No symptoms reported Gastrointestinal: No symptoms reported. denies: Blood streaked bowels Genitourinary: denies: Hematuria Musculoskeletal: Back pain Skin: No symptoms reported Hematologic/Lymphatic: No symptoms reported Neurological/Psychological: Other - Dizzy Physical Exam - Vital signs Vitals: Temp Pulse BP Pulse Ox 97.4 F 71 112/62 91 L 01/27/18 17:21 01/27/18 17:21 01/27/18 17:21 01/27/18 17:21 - Notes Notes: PHYSICAL EXAMINATION: GENERAL: Well-appearing, well-nourished and in no acute distress. Sitting on edge of bed with feet on the floor in no apparent distress. HEAD: Atraumatic, normocephalic. EYES: Pupils equal round and reactive to light, extraocular movements intact, sclera anicteric, conjunctiva are normal. ENT: Nares patent, oropharynx clear without exudates. Moist mucous membranes. NECK: Normal range of motion, supple without lymphadenopathy. Trach scar healed. Midline scar to cervical spine area LUNGS: Breath sounds clear to auscultation bilaterally and equal. No wheezes rales or rhonchi. HEART: Regular rate and rhythm without murmurs. These make her left anterior chest wall no signs or symptoms of infection ABDOMEN: Obese, soft, nontender, nondistended abdomen. No guarding, no rebound. No masses appreciated. Musculoskeletal: Normal range of motion, no pitting or edema. No cyanosis. NEUROLOGICAL: Cranial nerves grossly intact. Normal speech, normal gait. Normal sensory, motor exams PSYCH: Normal mood, normal affect. SKIN: Warm, Dry, normal turgor, no rashes or lesions noted. Surgical scar to lumbar spine area Course - Re-evaluation Re-evalutation: 01/27/18 20:37 Chemistries hemolyzed-redrawn.Will send patient over for ct head while we wait for GFR. 01/27/18 I discussed with patient and his that his creatinine is increased at 2.7 and his BUN is 40. He states he sees a kidney doctor but was recently discharged from his care because "the doctor told me he could do anything more for me". States a year ago he had kidney failure. I did reiterate to him that he needed close follow-up in regards to this. His potassium is also 2.7 which he states consistently runs low. He states he has potassium pills at home which he takes. He states he is taking up to a total of 16 potassium pills daily. I told him to please take 40 mEq in the morning for the next 5 days. Patient is to call the [facility] in the morning tomorrow to see if his appointment can be moved up from March 13 when and is now scheduled. He is to have his blood work drawn in the next 3 days including an INR and basic metabolic panel. - Vital Signs Vital signs: Temp Pulse Resp BP Pulse Ox 97.4 F 71 15 108/58 L 96 01/27/18 17:21 01/27/18 17:21 01/28/18 00:01 01/28/18 00:01 01/28/18 00:01 - Laboratory Result Diagrams: 01/27/18 17:38 01/27/18 20:38 Laboratory results interpreted by me: 01/27/18 01/27/18 01/27/18 17:38 17:38 20:38 Hgb 11.7 L Hct 36.8 L MCV 74 L MCH 23.5 L MCHC 31.8 L RDW 18.2 H Plt Count 564 H PT 65.1 H* INR 7.33 H* APTT 75.6 H Potassium 2.7 L* Chloride 94 L Carbon Dioxide 32 H BUN 41 H Creatinine 2.31 H Est GFR ( Amer) 34 L Est GFR (Non-Af Amer) 28 L Glucose 116 H Discharge - Discharge Clinical Impression: CKD (chronic kidney disease) stage 3, GFR 30-59 ml/min, Hypokalemia, Supratherapeutic INR, Anticoagulated on Coumadin Disposition: HOME, SELF-CARE Instructions: Coumadin (warfarin) ([facility]), Dehydration ([facility]), Hypokalemia ([facility]), Kidney Failure ([facility]) Additional Instructions: Take 40 meq of potassium once in the am for the next 5 days as we discussed. Eat green leafy salads and bananas the next few days-this will help fix your INR and increase your potassium level. Her INR was 7 today. You are at increased risk of bleeding. Please do not partake in any high risk activities as we discussed. Referrals: MARS BRAUN DO [Primary Care Provider] - Follow up as needed [facility] [Provider Group] - Follow up in 3-5 days (You need blood work in 3 days including a repeat INR/Pt and basic metabolic panel as we discussed.)
[2018-01-27 19:46] LABS: PARTIAL THROMBOPLASTIN TIME 75.6 SEC (23.5-35.8)
[2018-01-27 19:55] LABS: INTERNATIONAL RATION (INR) 7.33; PROTHROMBIN TIME 65.1 SEC (11.4-15.4)
[2018-01-27 21:11] LABS: ANION GAP 15 (5-19); BLOOD UREA NITROGEN 41 mg/dL (7-20); CALCIUM 9.3 mg/dL (8.4-10.2); CARBON DIOXIDE 32 mmol/L (22-30); CHLORIDE 94 mmol/L (98-107); GLUCOSE 116 mg/dL (75-110); SODIUM 140.5 mmol/L (137-145)
[2018-01-27 21:15] LABS: POTASSIUM 2.7 mmol/L (3.6-5.0)
[2018-01-27] MEDS ORDERED: POTASSIUM CHLORIDE 10 MEQ TABLET.SA PO ONE ×2 (21:29→23:49)
--- NOTE | 2018-01-27 21:34 | RADIOLOGY REPORT (SQ) ---
EXAM DESCRIPTION: CT HEAD WITHOUT COMPLETED DATE/TIME: 01/27/2018 9:17 pm REASON FOR STUDY: inr 10 COMPARISON: 07/05/2017 TECHNIQUE: Axial images acquired through the brain without intravenous contrast. Images reviewed wi th bone, brain and subdural windows. Images stored on PACS. All CT scanners at this facility use dose modulation, iterative reconstruction, and/or weight based d osing when appropriate to reduce radiation dose to as low as reasonably achievable (ALARA). [facility]: Dose Right [facility]: CareDose [facility]: Dose Right [facility]: Teradose 4D [facility]: Smart [employer] RADIATION DOSE: CT Rad equipment meets quality standard of care and radiation dose reduction techniq ues were employed. CTDIvol: 64.6 mGy. DLP: 1163 mGy-cm. mGy. LIMITATIONS: None. FINDINGS: VENTRICLES: Normal size and contour. CEREBRUM: No masses. No hemorrhage. No midline shift. No evidence for acute infarction. Normal gra y/white matter differentiation. No areas of low density in the white matter. CEREBELLUM: No masses. No hemorrhage. No alteration of density. No evidence for acute infarction. EXTRAAXIAL SPACES: No fluid collections. No masses. ORBITS AND GLOBE: No intra- or extraconal masses. Normal contour of globe without masses. CALVARIUM: No fracture. PARANASAL SINUSES: No fluid or mucosal thickening. SOFT TISSUES: No mass or hematoma. OTHER: No other significant finding. IMPRESSION: NORMAL BRAIN CT WITHOUT CONTRAST. EVIDENCE OF ACUTE STROKE: NO. COMMENT: Quality ID # [id number]: Final reports with documentation of one or more dose reduction techniques (e.g., Automated exposure control, adjustment of the mA and/or kV according to patient size, use of iterative reconstruction technique) TECHNICAL DOCUMENTATION: JOB ID: [id number] [facility]- All Rights Reserved Reading location - IP/workstation name: [email or web address]
--- NOTE | 2018-01-27 21:38 | RADIOLOGY REPORT (SQ) ---
EXAM DESCRIPTION: CT CHEST WITHOUT COMPLETED DATE/TIME: 01/27/2018 9:24 pm REASON FOR STUDY: INR 10, RETRO PERITONEAL BLEED COMPARISON: None. TECHNIQUE: CT scan performed of the chest without intravenous contrast. Images reviewed with lung, soft tissue and bone windows. Reconstructed coronal and sagittal MPR images reviewed. All images st ored on PACS. All CT scanners at this facility use dose modulation, iterative reconstruction, and/or weight based d osing when appropriate to reduce radiation dose to as low as reasonably achievable (ALARA). [facility]: Dose Right [facility]: CareDose [facility]: Dose Right [facility]: Teradose 4D [facility]: Smart BMdr RADIATION DOSE: mGy. LIMITATIONS: No technical limitations. FINDINGS: LUNGS AND PLEURA: No masses, infiltrates, pneumothorax. No pleural effusions, calcificati ons. HILAR AND MEDIASTINAL STRUCTURES: No identified masses or abnormal nodes. No obvious aneurysm. HEART AND VASCULAR STRUCTURES: No aneurysm. No pericardial effusion. UPPER ABDOMEN: See separate report of the CT of the abdomen. THYROID AND OTHER SOFT TISSUES: No masses. No adenopathy. BONES: No significant finding. HARDWARE: Pacemaker OTHER: No other significant findings. IMPRESSION: NO SIGNIFICANT FINDING ON NON-CONTRASTED CHEST CT. TECHNICAL DOCUMENTATION: JOB ID: [id number] Quality ID # [id number]: Final reports with documentation of one or more dose reduction techniques (e.g., Au tomated exposure control, adjustment of the mA and/or kV according to patient size, use of iterative reconstruction technique) 2010 [employer]- All Rights Reserved Reading location - IP/workstation name: [email or web address]
--- NOTE | 2018-01-27 21:43 | RADIOLOGY REPORT (SQ) ---
EXAM DESCRIPTION: CT ABDOMEN NO ORAL OR IV COMPLETED DATE/TIME: 01/27/2018 9:24 pm REASON FOR STUDY: INR 10, RETRO PERITONEAL BLEED COMPARISON: 06/19/2017 TECHNIQUE: CT scan of the abdomen performed without intravenous contrast and without oral contrast. Images reviewed with lung, soft tissue, and bone windows. Reconstructed coronal and sagittal MPR im ages reviewed. All images stored on PACS. All CT scanners at this facility use dose modulation, iterative reconstruction, and/or weight based d osing when appropriate to reduce radiation dose to as low as reasonably achievable (ALARA). [facility]: Dose Right [facility]: CareDose [facility]: Dose Right [facility]: Teradose 4D [facility]: Smart [employer] RADIATION DOSE: CT Rad equipment meets quality standard of care and radiation dose reduction techniq ues were employed. CTDIvol: 19.6 mGy. DLP: 1359 mGy-cm.mGy. LIMITATIONS: None. FINDINGS: LOWER CHEST: See separate report of the CT of the chest. NONCONTRASTED LIVER, SPLEEN, ADRENALS: Evaluation limited by lack of IV contrast. No identified sign ificant masses. PANCREAS: No masses. No peripancreatic inflammatory changes. GALLBLADDER: Surgically absent. RIGHT KIDNEY AND URETER: No suspicious masses. Assessment limited by lack of IV contrast. No signif icant calcifications. No hydronephrosis or hydroureter. LEFT KIDNEY AND URETER: No suspicious masses. Assessment limited by lack of IV contrast. No signifi cant calcifications. No hydronephrosis or hydroureter. AORTA AND RETROPERITONEUM: Atherosclerosis. No aneurysm. No dissection. BOWEL AND PERITONEAL CAVITY: No obvious masses or inflammatory changes. No free fluid. APPENDIX: Surgically absent. PELVIS AND ABDOMINAL WALL: No abdominal wall hernias. No pelvic masses. Urinary bladder is normal. BONES: Surgical hardware is present in the lower lumbar spine. This appears to be intact. OTHER: No other significant finding. IMPRESSION: NO SIGNIFICANT OR ACUTE ABDOMINAL PROCESS. TECHNICAL DOCUMENTATION: JOB ID: [id number] Quality ID # [id number]: Final reports with documentation of one or more dose reduction techniques (e.g., Au tomated exposure control, adjustment of the mA and/or kV according to patient size, use of iterative reconstruction technique) 2010 [employer]- All Rights Reserved Reading location - IP/workstation name: [email or web address]
[2018-01-27] MEDS ORDERED: NORMAL SALINE 1000 ML 1,000 ML IV ONE (22:22)
[2018-01-28 00:57] VITALS: BP 108/58
== END 2018-01-28 00:57 | disposition home or self-care (01) ==
LOC: ER 17:15
DX: I12.9 Hypertensive chronic kidney disease with stage 1 through stage 4 chronic kidney disease, or unspecified chronic kidney disease (principal); E11.22 Type 2 diabetes mellitus with diabetic chronic kidney disease; N18.3 Chronic kidney disease, stage 3 (moderate); E87.6 Hypokalemia; I25.10 Atherosclerotic heart disease of native coronary artery without angina pectoris; J44.9 Chronic obstructive pulmonary disease, unspecified; I48.91 Unspecified atrial fibrillation; Z79.01 Long term (current) use of anticoagulants; Z88.0 Allergy status to penicillin; Z86.711 Personal history of pulmonary embolism; M54.2 Cervicalgia; M54.5 Low back pain
CPT/HCPCS: 99284; 96360; 36415; 85025; 85610; 85730; 80048; 70450; 71250; 74150; J3490; J7030

== ENCOUNTER 2018-01-28 07:12 | Emergency (ER) | payer OTHER, MEDICARE ==
--- NOTE | 2018-01-28 08:07 | ER Document Report ---
ED General - General Chief Complaint: Other Stated Complaint: BLEEDING FROM IV SITE Time Seen by Provider: 01/28/18 07:50 Mode of Arrival: Ambulatory Information source: Patient, Relative - TRAVEL OUTSIDE OF THE [place] IN LAST 30 DAYS: No - HPI Notes: 72-year-old male history of A. fib, pacemaker, hypertension presents to the emergency room presents today with complaints to the emergency room due to patient bleeding through his IV site after when he was discharged the emergency room approximately at 0100 for abnormal lab work elevated INR along with hypokalemia. on 01/27/17, [facility] 10. Patient had multiple scans to ensure the patient did not have any internal bleeding, which were all negative. Patient was given a dose of vitamin K at the time. His INR was 4 at time of discharge. Patient states he was bleeding from his IV site when he left, patient went home on antibiotic noticed that there was blood on his mattress at 0400, rewrapped dressing and placed on Koban. Continued to bleed through dressing patient returned to the ER because he was concerned about the bleeding. Patient has not tried any elevation. Denies fevers, chills, chest pain,palpitations, shortness of breath, dyspnea, nausea, vomiting, diarrhea, abdominal pain, hematuria,blurred vision, double vision, loss of vision, speech changes, LH, dizziness, syncope, headaches, wheezing, ST, URI, neck pain, weakness, bowel or bladder dysfunction, saddle anesthesia, numbness or tingling in bilateral upper or lower extremities equally , muscle paralysis, weakness in bilateral upper or lower extremities equally or rash. Denies IV drug use. - Related Data Allergies/Adverse Reactions: Penicillins Allergy (Verified 01/28/18 07:22) piperacillin Allergy (Verified 01/28/18 07:22) Past Medical History - General Information source: Patient - Social History Smoking Status: Unknown if Ever Smoked Family History: CAD, DM, Hypertension - Past Medical History Cardiac Medical History: Reports: Hx Atrial Fibrillation, Hx Congestive Heart Failure, Hx Coronary Artery Disease, Hx Hypercholesterolemia, Hx Hypertension, Hx Pulmonary Embolism Denies: Hx Heart Attack, Hx Peripheral Vascular Disease, Hx Heart Murmur Pulmonary Medical History: Reports: Hx Asthma, Hx Bronchitis, Hx COPD, Hx Sleep Apnea - unable to wear cpap Denies: Hx Pneumonia, Hx Respiratory Failure, Hx Tuberculosis Neurological Medical History: Reports: Hx Seizures - in 1968. Denies: Hx Cerebrovascular Accident Endocrine Medical History: Reports: Hx Diabetes Mellitus Type 1, Hx Diabetes Mellitus Type 2. Denies: Hx Graves' Disease, Hx Hyperthyroidism, Hx Hypothyroidism Renal/ Medical History: Reports: Hx Benign Prostatic Hyperplasia, Hx Hemodialysis - Temporarily while he was in the hospital, but no longer requires dialysis.. Denies: Hx End Stage Renal Disease, Hx Kidney Stones, Hx Peritoneal Dialysis Malignancy Medical History: Denies Hx Leukemia, Denies Hx Lung Cancer GI Medical History: Reports: Hx Gastroesophageal Reflux Disease, Hx Hiatal Hernia, Hx Irritable Bowel. Denies: Hx Crohn's Disease, Hx Hepatitis, Hx Liver Failure, Hx Pancreatitis, Hx Ulcer Musculoskeltal Medical History: Reports Hx Arthritis, Denies Hx Fibromyalgia, Denies Hx Multiple Sclerosis, Denies Hx Muscular Dystrophy Psychiatric Medical History: Reports: Hx Depression, Hx Post Traumatic Stress Disorder - nightmares Denies: Hx Bipolar Disorder, Hx Dementia, Hx Schizophrenia Traumatic Medical History: Reports: Hx Fractures - Rt elbow and scattered radial head Infectious Medical History: Denies: Hx Hepatitis, Hx HIV Past Surgical History: Reports: Hx Appendectomy, Hx Cardiac Catheterization - 3 VESSEL DISEASE NOT CANDIDATE FOR INTERVENTION, Hx Cholecystectomy, Hx Orthopedic Surgery - CERVICAL AND L-S FUSION, Hx Pacemaker, Other - Tracheostomy -decannulated. PEG tube-removed. Denies: Hx Bowel Surgery, Hx Colostomy, Hx Coronary Artery Bypass Graft, Hx Gastric Bypass Surgery, Hx Herniorrhaphy, Hx Open Heart Surgery, Hx Tonsillectomy - Immunizations Hx Diphtheria, Pertussis, Tetanus Vaccination: Yes Hx Pneumococcal Vaccination: 08/22/12 Review of Systems - Review of Systems Notes: REVIEW OF SYSTEMS: CONSTITUTIONAL : Denies fever, chills, or sweats. Denies recent illness. EENT: Denies eye, ear, throat, or mouth pain or symptoms. Denies nasal or sinus congestion or discharge. Denies throat, tongue, or mouth swelling or difficulty swallowing. CARDIOVASCULAR: Denies chest pain. Denies palpitations or racing or irregular heart beat. Denies ankle edema. RESPIRATORY: Denies cough, cold, or chest congestion. Denies shortness of breath, difficulty breathing, or wheezing. GASTROINTESTINAL: Denies abdominal pain or distention. Denies nausea, vomiting , or diarrhea. Denies blood in vomitus, stools, or per rectum. Denies black, tarry stools. Denies constipation. GENITOURINARY: Denies difficulty urinating, painful urination, burning, frequency, blood in urine, or discharge. MUSCULOSKELETAL: Denies back or neck pain or stiffness. Denies joint pain or swelling. SKIN: Denies rash, lesions or sores. HEMATOLOGIC : + bleeding from IV site Denies easy bruising or bleeding. LYMPHATIC: Denies swollen, enlarged glands. NEUROLOGICAL: Denies confusion or altered mental status. Denies passing out or loss of consciousness. Denies dizziness or lightheadedness. Denies headache. Denies weakness or paralysis or loss of use of either side. Denies problems with gait or speech. Denies sensory loss, numbness, or tingling. Denies seizures. PSYCHIATRIC: Denies anxiety or stress. Denies depression, suicidal ideation, or homicidal ideation. ALL OTHER SYSTEMS REVIEWED AND NEGATIVE. Dictation was performed using [employer] voice recognition software PHYSICAL EXAMINATION: GENERAL: Well-appearing, well-nourished and in no acute distress. HEAD: Atraumatic, normocephalic. EYES: Pupils equal round and reactive to light, extraocular movements intact, sclera anicteric, conjunctiva are normal. ENT: Nares patent, oropharynx clear without exudates. Moist mucous membranes. NECK: Normal range of motion, supple without lymphadenopathy LUNGS: Breath sounds clear to auscultation bilaterally and equal. No wheezes rales or rhonchi. HEART: Regular rate and rhythm without murmurs ABDOMEN: Soft, nontender, nondistended abdomen. No guarding, no rebound. No masses appreciated. Musculoskeletal: Normal range of motion, no pitting or edema. No cyanosis. NEUROLOGICAL: Cranial nerves grossly intact. Normal speech, normal gait. Normal sensory, motor exams PSYCH: Normal mood, normal affect. SKIN: Warm, Dry, normal turgor, no rashes or lesions noted. Right forearm cap refill < 3 days. skin is warm. Physical Exam - Vital signs Vitals: Temp Pulse Resp BP Pulse Ox 98.7 F 68 20 112/58 L 91 L 01/28/18 07:30 01/28/18 07:30 01/28/18 07:30 01/28/18 07:30 01/28/18 07:30 Course - Re-evaluation Re-evalutation: Patient's INR is 4.3 today, potassium was also 3.0. Give oral replacement of potassium. patient states potassium chronically runs low. Patient states he does have potassium pills at home that he is supposed to take, patient was given 40 mEq to take when he was seen in the ER last night for the next 5 days, patient has not taken his potassium because he was very concerned about the bleeding. patient's koban is staying in place. Discussed with patient that he does need to follow-up with his primary care at the [facility] within the next 3 days, will need a repeat INR and basic metabolic panel. Consulted with Shala Linares, pharmacist with Dr. Melendrez's office to discuss Coumadin at 1000. Advised that he not take his Coumadin today or tomorrow but to restart on Wednesday at 5 mg and to come in first thing Wednesday morning for repeat INR. Advised to also continue taking oral potassium replacement. Patient and verbalized understanding of this plan of care and agree with plan of care. Patient was discharged home. All questions and concerns were answered by this provider. - Vital Signs Vital signs: Temp Pulse Resp BP Pulse Ox 97.3 F 66 18 131/59 H 93 01/28/18 10:15 01/28/18 10:15 01/28/18 10:15 01/28/18 10:15 01/28/18 10:15 - Laboratory Result Diagrams: 01/28/18 08:33 01/28/18 08:33 Laboratory results interpreted by me: 01/28/18 01/28/18 01/28/18 08:33 08:33 08:33 Hgb 10.6 L Hct 33.3 L MCV 74 L MCH 23.4 L MCHC 31.8 L RDW 18.5 H Plt Count 530 H Monocytes % 13.4 H PT 41.9 H APTT 83.1 H Potassium 3.0 L* BUN 38 H Creatinine 2.13 H Est GFR ( Amer) 37 L Est GFR (Non-Af Amer) 31 L Glucose 239 H Discharge - Discharge Clinical Impression: Hypokalemia, Anticoagulated on Coumadin Condition: Good Disposition: HOME, SELF-CARE Instructions: Coumadin (warfarin) ([facility]) Additional Instructions: Hypokalemia You have an abnormally decreased level of serum potassium. Hypokalemia may cause weakness, fatigue, or heart rhythm abnormalities. Sometimes there are no symptoms at all. Usually, low serum potassium is due to taking diuretics ( water pills). It can also be due to excessive vomiting or diarrhea. If no obvious cause is evident, further evaluation will be necessary. Treatment is usually oral potassium supplements. Take these exactly as prescribed. You may also want to select foods which are naturally high in potassium -- fruits (such as bananas, cantaloupe, grapes, oranges, prunes, tomatoes), fresh vegetables (potatoes, spinach, beans, peas), orange or tomato juice, tomato pasta sauce, milk, fish (halibut, tuna, salmon, ronda) A follow-up blood test is usually performed to assure that the potassium is returning to normal. Call the physician if you suffer severe weakness, muscle twitching or cramping, palpitations (pounding or irregular heartbeat), or any other new or alarming symptoms. Take your oral potassium replacement as directed for her hypokalemia. Eat green leafy salads and then as the next few days as well fix urinary increase her potassium level. Her INR yesterday was 7, today it is 4.5. You are still at a high risk for bleeding. Do not partake in any high risk activities as we discussed. Please call your primary care provider today Dr. Charli melendrez, to discuss with him your INR. SKIP WEDNESDAY AND WEDNESDAY DOSE OF COUMADIN AND RESTART ON 5MG ON WEDNESDAY. YOU NEED TO GET A REPEAT INR ON WEDNESDAY MORNING. Return immediately for any new or worsening symptoms. Follow up with primary care provider, call tomorrow to make followup appointment. Referrals: CHARLI MELENDREZ DO [Primary Care Provider] - 01/28/18
[2018-01-28 08:44] LABS: ABSOLUTE BASOPHILS # (AUTO) 0.1 10^3/uL (0.0-0.2); ABSOLUTE EOSINOPHILS # (AUTO) 0.2 10^3/uL (0.0-0.6); ABSOLUTE LYMPHOCYTES (AUTO) 1.5 10^3/uL (0.5-4.7); ABSOLUTE MONOCYTES (AUTO) 1.3 10^3/uL (0.1-1.4); ABSOLUTE NEUT (AUTO) 6.4 10^3/uL (1.7-8.2); BASOPHILS % (AUTO) 1.1 % (0-2); EOSINOPHILS % (AUTO) 1.9 % (0-6); HEMATOCRIT 33.3 % (37.9-51.0); HEMOGLOBIN 10.6 g/dL (13.5-17.0); LYMPHOCYTES % (AUTO) 15.7 % (13-45); MEAN CORPUSCULAR HEMOGLOBIN 23.4 pg (27.0-33.4); MEAN CORPUSCULAR HGB CONC 31.8 g/dL (32.0-36.0); MEAN CORPUSCULAR VOLUME 74 fl (80-97); MONOCYTES % (AUTO) 13.4 % (3-13); PLATELET COUNT 530 10^3/uL (150-450); RED BLOOD COUNT 4.53 10^6/uL (4.35-5.55); RED CELL DISTRIBUTION WIDTH 18.5 % (11.5-14.0); SEGMENTED NEUTROPHILS % (AUTO) 67.9 % (42-78); TOTAL CELLS COUNTED % (AUTO) 100 %; WHITE BLOOD COUNT 9.4 10^3/uL (4.0-10.5)
[2018-01-28 08:55] LABS: INTERNATIONAL RATION (INR) 4.15; PROTHROMBIN TIME 41.9 SEC (11.4-15.4)
[2018-01-28 08:56] LABS: PARTIAL THROMBOPLASTIN TIME 83.1 SEC (23.5-35.8)
[2018-01-28 09:22] LABS: ALANINE AMINOTRANSFERASE 29 U/L (21-72); ALBUMIN 4.2 g/dL (3.5-5.0); ALKALINE PHOSPHATASE 66 U/L (38-126); ANION GAP 16 (5-19); ASPARTATE AMINO TRANSFERASE 34 U/L (17-59); BILIRUBIN,DIRECT 0.2 mg/dL (0.0-0.4); BILIRUBIN,TOTAL 0.4 mg/dL (0.2-1.3); BLOOD UREA NITROGEN 38 mg/dL (7-20); CALCIUM 8.8 mg/dL (8.4-10.2); CARBON DIOXIDE 29 mmol/L (22-30); CHLORIDE 98 mmol/L (98-107); GLUCOSE 239 mg/dL (75-110); TOTAL PROTEIN 7.3 g/dL (6.3-8.2)
[2018-01-28] MEDS ORDERED: POTASSIUM CHLORIDE 10 MEQ TABLET.SA PO ONE (09:40)
[2018-01-28 10:34] VITALS: BP 131/59
== END 2018-01-28 10:45 | disposition home or self-care (01) ==
LOC: ER 07:12
DX: D68.318 Other hemorrhagic disorder due to intrinsic circulating anticoagulants, antibodies, or inhibitors (principal); Z79.02 Long term (current) use of antithrombotics/antiplatelets; E87.6 Hypokalemia; I48.91 Unspecified atrial fibrillation; I50.9 Heart failure, unspecified; E78.00 Pure hypercholesterolemia, unspecified; I10 Essential (primary) hypertension; E11.9 Type 2 diabetes mellitus without complications; Z86.711 Personal history of pulmonary embolism; Z90.49 Acquired absence of other specified parts of digestive tract; Z98.1 Arthrodesis status; Z95.0 Presence of cardiac pacemaker
CPT/HCPCS: 36415; 80053; 85025; 85610; 85730; 99283

== ENCOUNTER 2018-01-28 13:56 | Emergency (ER) | payer OTHER, MEDICARE ==
--- NOTE | 2018-01-28 14:36 | ER Document Report ---
ED Medical Screen (RME) - General Chief Complaint: Arm Pain Stated Complaint: BLEEDING FROM IV SITE Time Seen by Provider: 01/28/18 14:26 Notes: RME DISCLOSURE I have seen this patient as part of a Rapid Medical Evaluation and, if applicable, placed any initially appropriate orders. The patient will be seen and fully evaluated, including a full history and physical exam, by a provider ( in Main ED or Fast Track) when a room becomes available. 72-year-old male seen here yesterday in the emergency department and discharged then came back a second time because his IV site was bleeding profusely. He is on Coumadin and he was unable to get it to stop at home after he was discharged from the second visit so he is back now for a third visit. Just prior to arriving, he applied some pads and wrapped his arm with Covan. He has some tingling in his fingers but feels this is due to the fact that he wrapped his arm so tight. Over the past few hours, he has also been feeling lightheaded and does not know if this is due to losing so much blood. Exam Right AC IV site no active bleeding TRAVEL OUTSIDE OF THE [place] IN LAST 30 DAYS: No - Related Data Allergies/Adverse Reactions: Penicillins Allergy (Verified 01/28/18 07:22) piperacillin Allergy (Verified 01/28/18 07:22) Past Medical History - Social History Frequency of alcohol use: None Drug Abuse: None - Past Medical History Cardiac Medical History: Reports: Hx Atrial Fibrillation, Hx Congestive Heart Failure, Hx Coronary Artery Disease, Hx Hypercholesterolemia, Hx Hypertension, Hx Pulmonary Embolism Denies: Hx Heart Attack, Hx Peripheral Vascular Disease, Hx Heart Murmur Pulmonary Medical History: Reports: Hx Asthma, Hx Bronchitis, Hx COPD, Hx Sleep Apnea - unable to wear cpap Denies: Hx Pneumonia, Hx Respiratory Failure, Hx Tuberculosis Neurological Medical History: Reports: Hx Seizures - in 1968. Denies: Hx Cerebrovascular Accident Endocrine Medical History: Reports: Hx Diabetes Mellitus Type 1, Hx Diabetes Mellitus Type 2. Denies: Hx Graves' Disease, Hx Hyperthyroidism, Hx Hypothyroidism Renal/ Medical History: Reports: Hx Benign Prostatic Hyperplasia, Hx Hemodialysis - Temporarily while he was in the hospital, but no longer requires dialysis.. Denies: Hx End Stage Renal Disease, Hx Kidney Stones, Hx Peritoneal Dialysis Malignancy Medical History: Denies Hx Leukemia, Denies Hx Lung Cancer GI Medical History: Reports: Hx Gastroesophageal Reflux Disease, Hx Hiatal Hernia, Hx Irritable Bowel. Denies: Hx Crohn's Disease, Hx Hepatitis, Hx Liver Failure, Hx Pancreatitis, Hx Ulcer Musculoskeltal Medical History: Reports Hx Arthritis, Denies Hx Fibromyalgia, Denies Hx Multiple Sclerosis, Denies Hx Muscular Dystrophy Psychiatric Medical History: Reports: Hx Depression, Hx Post Traumatic Stress Disorder - nightmares Denies: Hx Bipolar Disorder, Hx Dementia, Hx Schizophrenia Traumatic Medical History: Reports: Hx Fractures - Rt elbow and scattered radial head Infectious Medical History: Denies: Hx Hepatitis, Hx HIV Past Surgical History: Reports: Hx Appendectomy, Hx Cardiac Catheterization - 3 VESSEL DISEASE NOT CANDIDATE FOR INTERVENTION, Hx Cholecystectomy, Hx Orthopedic Surgery - CERVICAL AND L-S FUSION, Hx Pacemaker, Other - Tracheostomy -decannulated. PEG tube-removed. Denies: Hx Bowel Surgery, Hx Colostomy, Hx Coronary Artery Bypass Graft, Hx Gastric Bypass Surgery, Hx Herniorrhaphy, Hx Open Heart Surgery, Hx Tonsillectomy - Immunizations Hx Diphtheria, Pertussis, Tetanus Vaccination: Yes History of Influenza Vaccine for 08/2017 - 01/2018 Season: Yes Physical Exam - Vital signs Vitals: Temp Pulse Resp BP Pulse Ox 98.4 F 73 22 H 103/61 94 01/28/18 14:03 01/28/18 14:03 01/28/18 14:03 01/28/18 14:03 01/28/18 14:03 Course - Vital Signs Vital signs: Temp Pulse Resp BP Pulse Ox 98.4 F 73 22 H 103/61 94 01/28/18 14:03 01/28/18 14:03 01/28/18 14:03 01/28/18 14:03 01/28/18 14:03
[2018-01-28 15:59] LABS: ABSOLUTE BASOPHILS # (AUTO) 0.1 10^3/uL (0.0-0.2); ABSOLUTE EOSINOPHILS # (AUTO) 0.2 10^3/uL (0.0-0.6); ABSOLUTE MONOCYTES (AUTO) 1.1 10^3/uL (0.1-1.4); ABSOLUTE NEUT (AUTO) 5.7 10^3/uL (1.7-8.2); BASOPHILS % (AUTO) 1.3 % (0-2); HEMATOCRIT 32.7 % (37.9-51.0); HEMOGLOBIN 10.3 g/dL (13.5-17.0); LYMPHOCYTES % (AUTO) 12.5 % (13-45); MEAN CORPUSCULAR HEMOGLOBIN 23.1 pg (27.0-33.4); MEAN CORPUSCULAR HGB CONC 31.6 g/dL (32.0-36.0); MEAN CORPUSCULAR VOLUME 73 fl (80-97); MONOCYTES % (AUTO) 13.7 % (3-13); PLATELET COUNT 499 10^3/uL (150-450); RED BLOOD COUNT 4.47 10^6/uL (4.35-5.55); RED CELL DISTRIBUTION WIDTH 18.3 % (11.5-14.0); SEGMENTED NEUTROPHILS % (AUTO) 70.5 % (42-78); TOTAL CELLS COUNTED % (AUTO) 100 %; WHITE BLOOD COUNT 8.1 10^3/uL (4.0-10.5)
[2018-01-28 16:06] LABS: INTERNATIONAL RATION (INR) 3.06; PROTHROMBIN TIME 33.1 SEC (11.4-15.4)
[2018-01-28] MEDS ORDERED: LIDOCAINE 1.5%/EPINEPHRINE INJ-PF 30 ML SDV INJ ONE (16:37)
[2018-01-28] MEDS ORDERED: PHYTONADIONE INJ 10 MG/1 ML AMPULE SUBCUT ONE (16:39)
--- NOTE | 2018-01-28 16:40 | ER Document Report ---
ED General - General Chief Complaint: Arm Pain Stated Complaint: BLEEDING FROM IV SITE Time Seen by Provider: 01/28/18 14:26 Notes: 72-year-old male seen here earlier today as well as yesterday. Had an INR that was extremely elevated. Had CT scan performed. Was given vitamin K as well as potassium. Continues to have oozing where his IV was. States that he is soaked through several rounds of gauze. Is concerned because it will not stop bleeding. TRAVEL OUTSIDE OF THE [place] IN LAST 30 DAYS: No - HPI Onset: Yesterday Onset/Duration: Gradual - Related Data Allergies/Adverse Reactions: Penicillins Allergy (Verified 01/28/18 07:22) piperacillin Allergy (Verified 01/28/18 07:22) Past Medical History - General Information source: Patient - Social History Smoking Status: Never Smoker Frequency of alcohol use: None Drug Abuse: None Family History: CAD, DM, Hypertension Patient has suicidal ideation: No Patient has homicidal ideation: No - Past Medical History Cardiac Medical History: Reports: Hx Atrial Fibrillation, Hx Congestive Heart Failure, Hx Coronary Artery Disease, Hx Hypercholesterolemia, Hx Hypertension, Hx Pulmonary Embolism Denies: Hx Heart Attack, Hx Peripheral Vascular Disease, Hx Heart Murmur Pulmonary Medical History: Reports: Hx Asthma, Hx Bronchitis, Hx COPD, Hx Sleep Apnea - unable to wear cpap Denies: Hx Pneumonia, Hx Respiratory Failure, Hx Tuberculosis Neurological Medical History: Reports: Hx Seizures - in 1968. Denies: Hx Cerebrovascular Accident Endocrine Medical History: Reports: Hx Diabetes Mellitus Type 1, Hx Diabetes Mellitus Type 2. Denies: Hx Graves' Disease, Hx Hyperthyroidism, Hx Hypothyroidism Renal/ Medical History: Reports: Hx Benign Prostatic Hyperplasia, Hx Hemodialysis - Temporarily while he was in the hospital, but no longer requires dialysis.. Denies: Hx End Stage Renal Disease, Hx Kidney Stones, Hx Peritoneal Dialysis Malignancy Medical History: Denies Hx Leukemia, Denies Hx Lung Cancer GI Medical History: Reports: Hx Gastroesophageal Reflux Disease, Hx Hiatal Hernia, Hx Irritable Bowel. Denies: Hx Crohn's Disease, Hx Hepatitis, Hx Liver Failure, Hx Pancreatitis, Hx Ulcer Musculoskeltal Medical History: Reports Hx Arthritis, Denies Hx Fibromyalgia, Denies Hx Multiple Sclerosis, Denies Hx Muscular Dystrophy Psychiatric Medical History: Reports: Hx Depression, Hx Post Traumatic Stress Disorder - nightmares Denies: Hx Bipolar Disorder, Hx Dementia, Hx Schizophrenia Traumatic Medical History: Reports: Hx Fractures - Rt elbow and scattered radial head Infectious Medical History: Denies: Hx Hepatitis, Hx HIV Past Surgical History: Reports: Hx Appendectomy, Hx Cardiac Catheterization - 3 VESSEL DISEASE NOT CANDIDATE FOR INTERVENTION, Hx Cholecystectomy, Hx Orthopedic Surgery - CERVICAL AND L-S FUSION, Hx Pacemaker, Other - Tracheostomy -decannulated. PEG tube-removed. Denies: Hx Bowel Surgery, Hx Colostomy, Hx Coronary Artery Bypass Graft, Hx Gastric Bypass Surgery, Hx Herniorrhaphy, Hx Open Heart Surgery, Hx Tonsillectomy - Immunizations Hx Diphtheria, Pertussis, Tetanus Vaccination: Yes Hx Pneumococcal Vaccination: 08/22/12 Review of Systems - Review of Systems Constitutional: denies: Fever, Malaise, Weakness Cardiovascular: denies: Chest pain, Palpitations, Heart racing Respiratory: denies: Cough, Hurts to breathe, Short of breath, Wheezing Gastrointestinal: denies: Abdominal pain, Diarrhea, Nausea Skin: See HPI Hematologic/Lymphatic: Easy bleeding, Easy bruising Neurological/Psychological: denies: Confusion, Depression, Weakness, Numbness Physical Exam - Vital signs Vitals: Temp Pulse Resp BP Pulse Ox 98.4 F 73 22 H 103/61 94 01/28/18 14:01 01/28/18 14:01 01/28/18 14:01 01/28/18 14:01 01/28/18 14:01 Interpretation: Normal - General General appearance: Appears well, Alert - Respiratory Respiratory status: No respiratory distress Chest status: Nontender Breath sounds: Normal Chest palpation: Normal - Cardiovascular Rhythm: Regular Heart sounds: Normal auscultation - Skin Skin Temperature: Warm Skin Moisture: Dry Skin Color: Normal Notes: Patient has small amount of active bleeding from right AC Course - Re-evaluation Re-evalutation: 01/28/18 16:49 Small injection of lidocaine with epinephrine at the area where previous IV was that continues to bleed. Plus a pressure dressing was applied. Vitamin K IM given. Patient to continue with pressure dressings. The bleeding will subside hopefully shortly. If continues to bleed return. - Vital Signs Vital signs: Temp Pulse Resp BP Pulse Ox 97.8 F 71 20 130/67 H 96 01/28/18 17:12 01/28/18 17:12 01/28/18 17:12 01/28/18 17:12 01/28/18 17:12 - Laboratory Result Diagrams: 01/28/18 15:37 Laboratory results interpreted by me: 01/28/18 01/28/18 15:37 15:37 Hgb 10.3 L Hct 32.7 L MCV 73 L MCH 23.1 L MCHC 31.6 L RDW 18.3 H Plt Count 499 H Lymphocytes % 12.5 L Monocytes % 13.7 H PT 33.1 H Procedures - Additional Procedures Dressing change Time performed: 17:29 Additional Procedures: Dressing Change Notes: 01/28/18 17:29 Patient was consented for procedure. Area was cleaned with alcohol swab. Approximately 2 cc of 1% lidocaine with epinephrine was injected by the area for previous IV was which was bleeding. Direct pressure was held. Pressure dressing applied. Patient instructed to continue to keep pressure dressing on. Discharge - Discharge Clinical Impression: Bleeding at insertion site Condition: Good Disposition: HOME, SELF-CARE Instructions: Coumadin (warfarin) ([facility]) Additional Instructions: Continue to have pressure applied to the area that is bleeding. Do not take any more Coumadin until the bleeding has stopped and you have been given approval to do so by your doctor.
[2018-01-28 18:33] VITALS: BP 140/87
== END 2018-01-28 17:55 | disposition home or self-care (01) ==
LOC: ER 13:56
DX: D68.318 Other hemorrhagic disorder due to intrinsic circulating anticoagulants, antibodies, or inhibitors (principal); Z88.0 Allergy status to penicillin; Z79.02 Long term (current) use of antithrombotics/antiplatelets
CPT/HCPCS: 99283; 96372; 36415; 85025; 85610; J3430; J3490

== ENCOUNTER 2018-02-03 19:48 | Emergency (ER) | payer OTHER, MEDICARE ==
--- NOTE | 2018-02-03 20:09 | ER Document Report ---
ED Medical Screen (RME) - General Chief Complaint: Abnormal Lab Results Stated Complaint: ABNORMAL LABS Mode of Arrival: Wheelchair Information source: Patient Notes: Patient was immediately seen by myself, I had spoken with his primary care physician in [place] and noted concerns for anterior septal infarct, the patient himself denies any chest pain admits shortness of breath, he does note that the PCP did call him while he was eating instead of coming here that the enzymes were elevated I have greeted and performed a rapid initial assessment of this patient. A comprehensive ED assessment and evaluation of the patient, analysis of test results and completion of the medical decision making process will be conducted by additional ED providers. PHYSICAL EXAMINATION: GENERAL: Chronically ill-appearing male HEAD: Atraumatic, normocephalic. EYES: Pupils equal round extraocular movements intact, conjunctiva are normal. ENT: Nares patent NECK: Normal range of motion LUNGS: On oxygen Musculoskeletal: Normal range of motion NEUROLOGICAL: Normal speech, normal gait. PSYCH: Normal mood, normal affect. SKIN: Warm, Dry, normal turgor, no rashes or lesions noted. TRAVEL OUTSIDE OF THE [place] IN LAST 30 DAYS: No - Related Data Allergies/Adverse Reactions: Penicillins Allergy (Verified 02/03/18 19:52) piperacillin Allergy (Verified 02/03/18 19:52) Past Medical History - Past Medical History Cardiac Medical History: Reports: Hx Atrial Fibrillation, Hx Congestive Heart Failure, Hx Coronary Artery Disease, Hx Hypercholesterolemia, Hx Hypertension, Hx Pulmonary Embolism Denies: Hx Heart Attack, Hx Peripheral Vascular Disease, Hx Heart Murmur Pulmonary Medical History: Reports: Hx Asthma, Hx Bronchitis, Hx COPD, Hx Sleep Apnea - unable to wear cpap Denies: Hx Pneumonia, Hx Respiratory Failure, Hx Tuberculosis Neurological Medical History: Reports: Hx Seizures - in 1968. Denies: Hx Cerebrovascular Accident Endocrine Medical History: Reports: Hx Diabetes Mellitus Type 1, Hx Diabetes Mellitus Type 2. Denies: Hx Graves' Disease, Hx Hyperthyroidism, Hx Hypothyroidism Renal/ Medical History: Reports: Hx Benign Prostatic Hyperplasia, Hx Hemodialysis - Temporarily while he was in the hospital, but no longer requires dialysis.. Denies: Hx End Stage Renal Disease, Hx Kidney Stones, Hx Peritoneal Dialysis Malignancy Medical History: Denies Hx Leukemia, Denies Hx Lung Cancer GI Medical History: Reports: Hx Gastroesophageal Reflux Disease, Hx Hiatal Hernia, Hx Irritable Bowel. Denies: Hx Crohn's Disease, Hx Hepatitis, Hx Liver Failure, Hx Pancreatitis, Hx Ulcer Musculoskeltal Medical History: Reports Hx Arthritis, Denies Hx Fibromyalgia, Denies Hx Multiple Sclerosis, Denies Hx Muscular Dystrophy Psychiatric Medical History: Reports: Hx Depression, Hx Post Traumatic Stress Disorder - nightmares Denies: Hx Bipolar Disorder, Hx Dementia, Hx Schizophrenia Traumatic Medical History: Reports: Hx Fractures - Rt elbow and scattered radial head Infectious Medical History: Denies: Hx Hepatitis, Hx HIV Past Surgical History: Reports: Hx Appendectomy, Hx Cardiac Catheterization - 3 VESSEL DISEASE NOT CANDIDATE FOR INTERVENTION, Hx Cholecystectomy, Hx Orthopedic Surgery - CERVICAL AND L-S FUSION, Hx Pacemaker, Other - Tracheostomy -decannulated. PEG tube-removed. Denies: Hx Bowel Surgery, Hx Colostomy, Hx Coronary Artery Bypass Graft, Hx Gastric Bypass Surgery, Hx Herniorrhaphy, Hx Open Heart Surgery, Hx Tonsillectomy - Immunizations Hx Diphtheria, Pertussis, Tetanus Vaccination: Yes History of Influenza Vaccine for 08/2017 - 01/2018 Season: Yes Physical Exam - Vital signs Vitals: Temp Pulse Resp BP Pulse Ox 97.6 F 73 20 91/53 L 95 02/03/18 19:57 02/03/18 19:57 02/03/18 19:57 02/03/18 19:57 02/03/18 19:57 Course - Vital Signs Vital signs: Temp Pulse Resp BP Pulse Ox 97.6 F 73 20 91/53 L 95 02/03/18 19:57 02/03/18 19:57 02/03/18 19:57 02/03/18 19:57 02/03/18 19:57
[2018-02-03 20:34] LABS: ABSOLUTE BASOPHILS # (AUTO) 0.1 10^3/uL (0.0-0.2); ABSOLUTE EOSINOPHILS # (AUTO) 0.2 10^3/uL (0.0-0.6); ABSOLUTE LYMPHOCYTES (AUTO) 1.2 10^3/uL (0.5-4.7); ABSOLUTE MONOCYTES (AUTO) 1.1 10^3/uL (0.1-1.4); ABSOLUTE NEUT (AUTO) 5.5 10^3/uL (1.7-8.2); BASOPHILS % (AUTO) 0.9 % (0-2); EOSINOPHILS % (AUTO) 2.1 % (0-6); HEMATOCRIT 31.8 % (37.9-51.0); LYMPHOCYTES % (AUTO) 15.4 % (13-45); MEAN CORPUSCULAR HEMOGLOBIN 23.2 pg (27.0-33.4); MEAN CORPUSCULAR HGB CONC 31.5 g/dL (32.0-36.0); MEAN CORPUSCULAR VOLUME 74 fl (80-97); MONOCYTES % (AUTO) 13.4 % (3-13); PLATELET COUNT 488 10^3/uL (150-450); RED BLOOD COUNT 4.31 10^6/uL (4.35-5.55); RED CELL DISTRIBUTION WIDTH 18.7 % (11.5-14.0); SEGMENTED NEUTROPHILS % (AUTO) 68.2 % (42-78); TOTAL CELLS COUNTED % (AUTO) 100 %; WHITE BLOOD COUNT 8.1 10^3/uL (4.0-10.5)
--- NOTE | 2018-02-03 20:36 | RADIOLOGY REPORT (SQ) ---
EXAM DESCRIPTION: CHEST SINGLE VIEW COMPLETED DATE/TIME: 02/03/2018 8:24 pm REASON FOR STUDY: sob COMPARISON: 09/05/2017 EXAM PARAMETERS: NUMBER OF VIEWS: One view. TECHNIQUE: Single frontal radiographic view of the chest acquired. RADIATION DOSE: NA LIMITATIONS: None. FINDINGS: LUNGS AND PLEURA: No new opacities, masses or pneumothorax. No pleural effusion. MEDIASTINUM AND HILAR STRUCTURES: No masses. Contour normal. HEART AND VASCULAR STRUCTURES: Heart stable in size. Normal vasculature. BONES: No acute findings. HARDWARE: None in the chest. OTHER: No other significant finding. IMPRESSION: NO ACUTE RADIOGRAPHIC FINDING IN THE CHEST. NO SIGNIFICANT CHANGE FROM PRIOR STUDY. TECHNICAL DOCUMENTATION: JOB ID: [id number] [employer]- All Rights Reserved Reading location - IP/workstation name: [email or web address]
[2018-02-03 20:46] LABS: ALANINE AMINOTRANSFERASE 27 U/L (21-72); ALBUMIN 4.6 g/dL (3.5-5.0); ALKALINE PHOSPHATASE 72 U/L (38-126); ANION GAP 18 (5-19); ASPARTATE AMINO TRANSFERASE 21 U/L (17-59); BILIRUBIN,DIRECT 0.2 mg/dL (0.0-0.4); BILIRUBIN,TOTAL 0.5 mg/dL (0.2-1.3); BLOOD UREA NITROGEN 24 mg/dL (7-20); CALCIUM 8.3 mg/dL (8.4-10.2); CARBON DIOXIDE 25 mmol/L (22-30); CHLORIDE 100 mmol/L (98-107); CREATINE KINASE 175 U/L (55-170); GLUCOSE 95 mg/dL (75-110); POTASSIUM 3.3 mmol/L (3.6-5.0); SODIUM 142.9 mmol/L (137-145); TOTAL PROTEIN 7.9 g/dL (6.3-8.2)
[2018-02-03 20:51] LABS: INTERNATIONAL RATION (INR) 1.94; PROTHROMBIN TIME 23.2 SEC (11.4-15.4)
[2018-02-03 20:58] LABS: CREATINE KINASE MB 1.91 ng/mL (<4.55)
[2018-02-03 21:00] LABS: TROPONIN I 0.047 ng/mL
--- NOTE | 2018-02-03 22:08 | ER Document Report ---
ED General - General Chief Complaint: Abnormal Lab Results Stated Complaint: ABNORMAL LABS Time Seen by Provider: 02/03/18 20:05 Mode of Arrival: Wheelchair TRAVEL OUTSIDE OF THE [place] IN LAST 30 DAYS: No - Related Data Allergies/Adverse Reactions: Penicillins Allergy (Verified 02/03/18 19:52) piperacillin Allergy (Verified 02/03/18 19:52) Past Medical History - General Information source: Patient - Social History Smoking Status: Never Smoker Chew tobacco use (# tins/day): No Frequency of alcohol use: None Drug Abuse: None Family History: CAD, DM, Hypertension Patient has suicidal ideation: No Patient has homicidal ideation: No - Past Medical History Cardiac Medical History: Reports: Hx Atrial Fibrillation, Hx Congestive Heart Failure, Hx Coronary Artery Disease, Hx Hypercholesterolemia, Hx Hypertension, Hx Pulmonary Embolism Denies: Hx Heart Attack, Hx Peripheral Vascular Disease, Hx Heart Murmur Pulmonary Medical History: Reports: Hx Asthma, Hx Bronchitis, Hx COPD, Hx Sleep Apnea - unable to wear cpap Denies: Hx Pneumonia, Hx Respiratory Failure, Hx Tuberculosis Neurological Medical History: Reports: Hx Seizures - in 1968. Denies: Hx Cerebrovascular Accident Endocrine Medical History: Reports: Hx Diabetes Mellitus Type 1, Hx Diabetes Mellitus Type 2. Denies: Hx Graves' Disease, Hx Hyperthyroidism, Hx Hypothyroidism Renal/ Medical History: Reports: Hx Benign Prostatic Hyperplasia, Hx Hemodialysis - Temporarily while he was in the hospital, but no longer requires dialysis.. Denies: Hx End Stage Renal Disease, Hx Kidney Stones, Hx Peritoneal Dialysis Malignancy Medical History: Denies Hx Leukemia, Denies Hx Lung Cancer GI Medical History: Reports: Hx Gastroesophageal Reflux Disease, Hx Hiatal Hernia, Hx Irritable Bowel. Denies: Hx Crohn's Disease, Hx Hepatitis, Hx Liver Failure, Hx Pancreatitis, Hx Ulcer Musculoskeltal Medical History: Reports Hx Arthritis, Denies Hx Fibromyalgia, Denies Hx Multiple Sclerosis, Denies Hx Muscular Dystrophy Psychiatric Medical History: Reports: Hx Depression, Hx Post Traumatic Stress Disorder - nightmares Denies: Hx Bipolar Disorder, Hx Dementia, Hx Schizophrenia Traumatic Medical History: Reports: Hx Fractures - Rt elbow and scattered radial head Infectious Medical History: Denies: Hx Hepatitis, Hx HIV Past Surgical History: Reports: Hx Appendectomy, Hx Cardiac Catheterization - 3 VESSEL DISEASE NOT CANDIDATE FOR INTERVENTION, Hx Cholecystectomy, Hx Orthopedic Surgery - CERVICAL AND L-S FUSION, Hx Pacemaker, Other - Tracheostomy -decannulated. PEG tube-removed. Denies: Hx Bowel Surgery, Hx Colostomy, Hx Coronary Artery Bypass Graft, Hx Gastric Bypass Surgery, Hx Herniorrhaphy, Hx Open Heart Surgery, Hx Tonsillectomy - Immunizations Hx Diphtheria, Pertussis, Tetanus Vaccination: Yes Hx Pneumococcal Vaccination: 08/22/12 Physical Exam - Vital signs Vitals: Temp Pulse Resp BP Pulse Ox 97.6 F 73 20 91/53 L 95 02/03/18 19:57 02/03/18 19:57 02/03/18 19:57 02/03/18 19:57 02/03/18 19:57 Course - Re-evaluation Re-evalutation: 02/03/18 22:45 Patient [facility] for concerns of possible cardiac disease. Patient does have history of CHF and cardiac stent placement. Patient states otherwise feeling well no chest pain only shortness of breath which is chronic for the patient. States no acute exacerbation of his symptoms. Patient resting comfortably. Laboratory studies not show acute etiology. EKG shows paced rhythm. Patient has been chest pain-free during his time here. Patient states most his biggest complaint is chronic dizziness ongoing for the last 2 weeks. Explained to the patient we could try him on meclizine however patient states he would rather follow-up with his physician. Patient will be discharged home - Vital Signs Vital signs: Temp Pulse Resp BP Pulse Ox 97.6 F 76 20 91/53 L 95 02/03/18 19:57 02/03/18 20:06 02/03/18 20:06 02/03/18 19:57 02/03/18 20:06 - Laboratory Result Diagrams: 02/03/18 20:20 02/03/18 20:20 Laboratory results interpreted by me: 02/03/18 02/03/18 02/03/18 20:20 20:20 20:20 RBC 4.31 L Hgb 10.0 L Hct 31.8 L MCV 74 L MCH 23.2 L MCHC 31.5 L RDW 18.7 H Plt Count 488 H Monocytes % 13.4 H PT 23.2 H Potassium 3.3 L BUN 24 H Creatinine 2.00 H Est GFR ( Amer) 40 L Est GFR (Non-Af Amer) 33 L Calcium 8.3 L Creatine Kinase 175 H Discharge - Discharge Clinical Impression: Dizziness, Anticoagulated on Coumadin Chronic kidney disease (CKD) Qualifiers: Chronic kidney disease stage: unspecified stage Qualified Code(s): N18.9 - Chronic kidney disease, unspecified Condition: Good Instructions: Dizziness ([facility]) Additional Instructions: Please continue your home medications as prescribed. Return to ER symptoms worsen. At this time EKG laboratory values not show any acute pathology. Troponins not consistent with any ischemia. Return to ER for concerning pathology follow-up return to ER for any concerning issues. Follow-up with your provider. I would highly recommend following up with your [facility] provider family care provider for further evaluation of your dizziness.
[2018-02-03 23:25] VITALS: BP 117/61
--- NOTE | 2018-02-04 08:03 | EKG REPORT ---
SEVERITY:- ABNORMAL ECG - ATRIAL-SENSED VENTRICULAR-PACED COMPLEXES : Confirmed by: Benjamin Jane MD 04-Feb-2018 08:02:46
== END 2018-02-03 22:45 | disposition home or self-care (01) ==
LOC: ER 19:48
DX: R42 Dizziness and giddiness (principal); I12.9 Hypertensive chronic kidney disease with stage 1 through stage 4 chronic kidney disease, or unspecified chronic kidney disease; E11.22 Type 2 diabetes mellitus with diabetic chronic kidney disease; N18.9 Chronic kidney disease, unspecified; I48.91 Unspecified atrial fibrillation; Z79.01 Long term (current) use of anticoagulants; J44.9 Chronic obstructive pulmonary disease, unspecified; R06.02 Shortness of breath; Z88.0 Allergy status to penicillin; Z86.711 Personal history of pulmonary embolism; Z95.5 Presence of coronary angioplasty implant and graft
CPT/HCPCS: 36415; 71045; 80053; 82550; 82553; 84484; 85025; 85610; 93005; 93010; 99284

== ENCOUNTER → 2018-04-25 | Outpatient (CLI) | payer OTHER, MEDICARE ==
--- NOTE | 2018-04-25 13:25 | RADIOLOGY REPORT (SQ) ---
EXAM DESCRIPTION: CAROTID DOPPLER COMPLETED DATE/TIME: 04/25/2018 12:42 pm REASON FOR STUDY: STENOSIS I65.29 OCCLUSION AND STENOSIS OF UNSPECIFIED CAROTID ARTERY COMPARISON: None. TECHNIQUE: Grayscale ultrasound, Doppler velocity and spectra, and color Doppler images acquired of the extra-cranial carotid and vertebral arteries. Images stored on PACS. LIMITATIONS: None. FINDINGS: RIGHT CAROTID CCA Velocities: Within normal limits. ICA Velocities Peak systolic 3.95 m/s. End diastolic 1.0 m/s. Proximal ICA/CCA peak systolic ratio 4.7. Findings consistent with a greater than 70% stenosis. Calcific atherosclerotic plaquing is identifie d. LEFT CAROTID CCA Velocities: Within normal limits. ICA Velocities Peak systolic 1.48 m/s. End diastolic 0.52 m/s. Proximal ICA/CCA peak systolic ratio 2.1. Flow velocities are consistent with a 50 to 69% stenosis. Calcific atherosclerotic plaquing is ident ified. VERTEBRAL ARTERIES: Antegrade flow. Normal waveforms. SUBCLAVIAN ARTERIES: No finding. OTHER: No other significant finding. IMPRESSION: Findings consistent with a greater than 70% stenosis in the right internal carotid arter y and 50 to 69% stenosis in the left internal carotid artery as noted above. COMMENT: Quality ID #[id number]: Velocity criteria are extrapolated from the diameter data as defined by t he Society of Radiologists in Ultrasound Consensus Conference. Radiology 2003: 229; 340-346. TECHNICAL DOCUMENTATION: JOB ID: [id number] [employer]- All Rights Reserved Reading location - IP/workstation name: [email or web address]
== END ==
LOC: SP 08:46
PROVIDERS: ATTEND Surgery
DX: I65.23 Occlusion and stenosis of bilateral carotid arteries (principal)
CPT/HCPCS: 93880

== ENCOUNTER 2018-06-07 04:12 | Inpatient (IN) | payer OTHER, MEDICARE ==
[2018-06-07] MEDS ORDERED: PANTOPRAZOLE SODIUM 40 MG VIAL IV ONE (04:29)
[2018-06-07] MEDS ORDERED: PANTOPRAZOLE SODIUM 40 MG VIAL IV PRN (04:30)
--- NOTE | 2018-06-07 04:39 | ER Document Report ---
ED General - General Stated Complaint: SYNCOPE Time Seen by Provider: 06/07/18 04:28 Notes: Patient is a 73-year-old male who presents with complaint of feeling very weak and tired tonight. He had syncopal episode at home. Paramedics were called. When paramedics arrived he was diaphoretic and pale appearing. Then had a large bowel movement that was black appearing. He says over last several days he has had significant decreased appetite and says whenever he eats his stomach does not feel well and therefore is not eating much. Denies any fevers. He did have a abscess incised and drained at the [facility] on his left posterior thigh. He said no comp occasions during this and seemed to have gone unwell. He denies any vomiting blood but has felt very nauseous. He says he does have some mild epigastric abdominal pain. No chest pain. No shortness of breath. No other complaints at this time. Paramedics said when he first arrived his blood pressure was normal but then he started become hypotensive and his systolic blood pressure went into the 80s. They gave him 250 mL's of normal saline which improved his blood pressure. Patient's color since started to improve. He has a previous history of cholecystectomy. Just over a year ago he did got acute renal failure after having some complications after back surgery. His renal failure has been resolved now for almost a year. He has not required any further dialysis and has been doing well in regards to that. He did have colonoscopy and upper GI endoscopy 2 months ago at [facility]. At that time he was told he had benign polyps. It is difficult to tell if these polyps were in his colon. I see this because the patient she said they are in the stomach but then later said that they did not see anything in the stomach. I suspect a benign polyps most likely in his colon. I will request records from [facility] to help clarify this. He is not currently on any blood thinning medications. TRAVEL OUTSIDE OF THE [place] IN LAST 30 DAYS: No - Related Data Allergies/Adverse Reactions: Penicillins Allergy (Verified 02/03/18 19:52) piperacillin Allergy (Verified 02/03/18 19:52) Past Medical History - Social History Smoking Status: Unknown if Ever Smoked Frequency of alcohol use: None Drug Abuse: None Family History: CAD, DM, Hypertension - Past Medical History Cardiac Medical History: Reports: Hx Atrial Fibrillation, Hx Congestive Heart Failure, Hx Coronary Artery Disease, Hx Hypercholesterolemia, Hx Hypertension, Hx Pulmonary Embolism Denies: Hx Heart Attack, Hx Peripheral Vascular Disease, Hx Heart Murmur Pulmonary Medical History: Reports: Hx Asthma, Hx Bronchitis, Hx COPD, Hx Sleep Apnea - unable to wear cpap Denies: Hx Pneumonia, Hx Respiratory Failure, Hx Tuberculosis Neurological Medical History: Reports: Hx Seizures - in 1968. Denies: Hx Cerebrovascular Accident Endocrine Medical History: Reports: Hx Diabetes Mellitus Type 1, Hx Diabetes Mellitus Type 2. Denies: Hx Graves' Disease, Hx Hyperthyroidism, Hx Hypothyroidism Renal/ Medical History: Reports: Hx Benign Prostatic Hyperplasia, Hx Hemodialysis - Temporarily while he was in the hospital, but no longer requires dialysis.. Denies: Hx End Stage Renal Disease, Hx Kidney Stones, Hx Peritoneal Dialysis Malignancy Medical History: Denies Hx Leukemia, Denies Hx Lung Cancer GI Medical History: Reports: Hx Gastroesophageal Reflux Disease, Hx Hiatal Hernia, Hx Irritable Bowel. Denies: Hx Crohn's Disease, Hx Hepatitis, Hx Liver Failure, Hx Pancreatitis, Hx Ulcer Musculoskeletal Medical History: Reports Hx Arthritis, Denies Hx Fibromyalgia, Denies Hx Multiple Sclerosis, Denies Hx Muscular Dystrophy Psychiatric Medical History: Reports: Hx Depression, Hx Post Traumatic Stress Disorder - nightmares Denies: Hx Bipolar Disorder, Hx Dementia, Hx Schizophrenia Traumatic Medical History: Reports: Hx Fractures - Rt elbow and scattered radial head Infectious Medical History: Denies: Hx Hepatitis, Hx HIV Past Surgical History: Reports: Hx Appendectomy, Hx Cardiac Catheterization - 3 VESSEL DISEASE NOT CANDIDATE FOR INTERVENTION, Hx Cholecystectomy, Hx Orthopedic Surgery - CERVICAL AND L-S FUSION, Hx Pacemaker, Other - Tracheostomy -decannulated. PEG tube-removed. Denies: Hx Bowel Surgery, Hx Colostomy, Hx Coronary Artery Bypass Graft, Hx Gastric Bypass Surgery, Hx Herniorrhaphy, Hx Open Heart Surgery, Hx Tonsillectomy - Immunizations Hx Diphtheria, Pertussis, Tetanus Vaccination: Yes Hx Pneumococcal Vaccination: 08/22/12 Review of Systems - Review of Systems Notes: My Normal Review Basic REVIEW OF SYSTEMS: CONSTITUTIONAL : Denies fever, chills, or sweats. Denies recent illness. [place] globally weak. EENT: Denies eye, ear, throat, or mouth pain or symptoms. Denies nasal or sinus congestion. CARDIOVASCULAR: Denies chest pain. RESPIRATORY: Denies cough, cold, or chest congestion. Denies shortness of breath, difficulty breathing, or wheezing. GASTROINTESTINAL: Mild epigastric abdominal pain. Some nausea but no vomiting. Black tarry stool today. GENITOURINARY: Denies difficulty urinating, painful urination, burning, frequency, or blood in urine. MUSCULOSKELETAL: Denies neck or back pain or joint pain or swelling. SKIN: Denies rash or skin lesions. NEUROLOGICAL: Denies altered mental status or loss of consciousness. Denies headache. Denies weakness or paralysis or loss of use of either side. Denies problems with gait or speech. Denies sensory or motor loss. ALL OTHER SYSTEMS REVIEWED AND NEGATIVE. Physical Exam - Vital signs Vitals: Pulse Ox 100 06/07/18 04:14 - Notes Notes: General Appearance: Pale and weak appearing. Vitals: reviewed, See vital signs table. Head: no swelling or tenderness to the head Eyes: PERRL, EOMI, Conjuctiva clear Mouth: No decreasd moisture Neck: Supple, no neck tenderness, No thyromegaly Lungs: No wheezing, No rales, No rhonci, No accessory muscle use, good air exchange bilaterally. Heart: Normal rate, Regular rythm, No murmur, no rub Abdomen: Normal BS, soft, No rigidity, mild epigastric abdominal tenderness palpation, No guarding, no rebound, no abdominal masses, no organomegaly Rectal exam: On rectal exam patient has very black tarry appearing stool consistent with an upper GI bleed. Extremities: strength 5/5 in all extremities, good pulses in all extremities, no swelling or tenderness in the extremities, no edema. Skin: warm, dry, appropriate color, no rash. small incised abscess on back of left leg without signs of spreading cellulitis. Neuro: speech clear, oriented x 3, normal affect, responds appropriately to questions. Course - Re-evaluation Re-evalutation: 06/07/18 06:41 Clinically the patient looks much improved. He says he feels much improved. His troponin did come back at 0.120. Looks like his troponin ,according to his records from [facility], usually runs around 0.06. He does have some worsening renal insufficiency which could make his troponin go up. He denies any chest pain other than a very brief sharp electric pain that he had radiating into his chest and into his right arm however he says he gets this pain frequently and is nothing new. He says he otherwise has not had any chest pain. Patient's is in the room and she says that he is actually been having black tarry stools now for about 2-3 days. She was concerned with this as well. His hemoglobin came back looking okay. Stool guaiac is negative however we frequently gets false negative stool guaiacs and therefore I am not convinced that he is not having an upper GI bleed based on the fact of his recent symptoms and the way his stool looks on exam. [facility] records also mentions the patient did have gastric polyps that were erosive on their upper GI endoscopy. That is why he is Plavix and Coumadin were stopped at that time. The only blood thinner that he is on at this time is aspirin. 06/07/18 07:43 I did discuss the case with the hospitalist, Dr. Go, who requests a talk to Debra Castro NP, I did discuss case with Ms. Mares. At this time I suspect the most patient's problems are coming from an upper GI bleed based on the fact that his stools been so dark and tarry and has been like this for 3 days and has some slight epigastric pain. The previously incised abscess from yesterday looks fine. There is no spreading cellulitis. I do not think there is anything to do with what is going on today. Patient continues to look clinically well and is feeling much improved. He has not had any further episodes of hypotension. Patient will be admitted. I will place an order for consult to Dr. Gamez due to my concern for upper GI bleed. Dictation of this chart was performed using voice recognition software; therefore, there may be some unintended grammatical errors. - Vital Signs Vital signs: Temp Pulse Resp BP Pulse Ox 97.6 F 9 L 108/65 91 L 06/07/18 04:18 06/07/18 07:16 06/07/18 07:31 06/07/18 07:31 - Laboratory Result Diagrams: 06/07/18 04:28 06/07/18 04:28 Laboratory results interpreted by me: 06/07/18 06/07/18 04:28 04:28 WBC 10.9 H RBC 5.95 H MCV 76 L MCH 25.7 L RDW 24.2 H Lymphocytes % 12.3 L Monocytes % 19.4 H Absolute Monocytes 2.1 H Potassium 3.3 L Chloride 94 L Anion Gap 21 H BUN 65 H Creatinine 2.89 H Est GFR ( Amer) 26 L Est GFR (Non-Af Amer) 22 L Glucose 147 H Direct Bilirubin 0.5 H - EKG Interpretation by Me Additional EKG results interpreted by me: 06/07/18 04:32 EKG is reviewed and interpreted by me. EKG shows paced rhythm with rate of [address] segment elevation or depression. NV interval is within normal range. QRS duration QTc intervals are prolonged. Old EKG for comparison is from February 03, 2018. Discharge - Discharge Clinical Impression: Upper GI bleed, Elevated troponin, Renal insufficiency Syncope Qualifiers: Syncope type: unspecified Qualified Code(s): R55 - Syncope and collapse Condition: Stable Disposition: ADMITTED INPATIENT Admitting Provider: Hospitalist Unit Admitted: Telemetry Referrals: KRISTINA VICTOR MD [ACTIVE STAFF] - Follow up as needed
[2018-06-07 05:00] LABS: ALANINE AMINOTRANSFERASE 27 U/L (21-72); ALBUMIN 4.1 g/dL (3.5-5.0); ALKALINE PHOSPHATASE 81 U/L (38-126); ASPARTATE AMINO TRANSFERASE 38 U/L (17-59); BILIRUBIN,DIRECT 0.5 mg/dL (0.0-0.4); BILIRUBIN,TOTAL 0.8 mg/dL (0.2-1.3); BLOOD UREA NITROGEN 65 mg/dL (7-20); CALCIUM 9.3 mg/dL (8.4-10.2); CARBON DIOXIDE 24 mmol/L (22-30); CHLORIDE 94 mmol/L (98-107); GLUCOSE 147 mg/dL (75-110); LIPASE 96.7 U/L (23-300); POTASSIUM 3.3 mmol/L (3.6-5.0); SODIUM 139.2 mmol/L (137-145); TOTAL PROTEIN 7.9 g/dL (6.3-8.2)
[2018-06-07 05:07] LABS: ABSOLUTE BASOPHILS # (AUTO) 0.1 10^3/uL (0.0-0.2); ABSOLUTE EOSINOPHILS # (AUTO) 0.2 10^3/uL (0.0-0.6); ABSOLUTE LYMPHOCYTES (AUTO) 1.3 10^3/uL (0.5-4.7); ABSOLUTE MONOCYTES (AUTO) 2.1 10^3/uL (0.1-1.4); ABSOLUTE NEUT (AUTO) 7.1 10^3/uL (1.7-8.2); BASOPHILS % (AUTO) 0.9 % (0-2); EOSINOPHILS % (AUTO) 1.7 % (0-6); HEMATOCRIT 45.4 % (37.9-51.0); HEMOGLOBIN 15.3 g/dL (13.5-17.0); LYMPHOCYTES % (AUTO) 12.3 % (13-45); MEAN CORPUSCULAR HEMOGLOBIN 25.7 pg (27.0-33.4); MEAN CORPUSCULAR HGB CONC 33.7 g/dL (32.0-36.0); MEAN CORPUSCULAR VOLUME 76 fl (80-97); MONOCYTES % (AUTO) 19.4 % (3-13); PLATELET COUNT 269 10^3/uL (150-450); RED BLOOD COUNT 5.95 10^6/uL (4.35-5.55); RED CELL DISTRIBUTION WIDTH 24.2 % (11.5-14.0); SEGMENTED NEUTROPHILS % (AUTO) 65.7 % (42-78); TOTAL CELLS COUNTED % (AUTO) 100 %; WHITE BLOOD COUNT 10.9 10^3/uL (4.0-10.5)
[2018-06-07 05:09] LABS: ANION GAP 21 (5-19); INTERNATIONAL RATION (INR) 0.94; PROTHROMBIN TIME 13.1 SEC (11.4-15.4)
[2018-06-07 05:10] LABS: PARTIAL THROMBOPLASTIN TIME 31.5 SEC (23.5-35.8)
[2018-06-07 06:07] LABS: ANISOCYTOSIS 4+; PLATELET COMMENT ADEQUATE; POIKILOCYTOSIS 2+
[2018-06-07 06:08] LABS: PLATELET CLUMPS PRESENT
--- NOTE | 2018-06-07 06:16 | RADIOLOGY REPORT (SQ) ---
Acute abdominal series on 06/07/2018 at 5:30 AM CLINICAL INDICATION: Generalized abdominal pain COMPARISON: CT from 01/27/2018 FINDINGS: CHEST: Multilead left subclavian pacemaker is noted in place. There is mild elevation of the right hemidiaphragm. Borderline cardiomegaly is noted. Fusion hardware is noted in the lower cervical spine. The lungs are clear. ABDOMEN: There is no free air. Bowel gas pattern is unremarkable. Calcifications in the pelvis are consistent with phleboliths. Postsurgical changes are noted in the lumbar spine. No other abnormal calcification or mass effect is noted. IMPRESSION: 1. No acute cardiopulmonary disease. 2. Nonspecific abdomen.
[2018-06-07] MEDS ORDERED: MORPHINE SULFATE 10 MG/ML INJ IV ONE (06:38)
[2018-06-07] MEDS ORDERED: DEXTROSE 40% GEL 15 GM TUBE PO PRN ×2 (08:51)
[2018-06-07] MEDS ORDERED: DEXTROSE 50%-WATER 25 GM/50 ML DISP.SYRIN IV PRN ×2 (08:51)
[2018-06-07] MEDS ORDERED: IPRATROPIUM/ALBUTEROL 0.5-2.5 MG/3 ML AMPUL NEB PRN (08:51)
[2018-06-07] MEDS ORDERED: GLUCAGON,HUMAN RECOMB 1 MG INJ SUBCUT PRN (08:51)
[2018-06-07] MEDS ORDERED: ACETAMINOPHEN 325 MG TABLET PO PRN (08:51)
[2018-06-07] MEDS ORDERED: MAG HYDROX/AL HYDROX/SIMETH SUSP 30 ML UDCUP PO PRN (09:29)
[2018-06-07] MEDS ORDERED: MAGNESIUM HYDROXIDE SUSP 30 ML UDCUP PO PRN (09:29)
[2018-06-07] MEDS ORDERED: PROMETHAZINE HCL INJ 25 MG/1 ML VIAL IV PRN (09:29)
--- NOTE | 2018-06-07 10:01 | EKG REPORT ---
SEVERITY:- ABNORMAL ECG - ATRIAL-SENSED VENTRICULAR-PACED COMPLEXES : Confirmed by: Hadley Izaguirre 07-Jun-2018 10:00:45
[2018-06-07] MEDS: SULFAMETHOXAZOLE/TRIMETHOPRIM 800-160 MG TABLET PO SCH ×2 (10:05→16:46)
[2018-06-07] MEDS: TAMSULOSIN HCL 0.4 MG CAP.SR.24H PO SCH (10:05)
[2018-06-07] MEDS: INSULIN LISPRO 100 UNIT/ML 3 ML VIAL SUBCUT PRN ×2 (10:06→18:14)
[2018-06-07] MEDS: OXYCODONE-ACETAMINOPHEN 5-325 MG TABLET PO PRN ×2 (10:08→20:15)
[2018-06-07] MEDS ORDERED: NORMAL SALINE 1000 ML 1,000 ML IV PRN (10:16)
--- NOTE | 2018-06-07 10:32 | PDOC H&P ---
History of Present Illness Admission Date/PCP: 06/07/18 08:26 CESAR BENSON NP Patient complains of: Syncope, melena History of Present Illness: DIVYA JAIN is a 73 year old male with an extensive past medical history including PAF (not currently anticoagulated), permanent pacemaker, CAD with stent 1, CHF (previously home O2 dependent, has not required home O2 for last 2 months), COPD, hypertension, hyperlipidemia, CVA, CKD 4, DM 2, anemia, and remote pulmonary embolism who presented to the emergency department today via EMS with complaint of syncope. He was found unresponsive on the commode by his , pale and diaphoretic. Per EMS records, he was hypotensive with a blood pressure of 80s/40 that responded well to a NS 250 mL bolus. Per the patient, he felt well this morning but did experience some intermittent sharp pain to his RUE and midsternum described as "electric" prior to syncopal event. Patient did have nausea w/o emesis afterwards but denies previous symptoms of abdominal pain, nausea, vomiting, diarrhea. Per the patient and his he has had melena for the previous 3-4 days. Evaluation in the ED reveals normotensive blood pressures, paced Ventricular rate at 60, mild leukocytosis, normal hemoglobin, mild hypokalemia (3.3), anion gap acidosis (21), acute on chronic kidney injury (creatinine 2.89 elevated from baseline of 2.1), elevated BUN (65), and elevated troponin (0.120, baseline appears to be 0.04-0.05), and benign Acute Abd imaging. He is referred to the hospitalist service for admission for evaluation and management of syncopal event and melena. Past Medical History Cardiac Medical History: Reports: Atrial Fibrillation, Congestive Heart Failure , Coronary Artery Disease, Hyperlipidema, Hypertension, Pulmonary Embolism Denies: Myocardial Infarction, Peripheral Vascular Disease, Heart Murmur Pulmonary Medical History: Reports: Asthma, Bronchitis, Chronic Obstructive Pulmonary Disease (COPD), Sleep Apnea - unable to wear cpap Denies: Pneumonia, Respiratory Failure, Tuberculosis EENT Medical History: Reports: None Neurological Medical History: Reports: Ischemic CVA, Seizures - in 1968 Endocrine Medical History: Reports: Diabetes Mellitus Type 2, Hypothyroidism Denies: Hyperthyroidism Renal/ Medical History: Reports: Chronic Kidney Disease Denies: End Stage Renal Disease Malignancy Medical History: Denies: Leukemia, Lung Cancer GI Medical History: Reports: Gastroesophageal Reflux Disease, Hiatal Hernia, Other - Gastric polyps, diverticulosis Denies: Crohn's Disease, Hepatitis Musculoskeltal Medical History: Reports: Arthritis Denies: Fibromyalgia Psychiatric Medical History: Reports: Depression, Post Traumatic Stress Disorder - nightmares Denies: Bipolar Disorder, Dementia Traumatic Medical History: Reports: None Hematology: Reports: Anemia Denies: Hemophilia, Sickle Cell Disease Infectious Medical History: Denies: HIV Past Surgical History Past Surgical History: Reports: Appendectomy, Cardiac Catheterization - 3 VESSEL DISEASE NOT CANDIDATE FOR INTERVENTION, Cholecystectomy, Coronary Stent, Orthopedic Surgery - CERVICAL AND L-S FUSION, Pacemaker, Other - Tracheostomy- decannulated. J tube-removed Denies: Colostomy, Coronary Artery Bypass Graft, Gastric Bypass Surgery, Herniorrhaphy, Tonsillectomy Social History Information Source: Patient, Relative Lives with: Spouse/Significant other Smoking Status: Never Smoker Frequency of Alcohol Use: None Hx Recreational Drug Use: No Drugs: None Hx Prescription Drug Abuse: No - Advance Directive Resuscitation Status: Full Code Surrogate healthcare decision maker:: The patient's , Erin Jain, Family History Family History: CAD, DM, Hypertension Parental Family History Reviewed: Yes Children Family History Reviewed: No Sibling(s) Family History Reviewed.: No Medication/Allergy Home Medications: Atorvastatin Calcium [Lipitor 80 mg Tablet] 80 mg PO QHS 08/10/17 Ferrous Sulfate [Iron] 325 mg PO Q12 08/10/17 Gabapentin [Neurontin 300 mg Capsule] 600 mg PO Q12 08/10/17 Hydralazine HCl [Apresoline 25 mg Tablet] 25 mg PO Q8 08/10/17 Insulin Glargine,Hum.rec.anlog [Lantus Solostar] 45 units SQ Q12 08/10/17 Loratadine [Claritin 10 mg Tablet] 10 mg PO DAILY 08/10/17 Magnesium Oxide [Mag-Ox 400 mg Tablet] 400 mg PO Q12 08/10/17 Pantoprazole Sodium [Protonix] 40 mg PO Q12 08/10/17 Insulin Aspart [Novolog Flexpen] 30 units SQ QAM 09/02/17 Insulin Aspart [Novolog Flexpen] 37 units SQ NOON 09/02/17 Insulin Aspart [Novolog Flexpen] 40 units SQ QPM 09/02/17 Aspirin [Ecotrin 81 mg EC Tablet] 81 mg PO DAILY tabec 09/06/17 Clopidogrel Bisulfate [Plavix 75 mg Tablet] 75 mg PO DAILY tablet 09/06/17 Furosemide [Lasix 80 mg Tablet] 80 mg PO BID tablet 09/06/17 Metolazone [Zaroxolyn 2.5 mg Tablet] 2.5 mg PO QAM #30 tablet 09/06/17 Metoprolol Succinate [Toprol Xl 50 mg Tab.sr] 50 mg PO Q12 #60 tab.sr.24h Tamsulosin HCl [Flomax 0.4 mg Cap.sr] 0.4 mg PO DAILY #30 cap.sr.24h 09/06/17 Allergies/Adverse Reactions: Penicillins Allergy (Verified 02/03/18 19:52) piperacillin Allergy (Verified 02/03/18 19:52) Review of Systems Constitutional: PRESENT: fatigue, weakness. ABSENT: chills, fever(s), headache( s), weight gain, weight loss Eyes: ABSENT: visual disturbances Ears: ABSENT: hearing changes Cardiovascular: PRESENT: chest pain - atypical. ABSENT: dyspnea on exertion, edema, orthropnea, palpitations Respiratory: ABSENT: cough, hemoptysis Gastrointestinal: PRESENT: melena, nausea. ABSENT: abdominal pain, constipation , diarrhea, hematemesis, hematochezia, vomiting Genitourinary: ABSENT: dysuria, hematuria Musculoskeletal: ABSENT: joint swelling Integumentary: PRESENT: diaphoresis. ABSENT: rash, wounds Neurological: PRESENT: syncope. ABSENT: abnormal gait, abnormal speech, confusion, dizziness, focal weakness Psychiatric: ABSENT: anxiety, depression, homidical ideation, suicidal ideation Endocrine: ABSENT: cold intolerance, heat intolerance, polydipsia, polyuria Hematologic/Lymphatic: ABSENT: easy bleeding, easy bruising Physical Exam Vital Signs: Temp Pulse Resp BP Pulse Ox 97.6 F 16 135/78 H 98 06/07/18 04:18 06/07/18 09:00 06/07/18 09:00 06/07/18 09:00 General appearance: PRESENT: no acute distress, obese, well-developed, well- nourished Head exam: PRESENT: atraumatic, normocephalic Eye exam: PRESENT: conjunctiva pink, EOMI, PERRLA. ABSENT: scleral icterus Ear exam: PRESENT: normal external ear exam Mouth exam: PRESENT: moist, tongue midline Neck exam: ABSENT: carotid bruit, JVD, lymphadenopathy, thyromegaly Respiratory exam: PRESENT: clear to auscultation miguel, symmetrical, unlabored, other - Supplemental oxygen via NC. ABSENT: rales, rhonchi, wheezes Cardiovascular exam: PRESENT: bradycardia, +S1, +S2, other - ASVP rhythm. ABSENT: diastolic murmur, rubs, systolic murmur Pulses: PRESENT: normal dorsalis pedis pul Vascular exam: PRESENT: normal capillary refill GI/Abdominal exam: PRESENT: distended, hypoactive bowel sounds, soft. ABSENT: guarding, mass, organolmegaly, rebound, tenderness Rectal exam: PRESENT: black stool, heme (-) stool Extremities exam: PRESENT: full ROM. ABSENT: calf tenderness, clubbing, pedal edema Neurological exam: PRESENT: alert, awake, oriented to person, oriented to place , oriented to time, oriented to situation, CN II-XII grossly intact. ABSENT: motor sensory deficit Psychiatric exam: PRESENT: appropriate affect, normal mood. ABSENT: homicidal ideation, suicidal ideation Skin exam: PRESENT: dry, warm, other - I&D w/ iodoform packing in place to posterior LLE; slight surrounding errythema, no actie drainage. ABSENT: cyanosis, rash Results Impressions: Acute Abdomen Series 06/07/18 04:41 IMPRESSION: 1. No acute cardiopulmonary disease. 2. Nonspecific abdomen. Assessment & Plan - Diagnosis (1) Syncope Qualifiers: Syncope type: unspecified Qualified Code(s): R55 - Syncope and collapse Is this a current diagnosis for this admission?: Yes Plan: The patient was found by his unresponsive sitting on the commode this morning. Upon EMS arrival, the patient was found to be hypotensive. Blood pressure responded and patient quickly regained alertness with NS 250 mL bolus. Unclear etiology; arrhythmia, ACS, TIA, vasovagal, hypoglycemia Initial evaluation in the emergency department did reveal an elevated troponin of 0.120, acute on chronic kidney insufficiency with creatinine of 2.89, BUN of 65, elevated anion gap of 21, mild leukocytosis of 10.9, hemoglobin 15.3. Otherwise, laboratory evaluation was benign. EKG demonstrated atrial sensed ventricularly paced rhythm. Acute abdominal x-rays were benign. The patient's pacemaker was interrogated; found that on 06/02/18 the patient had intermittent A. fib and flutter but no other arrhythmias. The patient will be admitted to the medical floor on continuous cardiac telemetry. He has received approximately 1 L of normal saline between EMS and emergency department provider. Blood pressure is now stable. Will provide gentle IV fluids and monitor closely for fluid volume overload. The patient has been blood banded, hemoglobin currently 15.3. He does report 3- 4 days of melena. Will ask GI to assist with evaluating for upper GI bleed. The patient did report atypical chest pain with troponin elevated above baseline ; will continue to trend troponins. Records reviewed from March admission to [facility]; echocardiogram showed normal LV EF, moderate diastolic dysfunction, mild pulmonary hypertension. Patient also underwent MPI SPECT without indications of infarction. Will ask PT/OT to evaluate the patient. Fall precautions. (2) Acute on chronic kidney failure Qualifiers: Chronic kidney disease stage: stage 3 (moderate) Is this a current diagnosis for this admission?: Yes Plan: Acute on chronic kidney failure; likely prerenal secondary to hypotension. Patient was found by EMS to have a blood pressure of 80/40. Creatinine is elevated 2.89, BUN elevated to 65. Some concern for upper GI bleed which may account for the elevated BUN. The patient did have a renal ultrasound done at an [facility] in March 2018; no indications of hydronephrosis, hydroureter, renal artery stenosis. He has previously been evaluated by Dr. Colbert but is not establish as an outpatient with nephrology. He has received approximately 1 L NS, will provide gentle IV fluids and monitor closely for fluid volume overload. Avoid nephrotoxic medications. (3) Elevated troponin Is this a current diagnosis for this admission?: Yes Plan: Unclear etiology; may be related to acute worsening of chronic kidney disease versus ACS. Patient did report atypical chest pains described as sharp and electric to his right upper arm and mid sternum that occurred prior to his syncopal event. He denies current chest discomfort, palpitations, dyspnea and orthopnea. We will trend troponins. (4) Upper GI bleed Is this a current diagnosis for this admission?: Yes Plan: The patient reports 3-4 days of melena. Fecal occult was negative this morning; however, ED physician does confirm melena. He recently was admitted to [facility] and underwent EGD and colonoscopy at that time. Outpatient records were reviewed; EGD demonstrated a large antral polyps with surface erosions measuring 10-20 mm at the base. The polyps were not removed and biopsies were not obtained secondary to the patient being on Coumadin therapy at that time. EGD also noted atrophic duodenal mucosa. Colonoscopy demonstrated diverticulosis without diverticulitis. At time of discharge from an [facility], the patient was instructed to discontinue his Coumadin and was placed on Eliquis. Patient reports he only had 1 or 2 doses of Eliquis prior to being instructed to discontinue that secondary to kidney function. Since March 2018, patient has been on full dose aspirin only. The patient received IV Protonix bolus and started on Protonix drip per ED physician. We will continue the Protonix drip. Holding aspirin. The patient will be kept n.p.o. with the exception of ice chips and sips of water for medications. Gastroenterology has been consulted; appreciate their evaluation and recommendations. (5) PAF (paroxysmal atrial fibrillation) Is this a current diagnosis for this admission?: Yes Plan: History of PAF; previously on Coumadin therapy for PAF and remote PE. Coumadin was discontinued in March secondary to GI bleed. Pacemaker was interrogated today; found to have atrial fib/flutter on 06/02/18. Currently he is in an atrial sensed-ventricularly paced rhythm. We will resume the patient's home medication regiment once reconciled. (6) COPD (chronic obstructive pulmonary disease) Qualifiers: Emphysema type: unspecified Is this a current diagnosis for this admission?: Yes Plan: Stable; without exacerbation. Resume the patient's home medication regiment once reconciled. As needed nebulizer treatments will be available. Supplemental oxygen as needed to maintain oxygen saturations greater than 88%. (7) Coronary artery disease Qualifiers: Coronary Disease-Associated Artery/Lesion type: [place] artery [place] vs. transplanted heart: [place] heart Associated angina: without angina Qualified Code(s): I25.10 - Atherosclerotic heart disease of [place] coronary artery without angina pectoris Is this a current diagnosis for this admission?: Yes Plan: Trending troponins. Holding aspirin secondary to concern for upper GI bleed. We will resume the patient's remaining medication regiment once reconciled. Remaining evaluation and plan as above. 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 We will monitor Accu-Cheks every 6 hours and provide Humalog for sliding scale coverage. We will hold the patient's gabapentin for neuropathy secondary to acute worsening of chronic kidney disease. We will resume the patient's long acting insulin once dose is reconciled by pharmacy. (9) Obstructive sleep apnea Is this a current diagnosis for this admission?: Yes Plan: PT does not use CPAP at home. (10) Diastolic heart failure Qualifiers: Heart failure chronicity: chronic Qualified Code(s): I50.32 - Chronic diastolic (congestive) heart failure Is this a current diagnosis for this admission?: Yes Plan: Stable; without exacerbation. Lung sounds are clear, no pulmonary edema by chest x-ray. ProBNP is pending. Trending troponins secondary to atypical chest pain. The patient will be receiving gentle IV fluids for correction of acute on chronic kidney insufficiency; will monitor closely for evidence of fluid volume overload. We will resume the patient's home medication regiment once reconciled. Daily weights and strict I's and O's. (11) HTN (hypertension) Is this a current diagnosis for this admission?: Yes Plan: Patient with syncopal event secondary to hypotension this morning. He is now normotensive following IV fluid bolus. Home medication reconciliation is undergoing; we will resume once reconciled making adjustments as needed to maintain appropriate blood pressure response. (12) HLD (hyperlipidemia) Is this a current diagnosis for this admission?: Yes Plan: Continue statin therapy. (13) Metabolic acidosis Is this a current diagnosis for this admission?: Yes Plan: Likely secondary to upper GI bleed. Anion gap is noted to be elevated to 21. Glucose of 147. The patient was provided NS via EMS and emergency department personnel. We will continue to provide gentle IV fluid resuscitation. Will monitor daily chemistries. (14) Leukocytosis Is this a current diagnosis for this admission?: Yes Plan: Likely reactive following syncopal episode. Additionally, the patient is noted to have an abscess to his posterior left upper leg. He underwent I&D by his PCP yesterday. Currently afebrile. We will continue to monitor. (15) Abscess Is this a current diagnosis for this admission?: Yes Plan: Abscess to left posterior upper leg; underwent I&D by his primary care provider as an outpatient yesterday. His antibiotic was called to the pharmacy but he has not yet had his first dose. The patient does have a history of MSSA a per our previous culture results, however, patient states that his PCP was concerned for MRSA. Will place patient on Bactrim DS. Daily dressing changes. - Time Time Spent: Greater than 70 Minutes Medications reviewed and adjusted accordingly: Yes Anticipated discharge: Home
--- NOTE | 2018-06-07 13:18 | PDOC CONSULTATION ---
Consultation Consult Date: 06/07/18 Attending physician:: JOSÉ BERNSTEIN Consult reason:: ? melena History of Present Illness Admission Date/PCP: 06/07/18 08:26 CESAR BENSON NP History of Present Illness: DIVYA JAIN is a 73 year old male patient admitted from the ED syncopal episode ? vasovagal etiology ? complaints of dark stool Hgb is normal, no recheck yet patient had recent EGD and colonoscopy EGD showed possible inflammatory polyps, patient was on Coumadin and no biopsy obtained work up for syncope in progress GI consulted to see if any GI bleeding patient is now off of his anticoagulation will schedule him for EGD does have previous history of GERD report of previous procedure noted colonoscopy is negative no reported gross rectal bleeding he has been on his PPI however does take both iron and Mag oxide which certainly could explain how his stools are dark but is heme negative Past Medical History Cardiac Medical History: Reports: Atrial Fibrillation, Congestive Heart Failure , Coronary Artery Disease, Hyperlipidema, Hypertension, Pulmonary Embolism Denies: Myocardial Infarction, Peripheral Vascular Disease, Heart Murmur Pulmonary Medical History: Reports: Asthma, Bronchitis, Chronic Obstructive Pulmonary Disease (COPD), Sleep Apnea - unable to wear cpap Denies: Pneumonia, Respiratory Failure, Tuberculosis EENT Medical History: Reports: None Neurological Medical History: Reports: Ischemic CVA, Seizures - in 1968 Endocrine Medical History: Reports: Diabetes Mellitus Type 1, Diabetes Mellitus Type 2, Hypothyroidism Denies: Hyperthyroidism Renal/ Medical History: Reports: Chronic Kidney Disease Denies: End Stage Renal Disease Malignancy Medical History: Denies: Leukemia, Lung Cancer GI Medical History: Reports: Gastroesophageal Reflux Disease, Hiatal Hernia, Other - Gastric polyps, diverticulosis Denies: Crohn's Disease, Hepatitis Musculoskeltal Medical History: Reports: Arthritis Denies: Fibromyalgia Psychiatric Medical History: Reports: Depression, Post Traumatic Stress Disorder - nightmares Denies: Bipolar Disorder, Dementia Traumatic Medical History: Reports: None Hematology: Reports: Anemia Denies: Hemophilia, Sickle Cell Disease Infectious Medical History: Denies: HIV Past Surgical History Past Surgical History: Reports: Appendectomy, Cardiac Catheterization - 3 VESSEL DISEASE NOT CANDIDATE FOR INTERVENTION, Cholecystectomy, Coronary Stent, Orthopedic Surgery - CERVICAL AND L-S FUSION, Pacemaker, Other - Tracheostomy- decannulated. J tube-removed Denies: Colostomy, Coronary Artery Bypass Graft, Gastric Bypass Surgery, Herniorrhaphy, Tonsillectomy Social History Lives with: Spouse/Significant other Smoking Status: Never Smoker Frequency of Alcohol Use: None Hx Recreational Drug Use: No Drugs: None Hx Prescription Drug Abuse: No - Advance Directive Resuscitation Status: Full Code Family History Family History: CAD, DM, Hypertension Parental Family History Reviewed: Yes Children Family History Reviewed: Unknown Sibling(s) Family History Reviewed.: Unknown Medication/Allergy Home Medications: Atorvastatin Calcium [Lipitor 80 mg Tablet] 80 mg PO QHS 08/10/17 Ferrous Sulfate [Iron] 325 mg PO Q12 08/10/17 Gabapentin [Neurontin 300 mg Capsule] 600 mg PO Q12 08/10/17 Hydralazine HCl [Apresoline 25 mg Tablet] 25 mg PO Q8 08/10/17 Insulin Glargine,Hum.rec.anlog [Lantus Solostar] 45 units SQ Q12 08/10/17 Loratadine [Claritin 10 mg Tablet] 10 mg PO DAILY 08/10/17 Magnesium Oxide [Mag-Ox 400 mg Tablet] 400 mg PO Q12 08/10/17 Pantoprazole Sodium [Protonix] 40 mg PO Q12 08/10/17 Insulin Aspart [Novolog Flexpen] 30 units SQ QAM 09/02/17 Insulin Aspart [Novolog Flexpen] 37 units SQ NOON 09/02/17 Insulin Aspart [Novolog Flexpen] 40 units SQ QPM 09/02/17 Aspirin [Ecotrin 81 mg EC Tablet] 81 mg PO DAILY tabec 09/06/17 Clopidogrel Bisulfate [Plavix 75 mg Tablet] 75 mg PO DAILY tablet 09/06/17 Furosemide [Lasix 80 mg Tablet] 80 mg PO BID tablet 09/06/17 Metolazone [Zaroxolyn 2.5 mg Tablet] 2.5 mg PO QAM #30 tablet 09/06/17 Metoprolol Succinate [Toprol Xl 50 mg Tab.sr] 50 mg PO Q12 #60 tab.sr.24h Tamsulosin HCl [Flomax 0.4 mg Cap.sr] 0.4 mg PO DAILY #30 cap.sr.24h 09/06/17 Allergies/Adverse Reactions: Penicillins Allergy (Verified 02/03/18 19:52) piperacillin Allergy (Verified 02/03/18 19:52) Review of Systems Constitutional: ABSENT: fever(s), headache(s), night sweats Eyes: ABSENT: visual disturbances Ears: ABSENT: hearing changes Nose, Mouth, and Throat: ABSENT: mouth pain Cardiovascular: ABSENT: edema Respiratory: ABSENT: dyspnea, hemoptysis Gastrointestinal: ABSENT: diarrhea, dysphagia, nausea, vomiting Genitourinary: ABSENT: dysuria, hematuria Musculoskeletal: ABSENT: deformity, joint swelling Integumentary: ABSENT: pruritus Neurological: ABSENT: tingling, tremor(s), vertigo Endocrine: ABSENT: polydipsia, polyphagia, polyuria Hematologic/Lymphatic: ABSENT: easy bruising Physical Exam Vital Signs: Temp Pulse Resp BP Pulse Ox 97.6 F 59 L 18 120/59 L 98 06/07/18 11:09 06/07/18 11:09 06/07/18 11:09 06/07/18 11:09 06/07/18 11:09 General appearance: PRESENT: no acute distress, well-developed, well-nourished Head exam: PRESENT: atraumatic, normocephalic Eye exam: PRESENT: EOMI, PERRLA. ABSENT: nystagmus, periorbital swelling, scleral icterus Mouth exam: PRESENT: moist, neck supple Throat exam: ABSENT: tonsillar exudate, tonsillogmegaly Neck exam: ABSENT: meningismus, tenderness, thyromegaly Respiratory exam: PRESENT: symmetrical, unlabored. ABSENT: tachypnea, wheezes Cardiovascular exam: PRESENT: irregular rhythm GI/Abdominal exam: PRESENT: soft. ABSENT: rebound, rigid, tenderness Extremities exam: ABSENT: joint swelling Musculoskeletal exam: PRESENT: full ROM Neurological exam: PRESENT: alert, awake, oriented to time, oriented to situation, CN II-XII grossly intact Focused psych exam: ABSENT: restlessness Skin exam: PRESENT: normal color. ABSENT: mottled, pallor, urticaria, vesicles Results Laboratory Results: 06/07/18 06/07/18 10:32 10:32 Troponin I 0.102 NT-Pro-B Natriuret Pep 1620 H Impressions: Acute Abdomen Series 06/07/18 04:41 IMPRESSION: 1. No acute cardiopulmonary disease. 2. Nonspecific abdomen. Assessment & Plan - Diagnosis (1) Upper GI bleed Is this a current diagnosis for this admission?: Yes Plan: this is certainly questionable given his recent results, the fact that he is on a PPI and that he has a stable HGB on admission will need to follow H/H if there is a suspicion of a GI bleed however heme negative, so could be due to medications patient will need repeat EGD Risks, benefits and alternatives of the procedure are explained to the patient in detail cardiac work up should take precedence however if he can be cleared for possible EGD old records are reviewed transfuse if necessary continue PPI Risks, benefits and alternatives are discussed further recommendations to follow - Time Time Spent: 50 to 70 Minutes
[2018-06-07 14:59] LABS: HEMATOCRIT 44.8 % (37.9-51.0); HEMOGLOBIN 15.1 g/dL (13.5-17.0); MEAN CORPUSCULAR HEMOGLOBIN 25.9 pg (27.0-33.4); MEAN CORPUSCULAR HGB CONC 33.7 g/dL (32.0-36.0); MEAN CORPUSCULAR VOLUME 77 fl (80-97); PLATELET COUNT 226 10^3/uL (150-450); RED BLOOD COUNT 5.82 10^6/uL (4.35-5.55); WHITE BLOOD COUNT 7.5 10^3/uL (4.0-10.5)
[2018-06-07 15:14] LABS: APPEARANCE,URINE CLEAR; BILIRUBIN,URINE NEGATIVE (NEGATIVE); COLOR,URINE YELLOW; GLUCOSE, URINE NEGATIVE (NEGATIVE); KETONES,URINE NEGATIVE (NEGATIVE); LEUKOCYTE ESTERASE,URINE NEGATIVE (NEGATIVE); NITRITE,URINE NEGATIVE (NEGATIVE); PROTEIN,URINE NEGATIVE (NEGATIVE); URINE SPECIFIC GRAVITY 1.013; UROBILINOGEN,URINE NEGATIVE mg/dL (<2.0)
[2018-06-07] MEDS: NORMAL SALINE 100 ML with PANTOPRAZOLE SODIUM 80 MG IV PRN ×2 (16:09)
[2018-06-07] MEDS ORDERED: (PENDING PHARMACY ID) (Ammonium Lactate 1 APPLIC) TP SCH (18:00)
[2018-06-07] MEDS: FUROSEMIDE 40 MG TABLET PO SCH (18:14)
--- NOTE | 2018-06-07 20:42 | Progress Note ---
Provider Note Provider Note: hgb recheck came back without significant drop despite hydration ? gi bleed note made by ED MD that guiac came back but may be false negative however guiac tests are prone more to false positives, a negative is more than likely a true negative however patient is scheduled to undergo EGD tomorrow further recommendations to follow
[2018-06-07] MEDS ORDERED: INSULIN GLARGINE,HUM.REC.ANLOG 300 UNIT/3 ML INSULN.PEN SUBCUT SCH (22:00)
[2018-06-07] MEDS ORDERED: CARVEDILOL 12.5 MG TABLET PO SCH (22:00)
[2018-06-07] MEDS: ATORVASTATIN CALCIUM 80 MG TABLET PO SCH (23:17)
[2018-06-07] MEDS: INSULIN GLARGINE,HUM.REC.ANLOG 1,000 UNIT/10 ML UNIT SUBCUT SCH (23:17)
[2018-06-07] MEDS: FERROUS SULFATE 325 MG TABLET PO SCH (23:18)
[2018-06-07] MEDS: AMITRIPTYLINE HCL 25 MG TABLET PO SCH (23:18)
[2018-06-07] MEDS: CARVEDILOL 6.25 MG TABLET PO SCH (23:19)
[2018-06-08] MEDS: NORMAL SALINE 100 ML with PANTOPRAZOLE SODIUM 80 MG IV PRN ×4 (02:32→14:22)
[2018-06-08] MEDS ORDERED: LEVOTHYROXINE SODIUM 0.05 MG TABLET PO SCH (06:00)
[2018-06-08 06:58] LABS: HEMATOCRIT 45.2 % (37.9-51.0); HEMOGLOBIN 14.9 g/dL (13.5-17.0); MEAN CORPUSCULAR HEMOGLOBIN 25.4 pg (27.0-33.4); MEAN CORPUSCULAR HGB CONC 32.9 g/dL (32.0-36.0); MEAN CORPUSCULAR VOLUME 77 fl (80-97); PLATELET COUNT 223 10^3/uL (150-450); RED BLOOD COUNT 5.85 10^6/uL (4.35-5.55); RED CELL DISTRIBUTION WIDTH 23.8 % (11.5-14.0); WHITE BLOOD COUNT 7.3 10^3/uL (4.0-10.5)
[2018-06-08 07:20] LABS: ANION GAP 17 (5-19); BLOOD UREA NITROGEN 58 mg/dL (7-20); CALCIUM 8.8 mg/dL (8.4-10.2); CARBON DIOXIDE 27 mmol/L (22-30); CHLORIDE 96 mmol/L (98-107); GLUCOSE 183 mg/dL (75-110); POTASSIUM 3.5 mmol/L (3.6-5.0); SODIUM 139.6 mmol/L (137-145)
[2018-06-08] MEDS ORDERED: NORMAL SALINE 1000 ML 1,000 ML IV PRN (08:42)
[2018-06-08] MEDS: SULFAMETHOXAZOLE/TRIMETHOPRIM 800-160 MG TABLET PO SCH ×2 (09:14→18:16)
[2018-06-08] MEDS: MAGNESIUM OXIDE 400 MG TABLET PO SCH (09:15)
[2018-06-08] MEDS: FERROUS SULFATE 325 MG TABLET PO SCH ×2 (09:15→22:13)
[2018-06-08] MEDS: CHOLECALCIFEROL (D3) 1,000 UNIT TABLET PO SCH (09:15)
[2018-06-08] MEDS: AMIODARONE HCL 200 MG TABLET PO SCH (09:15)
[2018-06-08] MEDS: TAMSULOSIN HCL 0.4 MG CAP.SR.24H PO SCH (09:15)
[2018-06-08] MEDS: FUROSEMIDE 40 MG TABLET PO SCH ×2 (09:16→18:16)
[2018-06-08] MEDS: INSULIN GLARGINE,HUM.REC.ANLOG 1,000 UNIT/10 ML UNIT SUBCUT SCH ×2 (09:17→22:14)
[2018-06-08] MEDS: CARVEDILOL 6.25 MG TABLET PO SCH ×2 (09:17→22:13)
[2018-06-08] MEDS: AMMONIUM LACTATE 12% LOTION 225GM BOTTLE TP SCH ×2 (09:17→18:16)
[2018-06-08] MEDS: OXYCODONE-ACETAMINOPHEN 5-325 MG TABLET PO PRN ×4 (09:34→22:12)
[2018-06-08] MEDS ORDERED: (PENDING PHARMACY ID) (Cholecalciferol (Vitamin D3) [Vitamin D3] 2,000 UNIT) PO SCH (10:00)
[2018-06-08] MEDS ORDERED: (PENDING PHARMACY ID) (Magnesium Oxide [Magnesium] 400 MG) PO SCH (10:00)
--- NOTE | 2018-06-08 12:25 | PDOC PROGRESS REPORT ---
Subjective Progress Note for:: 06/08/18 Subjective:: patient was scheduled for EGD today. Accomodation was made to put in on the schedule come to find out cardiology needs to do their work up. will not be able to perform procedure today\ spoke with hospitalist physician will defer until tomorrow Hgb has been stable Reason For Visit: SYNCOPE,MELENA Physical Exam Vital Signs: Temp Pulse Resp BP Pulse Ox 97.8 F 60 16 99/55 L 96 06/08/18 07:27 06/08/18 07:27 06/08/18 07:27 06/08/18 07:27 06/08/18 07:27 Intake & Output 06/07/18 06/08/18 06/09/18 06:59 06:59 06:59 Intake Total 1000 Output Total 1975 Balance -975 Weight 99.7 kg General appearance: PRESENT: no acute distress, well-developed, well-nourished Head exam: PRESENT: atraumatic, normocephalic Eye exam: PRESENT: EOMI, PERRLA. ABSENT: nystagmus, scleral icterus Mouth exam: PRESENT: moist, neck supple Throat exam: ABSENT: tonsillar exudate, tonsillogmegaly Neck exam: ABSENT: meningismus, tenderness, thyromegaly Respiratory exam: PRESENT: symmetrical, unlabored. ABSENT: tachypnea, wheezes Cardiovascular exam: PRESENT: +S1, +S2 GI/Abdominal exam: PRESENT: soft. ABSENT: rebound, rigid, tenderness Extremities exam: ABSENT: joint swelling Neurological exam: PRESENT: oriented to time, oriented to situation, CN II-XII grossly intact Focused psych exam: ABSENT: restlessness Skin exam: PRESENT: normal color. ABSENT: mottled, pallor, urticaria, vesicles Results Laboratory Results: 06/08/18 06:20 06/08/18 06:20 06/07/18 06/07/18 06/08/18 14:31 14:50 06:20 WBC 7.5 7.3 RBC 5.82 H 5.85 H Hgb 15.1 14.9 Hct 44.8 45.2 MCV 77 L 77 L MCH 25.9 L 25.4 L MCHC 33.7 32.9 RDW 24.0 H 23.8 H Plt Count 226 223 Sodium Potassium Chloride Carbon Dioxide Anion Gap BUN Creatinine Est GFR ( Amer) Est GFR (Non-Af Amer) Glucose Calcium Magnesium TSH Urine Color YELLOW Urine Appearance CLEAR Urine pH 5.0 Ur Specific [place] 1.013 Urine Protein NEGATIVE Urine Glucose (UA) NEGATIVE Urine Ketones NEGATIVE Urine Blood NEGATIVE Urine Nitrite NEGATIVE Ur Leukocyte Esterase NEGATIVE Urine WBC (Auto) 1 06/08/18 06/08/18 06:20 06:20 WBC RBC Hgb Hct MCV MCH MCHC RDW Plt Count Sodium 139.6 Potassium 3.5 L Chloride 96 L Carbon Dioxide 27 Anion Gap 17 BUN 58 H Creatinine 2.74 H Est GFR ( Amer) 28 L Est GFR (Non-Af Amer) 23 L Glucose 183 H Calcium 8.8 Magnesium 2.2 TSH 16.00 H Urine Color Urine Appearance Urine pH Ur Specific [place] Urine Protein Urine Glucose (UA) Urine Ketones Urine Blood Urine Nitrite Ur Leukocyte Esterase Urine WBC (Auto) 06/07/18 06/07/18 06/07/18 10:32 10:32 14:31 Troponin I 0.102 0.094 NT-Pro-B Natriuret Pep 1620 H 06/07/18 20:15 Troponin I 0.089 NT-Pro-B Natriuret Pep Impressions: Acute Abdomen Series 06/07/18 04:41 IMPRESSION: 1. No acute cardiopulmonary disease. 2. Nonspecific abdomen. Assessment & Plan - Diagnosis (1) Upper GI bleed Is this a current diagnosis for this admission?: Yes Plan: Hgb stable cardiology work up in progress will not be able to perform EGD today will defer until tomorrow Hgb trend does not appear to be consistent with any GI bleeding however will re-attempt to perform procedure until tomorrow Spoke with Hospitalist physician - Time Time Spent with patient: 15-24 minutes
--- NOTE | 2018-06-08 13:49 | PDOC PROGRESS REPORT ---
Subjective Progress Note for:: 06/08/18 Subjective:: The patient is a 73 year old male with an extensive past medical history including PAF (not currently anticoagulated), permanent pacemaker, CAD with stent 1, CHF (previously home O2 dependent, has not required home O2 for last 2 months), COPD, hypertension, hyperlipidemia, CVA, CKD 4, DM 2, anemia, and remote pulmonary embolism who was admitted 06/07/18 for syncopal event. The patient is seen on morning rounds. He is found resting in bed comfortably on supplemental oxygen at 2 L/min. He denies additional episodes of dizziness, syncope/near syncope, atypical chest pain, palpitations, dyspnea, orthopnea, nausea, and vomiting. He does endorse vague, dull, abdominal pain that is not localized to any particular area of his abdomen and increases with p.o. intake (solids > fluids). He also reports early satiety and approximately 14 pounds of weight loss over the previous month. The patient is currently npo for possible EGD this afternoon. However, after reviewing troponin results from overnight, it is decided the patient would benefit from cardiac clearance. Patient and have no additional questions or concerns. No concerns per nursing. Reason For Visit: SYNCOPE,MELENA Physical Exam Vital Signs: Temp Pulse Resp BP Pulse Ox 97.8 F 60 16 99/55 L 96 06/08/18 07:27 06/08/18 07:27 06/08/18 07:27 06/08/18 07:27 06/08/18 07:27 Intake & Output 06/07/18 06/08/18 06/09/18 06:59 06:59 06:59 Intake Total 1000 Output Total 1975 Balance -975 Weight 99.7 kg General appearance: PRESENT: no acute distress, cooperative, obese, well- developed, well-nourished Head exam: PRESENT: atraumatic, normocephalic Eye exam: PRESENT: conjunctiva pink, EOMI, PERRLA. ABSENT: scleral icterus Ear exam: PRESENT: normal external ear exam Mouth exam: PRESENT: moist, tongue midline Neck exam: ABSENT: carotid bruit, JVD, lymphadenopathy, thyromegaly Respiratory exam: PRESENT: clear to auscultation miguel, symmetrical, unlabored. ABSENT: rales, rhonchi, wheezes Cardiovascular exam: PRESENT: RRR, systolic murmur. ABSENT: diastolic murmur, rubs Pulses: PRESENT: normal dorsalis pedis pul Vascular exam: PRESENT: normal capillary refill GI/Abdominal exam: PRESENT: distended, normal bowel sounds, soft, tenderness. ABSENT: guarding, mass, organolmegaly, rebound Rectal exam: PRESENT: deferred Extremities exam: PRESENT: full ROM. ABSENT: calf tenderness, clubbing, pedal edema Neurological exam: PRESENT: alert, awake, oriented to person, oriented to place , oriented to time, oriented to situation, CN II-XII grossly intact. ABSENT: motor sensory deficit Psychiatric exam: PRESENT: appropriate affect, normal mood. ABSENT: homicidal ideation, suicidal ideation Skin exam: PRESENT: dry, intact, warm. ABSENT: cyanosis, rash Results Laboratory Results: 06/08/18 06:20 06/08/18 06:20 06/07/18 06/07/18 06/08/18 14:31 14:50 06:20 WBC 7.5 7.3 RBC 5.82 H 5.85 H Hgb 15.1 14.9 Hct 44.8 45.2 MCV 77 L 77 L MCH 25.9 L 25.4 L MCHC 33.7 32.9 RDW 24.0 H 23.8 H Plt Count 226 223 Sodium Potassium Chloride Carbon Dioxide Anion Gap BUN Creatinine Est GFR ( Amer) Est GFR (Non-Af Amer) Glucose Calcium Magnesium TSH Urine Color YELLOW Urine Appearance CLEAR Urine pH 5.0 Ur Specific [place] 1.013 Urine Protein NEGATIVE Urine Glucose (UA) NEGATIVE Urine Ketones NEGATIVE Urine Blood NEGATIVE Urine Nitrite NEGATIVE Ur Leukocyte Esterase NEGATIVE Urine WBC (Auto) 1 06/08/18 06/08/18 06:20 06:20 WBC RBC Hgb Hct MCV MCH MCHC RDW Plt Count Sodium 139.6 Potassium 3.5 L Chloride 96 L Carbon Dioxide 27 Anion Gap 17 BUN 58 H Creatinine 2.74 H Est GFR ( Amer) 28 L Est GFR (Non-Af Amer) 23 L Glucose 183 H Calcium 8.8 Magnesium 2.2 TSH 16.00 H Urine Color Urine Appearance Urine pH Ur Specific [place] Urine Protein Urine Glucose (UA) Urine Ketones Urine Blood Urine Nitrite Ur Leukocyte Esterase Urine WBC (Auto) 06/07/18 06/07/18 06/07/18 10:32 10:32 14:31 Troponin I 0.102 0.094 NT-Pro-B Natriuret Pep 1620 H 06/07/18 20:15 Troponin I 0.089 NT-Pro-B Natriuret Pep Impressions: Acute Abdomen Series 06/07/18 04:41 IMPRESSION: 1. No acute cardiopulmonary disease. 2. Nonspecific abdomen. Assessment & Plan - Diagnosis (1) Syncope Qualifiers: Syncope type: unspecified Qualified Code(s): R55 - Syncope and collapse Is this a current diagnosis for this admission?: Yes Plan: Unclear etiology; orthostasis vs vasovagal vs ACS. The patient was found by his unresponsive sitting on the commode. Upon EMS arrival, the patient was found to be hypotensive. Blood pressure responded and patient quickly regained alertness with NS 250 mL bolus. Initial evaluation in the emergency department did reveal an elevated troponin of 0.120, acute on chronic kidney insufficiency with creatinine of 2.89, BUN of 65, elevated anion gap of 21, mild leukocytosis of 10.9, hemoglobin 15.3. Otherwise, laboratory evaluation was benign. EKG demonstrated atrial sensed ventricularly paced rhythm. Acute abdominal x-rays were benign. The patient's pacemaker was interrogated; found that on 06/02/18 the patient had intermittent A. fib and flutter but no other arrhythmias. Slight orthostatic blood pressures today. The patient is admitted to the medical floor on continuous cardiac telemetry. Slight orthostatic blood pressures today; have increased IVF slightly to 100 ml/ h; monitor closely for fluid volume overload. The patient has been blood banded. Hemoglobin stable. GI has been consulted; appreciate their assistance in evaluating for GI bleed. Cardiology has been consulted; appreciate their assistance in evaluating for ACS and prov. Will ask PT/OT to evaluate the patient. Fall precautions. (2) Acute on chronic kidney failure Qualifiers: Chronic kidney disease stage: stage 3 (moderate) Is this a current diagnosis for this admission?: Yes Plan: Slight improvement with cautious IVF. Acute on chronic kidney failure; likely prerenal secondary to hypotension. Creatinin 2.89--> 2.74, BUN 65--> 58. Some concern for upper GI bleed which may account for the elevated BUN. The patient did have a renal ultrasound done at an [facility] in March 2018; no indications of hydronephrosis, hydroureter, renal artery stenosis. He has previously been evaluated by Dr. Colbert but is not establish as an outpatient with nephrology. Will continue to provide gentle IV fluids and monitor closely for fluid volume overload. Avoid nephrotoxic medications. As (3) Elevated troponin Is this a current diagnosis for this admission?: Yes Plan: Unclear etiology; may be related to acute worsening of chronic kidney disease vs ACS vs leak r/t hypotension during syncopal episode. Patient did report atypical chest pains described as sharp and electric to his right upper arm and mid sternum that occurred prior to his syncopal event. He denies current chest discomfort, palpitations, dyspnea and orthopnea. Troponins 0.120--> 0.102--> 0.94--> 0.089 ProBNP 1620 (lowest since 2010) Troponin elevated above baseline of 0.045. Records reviewed from March admission to [facility]; at that time, kidney function was similar with troponin peak at 0.064 and down to 0.014 at time of discharge. Echocardiogram from same admission showed normal LV EF, moderate diastolic dysfunction, mild pulmonary hypertension. Patient also nuclear stress testing which was normal. Have asked cardiology with assistance in evaluating elevated troponins, ACS as possible cause of syncope, and in providing cardiac clearance for EGD. Plan of care discussed with Dr. Izaguirre. (4) Upper GI bleed Is this a current diagnosis for this admission?: Yes Plan: The patient reports 3-4 days of melena; may be due to iron and magnesium supplementation. Fecal occult was negative. He recently was admitted to [facility] and underwent EGD and colonoscopy at that time. Outpatient records were reviewed; EGD demonstrated a large antral polyps with surface erosions measuring 10-20 mm at the base. The polyps were not removed and biopsies were not obtained secondary to the patient being on Coumadin therapy at that time. EGD also noted atrophic duodenal mucosa. Colonoscopy demonstrated diverticulosis without diverticulitis. Continue the Protonix drip. Holding aspirin. Gastroenterology has been consulted; appreciate their evaluation and recommendations. Plan of care discussed with Dr. Gamez. (5) PAF (paroxysmal atrial fibrillation) Is this a current diagnosis for this admission?: Yes Plan: History of PAF; previously on Coumadin therapy for PAF and remote PE. Coumadin was discontinued in March secondary to GI bleed. Pacemaker was interrogated today; found to have atrial fib/flutter on 06/02/18. Currently he is in an atrial sensed-ventricularly paced rhythm. Continue the patient's home medication regiment with exception of ASA. (6) COPD (chronic obstructive pulmonary disease) Qualifiers: Emphysema type: unspecified Is this a current diagnosis for this admission?: Yes Plan: Stable; without exacerbation. As needed nebulizer treatments will be available. Supplemental oxygen as needed to maintain oxygen saturations greater than 88%. (7) Coronary artery disease Qualifiers: Coronary Disease-Associated Artery/Lesion type: [place] artery [place] vs. transplanted heart: [place] heart Associated angina: without angina Qualified Code(s): I25.10 - Atherosclerotic heart disease of [place] coronary artery without angina pectoris Is this a current diagnosis for this admission?: Yes Plan: Holding aspirin secondary to concern for upper GI bleed. Remaining evaluation and plan as above. 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 We will hold the patient's gabapentin for neuropathy secondary to acute worsening of chronic kidney disease. Continue the patient's home regimen of Lantus 45 units twice daily. (9) Obstructive sleep apnea Is this a current diagnosis for this admission?: Yes Plan: PT does not use CPAP at home. (10) Diastolic heart failure Qualifiers: Heart failure chronicity: chronic Qualified Code(s): I50.32 - Chronic diastolic (congestive) heart failure Is this a current diagnosis for this admission?: Yes Plan: Stable; without exacerbation. Lung sounds are clear, no pulmonary edema by chest x-ray. ProBNP 1620. The patient will be receiving gentle IV fluids for correction of acute on chronic kidney insufficiency; will monitor closely for evidence of fluid volume overload. Continue the patient's home medication regimen. Daily weights and strict I's and O's. (11) HTN (hypertension) Is this a current diagnosis for this admission?: Yes Plan: Blood pressures are soft with slight orthostatic response: 107/54 70 lying 112/66 69 sitting 88/59 70 standing Providing gentle IVF. Will assess a.m. cortisol level. Will ask Cardiology to review current medication regiment and make recommendations. (12) HLD (hyperlipidemia) Is this a current diagnosis for this admission?: Yes Plan: Continue statin therapy. (13) Metabolic acidosis Is this a current diagnosis for this admission?: Yes Plan: Resolved; likely secondary to upper GI bleed. Anion gap has closed. We will continue to provide gentle IV fluid resuscitation. Will monitor daily chemistries. (14) Leukocytosis Is this a current diagnosis for this admission?: Yes Plan: Resolved; Likely reactive following syncopal episode. (15) Abscess Is this a current diagnosis for this admission?: Yes Plan: Abscess to left posterior upper leg; underwent I&D by his primary care provider as an outpatient yesterday. His antibiotic was called to the pharmacy but he has not yet had his first dose. The patient does have a history of MSSA a per our previous culture results, however, patient states that his PCP was concerned for MRSA. Will place patient on Bactrim DS. Daily dressing changes. (16) Hypothyroid Is this a current diagnosis for this admission?: Yes Plan: TSH found to be low; 16.0 Home dose levothyroxine is increased from 50 to 75 mcg daily. - Time Time Spent with patient: 25-34 minutes Medications reviewed and adjusted accordingly: Yes Anticipated discharge: Home
--- NOTE | 2018-06-08 19:30 | XCELERA REPORT ---
[address] [address] Transthoracic Echocardiogram Report Name: DIVYA JAIN Age: 73 yrs Gender: Male : 1945 Patient Status: Inpatient Patient Location: [address] [place] [address] Study Date: 06/08/2018 03:26 PM Height: 63 in Weight: 219 lb BSA: 2.0 m2 Procedure: A complete two-dimensional transthoracic echocardiogram was performed (2D, M-mode, spectral and color flow Doppler). The study was technically adequate with some images being suboptimal in quality. Reason For Study: chest pain Ordering Physician: CARRIE ALVAREZC Performed By: Priti Zhang Interpretation Summary The left ventricular ejection fraction is normal. There is mild concentric left ventricular hypertrophy. Doppler measurements suggest pseudonormalized left ventricular relaxation, which is associated with grade II/IV or mild to moderate diastolic dysfunction The left ventricle is grossly normal size. Wall motion cannot be accurately commented on, but no definite regional wall motion abnormalities noted. The right ventricle is borderline dilated. The right ventricular systolic function is normal. The right atrium is mildly dilated. The left atrium is mildly dilated. There is a trace to mild amount of mitral regurgitation There is no mitral valve stenosis. There is no aortic valve stenosis No aortic regurgitation is present. There is a trace to mild amount of tricuspid regurgitation There is mild pulmonary hypertension by echo Right ventricular systolic pressure is estimated to be elevated at 30- 40mmHg. The aortic root is not well visualized but is probably normal size. The inferior vena cava appeared normal and decreased > 50% with respiration (RAP 5-10 mmHg) There is no pericardial effusion. MMode/2D Measurements & Calculations RVDd: 3.0 cm LVIDd: 4.7 cm FS: 37.6 % Ao root diam: 2.6 cm IVSd: 0.99 cm LVIDs: 2.9 cm EDV(Teich): 103.7 ml LVPWd: 0.95 cm ESV(Teich): 33.5 ml Ao root area: 5.3 cm2 EF(Teich): 67.7 % LA dimension: 4.2 cm Doppler Measurements & Calculations MV E max jaswinder: MV P1/2t max jaswinder: Ao V2 max: LV V1 max P.7 cm/sec 101.7 cm/sec 148.8 cm/sec 8.1 mmHg MV A max jaswinder: MV P1/2t: 62.8 msec Ao max PG: LV V1 max: 96.7 cm/sec 8.9 mmHg 142.2 cm/sec MV E/A: 1.0 MVA(P1/2t): 3.5 cm2 MV dec slope: 474.3 cm/sec2 MV dec time: 0.20 sec PA V2 max: TR max jaswinder: 82.9 cm/sec 289.1 cm/sec PA max PG: TR max P.4 mmHg 2.8 mmHg Left Ventricle The left ventricle is grossly normal size. There is mild concentric left ventricular hypertrophy. The left ventricular ejection fraction is normal. Doppler measurements suggest pseudonormalized left ventricular relaxation, which is associated with grade II/IV or mild to moderate diastolic dysfunction. Wall motion cannot be accurately commented on, but no definite regional wall motion abnormalities noted. Right Ventricle The right ventricle is borderline dilated. There is normal right ventricular wall thickness. The right ventricular systolic function is normal. Atria The right atrium is mildly dilated. The left atrium is mildly dilated. Interarterial septum not well visualized and not well dopplered. Cannot comment on ASD/PFO presence. Mitral Valve The mitral valve leaflets appear thickened, but open well. There is mild to moderate mitral annular calcification. There is no mitral valve stenosis. There is a trace to mild amount of mitral regurgitation. Aortic Valve The aortic valve opens well. There is no aortic valve stenosis. No aortic regurgitation is present. Tricuspid Valve The tricuspid valve is not well visualized, but is grossly normal. There is no tricuspid stenosis. There is a trace to mild amount of tricuspid regurgitation. There is mild pulmonary hypertension by echo. Right ventricular systolic pressure is estimated to be elevated at 30-40mmHg. Pulmonic Valve The pulmonic valve is not well visualized. Great Vessels The aortic root is not well visualized but is probably normal size. The inferior vena cava appeared normal and decreased > 50% with respiration (RAP 5-10 mmHg). Effusions There is no pericardial effusion. : SAE ALVAREZ > Hadley Izaguirre
--- NOTE | 2018-06-08 19:41 | PDOC CONSULTATION ---
Consultation Consult Date: 06/08/18 Attending physician:: SANTY CONLEY Consult reason:: Syncope, troponin I elevation History of Present Illness Admission Date/PCP: 06/07/18 08:26 CESAR BENSON NP Patient complains of: Syncope History of Present Illness: DIVYA JAIN is a 73 year old male with an extensive past medical history including PAF (not currently anticoagulated), permanent pacemaker, CAD with stent 1, CHF (previously home O2 dependent, has not required home O2 for last 2 months), COPD, hypertension, hyperlipidemia, CVA, CKD 4, DM 2, anemia, and remote pulmonary embolism who presented to the emergency department today via EMS with complaint of syncope. He was found unresponsive on the commode by his , pale and diaphoretic. Per EMS records, he was hypotensive with a blood pressure of 80s/40 that responded well to a NS 250 mL bolus. Per the patient, he felt well this morning but did experience some intermittent sharp pain to his RUE and midsternum described as "electric" prior to syncopal event. Patient did have nausea w/o emesis afterwards but denies previous symptoms of abdominal pain, nausea, vomiting, diarrhea. Per the patient and his he has had melena for the previous 3-4 days. Evaluation in the ED reveals normotensive blood pressures, paced Ventricular rate at 60, mild leukocytosis, normal hemoglobin, mild hypokalemia (3.3), anion gap acidosis (21), acute on chronic kidney injury (creatinine 2.89 elevated from baseline of 2.1), elevated BUN (65), and elevated troponin (0.120, baseline appears to be 0.04-0.05), and benign Acute Abd imaging. He is referred to the hospitalist service for admission for evaluation and management of syncopal event and melena. This history was reviewed and confirmed with the patient. This history was obtained by the hospitalist. On talking to the patient, it seems he had a recent cardiac evaluation including a stress test which was noted to be negative. Patient told me that he has been suffering with some discomfort in the left lower extremity for last few days. This was particularly severe. With this discomfort he went to relieve his bladder and subsequently was noted to be passed out. He was noted to be profusely diaphoretic and pale. He was also noted to be nauseous. Patient was subsequently admitted for further evaluation. Past Medical History Cardiac Medical History: Reports: Atrial Fibrillation, Congestive Heart Failure , Coronary Artery Disease, Hyperlipidema, Hypertension, Pulmonary Embolism Denies: Myocardial Infarction, Peripheral Vascular Disease, Heart Murmur Pulmonary Medical History: Reports: Asthma, Bronchitis, Chronic Obstructive Pulmonary Disease (COPD), Sleep Apnea - unable to wear cpap Denies: Pneumonia, Respiratory Failure, Tuberculosis EENT Medical History: Reports: None Neurological Medical History: Reports: Ischemic CVA, Seizures - in 1968 Endocrine Medical History: Reports: Diabetes Mellitus Type 1, Diabetes Mellitus Type 2, Hypothyroidism Denies: Hyperthyroidism Renal/ Medical History: Reports: Chronic Kidney Disease Denies: End Stage Renal Disease Malignancy Medical History: Denies: Leukemia, Lung Cancer GI Medical History: Reports: Gastroesophageal Reflux Disease, Hiatal Hernia, Other - Gastric polyps, diverticulosis Denies: Crohn's Disease, Hepatitis Musculoskeltal Medical History: Reports: Arthritis Denies: Fibromyalgia Psychiatric Medical History: Reports: Depression, Post Traumatic Stress Disorder - nightmares Denies: Bipolar Disorder, Dementia Traumatic Medical History: Reports: None Hematology: Reports: Anemia Denies: Hemophilia, Sickle Cell Disease Infectious Medical History: Denies: HIV Past Surgical History Past Surgical History: Reports: Appendectomy, Cardiac Catheterization - 3 VESSEL DISEASE NOT CANDIDATE FOR INTERVENTION, Cholecystectomy, Coronary Stent, Orthopedic Surgery - CERVICAL AND L-S FUSION, Pacemaker, Other - Tracheostomy- decannulated. J tube-removed Denies: Colostomy, Coronary Artery Bypass Graft, Gastric Bypass Surgery, Herniorrhaphy, Tonsillectomy Social History Information Source: Patient Lives with: Spouse/Significant other Smoking Status: Never Smoker Frequency of Alcohol Use: None Hx Recreational Drug Use: No Drugs: None Hx Prescription Drug Abuse: No - Advance Directive Resuscitation Status: Full Code Surrogate healthcare decision maker:: Patient's is the surrogate decision-maker Family History Family History: CAD, DM, Hypertension Parental Family History Reviewed: Yes Children Family History Reviewed: Yes Sibling(s) Family History Reviewed.: Yes Medication/Allergy Home Medications: Atorvastatin Calcium [Lipitor 80 mg Tablet] 80 mg PO QHS 08/10/17 Ferrous Sulfate [Iron] 325 mg PO Q12 08/10/17 Insulin Glargine,Hum.rec.anlog [Lantus Solostar] 45 units SQ Q12 08/10/17 Pantoprazole Sodium [Protonix] 40 mg PO Q12 08/10/17 Insulin Aspart [Novolog Flexpen] 30 units SQ QAM 09/02/17 Insulin Aspart [Novolog Flexpen] 37 units SQ NOON 09/02/17 Insulin Aspart [Novolog Flexpen] 40 units SQ QPM 09/02/17 Tamsulosin HCl [Flomax 0.4 mg Cap.sr] 0.4 mg PO DAILY #30 cap.sr.24h 09/06/17 Amiodarone HCl [Pacerone] 200 mg PO QAM 06/07/18 Amitriptyline HCl [Elavil 25 mg Tablet] 25 mg PO QHS 06/07/18 Ammonium Lactate [Lac-Hydrin 12% Lotion 225Gm/Bottle] 1 applic TP BID 06/07/18 Aspirin [Aspirin 325 mg Tablet] 325 mg PO DAILY 06/07/18 Carvedilol [Coreg 12.5 mg Tablet] 6.25 mg PO Q12 06/07/18 Cholecalciferol (Vitamin D3) [Vitamin D3] 2,000 unit PO DAILY 06/07/18 Gabapentin [Neurontin 100 mg Capsule] 100 mg PO DAILY 06/07/18 Glucagon HCl 1 mg IJ PRN PRN 06/07/18 Magnesium Oxide [Magnesium] 400 mg PO DAILY 06/07/18 Metolazone [Zaroxolyn 2.5 mg Tablet] 2.5 mg PO MOFR 06/07/18 Spironolactone [Aldactone 25 mg Tablet] 25 mg PO BID 06/07/18 Acetaminophen [Tylenol 325 mg Tablet] 650 mg PO Q4HP PRN tablet 06/11/18 Furosemide [Lasix 40 mg Tablet] 40 mg PO DAILY@1400 #30 tablet 06/11/18 Furosemide [Lasix 40 mg Tablet] 80 mg PO DAILY@0800 #30 tablet 06/11/18 Levothyroxine Sodium [Synthroid 0.075 mg Tablet] 0.075 mg PO Q6AM #30 tablet Metoclopramide HCl [Reglan 10 mg Tablet] 5 mg PO ACHS #120 tablet 06/11/18 Oxycodone HCl/Acetaminophen [Percocet 5-325 mg Tablet] 2 tab PO Q4HP PRN #20 tablet 06/11/18 Promethazine HCl 12.5 mg PO Q8HP PRN #12 tablet 06/11/18 Sulfamethoxazole/Trimethoprim [Bactrim Ds Tablet] 1 each PO BID #20 tablet 06/11 Allergies/Adverse Reactions: Penicillins Allergy (Verified 06/07/18 14:10) piperacillin Allergy (Verified 06/07/18 14:10) Review of Systems Review of Systems: Please see history of present illness and past medical history as wall. Constitutional: No fever or chills reported. Head : No recent chronic headaches, recent head injury. Eyes: No recent eye pain, diplopia, redness, discharge, acute visual changes. Ears: No recent chronic ear pain, acute hearing loss, ear discharge. Oral cavity: No recent ulcerations, bleeding, oral cavity discomfort. Neck: No recent acute neck pain reported. Hematologic: No recent easy bruising or bleeding. Lymphatic: No recent lymph node enlargement reported. Cardiovascular system review: See history of present illness. Respiratory system review: No hemoptysis or blood clots in the lungs reported. Mild Shortness of breath on exertion Gastrointestinal system review: Negative for any recent acute hematemesis, melena. Genitourinary system review: No recent acute or chronic hematuria, flank pain, UTI etc. reported. Skin system review: Negative for any recent abnormal bruising, no rash, no pruritus reported. Neurologic: No prior history of strokes, mini strokes, seizure disorder. Psychologic: No history of major psychosis or major depression reported. Musculoskeletal: Minor aches and pains reported. No acute joint swelling reported. Endocrine: No recent polyuria, polydipsia, recent heat or cold intolerance. Physical Exam Vital Signs: Temp Pulse Resp BP Pulse Ox 97.3 F 59 L 20 109/52 L 87 L 06/08/18 16:24 06/08/18 16:24 06/08/18 16:24 06/08/18 16:24 06/08/18 16:24 Intake & Output 06/07/18 06/08/18 06/09/18 06:59 06:59 06:59 Intake Total 1000 300 Output Total 1975 1450 Balance -975 -1150 Weight 99.7 kg 99.7 kg Exam: GENERAL: well-nourished and in no acute distress. Alert and oriented x3 HEAD: Atraumatic, normocephalic. EYES: Pupils equal round and reactive to light, extraocular movements intact, sclera anicteric, conjunctiva are normal. ENT: TMs normal, nares patent, oropharynx clear without exudates. Moist mucous membranes. No oral ulcerations or bleeding gums noted NECK: supple without lymphadenopathy. Trachea is central. No cervical or axillary lymphadenopathy noted. Carotids are 2+, JVD WNL LUNGS: Respiration seems nonlabored, no significant accessory muscle action noted. Breath sounds clear to auscultation bilaterally and equal noted. No wheezes rales or rhonchi noted. No significant dullness noted on percussion. CHEST: Palpation of the chest wall shows no significant chest wall tenderness. Defibrillator pacemaker noted left side of chest HEART: [place] SWITCH ENGINEER, No PSH, 1/6 JENNIFER aortic area, 1/6 love systolic murmur mitral area, no rubs, no gallops. ABDOMEN: Soft, no significant tenderness appreciated, normoactive bowel sounds. No guarding, no rebound. No rigidity noted . No masses appreciated. EXTREMITIES: Pedal pulses are 1-2+, no calf tenderness noted. No clubbing or cyanosis. negative pedal edema noted. Patient noted to have swelling and redness behind left thigh. NEUROLOGICAL: Focused neurological exam showed no significant neurologic deficit. Normal speech, no focal weakness appreciated. PSYCH: Normal mood, normal affect. Judgment and insight within normal limits. SKIN: No significant ecchymosis, skin is noted to be warm. MUSCULOSKELETAL EXAM: No significant acute joint swelling noted. Results Laboratory Results: 06/08/18 06:20 06/08/18 06:20 06/08/18 06/08/18 06/08/18 06:20 06:20 06:20 WBC 7.3 RBC 5.85 H Hgb 14.9 Hct 45.2 MCV 77 L MCH 25.4 L MCHC 32.9 RDW 23.8 H Plt Count 223 Sodium 139.6 Potassium 3.5 L Chloride 96 L Carbon Dioxide 27 Anion Gap 17 BUN 58 H Creatinine 2.74 H Est GFR ( Amer) 28 L Est GFR (Non-Af Amer) 23 L Glucose 183 H Calcium 8.8 Magnesium 2.2 TSH 16.00 H 06/07/18 06/07/18 06/07/18 10:32 10:32 14:31 Troponin I 0.102 0.094 NT-Pro-B Natriuret Pep 1620 H 06/07/18 20:15 Troponin I 0.089 NT-Pro-B Natriuret Pep EKG Comments: Most likely underlying sinus with ventricular paced beats Impressions: Acute Abdomen Series 06/07/18 04:41 IMPRESSION: 1. No acute cardiopulmonary disease. 2. Nonspecific abdomen. Assessment & Plan - Diagnosis (1) Syncope Qualifiers: Syncope type: unspecified Qualified Code(s): R55 - Syncope and collapse Is this a current diagnosis for this admission?: Yes (2) Elevated troponin Is this a current diagnosis for this admission?: Yes (3) Acute on chronic kidney failure Qualifiers: Chronic kidney disease stage: stage 3 (moderate) Is this a current diagnosis for this admission?: Yes (4) HLD (hyperlipidemia) Is this a current diagnosis for this admission?: Yes (5) HTN (hypertension) Is this a current diagnosis for this admission?: Yes (6) PAF (paroxysmal atrial fibrillation) Is this a current diagnosis for this admission?: Yes (7) Renal insufficiency Is this a current diagnosis for this admission?: Yes (8) Upper GI bleed Is this a current diagnosis for this admission?: Yes (9) Coronary artery disease Qualifiers: Coronary Disease-Associated Artery/Lesion type: [place] artery [place] vs. transplanted heart: [place] heart Associated angina: angina presence unspecified Qualified Code(s): I25.10 - Atherosclerotic heart disease of [place] coronary artery without angina pectoris Is this a current diagnosis for this admission?: Yes - Notes Notes: Syncope: Most likely vasovagal based on history and happening while relieving himself for his bladder. Please note that patient also had significant left lower extremity discomfort which may have aggravated and brought on also be vasovagal syncope. Elevated troponin I: Feel that this is most likely from syncope with transient hypotension. Recent stress test was negative. Do not feel a cardiac cath is indicated especially since patient also had significant renal dysfunction. Acute on chronic kidney failure: Currently stable. CAD: Currently stable. Recommend optimize medical management. Hyperlipidemia: Recommend high potency statin therapy. Hypertension: Blood pressure goal should be 135/85 or less. Better blood pressure medications will be beta-blockers and ARB/DANUTA inhibitors. Paroxysmal atrial fibrillation: Currently off anticoagulation because of GI bleed. Patient does have a private care die maker bench stamping and will recommend that he decides when to restart the chronic anticoagulation or can be restarted after okayed by the defect cutter. Upper GI bleed: Patient to undergo endoscopy. 2D echo shows normal LVEF. Feel that patient would be acceptable risk for undergoing endoscopy procedure. - Time Time Spent: 50 to 70 Minutes - CODE STATUS was discussed, patient remains full code. Surrogate decision-maker unchanged. Multiple medical problems were addressed. More than 50% of the time spent coordinating care, discussing management plans with involved caregivers. Management plans discussed with involved personnels. Medical decision making was of moderate to high complexity , patient's has multiple comorbidities. Medications reviewed and adjusted accordingly: Yes
--- NOTE | 2018-06-08 21:47 | EKG REPORT ---
SEVERITY:- ABNORMAL ECG - ATRIAL-SENSED VENTRICULAR-PACED COMPLEXES : Confirmed by: Hadley Izaguirre 08-Jun-2018 21:47:12
[2018-06-08] MEDS: INSULIN LISPRO 100 UNIT/ML 3 ML VIAL SUBCUT PRN (22:13)
[2018-06-08] MEDS: AMITRIPTYLINE HCL 25 MG TABLET PO SCH (22:13)
[2018-06-08] MEDS: ATORVASTATIN CALCIUM 80 MG TABLET PO SCH (22:13)
[2018-06-09] MEDS: LEVOTHYROXINE SODIUM 0.075 MG TABLET PO SCH (06:22)
[2018-06-09 06:39] LABS: HEMATOCRIT 42.7 % (37.9-51.0); HEMOGLOBIN 14.1 g/dL (13.5-17.0); MEAN CORPUSCULAR HEMOGLOBIN 25.8 pg (27.0-33.4); MEAN CORPUSCULAR HGB CONC 33.1 g/dL (32.0-36.0); MEAN CORPUSCULAR VOLUME 78 fl (80-97); PLATELET COUNT 237 10^3/uL (150-450); RED BLOOD COUNT 5.49 10^6/uL (4.35-5.55); RED CELL DISTRIBUTION WIDTH 23.9 % (11.5-14.0); WHITE BLOOD COUNT 6.6 10^3/uL (4.0-10.5)
[2018-06-09 06:56] LABS: ANION GAP 13 (5-19); BLOOD UREA NITROGEN 52 mg/dL (7-20); CALCIUM 8.7 mg/dL (8.4-10.2); CARBON DIOXIDE 31 mmol/L (22-30); CHLORIDE 96 mmol/L (98-107); GLUCOSE 130 mg/dL (75-110); POTASSIUM 3.6 mmol/L (3.6-5.0); SODIUM 140.1 mmol/L (137-145)
[2018-06-09] MEDS: INSULIN GLARGINE,HUM.REC.ANLOG 1,000 UNIT/10 ML UNIT SUBCUT SCH ×2 (09:23→22:37)
[2018-06-09] MEDS: AMIODARONE HCL 200 MG TABLET PO SCH (09:33)
[2018-06-09] MEDS: MAGNESIUM OXIDE 400 MG TABLET PO SCH (09:33)
[2018-06-09] MEDS: SULFAMETHOXAZOLE/TRIMETHOPRIM 800-160 MG TABLET PO SCH (09:33)
[2018-06-09] MEDS: TAMSULOSIN HCL 0.4 MG CAP.SR.24H PO SCH (09:34)
[2018-06-09] MEDS: FERROUS SULFATE 325 MG TABLET PO SCH ×2 (09:34→22:38)
[2018-06-09] MEDS: CHOLECALCIFEROL (D3) 1,000 UNIT TABLET PO SCH (09:34)
[2018-06-09] MEDS: FUROSEMIDE 40 MG TABLET PO SCH ×2 (09:35→17:28)
[2018-06-09] MEDS: AMMONIUM LACTATE 12% LOTION 225GM BOTTLE TP SCH ×2 (09:35→18:04)
[2018-06-09] MEDS: METOPROLOL TARTRATE 25 MG TABLET PO SCH ×2 (09:35→22:38)
[2018-06-09] MEDS ORDERED: LIDOCAINE 1% INJ-PF (10 MG/ML) 30 ML SDV ONE (11:15)
--- NOTE | 2018-06-09 12:12 | PDOC CONSULTATION ---
Consultation Consult reason:: Wound left posterior thigh History of Present Illness Admission Date/PCP: 06/07/18 08:26 CESAR BENSON NP History of Present Illness: DIVYA JAIN is a 73 year old male Admitted to the hospital for melena, weakness. Patient undergoing EGD later today by Dr. Gamez, gastrologist. Several days ago the patient underwent I&D by primary care service of the left posterior thigh wound. Packing still in the wound. Wound is reportedly looking worse. Surgery consulted. Past Medical History Cardiac Medical History: Reports: Atrial Fibrillation, Congestive Heart Failure , Coronary Artery Disease, Hyperlipidema, Hypertension, Pulmonary Embolism Denies: Myocardial Infarction, Peripheral Vascular Disease, Heart Murmur Pulmonary Medical History: Reports: Asthma, Bronchitis, Chronic Obstructive Pulmonary Disease (COPD), Sleep Apnea - unable to wear cpap Denies: Pneumonia, Respiratory Failure, Tuberculosis EENT Medical History: Reports: None Neurological Medical History: Reports: Ischemic CVA, Seizures - in 1968 Endocrine Medical History: Reports: Diabetes Mellitus Type 1, Diabetes Mellitus Type 2, Hypothyroidism Denies: Hyperthyroidism Renal/ Medical History: Reports: Chronic Kidney Disease Denies: End Stage Renal Disease Malignancy Medical History: Denies: Leukemia, Lung Cancer GI Medical History: Reports: Gastroesophageal Reflux Disease, Hiatal Hernia, Other - Gastric polyps, diverticulosis Denies: Crohn's Disease, Hepatitis Musculoskeltal Medical History: Reports: Arthritis Denies: Fibromyalgia Psychiatric Medical History: Reports: Depression, Post Traumatic Stress Disorder - nightmares Denies: Bipolar Disorder, Dementia Traumatic Medical History: Reports: None Hematology: Reports: Anemia Denies: Hemophilia, Sickle Cell Disease Infectious Medical History: Denies: HIV Past Surgical History Past Surgical History: Reports: Appendectomy, Cardiac Catheterization - 3 VESSEL DISEASE NOT CANDIDATE FOR INTERVENTION, Cholecystectomy, Coronary Stent, Orthopedic Surgery - CERVICAL AND L-S FUSION, Pacemaker, Other - Tracheostomy- decannulated. J tube-removed Denies: Colostomy, Coronary Artery Bypass Graft, Gastric Bypass Surgery, Herniorrhaphy, Tonsillectomy Social History Lives with: Spouse/Significant other Smoking Status: Never Smoker Frequency of Alcohol Use: None Hx Recreational Drug Use: No Drugs: None Hx Prescription Drug Abuse: No - Advance Directive Resuscitation Status: Full Code Family History Family History: CAD, DM, Hypertension Parental Family History Reviewed: Yes Children Family History Reviewed: Yes Sibling(s) Family History Reviewed.: Yes Medication/Allergy Home Medications: Atorvastatin Calcium [Lipitor 80 mg Tablet] 80 mg PO QHS 08/10/17 Ferrous Sulfate [Iron] 325 mg PO Q12 08/10/17 Insulin Glargine,Hum.rec.anlog [Lantus Solostar] 45 units SQ Q12 08/10/17 Pantoprazole Sodium [Protonix] 40 mg PO Q12 08/10/17 Insulin Aspart [Novolog Flexpen] 30 units SQ QAM 09/02/17 Insulin Aspart [Novolog Flexpen] 37 units SQ NOON 09/02/17 Insulin Aspart [Novolog Flexpen] 40 units SQ QPM 09/02/17 Tamsulosin HCl [Flomax 0.4 mg Cap.sr] 0.4 mg PO DAILY #30 cap.sr.24h 09/06/17 Amiodarone HCl [Pacerone] 200 mg PO QAM 06/07/18 Amitriptyline HCl [Elavil 25 mg Tablet] 25 mg PO QHS 06/07/18 Ammonium Lactate [Lac-Hydrin 12% Lotion 225Gm/Bottle] 1 applic TP BID 06/07/18 Aspirin [Aspirin 325 mg Tablet] 325 mg PO DAILY 06/07/18 Carvedilol [Coreg 12.5 mg Tablet] 6.25 mg PO Q12 06/07/18 Cholecalciferol (Vitamin D3) [Vitamin D3] 2,000 unit PO DAILY 06/07/18 Furosemide [Lasix 40 mg Tablet] 80 mg PO BID 06/07/18 Gabapentin [Neurontin 100 mg Capsule] 100 mg PO DAILY 06/07/18 Glucagon HCl 1 mg IJ PRN PRN 06/07/18 Levothyroxine Sodium [Synthroid 0.05 mg Tablet] 0.05 mg PO DAILY 06/07/18 Magnesium Oxide [Magnesium] 400 mg PO DAILY 06/07/18 Metolazone [Zaroxolyn 2.5 mg Tablet] 2.5 mg PO MOFR 06/07/18 Spironolactone [Aldactone 25 mg Tablet] 25 mg PO BID 06/07/18 Allergies/Adverse Reactions: Penicillins Allergy (Verified 06/07/18 14:10) piperacillin Allergy (Verified 06/07/18 14:10) Review of Systems Eyes: ABSENT: visual disturbances Ears: ABSENT: hearing changes Physical Exam Vital Signs: Temp Pulse Resp BP Pulse Ox 98.4 F 60 18 117/66 98 06/09/18 07:23 06/09/18 08:28 06/09/18 08:28 06/09/18 07:23 06/09/18 08:28 Intake & Output 06/08/18 06/09/18 06/10/18 06:59 06:59 06:59 Intake Total 1000 1425 Output Total 1975 3200 Balance -975 -1775 Weight 99.7 kg 100.6 kg General appearance: PRESENT: no acute distress - Patient no acute distress Neck exam: PRESENT: other - Evidence of scar tissue from previous trach Respiratory exam: PRESENT: other - Multiple scars consistent previous surgery Left subclavian pacer defibrillator in place; median sternotomy scar Extremities exam: PRESENT: other - Left posterior buttock abscess erythematous swollen tender with packing; packing removed which consisted of a wick. Results Laboratory Results: 06/09/18 05:56 06/09/18 05:56 06/09/18 06/09/18 05:56 05:56 WBC 6.6 RBC 5.49 Hgb 14.1 Hct 42.7 MCV 78 L MCH 25.8 L MCHC 33.1 RDW 23.9 H Plt Count 237 Sodium 140.1 Potassium 3.6 Chloride 96 L Carbon Dioxide 31 H Anion Gap 13 BUN 52 H Creatinine 2.89 H Est GFR ( Amer) 26 L Est GFR (Non-Af Amer) 22 L Glucose 130 H Calcium 8.7 06/07/18 10:01 Leg - Thigh Gram Stain - Final 06/07/18 10:01 Leg - Thigh Wound Culture - Final Staphylococcus Aureus 06/07/18 06/07/18 06/07/18 10:32 10:32 14:31 Troponin I 0.102 0.094 NT-Pro-B Natriuret Pep 1620 H 06/07/18 20:15 Troponin I 0.089 NT-Pro-B Natriuret Pep Impressions: Acute Abdomen Series 06/07/18 04:41 IMPRESSION: 1. No acute cardiopulmonary disease. 2. Nonspecific abdomen. Assessment & Plan - Diagnosis (1) Abscess of left leg Is this a current diagnosis for this admission?: Yes Plan: Impression: Inadequately drained left leg abscess. Recommendations: Patient needs more aggressive incision and drainage in the operating room. We will perform this when patient comes for upper endoscopy later this afternoon. This was explained to the patient's daughter, Vibha, who is an OR nurse.
[2018-06-09] MEDS ORDERED: MIDAZOLAM 2 MG/2 ML INJ ONE (13:34)
[2018-06-09] MEDS ORDERED: FENTANYL CITRATE INJ/PF 100 MCG/2 ML AMPUL ONE ×2 (13:34)
[2018-06-09] MEDS ORDERED: LIDOCAINE 2% INJ-PF (20 MG/ML) 10 ML AMPUL ONE (13:34)
[2018-06-09] MEDS ORDERED: PROPOFOL INJ 200 MG/20 ML VIAL IV ONE (13:35)
[2018-06-09] MEDS ORDERED: PROMETHAZINE HCL INJ 25 MG/1 ML VIAL IV PRN ×2 (14:14)
[2018-06-09] MEDS ORDERED: FENTANYL CITRATE INJ/PF 100 MCG/2 ML AMPUL IV PRN ×3 (14:14)
[2018-06-09] MEDS ORDERED: DIPHENHYDRAMINE HCL 50 MG/ML VIAL IV PRN (14:14)
[2018-06-09] MEDS ORDERED: MEPERIDINE HCL/PF INJ 25 MG/1 ML DISP.SYRIN IV PRN (14:14)
[2018-06-09] MEDS ORDERED: ONDANSETRON HCL INJ/PF 4 MG/2 ML SDV IV PRN (14:14)
[2018-06-09] MEDS ORDERED: OXYCODONE-ACETAMINOPHEN 5-325 MG TABLET PO PRN ×2 (14:14)
--- NOTE | 2018-06-09 14:18 | Operative Report ---
Operative Report DATE OF SURGERY: 06/09/18 Operative Report: The risks benefits and alternatives of the procedure explained to the patient in detail and informed consent is obtained.A GIF Olympus video scope was inserted into the patient's mouth and hypopharynx, the esophagus is identified intubated and insufflated, the scope was then advanced through the esophagus stomach and duodenum, retroflexion maneuver is done, the esophagus stomach and first and second portions of the duodenum examined PREOPERATIVE DIAGNOSIS: Possible melena POSTOPERATIVE DIAGNOSIS: No active bleeding noted in the stomach. No ulceration noted. Several large inflammatory polyps noted versus submucosal polyps. The base of the polyps are fairly thick, consideration for possible endoscopic ultrasound question possible surgical removal OPERATION: EGD with biopsy SURGEON: JOSÉ BERNSTEIN ANESTHESIA: LMAC TISSUE REMOVED OR ALTERED: As noted above. COMPLICATIONS: None. ESTIMATED BLOOD LOSS: None. INTRAOPERATIVE FINDINGS: As noted above. PROCEDURE: Patient tolerated the procedure well. No immediate postprocedure comp occasions are noted. Patient is sent back to his room in good condition. Dr. Eastman is about to proceed with the incision and drainage. We will wait on biopsies. No active bleeding noted. Hemoglobin has been stable. Patient can either follow up in [place] for future potential removal of the polyps if needed [facility]
--- NOTE | 2018-06-09 14:31 | Operative Report ---
Nonrecallable Operative Report DATE OF SURGERY: 06/09/18 PREOPERATIVE DIAGNOSIS: Left posterior thigh abscess POSTOPERATIVE DIAGNOSIS: Same OPERATION: Excisional debridement of skin, subcutaneous tissue;, irrigation of subfascial pocket, wound packing SURGEON: DOMINGO MURCIA ANESTHESIA: LMAC TISSUE REMOVED OR ALTERED: Discharge COMPLICATIONS: None ESTIMATED BLOOD LOSS: Scant INTRAOPERATIVE FINDINGS: See below PROCEDURE: Patient taken to the preop holding area the main operating room where LMAC anesthesia was induced. The patient underwent upper endoscopy by Dr. Gamez; procedure was dictated separately. The patient was now placed in semirecumbent right lateral decubitus position with the left posterior lateral thigh exposed. The previously drain site was prepped and draped in sterile fashion. Surgical plan surgical timeout conducted. Skin and subcutaneous tissue was any status with 1% plain lidocaine. The previously created small transversely oriented elliptical incision was excised with a larger elliptical excisional resection. Wound opening was now 4 x 2 and half centimeters. I broke up subcutaneous loculations which were very thickened around the perimeter of the skin flaps with a Marium clamp. The infection dissected down to and through the fascia of the hamstring musculature. I got underneath the fascia and broke up loculations between the fascia in the underlying muscle. The muscle was viable, but the subfascial plane opened up with a lot of watery drainage. The wound was irrigated out with saline copiously. There was no evidence of nonviable tissue. Wound packed with saline moistened Kerlix roll, approximately 2 feet, covered with 4 x 4's. Patient tolerated the procedure well, taken to recovery in stable condition. Recommendations: 1. Continue intravenous antibiotics 2. Wound packing to be changed by surgical list team tomorrow.
[2018-06-09] MEDS: FENTANYL CITRATE INJ/PF 100 MCG/2 ML AMPUL ONE ×2 (14:42→14:50)
[2018-06-09] MEDS: CEFAZOLIN 1 GM/D5W RTU 1 GM/50 ML RTUPB IV SCH (17:52)
[2018-06-09] MEDS: OXYCODONE-ACETAMINOPHEN 5-325 MG TABLET PO PRN ×2 (17:52→22:38)
--- NOTE | 2018-06-09 17:58 | PDOC PROGRESS REPORT ---
Subjective Progress Note for:: 06/09/18 Subjective:: The patient is a 73 year old male with an extensive past medical history including PAF (not currently anticoagulated), permanent pacemaker, CAD with stent 1, CHF (previously home O2 dependent, has not required home O2 for last 2 months), COPD, hypertension, hyperlipidemia, CVA, CKD 4, DM 2, anemia, and remote pulmonary embolism who was admitted 06/07/18 for syncopal event. The patient is seen on morning rounds. He is found resting in bed comfortably on supplemental oxygen at 2 L/min; the patient reports that he is only using supplemental oxygen overnight. He denies additional episodes of dizziness, syncope/near syncope, atypical chest pain, palpitations, dyspnea, orthopnea, nausea, and vomiting. He continues to report dull abdominal pain, poor appetite/early satiety. He has been cleared by cardiology and is currently on the schedule for EGD this afternoon. His primary concern today is worsening pain to the I&D site on his left posterior thigh. No concerns per nursing. Reason For Visit: SYNCOPE,MELENA Physical Exam Vital Signs: Temp Pulse Resp BP Pulse Ox 98.6 F 60 12 130/67 H 94 06/09/18 15:27 06/09/18 15:27 06/09/18 15:27 06/09/18 15:27 06/09/18 15:27 Intake & Output 06/08/18 06/09/18 06/10/18 06:59 06:59 06:59 Intake Total 1000 1425 850 Output Total 1975 3200 210 Balance -975 -1775 640 Weight 99.7 kg 100.6 kg General appearance: PRESENT: no acute distress, cooperative, obese, well- developed, well-nourished Head exam: PRESENT: atraumatic, normocephalic Eye exam: PRESENT: conjunctiva pink, EOMI, PERRLA. ABSENT: scleral icterus Ear exam: PRESENT: normal external ear exam Mouth exam: PRESENT: moist, tongue midline Neck exam: ABSENT: carotid bruit, JVD, lymphadenopathy, thyromegaly Respiratory exam: PRESENT: clear to auscultation miguel, symmetrical, unlabored. ABSENT: rales, rhonchi, wheezes Cardiovascular exam: PRESENT: RRR, +S1, +S2. ABSENT: diastolic murmur, rubs, systolic murmur Pulses: PRESENT: normal dorsalis pedis pul Vascular exam: PRESENT: normal capillary refill GI/Abdominal exam: PRESENT: distended, normal bowel sounds, soft. ABSENT: guarding, mass, organolmegaly, rebound, tenderness Rectal exam: PRESENT: deferred Extremities exam: PRESENT: full ROM. ABSENT: calf tenderness, clubbing, pedal edema Neurological exam: PRESENT: alert, awake, oriented to person, oriented to place , oriented to time, oriented to situation, CN II-XII grossly intact. ABSENT: motor sensory deficit Psychiatric exam: PRESENT: appropriate affect, normal mood. ABSENT: homicidal ideation, suicidal ideation Skin exam: PRESENT: dry, erythema - I&D site to left posterior thigh much worse today; increased edema, erythema, and purulent drainage, warm. ABSENT: cyanosis , rash Results Laboratory Results: 06/09/18 05:56 06/09/18 05:56 06/09/18 06/09/18 05:56 05:56 WBC 6.6 RBC 5.49 Hgb 14.1 Hct 42.7 MCV 78 L MCH 25.8 L MCHC 33.1 RDW 23.9 H Plt Count 237 Sodium 140.1 Potassium 3.6 Chloride 96 L Carbon Dioxide 31 H Anion Gap 13 BUN 52 H Creatinine 2.89 H Est GFR ( Amer) 26 L Est GFR (Non-Af Amer) 22 L Glucose 130 H Calcium 8.7 06/07/18 10:01 Leg - Thigh Gram Stain - Final 06/07/18 10:01 Leg - Thigh Wound Culture - Final Staphylococcus Aureus 06/07/18 06/07/18 06/07/18 10:32 10:32 14:31 Troponin I 0.102 0.094 NT-Pro-B Natriuret Pep 1620 H 06/07/18 20:15 Troponin I 0.089 NT-Pro-B Natriuret Pep Impressions: Acute Abdomen Series 06/07/18 04:41 IMPRESSION: 1. No acute cardiopulmonary disease. 2. Nonspecific abdomen. Assessment & Plan - Diagnosis (1) Syncope Qualifiers: Syncope type: unspecified Qualified Code(s): R55 - Syncope and collapse Is this a current diagnosis for this admission?: Yes Plan: Syncopal event was likely related to hypotension and vasovagal response related to pain; trended blood pressures reveal that the patient is hypotensive early in the morning with blood pressures of 80s/50s. Initial evaluation in the emergency department did reveal an elevated troponin of 0.120, acute on chronic kidney insufficiency with creatinine of 2.89, BUN of 65, elevated anion gap of 21, mild leukocytosis of 10.9, hemoglobin 15.3. Otherwise, laboratory evaluation was benign. EKG demonstrated atrial sensed ventricularly paced rhythm. Acute abdominal x-rays were benign. The patient's pacemaker was interrogated; found that on 06/02/18 the patient had intermittent A. fib and flutter but no other arrhythmias. The patient is admitted to the medical floor on continuous cardiac telemetry. The patient was noted to have slight orthostatic blood pressures yesterday; improved following gentle IV fluids. The patient has been blood banded. Hemoglobin remains stable. Fall precautions. (2) Acute on chronic kidney failure Qualifiers: Chronic kidney disease stage: stage 3 (moderate) Is this a current diagnosis for this admission?: Yes Plan: Acute on chronic kidney failure; likely prerenal secondary to hypotension and possibly diuretic medications. No improvement w/ IVF (although; only positive 500 ml secondary to continued diuresis) Creatinin 2.89--> 2.74--> 2.89, BUN 65--> 58--> 25. Upper GI bleed is ruled out. The patient did have a renal ultrasound done at an [facility] in March 2018; no indications of hydronephrosis, hydroureter, renal artery stenosis. He has previously been evaluated by Dr. Colbert but is not establish as an outpatient with nephrology. Discussed with patient; will decrease afternoon furosemide dose. Continue 80 mg qam and decrease to 40 mg in the afternoon. Avoid nephrotoxic medications. (3) Elevated troponin Is this a current diagnosis for this admission?: Yes Plan: Unclear etiology; related to leak r/t hypotension during syncopal episode. Patient did report atypical chest pains described as sharp and electric to his right upper arm and mid sternum that occurred prior to his syncopal event. He denies current chest discomfort, palpitations, dyspnea and orthopnea. Troponins 0.120--> 0.102--> 0.94--> 0.089 ProBNP 1620 (lowest since 2010) Troponin elevated above baseline of 0.045. Records reviewed from March admission to [facility]; at that time, kidney function was similar with troponin peak at 0.064 and down to 0.014 at time of discharge. Echocardiogram from same admission showed normal LV EF, moderate diastolic dysfunction, mild pulmonary hypertension. Patient also nuclear stress testing which was normal. Cardiology was consulted; provided cardiac clearance for anesthesia. Does not feel the troponin reflects ACS. (4) Upper GI bleed Is this a current diagnosis for this admission?: Yes Plan: GI bleed ruled out. Melena is most likely related to iron and magnesium supplementation. Fecal occult was negative. He recently was admitted to [facility] and underwent EGD and colonoscopy at that time. Outpatient records were reviewed; EGD demonstrated a large antral polyps with surface erosions measuring 10-20 mm at the base. The polyps were not removed and biopsies were not obtained secondary to the patient being on Coumadin therapy at that time. EGD also noted atrophic duodenal mucosa. Colonoscopy demonstrated diverticulosis without diverticulitis. EGD today revealed several large inflammatory polyps but no active bleeding in the stomach and no ulcerations. Continue Protonix daily. Holding aspirin. Gastroenterology has been consulted; appreciate their evaluation and recommendations. Plan of care discussed with Dr. Gamez. (5) PAF (paroxysmal atrial fibrillation) Is this a current diagnosis for this admission?: Yes Plan: History of PAF; previously on Coumadin therapy for PAF and remote PE. Coumadin was discontinued in March secondary to GI bleed. Pacemaker was interrogated today; found to have atrial fib/flutter on 06/02/18. Currently he is in an atrial sensed-ventricularly paced rhythm. Continue the patient's home medication regiment with exception of ASA. (6) COPD (chronic obstructive pulmonary disease) Qualifiers: Emphysema type: unspecified Is this a current diagnosis for this admission?: Yes Plan: Stable; without exacerbation. As needed nebulizer treatments will be available. Supplemental oxygen as needed to maintain oxygen saturations greater than 88%. (7) Coronary artery disease Qualifiers: Coronary Disease-Associated Artery/Lesion type: [place] artery [place] vs. transplanted heart: [place] heart Associated angina: without angina Qualified Code(s): I25.10 - Atherosclerotic heart disease of [place] coronary artery without angina pectoris Is this a current diagnosis for this admission?: Yes Plan: Holding aspirin secondary to concern for upper GI bleed. Remaining evaluation and plan as above. (8) Diabetes Qualifiers: Diabetes mellitus type: type 2 Diabetes mellitus exterminator termite insulin use: unspecified exterminator termite insulin use status Diabetes mellitus complication status : with neurologic complications Diabetes mellitus complication detail: with polyneuropathy Qualified Code(s): E11.42 - Type 2 diabetes mellitus with diabetic polyneuropathy Is this a current diagnosis for this admission?: Yes Plan: We will monitor Accu-Cheks before meals and at bedtime and provide Humalog for sliding scale coverage. We will hold the patient's gabapentin for neuropathy secondary to acute worsening of chronic kidney disease. Continue the patient's home regimen of Lantus 45 units twice daily. (9) Obstructive sleep apnea Is this a current diagnosis for this admission?: Yes Plan: PT does not use CPAP at home. (10) Diastolic heart failure Qualifiers: Heart failure chronicity: chronic Qualified Code(s): I50.32 - Chronic diastolic (congestive) heart failure Is this a current diagnosis for this admission?: Yes Plan: Stable; without exacerbation. Lung sounds are clear, no pulmonary edema by chest x-ray. ProBNP 1620. The patient will be receiving gentle IV fluids for correction of acute on chronic kidney insufficiency; will monitor closely for evidence of fluid volume overload. Continue the patient's home medication regimen. Daily weights and strict I's and O's. (11) HTN (hypertension) Is this a current diagnosis for this admission?: Yes Plan: Blood pressures are soft with slight orthostatic response which resolved following gentle IV fluid rehydration. A.m. cortisol level was normal. Have decreased the afternoon furosemide dose from 80 mg p.o. to 40 mg p.o. as the patient is noted to have had hypotension to overnight at approximately 3 AM (80s/50s). (12) HLD (hyperlipidemia) Is this a current diagnosis for this admission?: Yes Plan: Continue statin therapy. (13) Metabolic acidosis Is this a current diagnosis for this admission?: Yes Plan: Resolved; likely secondary to upper GI bleed. Anion gap has closed. Will monitor daily chemistries. (14) Leukocytosis Is this a current diagnosis for this admission?: Yes Plan: Resolved; Likely reactive following syncopal episode. (15) Abscess Is this a current diagnosis for this admission?: Yes Plan: Worsened appearance today. Abscess to left posterior upper leg; underwent I&D by his primary care provider as an outpatient yesterday. His antibiotic was called to the pharmacy but he has not yet had his first dose. Wound culture positive for pansensitive staph aureus. Surgery was consulted; to the OR for surgical debridement by Dr. Eastman today. Purulent loculations extended through the fascia. Wound care per surgery's recommendations. The patient is placed on IV cefazolin. (16) Hypothyroid Is this a current diagnosis for this admission?: Yes Plan: TSH found to be low; 16.0 Home dose levothyroxine is increased from 50 to 75 mcg daily. - Time Time Spent with patient: 35 or more minutes Medications reviewed and adjusted accordingly: Yes Anticipated discharge: Home
[2018-06-09] MEDS: MORPHINE SULFATE 10 MG/ML INJ IV PRN (19:42)
--- NOTE | 2018-06-09 20:05 | PDOC PROGRESS REPORT ---
Subjective Progress Note for:: 06/09/18 Subjective:: Patient seems to be doing better with gradual improvement. Pt is denying any chest arm or neck discomfort. Patient denying any PND, orthopnea. Patient denied any sustained palpitations, dizziness, syncope, near syncope. Patient denying any fever chills. Patient denying any other significant discomfort. Patient is maintaining sinus rhythm. Review of systems: Rest review of systems negative. Medications: Medications have been reviewed. Reason For Visit: SYNCOPE,MELENA Physical Exam Vital Signs: Temp Pulse Resp BP Pulse Ox 98.4 F 62 18 144/64 H 98 06/09/18 16:59 06/09/18 16:59 06/09/18 16:59 06/09/18 16:59 06/09/18 16:59 Intake & Output 06/08/18 06/09/18 06/10/18 06:59 06:59 06:59 Intake Total 1000 1425 850 Output Total 1975 3200 910 Balance -975 -1775 -60 Weight 99.7 kg 100.6 kg Exam: GENERAL: well-nourished and in no acute distress. Alert and oriented x3 HEAD: Atraumatic, normocephalic. EYES: Pupils equal round and reactive to light, extraocular movements intact, sclera anicteric, conjunctiva are normal. ENT: TMs normal, nares patent, oropharynx clear without exudates. Moist mucous membranes. No oral ulcerations or bleeding gums noted NECK: supple without lymphadenopathy. Trachea is central. No cervical or axillary lymphadenopathy noted. Carotids are 2+, JVD WNL LUNGS: Respiration seems nonlabored, no significant accessory muscle action noted. Breath sounds clear to auscultation bilaterally and equal noted. No wheezes rales or rhonchi noted. No significant dullness noted on percussion. CHEST: Palpation of the chest wall shows no significant chest wall tenderness. HEART: [place] L TACKER, No PSH, 1/6 JENNIFER aortic area, 1/6 love systolic murmur mitral area, no rubs, no gallops. ABDOMEN: Soft, no significant tenderness appreciated, normoactive bowel sounds. No guarding, no rebound. No rigidity noted . No masses appreciated. EXTREMITIES: Pedal pulses are 1-2+, no calf tenderness noted. No clubbing or cyanosis. negative pedal edema noted. Patient noted to have swelling and possible abscess behind left thigh area. NEUROLOGICAL: Focused neurological exam showed no significant neurologic deficit. Normal speech, no focal weakness appreciated. PSYCH: Normal mood, normal affect. Judgment and insight within normal limits. SKIN: No significant ecchymosis, skin is noted to be warm. MUSCULOSKELETAL EXAM: No significant acute joint swelling noted. Results Laboratory Results: 06/09/18 05:56 06/09/18 05:56 06/09/18 06/09/18 05:56 05:56 WBC 6.6 RBC 5.49 Hgb 14.1 Hct 42.7 MCV 78 L MCH 25.8 L MCHC 33.1 RDW 23.9 H Plt Count 237 Sodium 140.1 Potassium 3.6 Chloride 96 L Carbon Dioxide 31 H Anion Gap 13 BUN 52 H Creatinine 2.89 H Est GFR ( Amer) 26 L Est GFR (Non-Af Amer) 22 L Glucose 130 H Calcium 8.7 06/07/18 10:01 Leg - Thigh Gram Stain - Final 06/07/18 10:01 Leg - Thigh Wound Culture - Final Staphylococcus Aureus 06/07/18 06/07/18 06/07/18 10:32 10:32 14:31 Troponin I 0.102 0.094 NT-Pro-B Natriuret Pep 1620 H 06/07/18 20:15 Troponin I 0.089 NT-Pro-B Natriuret Pep Impressions: Acute Abdomen Series 06/07/18 04:41 IMPRESSION: 1. No acute cardiopulmonary disease. 2. Nonspecific abdomen. Assessment & Plan - Diagnosis (1) Syncope Qualifiers: Syncope type: unspecified Qualified Code(s): R55 - Syncope and collapse Is this a current diagnosis for this admission?: Yes (2) Elevated troponin Is this a current diagnosis for this admission?: Yes (3) Acute on chronic kidney failure Qualifiers: Chronic kidney disease stage: stage 3 (moderate) Is this a current diagnosis for this admission?: Yes (4) HLD (hyperlipidemia) Is this a current diagnosis for this admission?: Yes (5) HTN (hypertension) Is this a current diagnosis for this admission?: Yes (6) PAF (paroxysmal atrial fibrillation) Is this a current diagnosis for this admission?: Yes (7) Renal insufficiency Is this a current diagnosis for this admission?: Yes (8) Upper GI bleed Is this a current diagnosis for this admission?: Yes (9) Coronary artery disease Qualifiers: Coronary Disease-Associated Artery/Lesion type: [place] artery [place] vs. transplanted heart: [place] heart Associated angina: angina presence unspecified Qualified Code(s): I25.10 - Atherosclerotic heart disease of [place] coronary artery without angina pectoris Is this a current diagnosis for this admission?: Yes - Notes Notes: Syncope: Most likely vasovagal based on history and happening while relieving himself for his bladder. Please note that patient also had significant left lower extremity discomfort which may have aggravated and brought on also be vasovagal syncope. So far cardiac monitoring has been relatively unremarkable. Elevated troponin I: Feel that this is most likely from syncope with transient hypotension. Recent stress test was negative. Do not feel a cardiac cath is indicated especially since patient also had significant renal dysfunction. Acute on chronic kidney failure: Currently stable. CAD: Currently stable. Recommend optimize medical management. Hyperlipidemia: Recommend high potency statin therapy. Hypertension: Blood pressure goal should be 135/85 or less. Better blood pressure medications will be beta-blockers and ARB/DANUTA inhibitors. Paroxysmal atrial fibrillation: Currently off anticoagulation because of GI bleed. 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 Patient was cleared for endoscopy. He did undergo endoscopy without any complications. - Time Time with patient: Greater than 35 minutes - CODE STATUS was discussed, patient remains full code. Surrogate decision-maker unchanged. Multiple medical problems were addressed. More than 50% of the time spent coordinating care, discussing management plans with involved caregivers. Management plans discussed with involved personnels. Medical decision making was of moderate to high complexity, patient's has multiple comorbidities. 2D echocardiogram results were reviewed with the patient. Patient also cleared for GI endoscopy and also any possible surgery that may be needed. Medications reviewed and adjusted accordingly: Yes
[2018-06-09] MEDS: INSULIN LISPRO 100 UNIT/ML 3 ML VIAL SUBCUT PRN (22:38)
[2018-06-09] MEDS: AMITRIPTYLINE HCL 25 MG TABLET PO SCH (22:38)
[2018-06-09] MEDS: ATORVASTATIN CALCIUM 80 MG TABLET PO SCH (22:39)
--- NOTE | 2018-06-09 22:51 | EKG REPORT ---
SEVERITY:- ABNORMAL ECG - A-V DUAL-PACED RHYTHM WITH SOME INHIBITION : Confirmed by: Hadley Izaguirre 09-Jun-2018 22:50:19
[2018-06-10] MEDS: CEFAZOLIN 1 GM/D5W RTU 1 GM/50 ML RTUPB IV SCH ×4 (01:12→22:39)
[2018-06-10] MEDS: MORPHINE SULFATE 10 MG/ML INJ IV PRN ×2 (02:48→08:39)
[2018-06-10] MEDS: OXYCODONE-ACETAMINOPHEN 5-325 MG TABLET PO PRN ×4 (04:24→22:42)
[2018-06-10] MEDS: LEVOTHYROXINE SODIUM 0.075 MG TABLET PO SCH (06:05)
[2018-06-10 06:09] LABS: HEMATOCRIT 39.6 % (37.9-51.0); HEMOGLOBIN 13.3 g/dL (13.5-17.0); MEAN CORPUSCULAR HEMOGLOBIN 25.9 pg (27.0-33.4); MEAN CORPUSCULAR HGB CONC 33.5 g/dL (32.0-36.0); MEAN CORPUSCULAR VOLUME 77 fl (80-97); PLATELET COUNT 217 10^3/uL (150-450); RED BLOOD COUNT 5.12 10^6/uL (4.35-5.55); RED CELL DISTRIBUTION WIDTH 23.7 % (11.5-14.0); WHITE BLOOD COUNT 9.5 10^3/uL (4.0-10.5)
[2018-06-10 06:30] LABS: ANION GAP 13 (5-19); BLOOD UREA NITROGEN 36 mg/dL (7-20); CALCIUM 8.5 mg/dL (8.4-10.2); CARBON DIOXIDE 28 mmol/L (22-30); CHLORIDE 96 mmol/L (98-107); GLUCOSE 126 mg/dL (75-110); SODIUM 137.4 mmol/L (137-145)
[2018-06-10 06:40] LABS: POTASSIUM 2.9 mmol/L (3.6-5.0)
[2018-06-10] MEDS ORDERED: POTASSIUM CHLORIDE 20 MEQ/50 ML RTU IV SCH ×2 (07:00→13:00)
[2018-06-10] MEDS: POTASSIUM CHLORIDE 10 MEQ CAPSULE.ER PO SCH ×2 (07:45→09:27)
[2018-06-10] MEDS: AMIODARONE HCL 200 MG TABLET PO SCH (07:46)
[2018-06-10] MEDS: FUROSEMIDE 40 MG TABLET PO SCH ×2 (07:46→13:16)
[2018-06-10] MEDS: FERROUS SULFATE 325 MG TABLET PO SCH ×2 (09:27→22:41)
[2018-06-10] MEDS: TAMSULOSIN HCL 0.4 MG CAP.SR.24H PO SCH (09:28)
[2018-06-10] MEDS: METOPROLOL TARTRATE 25 MG TABLET PO SCH ×2 (09:28→22:41)
[2018-06-10] MEDS: MAGNESIUM OXIDE 400 MG TABLET PO SCH (09:29)
[2018-06-10] MEDS: INSULIN GLARGINE,HUM.REC.ANLOG 1,000 UNIT/10 ML UNIT SUBCUT SCH ×2 (09:29→22:55)
[2018-06-10] MEDS: CHOLECALCIFEROL (D3) 1,000 UNIT TABLET PO SCH (09:29)
[2018-06-10] MEDS: PANTOPRAZOLE SODIUM 40 MG VIAL IV SCH (09:31)
[2018-06-10] MEDS ORDERED: OXYCODONE-ACETAMINOPHEN 5-325 MG TABLET PO PRN (10:18)
[2018-06-10] MEDS ORDERED: SULFAMETHOXAZOLE/TRIMETHOPRIM 800-160 MG TABLET PO ONE (10:30)
[2018-06-10] MEDS: AMMONIUM LACTATE 12% LOTION 225GM BOTTLE TP SCH ×2 (13:17→18:09)
[2018-06-10] MEDS: INSULIN LISPRO 100 UNIT/ML 3 ML VIAL SUBCUT PRN ×2 (13:46→18:16)
[2018-06-10] MEDS ORDERED: POTASSIUM CHLORIDE 10 MEQ CAPSULE.ER PO ONE ×2 (16:00→16:54)
[2018-06-10] MEDS ORDERED: METOLAZONE 2.5 MG TABLET PO SCH ×2 (16:55→18:00)
[2018-06-10] MEDS ORDERED: CEFAZOLIN 1 GM/D5W RTU 1 GM/50 ML RTUPB IV SCH (18:00)
--- NOTE | 2018-06-10 20:19 | PDOC PROGRESS REPORT ---
Subjective Progress Note for:: 06/10/18 Subjective:: The patient is a 73 year old male with an extensive past medical history including PAF (not currently anticoagulated), permanent pacemaker, CAD with stent 1, CHF (previously home O2 dependent, has not required home O2 for last 2 months), COPD, hypertension, hyperlipidemia, CVA, CKD 4, DM 2, anemia, and remote pulmonary embolism who was admitted 06/07/18 for syncopal event and underwent EGD and incision and drainage of abscess to left posterior thigh in the OR on 06/09/18. The patient is seen on morning rounds with his present. He is found resting in bed comfortably on room air. He denies additional episodes of dizziness, syncope/near syncope, atypical chest pain, palpitations, dyspnea, orthopnea, nausea, and vomiting. He continues to report dull abdominal pain, poor appetite/early satiety. His primary concern today is pain related to surgical debridement of abscess to left posterior thigh. He requests for increase in pain medications. The patient's requests that we arrange for home health nursing to provide wound care. Otherwise, they have no new questions or concerns. No concerns per nursing. Reason For Visit: SYNCOPE,MELENA Physical Exam Vital Signs: Temp Pulse Resp BP Pulse Ox 98.7 F 61 20 107/59 L 95 06/10/18 15:47 06/10/18 15:47 06/10/18 15:47 06/10/18 15:47 06/10/18 15:47 Intake & Output 06/09/18 06/10/18 06/11/18 06:59 06:59 06:59 Intake Total 1425 2050 600 Output Total 3200 1510 1230 Balance -1775 540 -630 Weight 100.6 kg 100.6 kg General appearance: PRESENT: no acute distress, obese, well-developed, well- nourished Head exam: PRESENT: atraumatic, normocephalic Eye exam: PRESENT: conjunctiva pink, EOMI, PERRLA. ABSENT: scleral icterus Ear exam: PRESENT: normal external ear exam Mouth exam: PRESENT: moist, tongue midline Neck exam: ABSENT: carotid bruit, JVD, lymphadenopathy, thyromegaly Respiratory exam: PRESENT: clear to auscultation miguel, symmetrical, unlabored. ABSENT: rales, rhonchi, wheezes Cardiovascular exam: PRESENT: RRR. ABSENT: diastolic murmur, rubs, systolic murmur Pulses: PRESENT: normal dorsalis pedis pul Vascular exam: PRESENT: normal capillary refill GI/Abdominal exam: PRESENT: distended, normal bowel sounds, soft. ABSENT: guarding, mass, organolmegaly, rebound, tenderness Rectal exam: PRESENT: deferred Extremities exam: PRESENT: full ROM. ABSENT: calf tenderness, clubbing, pedal edema Neurological exam: PRESENT: alert, awake, oriented to person, oriented to place , oriented to time, oriented to situation, CN II-XII grossly intact. ABSENT: motor sensory deficit Psychiatric exam: PRESENT: appropriate affect, normal mood. ABSENT: homicidal ideation, suicidal ideation Skin exam: PRESENT: dry, warm, other - Surgical site not visualized; dressing remains in place.. ABSENT: cyanosis, rash Results Laboratory Results: 06/10/18 05:50 06/10/18 05:50 06/10/18 06/10/18 06/10/18 05:50 05:50 05:50 WBC 9.5 RBC 5.12 Hgb 13.3 L Hct 39.6 MCV 77 L MCH 25.9 L MCHC 33.5 RDW 23.7 H Plt Count 217 Sodium 137.4 Potassium 2.9 L* Chloride 96 L Carbon Dioxide 28 Anion Gap 13 BUN 36 H Creatinine 2.32 H Est GFR ( Amer) 34 L Est GFR (Non-Af Amer) 28 L Glucose 126 H Calcium 8.5 Magnesium 2.0 06/07/18 06/07/18 06/07/18 10:32 10:32 14:31 Troponin I 0.102 0.094 NT-Pro-B Natriuret Pep 1620 H 06/07/18 20:15 Troponin I 0.089 NT-Pro-B Natriuret Pep Impressions: Acute Abdomen Series 06/07/18 04:41 IMPRESSION: 1. No acute cardiopulmonary disease. 2. Nonspecific abdomen. Assessment & Plan - Diagnosis (1) Syncope Qualifiers: Syncope type: unspecified Qualified Code(s): R55 - Syncope and collapse Is this a current diagnosis for this admission?: Yes Plan: Syncopal event wasrelated to hypotension and vasovagal response related to pain. Initial evaluation in the emergency department did reveal an elevated troponin of 0.120, acute on chronic kidney insufficiency with creatinine of 2.89, BUN of 65, elevated anion gap of 21, mild leukocytosis of 10.9, hemoglobin 15.3. Otherwise, laboratory evaluation was benign. EKG demonstrated atrial sensed ventricularly paced rhythm. Acute abdominal x-rays were benign. The patient's pacemaker was interrogated; found that on 06/02/18 the patient had intermittent A. fib and flutter but no other arrhythmias. The patient is admitted to the medical floor on continuous cardiac telemetry. Fall precautions. (2) Acute on chronic kidney failure Qualifiers: Chronic kidney disease stage: stage 3 (moderate) Is this a current diagnosis for this admission?: Yes Plan: Improved; nearly at baseline. Acute on chronic kidney failure; likely prerenal secondary to hypotension and possibly diuretic medications. Creatinin 2.89--> 2.74--> 2.89--> 2.32, BUN 65--> 58--> 52--> 36. Upper GI bleed is ruled out. The patient did have a renal ultrasound done at an [facility] in March 2018; no indications of hydronephrosis, hydroureter, renal artery stenosis. He has previously been evaluated by Dr. Colbert but is not establish as an outpatient with nephrology. Have decreased the patient's afternoon furosemide dose with improvement in both renal function and blood pressures. Continue 80 mg q am and decrease to 40 mg in the afternoon. Avoid nephrotoxic medications. (3) Elevated troponin Is this a current diagnosis for this admission?: Yes Plan: Unclear etiology; related to leak r/t hypotension during syncopal episode. Patient did report atypical chest pains described as sharp and electric to his right upper arm and mid sternum that occurred prior to his syncopal event. He denies current chest discomfort, palpitations, dyspnea and orthopnea. Troponins 0.120--> 0.102--> 0.94--> 0.089 ProBNP 1620 (lowest since 2010) Troponin elevated above baseline of 0.045. Records reviewed from March admission to [facility]; at that time, kidney function was similar with troponin peak at 0.064 and down to 0.014 at time of discharge. Echocardiogram from same admission showed normal LV EF, moderate diastolic dysfunction, mild pulmonary hypertension. Patient also nuclear stress testing which was normal. Cardiology was consulted; provided cardiac clearance for anesthesia. Does not feel the troponin reflects ACS. (4) Upper GI bleed Is this a current diagnosis for this admission?: Yes Plan: GI bleed ruled out. Melena is most likely related to iron and magnesium supplementation. Fecal occult was negative. He recently was admitted to [facility] and underwent EGD and colonoscopy at that time. Outpatient records were reviewed; EGD demonstrated a large antral polyps with surface erosions measuring 10-20 mm at the base. The polyps were not removed and biopsies were not obtained secondary to the patient being on Coumadin therapy at that time. EGD also noted atrophic duodenal mucosa. Colonoscopy demonstrated diverticulosis without diverticulitis. EGD revealed several large inflammatory polyps but no active bleeding in the stomach and no ulcerations. Continue Protonix daily. Holding aspirin. Gastroenterology has been consulted; appreciate their evaluation and recommendations. (5) PAF (paroxysmal atrial fibrillation) Is this a current diagnosis for this admission?: Yes Plan: History of PAF; previously on Coumadin therapy for PAF and remote PE. Coumadin was discontinued in March secondary to GI bleed. Pacemaker was interrogated today; found to have atrial fib/flutter on 06/02/18. Currently he is in an atrial sensed-ventricularly paced rhythm. Continue the patient's home medication regiment with exception of ASA. (6) COPD (chronic obstructive pulmonary disease) Qualifiers: Emphysema type: unspecified Is this a current diagnosis for this admission?: Yes Plan: Stable; without exacerbation. As needed nebulizer treatments will be available. Supplemental oxygen as needed to maintain oxygen saturations greater than 88%. (7) Coronary artery disease Qualifiers: Coronary Disease-Associated Artery/Lesion type: [place] artery [place] vs. transplanted heart: [place] heart Associated angina: without angina Qualified Code(s): I25.10 - Atherosclerotic heart disease of [place] coronary artery without angina pectoris Is this a current diagnosis for this admission?: Yes Plan: Holding aspirin secondary to concern for upper GI bleed. Remaining evaluation and plan as above. (8) Diabetes Qualifiers: Diabetes mellitus type: type 2 Diabetes mellitus terminal superintendent insulin use: unspecified terminal superintendent insulin use status Diabetes mellitus complication status : with neurologic complications Diabetes mellitus complication detail: with polyneuropathy Qualified Code(s): E11.42 - Type 2 diabetes mellitus with diabetic polyneuropathy Is this a current diagnosis for this admission?: Yes Plan: We will monitor Accu-Cheks before meals and at bedtime and provide Humalog for sliding scale coverage. We will hold the patient's gabapentin for neuropathy secondary to acute worsening of chronic kidney disease. Continue the patient's home regimen of Lantus 45 units twice daily. (9) Obstructive sleep apnea Is this a current diagnosis for this admission?: Yes Plan: PT does not use CPAP at home. (10) Diastolic heart failure Qualifiers: Heart failure chronicity: chronic Qualified Code(s): I50.32 - Chronic diastolic (congestive) heart failure Is this a current diagnosis for this admission?: Yes Plan: Stable; without exacerbation. Lung sounds are clear, no pulmonary edema by chest x-ray. ProBNP 1620. The patient will be receiving gentle IV fluids for correction of acute on chronic kidney insufficiency; will monitor closely for evidence of fluid volume overload. Continue the patient's home medication regimen. Daily weights and strict I's and O's. (11) HTN (hypertension) Is this a current diagnosis for this admission?: Yes Plan: Blood pressures are soft with slight orthostatic response which resolved following gentle IV fluid rehydration. A.m. cortisol level was normal. Have decreased the afternoon furosemide dose from 80 mg p.o. to 40 mg p.o. as the patient is noted to have had hypotension to overnight at approximately 3 AM (80s/50s). Hypotension appears to have improved with decrease of afternoon IV furosemide. Remaining blood pressures are stable. (12) HLD (hyperlipidemia) Is this a current diagnosis for this admission?: Yes Plan: Continue statin therapy. (13) Metabolic acidosis Is this a current diagnosis for this admission?: Yes Plan: Resolved; likely secondary to upper GI bleed. Anion gap has closed. Will monitor daily chemistries. (14) Leukocytosis Is this a current diagnosis for this admission?: Yes Plan: Resolved; Likely reactive following syncopal episode. (15) Abscess Is this a current diagnosis for this admission?: Yes Plan: Now s/p surgical debridement by Dr. Eastman in the OR. Abscess to left posterior upper leg; underwent I&D by his primary care provider as an outpatient yesterday. His antibiotic was called to the pharmacy but he has not yet had his first dose. Wound culture positive for pansensitive staph aureus. Surgery was consulted; primary plan per surgery. Purulent loculations extended through the fascia. Wound care per surgery's recommendations. Continue IV cefazolin. (16) Hypothyroid Is this a current diagnosis for this admission?: Yes Plan: TSH found to be low; 16.0 Home dose levothyroxine is increased from 50 to 75 mcg daily. - Time Time Spent with patient: 15-24 minutes Medications reviewed and adjusted accordingly: Yes Anticipated discharge: Home Within: Other - When cleared by surgery.
[2018-06-10] MEDS ORDERED: SULFAMETHOXAZOLE/TRIMETHOPRIM 800-160 MG TABLET PO SCH (22:00)
--- NOTE | 2018-06-10 22:00 | EKG REPORT ---
SEVERITY:- ABNORMAL ECG - ATRIAL-VENTRICULAR DUAL-PACED COMPLEXES : Confirmed by: Hadley Izaguirre 10-Jun-2018 21:59:35
[2018-06-10] MEDS: ATORVASTATIN CALCIUM 80 MG TABLET PO SCH (22:41)
[2018-06-10] MEDS: AMITRIPTYLINE HCL 25 MG TABLET PO SCH (22:41)
[2018-06-10] MEDS: METOCLOPRAMIDE HCL 10 MG TABLET PO SCH (22:41)
[2018-06-11] MEDS: LEVOTHYROXINE SODIUM 0.075 MG TABLET PO SCH (06:25)
[2018-06-11] MEDS: CEFAZOLIN 1 GM/D5W RTU 1 GM/50 ML RTUPB IV SCH ×2 (06:25→12:26)
[2018-06-11] MEDS: OXYCODONE-ACETAMINOPHEN 5-325 MG TABLET PO PRN ×2 (06:25→16:10)
[2018-06-11 06:41] LABS: HEMATOCRIT 40.2 % (37.9-51.0); HEMOGLOBIN 13.3 g/dL (13.5-17.0); MEAN CORPUSCULAR HEMOGLOBIN 25.8 pg (27.0-33.4); MEAN CORPUSCULAR HGB CONC 33.1 g/dL (32.0-36.0); MEAN CORPUSCULAR VOLUME 78 fl (80-97); PLATELET COUNT 216 10^3/uL (150-450); RED BLOOD COUNT 5.14 10^6/uL (4.35-5.55); RED CELL DISTRIBUTION WIDTH 23.6 % (11.5-14.0); WHITE BLOOD COUNT 7.3 10^3/uL (4.0-10.5)
[2018-06-11 06:45] LABS: ANION GAP 14 (5-19); BLOOD UREA NITROGEN 31 mg/dL (7-20); CALCIUM 8.8 mg/dL (8.4-10.2); CARBON DIOXIDE 31 mmol/L (22-30); CHLORIDE 94 mmol/L (98-107); GLUCOSE 147 mg/dL (75-110); POTASSIUM 3.9 mmol/L (3.6-5.0); SODIUM 139.4 mmol/L (137-145)
[2018-06-11] MEDS: AMIODARONE HCL 200 MG TABLET PO SCH (08:18)
[2018-06-11] MEDS: METOCLOPRAMIDE HCL 10 MG TABLET PO SCH ×3 (08:19→16:11)
[2018-06-11] MEDS: INSULIN GLARGINE,HUM.REC.ANLOG 1,000 UNIT/10 ML UNIT SUBCUT SCH (10:48)
[2018-06-11] MEDS: AMMONIUM LACTATE 12% LOTION 225GM BOTTLE TP SCH (10:49)
[2018-06-11] MEDS: PANTOPRAZOLE SODIUM 40 MG VIAL IV SCH (10:49)
[2018-06-11] MEDS: CHOLECALCIFEROL (D3) 1,000 UNIT TABLET PO SCH (10:49)
[2018-06-11] MEDS: MAGNESIUM OXIDE 400 MG TABLET PO SCH (10:50)
[2018-06-11] MEDS: FERROUS SULFATE 325 MG TABLET PO SCH (10:50)
[2018-06-11] MEDS: METOPROLOL TARTRATE 25 MG TABLET PO SCH (10:50)
[2018-06-11] MEDS: TAMSULOSIN HCL 0.4 MG CAP.SR.24H PO SCH (10:50)
[2018-06-11] MEDS: FUROSEMIDE 40 MG TABLET PO SCH (14:42)
[2018-06-11] MEDS: MORPHINE SULFATE 10 MG/ML INJ IV PRN (14:42)
--- NOTE | 2018-06-11 17:10 | PDOC PROGRESS REPORT ---
Subjective Progress Note for:: 06/10/18 Subjective:: Patient seems to be doing better with gradual improvement. Pt is denying any chest arm or neck discomfort. Patient denying any PND, orthopnea. Patient denied any sustained palpitations, dizziness, syncope, near syncope. Patient denying any fever chills. Patient denying any other significant discomfort. Patient is maintaining sinus rhythm. Review of systems: Rest review of systems negative. Medications: Medications have been reviewed. Reason For Visit: SYNCOPE,MELENA Physical Exam Vital Signs: Temp Pulse Resp BP Pulse Ox 98.7 F 61 20 107/59 L 95 06/10/18 15:47 06/10/18 15:47 06/10/18 15:47 06/10/18 15:47 06/10/18 15:47 Intake & Output 06/09/18 06/10/18 06/11/18 06:59 06:59 06:59 Intake Total 1425 2050 800 Output Total 3200 1510 1230 Balance -1775 540 -430 Weight 100.6 kg 100.6 kg Exam: GENERAL: well-nourished and in no acute distress. Alert and oriented x3 HEAD: Atraumatic, normocephalic. EYES: Pupils equal round and reactive to light, extraocular movements intact, sclera anicteric, conjunctiva are normal. ENT: TMs normal, nares patent, oropharynx clear without exudates. Moist mucous membranes. No oral ulcerations or bleeding gums noted NECK: supple without lymphadenopathy. Trachea is central. No cervical or axillary lymphadenopathy noted. Carotids are 2+, JVD WNL LUNGS: Respiration seems nonlabored, no significant accessory muscle action noted. Breath sounds clear to auscultation bilaterally and equal noted. No wheezes rales or rhonchi noted. No significant dullness noted on percussion. CHEST: Palpation of the chest wall shows no significant chest wall tenderness. HEART: [employer] SATIN [employer]ER, No PSH, 1/6 JENNIFER aortic area, 1/6 love systolic murmur mitral area, no rubs, no gallops. ABDOMEN: Soft, no significant tenderness appreciated, normoactive bowel sounds. No guarding, no rebound. No rigidity noted . No masses appreciated. EXTREMITIES: Pedal pulses are 1-2+, no calf tenderness noted. No clubbing or cyanosis. negative pedal edema noted. Postsurgical changes and dressing noted behind left eye. NEUROLOGICAL: Focused neurological exam showed no significant neurologic deficit. Normal speech, no focal weakness appreciated. PSYCH: Normal mood, normal affect. Judgment and insight within normal limits. SKIN: No significant ecchymosis, skin is noted to be warm. MUSCULOSKELETAL EXAM: No significant acute joint swelling noted. Results Laboratory Results: 06/10/18 05:50 06/10/18 05:50 06/10/18 06/10/18 06/10/18 05:50 05:50 05:50 WBC 9.5 RBC 5.12 Hgb 13.3 L Hct 39.6 MCV 77 L MCH 25.9 L MCHC 33.5 RDW 23.7 H Plt Count 217 Sodium 137.4 Potassium 2.9 L* Chloride 96 L Carbon Dioxide 28 Anion Gap 13 BUN 36 H Creatinine 2.32 H Est GFR ( Amer) 34 L Est GFR (Non-Af Amer) 28 L Glucose 126 H Calcium 8.5 Magnesium 2.0 06/07/18 06/07/18 06/07/18 10:32 10:32 14:31 Troponin I 0.102 0.094 NT-Pro-B Natriuret Pep 1620 H 06/07/18 20:15 Troponin I 0.089 NT-Pro-B Natriuret Pep EKG Comments: Twelve-lead EKG shows no acute ST-T wave changes. Patient noted to be in sinus rhythm. Impressions: Acute Abdomen Series 06/07/18 04:41 IMPRESSION: 1. No acute cardiopulmonary disease. 2. Nonspecific abdomen. Assessment & Plan - Diagnosis (1) Syncope Qualifiers: Syncope type: unspecified Qualified Code(s): R55 - Syncope and collapse Is this a current diagnosis for this admission?: Yes (2) Elevated troponin Is this a current diagnosis for this admission?: Yes (3) Acute on chronic kidney failure Qualifiers: Chronic kidney disease stage: stage 3 (moderate) Is this a current diagnosis for this admission?: Yes (4) HLD (hyperlipidemia) Is this a current diagnosis for this admission?: Yes (5) HTN (hypertension) Is this a current diagnosis for this admission?: Yes (6) PAF (paroxysmal atrial fibrillation) Is this a current diagnosis for this admission?: Yes (7) Renal insufficiency Is this a current diagnosis for this admission?: Yes (8) Upper GI bleed Is this a current diagnosis for this admission?: Yes (9) Coronary artery disease Qualifiers: Coronary Disease-Associated Artery/Lesion type: [place] artery [place] vs. transplanted heart: [place] heart Associated angina: angina presence unspecified Qualified Code(s): I25.10 - Atherosclerotic heart disease of [place] coronary artery without angina pectoris Is this a current diagnosis for this admission?: Yes - Notes Notes: Syncope: Most likely vasovagal based on history and happening while relieving himself for his bladder. Please note that patient also had significant left lower extremity discomfort which may have aggravated and brought on also be vasovagal syncope. Monitoring so far has not revealed any significant cardiac dysrhythmia as cause of syncope. May consider further monitoring as an outpatient. Patient likely has sleep apnea syndrome. Discussed that sleep apnea syndrome can increase risk of syncope. Elevated troponin I: Feel that this is most likely from syncope with transient hypotension. Recent stress test was negative. Do not feel a cardiac cath is indicated especially since patient also had significant renal dysfunction. Acute on chronic kidney failure: Currently stable. CAD: Currently stable. Recommend optimize medical management. Hyperlipidemia: Recommend high potency statin therapy. Hypertension: Blood pressure goal should be 135/85 or less. Better blood pressure medications will be beta-blockers and ARB/DANUTA inhibitors. Paroxysmal atrial fibrillation: Currently off anticoagulation because of GI bleed. Patient does have a private care foam tank laminator and will recommend that he decides when to restart the chronic anticoagulation or can be restarted after okayed by the corn cutter operator. Patient has done well with both upper GI endoscopy and also surgery on his lower extremity. Will follow 1 more day and then sign off. Patient can follow- up with me if he wishes. - Time Time with patient: Greater than 35 minutes - CODE STATUS was discussed, patient remains full code. Surrogate decision-maker unchanged. Multiple medical problems were addressed. More than 50% of the time spent coordinating care, discussing management plans with involved caregivers. Management plans discussed with involved personnels. Medical decision making was of moderate to high complexity, patient's has multiple comorbidities. Medications reviewed and adjusted accordingly: Yes
--- NOTE | 2018-06-11 17:12 | PDOC PROGRESS REPORT ---
Subjective Progress Note for:: 06/11/18 Subjective:: Patient seems to be doing better. No new complaints. Pt is denying any chest arm or neck discomfort. Patient denying any PND, orthopnea. Patient denied any sustained palpitations, dizziness, syncope, near syncope. Patient denying any fever chills. Patient denying any other significant discomfort. Patient is maintaining sinus rhythm. Review of systems: Rest review of systems negative. Medications: Medications have been reviewed. Reason For Visit: SYNCOPE,MELENA Physical Exam Vital Signs: Temp Pulse Resp BP Pulse Ox 98.4 F 60 16 117/61 96 06/11/18 12:17 06/11/18 12:17 06/11/18 12:17 06/11/18 12:17 06/11/18 12:17 Intake & Output 06/10/18 06/11/18 06/12/18 06:59 06:59 06:59 Intake Total 2050 880 Output Total 1510 1930 Balance 540 -1050 Weight 100.6 kg 101.8 kg Exam: GENERAL: well-nourished and in no acute distress. Alert and oriented x3 HEAD: Atraumatic, normocephalic. EYES: Pupils equal round and reactive to light, extraocular movements intact, sclera anicteric, conjunctiva are normal. ENT: TMs normal, nares patent, oropharynx clear without exudates. Moist mucous membranes. No oral ulcerations or bleeding gums noted NECK: supple without lymphadenopathy. Trachea is central. No cervical or axillary lymphadenopathy noted. Carotids are 2+, JVD WNL LUNGS: Respiration seems nonlabored, no significant accessory muscle action noted. Breath sounds clear to auscultation bilaterally and equal noted. No wheezes rales or rhonchi noted. No significant dullness noted on percussion. CHEST: Palpation of the chest wall shows no significant chest wall tenderness. HEART: Jelm WAN SUPPORT SPECIALIST, No PSH, 1/6 JENNIFER aortic area, 1/6 love systolic murmur mitral area, no rubs, no gallops. ABDOMEN: Soft, no significant tenderness appreciated, normoactive bowel sounds. No guarding, no rebound. No rigidity noted . No masses appreciated. EXTREMITIES: Pedal pulses are 1-2+, no calf tenderness noted. No clubbing or cyanosis. negative pedal edema noted. Postsurgical changes noted behind left eye. NEUROLOGICAL: Focused neurological exam showed no significant neurologic deficit. Normal speech, no focal weakness appreciated. PSYCH: Normal mood, normal affect. Judgment and insight within normal limits. SKIN: No significant ecchymosis, skin is noted to be warm. MUSCULOSKELETAL EXAM: No significant acute joint swelling noted. Results Laboratory Results: 06/11/18 05:51 06/11/18 05:51 06/11/18 06/11/18 05:51 05:51 WBC 7.3 RBC 5.14 Hgb 13.3 L Hct 40.2 MCV 78 L MCH 25.8 L MCHC 33.1 RDW 23.6 H Plt Count 216 Sodium 139.4 Potassium 3.9 Chloride 94 L Carbon Dioxide 31 H Anion Gap 14 BUN 31 H Creatinine 2.44 H Est GFR ( Amer) 32 L Est GFR (Non-Af Amer) 26 L Glucose 147 H Calcium 8.8 06/07/18 06/07/18 06/07/18 10:32 10:32 14:31 Troponin I 0.102 0.094 NT-Pro-B Natriuret Pep 1620 H 06/07/18 20:15 Troponin I 0.089 NT-Pro-B Natriuret Pep EKG Comments: Telemetry strips reviewed. No significant cardiac dysrhythmia noted. EKG is reviewed. No acute ST-T wave changes or ischemic changes noted. Impressions: Acute Abdomen Series 06/07/18 04:41 IMPRESSION: 1. No acute cardiopulmonary disease. 2. Nonspecific abdomen. Assessment & Plan - Diagnosis (1) Syncope Qualifiers: Syncope type: unspecified Qualified Code(s): R55 - Syncope and collapse Is this a current diagnosis for this admission?: Yes (2) Elevated troponin Is this a current diagnosis for this admission?: Yes (3) Acute on chronic kidney failure Qualifiers: Chronic kidney disease stage: stage 3 (moderate) Is this a current diagnosis for this admission?: Yes (4) HLD (hyperlipidemia) Is this a current diagnosis for this admission?: Yes (5) HTN (hypertension) Is this a current diagnosis for this admission?: Yes (6) PAF (paroxysmal atrial fibrillation) Is this a current diagnosis for this admission?: Yes (7) Renal insufficiency Is this a current diagnosis for this admission?: Yes (8) Upper GI bleed Is this a current diagnosis for this admission?: Yes (9) Coronary artery disease Qualifiers: Coronary Disease-Associated Artery/Lesion type: [place] artery [place] vs. transplanted heart: lumbee heart Associated angina: angina presence unspecified Qualified Code(s): I25.10 - Atherosclerotic heart disease of lum[place] coronary artery without angina pectoris Is this a current diagnosis for this admission?: Yes (10) Sleep disorder breathing Is this a current diagnosis for this admission?: Yes - Notes Notes: Syncope: Most likely vasovagal based on history and happening while relieving himself for his bladder. Please note that patient also had significant left lower extremity discomfort which may have aggravated and brought on also be vasovagal syncope. Monitoring so far has not revealed any significant cardiac dysrhythmia as cause of syncope. May consider further monitoring as an outpatient. Sleep apnea syndrome: This is strongly suspected based on patient's body habitus , oropharyngeal exam, neck exam. Patient likely has sleep apnea syndrome. Discussed that sleep apnea syndrome can increase risk of syncope. Elevated troponin I: Feel that this is most likely from syncope with transient hypotension. Recent stress test was negative. Do not feel a cardiac cath is indicated especially since patient also had significant renal dysfunction. Acute on chronic kidney failure: Currently stable. CAD: Currently stable. Recommend optimize medical management. Hyperlipidemia: Recommend high potency statin therapy. Hypertension: Blood pressure goal should be 135/85 or less. Better blood pressure medications will be beta-blockers and ARB/DANUTA inhibitors. Paroxysmal atrial fibrillation: Currently off anticoagulation because of GI bleed. Patient does have a private care intern brand and will recommend that he decides when to restart the chronic anticoagulation or can be restarted after okayed by the core drilling supervisor. Patient has done well with both upper GI endoscopy and also surgery on his lower extremity. Will sign off. Please reconsult as needed. Patient does wish to follow-up with me for evaluation of sleep apnea syndrome. - Time Time with patient: Greater than 35 minutes - CODE STATUS was discussed, patient remains full code. Surrogate decision-maker unchanged. Multiple medical problems were addressed. More than 50% of the time spent coordinating care, discussing management plans with involved caregivers. Management plans discussed with involved personnels. Medical decision making was of moderate to high complexity, patient's has multiple comorbidities. Medications reviewed and adjusted accordingly: Yes
[2018-06-11 17:58] VITALS: BP 123/65
--- NOTE | 2018-06-14 10:51 | PDOC DISCHARGE SUMMARY ---
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 EKG demonstrated atrial sensed ventricularly paced rhythm. The patient's pacemaker was interrogated; found that on 06/02/18 the patient had intermittent A. fib and flutter but no other arrhythmias. (2) Acute on chronic kidney failure Is this a current diagnosis for this admission?: Yes Summary: Improved; nearly at baseline. Acute on chronic kidney failure; likely prerenal secondary to hypotension and possibly diuretic medications. Creatinin 2.89--> 2.74--> 2.89--> 2.32, BUN 65--> 58--> 52--> 36. Upper GI bleed is ruled out. The patient did have a [facility]; no indications of hydronephrosis, hydroureter, renal artery stenosis. He has previously been evaluated by Dr. Colbert but is not establish as an outpatient with nephrology. The patient's afternoon furosemide dose was decreased from 80 to 40 mg with improvement in both renal function and blood pressures. New prescriptions were provided fore Furosemide 80 mg q am and 40 mg in the afternoon. (3) Elevated troponin Is this a current diagnosis for this admission?: Yes Summary: Related to leak r/t hypotension during syncopal episode; Cardiology was consulted and confirms that elevated troponin was not related to ACS. Troponins 0.120--> 0.102--> 0.94--> 0.089 ProBNP 1620 (lowest since 2010) (4) Upper GI bleed Is this a current diagnosis for this admission?: Yes Summary: Ruled out. Melena is most likely related to iron and magnesium supplementation. Fecal occult was negative. EGD completed by Dr. Gamez revealed several large inflammatory polyps but no active bleeding in the stomach and no ulcerations. Patient is advised to continue his current prescription for Protonix and to follow up with GI in 2-4 weeks to review biopsy results. (5) PAF (paroxysmal atrial fibrillation) Is this a current diagnosis for this admission?: Yes Summary: History of PAF; previously on Coumadin therapy for PAF and remote PE. Coumadin was discontinued in March secondary to GI bleed. Pacemaker was interrogated today; found to have atrial fib/flutter on 06/02/18. Currently he is in an atrial sensed-ventricularly paced rhythm. As GI bleeding has been ruled out, patient is instructed to resume daily aspirin therapy. (6) COPD (chronic obstructive pulmonary disease) Is this a current diagnosis for this admission?: No (7) Coronary artery disease Is this a current diagnosis for this admission?: No (8) Diabetes Is this a current diagnosis for this admission?: No (9) Obstructive sleep apnea Is this a current diagnosis for this admission?: No (10) Diastolic heart failure Is this a current diagnosis for this admission?: No (11) HTN (hypertension) Is this a current diagnosis for this admission?: Yes Summary: Blood pressures were noted to be soft (110/60) with slight orthostatic response which resolved following gentle IV fluid rehydration. A.m. cortisol level was normal. Have decreased the afternoon furosemide dose from 80 mg p.o. to 40 mg p.o. as the patient is noted to have had hypotension overnight at approximately 3 AM ( 80s/50s) multiple days in a row which coincides with the timing of his syncopal event. Hypotension improved with decrease of afternoon furosemide. Remaining blood pressures are stable. He is strongly cautioned on the importance of monitoring daily weights and reporting a weight gain >2 lbs. (12) HLD (hyperlipidemia) Is this a current diagnosis for this admission?: No (13) Metabolic acidosis Is this a current diagnosis for this admission?: Yes Summary: Resolved with IV. (14) Leukocytosis Is this a current diagnosis for this admission?: Yes Summary: Resolved; Likely reactive following syncopal episode. (15) Abscess Is this a current diagnosis for this admission?: Yes Summary: Now s/p surgical debridement by Dr. Eastman in the OR. Abscess to left posterior upper leg; underwent I&D by his primary care provider as an outpatient the day prior to admission. His antibiotic was called to the pharmacy but he had not yet had his first dose. Wound culture positive for pansensitive staph aureus. Surgery was consulted; and preformed surgical debridement. Purulent loculations extended through the fascia. The patient is discharged with a prescription for Bactrim DS. Home Health Nursing has been arranged for wound care. Patient should follow up with his primary care provider within [address] Inman within 1-2 weeks, or sooner, for concerning symptoms. (16) Hypothyroid Is this a current diagnosis for this admission?: Yes Summary: TSH found to be low; 16.0 Home dose levothyroxine is increased from 50 to 75 mcg daily. - Additional Information Resuscitation Status: Full Code Discharge Diet: Cardiac, Diabetic Discharge Activity: Activity As Tolerated, Balance Activity w/Rest, Weigh Daily Prescriptions: Furosemide [Lasix 40 mg Tablet] 40 mg PO DAILY@1400 #30 tablet Furosemide [Lasix 40 mg Tablet] 80 mg PO DAILY@0800 #30 tablet Levothyroxine Sodium [Synthroid 0.075 mg Tablet] 0.075 mg PO Q6AM #30 tablet Metoclopramide HCl [Reglan 10 mg Tablet] 5 mg PO ACHS #120 tablet Oxycodone HCl/Acetaminophen [Percocet 5-325 mg Tablet] 2 tab PO Q4HP PRN #20 tablet PRN Reason: Promethazine HCl 12.5 mg PO Q8HP PRN #12 tablet PRN Reason: Sulfamethoxazole/Trimethoprim [Bactrim Ds Tablet] 1 each PO BID #20 tablet Home Medications: Atorvastatin Calcium [Lipitor 80 mg Tablet] 80 mg PO QHS 08/10/17 Ferrous Sulfate [Iron] 325 mg PO Q12 08/10/17 Insulin Glargine,Hum.rec.anlog [Lantus Solostar] 45 units SQ Q12 08/10/17 Pantoprazole Sodium [Protonix] 40 mg PO Q12 08/10/17 Insulin Aspart [Novolog Flexpen] 30 units SQ QAM 09/02/17 Insulin Aspart [Novolog Flexpen] 37 units SQ NOON 09/02/17 Insulin Aspart [Novolog Flexpen] 40 units SQ QPM 09/02/17 Tamsulosin HCl [Flomax 0.4 mg Cap.sr] 0.4 mg PO DAILY #30 cap.sr.24h 09/06/17 Amiodarone HCl [Pacerone] 200 mg PO QAM 06/07/18 Amitriptyline HCl [Elavil 25 mg Tablet] 25 mg PO QHS 06/07/18 Ammonium Lactate [Lac-Hydrin 12% Lotion 225Gm/Bottle] 1 applic TP BID 06/07/18 Aspirin [Aspirin 325 mg Tablet] 325 mg PO DAILY 06/07/18 Carvedilol [Coreg 12.5 mg Tablet] 6.25 mg PO Q12 06/07/18 Cholecalciferol (Vitamin D3) [Vitamin D3] 2,000 unit PO DAILY 06/07/18 Gabapentin [Neurontin 100 mg Capsule] 100 mg PO DAILY 06/07/18 Glucagon HCl 1 mg IJ PRN PRN 06/07/18 Magnesium Oxide [Magnesium] 400 mg PO DAILY 06/07/18 Metolazone [Zaroxolyn 2.5 mg Tablet] 2.5 mg PO MOFR 06/07/18 Spironolactone [Aldactone 25 mg Tablet] 25 mg PO BID 06/07/18 Acetaminophen [Tylenol 325 mg Tablet] 650 mg PO Q4HP PRN tablet 06/11/18 Furosemide [Lasix 40 mg Tablet] 40 mg PO DAILY@1400 #30 tablet 06/11/18 Furosemide [Lasix 40 mg Tablet] 80 mg PO DAILY@0800 #30 tablet 06/11/18 Levothyroxine Sodium [Synthroid 0.075 mg Tablet] 0.075 mg PO Q6AM #30 tablet Metoclopramide HCl [Reglan 10 mg Tablet] 5 mg PO ACHS #120 tablet 06/11/18 Oxycodone HCl/Acetaminophen [Percocet 5-325 mg Tablet] 2 tab PO Q4HP PRN #20 tablet 06/11/18 Promethazine HCl 12.5 mg PO Q8HP PRN #12 tablet 06/11/18 Sulfamethoxazole/Trimethoprim [Bactrim Ds Tablet] 1 each PO BID #20 tablet 06/11 History of Present Illness History of Present Illness: DIVYA JAIN is a 73 year old male with an extensive past medical history including PAF (not currently anticoagulated), permanent pacemaker, CAD with stent 1, CHF (previously home O2 dependent, has not required home O2 for last 2 months), COPD, hypertension, hyperlipidemia, CVA, CKD 4, DM 2, anemia, and remote pulmonary embolism who presented to the emergency department today via EMS with complaint of syncope. He was found unresponsive on the commode by his , pale and diaphoretic. Per EMS records, he was hypotensive with a blood pressure of 80s/40 that responded well to a NS 250 mL bolus. Per the patient, he felt well this morning but did experience some intermittent sharp pain to his RUE and midsternum described as "electric" prior to syncopal event. Patient did have nausea w/o emesis afterwards but denies previous symptoms of abdominal pain, nausea, vomiting, diarrhea. Per the patient and his he has had melena for the previous 3-4 days. Evaluation in the ED reveals normotensive blood pressures, paced Ventricular rate at 60, mild leukocytosis, normal hemoglobin, mild hypokalemia (3.3), anion gap acidosis (21), acute on chronic kidney injury (creatinine 2.89 elevated from baseline of 2.1), elevated BUN (65), and elevated troponin (0.120, baseline appears to be 0.04-0.05), and benign Acute Abd imaging. He is referred to the hospitalist service for admission for evaluation and management of syncopal event and melena. Physical Exam Vital Signs: Temp Pulse Resp BP Pulse Ox 98.4 F 64 20 123/65 97 06/11/18 17:55 06/11/18 17:55 06/11/18 17:55 06/11/18 17:55 06/11/18 17:55 General appearance: PRESENT: no acute distress, cooperative, obese, well- developed, well-nourished Head exam: PRESENT: atraumatic, normocephalic Eye exam: PRESENT: conjunctiva pink, EOMI, PERRLA. ABSENT: scleral icterus Ear exam: PRESENT: normal external ear exam Mouth exam: PRESENT: moist, tongue midline Neck exam: ABSENT: carotid bruit, JVD, lymphadenopathy, thyromegaly Respiratory exam: PRESENT: clear to auscultation miguel, symmetrical, unlabored. ABSENT: rales, rhonchi, wheezes Cardiovascular exam: PRESENT: RRR. ABSENT: diastolic murmur, rubs, systolic murmur Pulses: PRESENT: normal dorsalis pedis pul Vascular exam: PRESENT: normal capillary refill GI/Abdominal exam: PRESENT: normal bowel sounds, soft. ABSENT: distended, guarding, mass, organolmegaly, rebound, tenderness Rectal exam: PRESENT: deferred Extremities exam: PRESENT: full ROM. ABSENT: calf tenderness, clubbing, pedal edema Neurological exam: PRESENT: alert, awake, oriented to person, oriented to place , oriented to time, oriented to situation, CN II-XII grossly intact. ABSENT: motor sensory deficit Psychiatric exam: PRESENT: appropriate affect, normal mood. ABSENT: homicidal ideation, suicidal ideation Skin exam: PRESENT: dry, warm, other - I&D to left posterior thigh with packing gauze and clean dry dressing in place; decreased erythema and edema. ABSENT: cyanosis, rash Results Laboratory Results: 06/11/18 05:51 06/11/18 05:51 06/07/18 06/07/18 06/07/18 10:32 10:32 14:31 Troponin I 0.102 0.094 NT-Pro-B Natriuret Pep 1620 H 06/07/18 20:15 Troponin I 0.089 NT-Pro-B Natriuret Pep Impressions: Acute Abdomen Series 06/07/18 04:41 IMPRESSION: 1. No acute cardiopulmonary disease. 2. Nonspecific abdomen. Qualifiers - * PATIENT BEING DISCHARGED WITH ANY OF THE FOLLOWING DIAGNOSIS: No Plan Discharge Plan: Discharge to home with Home Health Nursing services. Follow up with Primary Care Provider within 1 week. Follow up with Dr. Inman within 1-2 weeks. Follow up with Dr. Colbert regarding kidney function within 1-2 months. Follow up with Dr. Gamez within 4-6 weeks. Establish with a Pharmacist Helper.
== END 2018-06-11 18:10 | disposition home health service (06) | DRG 378 ==
LOC: ER 04:12 → EH 08:26 → 4S 10:58
PROVIDERS: ADMIT Internal Medicine; ATTEND Internal Medicine
PROC: 0HDJXZZ Extraction of Left Upper Leg Skin, External Approach (ICD-10-PCS; principal; 2018-06-09 14:00)
PROC: 0DD68ZX Extraction of Stomach, Via Natural or Artificial Opening Endoscopic, Diagnostic (ICD-10-PCS; 2018-06-09 14:00)
DX: K92.1 Melena (principal); N17.9 Acute kidney failure, unspecified; I13.0 Hypertensive heart and chronic kidney disease with heart failure and stage 1 through stage 4 chronic kidney disease, or unspecified chronic kidney disease; I50.32 Chronic diastolic (congestive) heart failure; E87.2 Acidosis; L02.416 Cutaneous abscess of left lower limb; T45.4X5A Adverse effect of iron and its compounds, initial encounter; I48.0 Paroxysmal atrial fibrillation; E11.22 Type 2 diabetes mellitus with diabetic chronic kidney disease; I25.10 Atherosclerotic heart disease of native coronary artery without angina pectoris; E78.00 Pure hypercholesterolemia, unspecified; J44.9 Chronic obstructive pulmonary disease, unspecified; K31.7 Polyp of stomach and duodenum; K44.9 Diaphragmatic hernia without obstruction or gangrene; E87.6 Hypokalemia; E03.9 Hypothyroidism, unspecified; N18.3 Chronic kidney disease, stage 3 (moderate); K21.9 Gastro-esophageal reflux disease without esophagitis; G47.33 Obstructive sleep apnea (adult) (pediatric); N40.0 Benign prostatic hyperplasia without lower urinary tract symptoms; Z79.4 Long term (current) use of insulin; Z86.711 Personal history of pulmonary embolism; Z79.01 Long term (current) use of anticoagulants; Z79.82 Long term (current) use of aspirin; Z79.899 Other long term (current) drug therapy; Z95.0 Presence of cardiac pacemaker
CPT/HCPCS: 00731; 36415; 74022; 80048; 80053; 81001; 82272; 82533; 82962; 83690; 83735; 83880; 84443; 84484; 85025; 85027; 85610; 85730; 86850; 86900; 86901; 87070; 87077; 87186; 87205; 88305; 93005; 93010; 93306; 96365; 96366; 96375; 99285; A6266; G8978-GP; G8979-GP; G8980-GP; J0690; J1815; J2250; J2270; J2704; J3010; J3480; J3490; J7030; S0164

== ENCOUNTER → 2018-07-01 | Outpatient (CLI) | payer MEDICARE, OTHER ==
[2018-07-01 13:05] LABS: HEMOGLOBIN 13.7 g/dL (13.5-17.0); MEAN CORPUSCULAR HEMOGLOBIN 27.1 pg (27.0-33.4); MEAN CORPUSCULAR HGB CONC 33.5 g/dL (32.0-36.0); MEAN CORPUSCULAR VOLUME 81 fl (80-97); PLATELET COUNT 328 10^3/uL (150-450); RED BLOOD COUNT 5.08 10^6/uL (4.35-5.55); RED CELL DISTRIBUTION WIDTH 20.8 % (11.5-14.0)
[2018-07-01 13:06] LABS: APPEARANCE,URINE CLEAR; BILIRUBIN,URINE NEGATIVE (NEGATIVE); COLOR,URINE YELLOW; GLUCOSE, URINE NEGATIVE (NEGATIVE); KETONES,URINE NEGATIVE (NEGATIVE); LEUKOCYTE ESTERASE,URINE TRACE (NEGATIVE); NITRITE,URINE NEGATIVE (NEGATIVE); PROTEIN,URINE NEGATIVE (NEGATIVE); URINE SPECIFIC GRAVITY 1.008; UROBILINOGEN,URINE NEGATIVE mg/dL (<2.0)
[2018-07-01 13:34] LABS: BLOOD UREA NITROGEN 53 mg/dL (7-20); CARBON DIOXIDE 28 mmol/L (22-30); CHLORIDE 94 mmol/L (98-107); GLUCOSE 226 mg/dL (75-110); POTASSIUM 4.1 mmol/L (3.6-5.0); SODIUM 143.1 mmol/L (137-145)
[2018-07-01 13:41] LABS: ANION GAP 21 (5-19)
== END ==
LOC: OD 12:23
PROVIDERS: ATTEND Internal Medicine Nephrology
DX: I13.0 Hypertensive heart and chronic kidney disease with heart failure and stage 1 through stage 4 chronic kidney disease, or unspecified chronic kidney disease (principal); N18.3 Chronic kidney disease, stage 3 (moderate); I50.9 Heart failure, unspecified; D64.9 Anemia, unspecified
CPT/HCPCS: 36415; 80048; 81001; 85027

== ENCOUNTER → 2018-08-17 | Outpatient (CLI) | payer MEDICARE, OTHER ==
[2018-08-17 15:09] LABS: APPEARANCE,URINE CLEAR; BILIRUBIN,URINE NEGATIVE (NEGATIVE); COLOR,URINE YELLOW; GLUCOSE, URINE NEGATIVE (NEGATIVE); KETONES,URINE NEGATIVE (NEGATIVE); LEUKOCYTE ESTERASE,URINE TRACE (NEGATIVE); NITRITE,URINE NEGATIVE (NEGATIVE); PROTEIN,URINE 30 mg/dL (NEGATIVE); UROBILINOGEN,URINE NEGATIVE mg/dL (<2.0)
[2018-08-17 15:17] LABS: ANION GAP 12 (5-19); BLOOD UREA NITROGEN 26 mg/dL (7-20); CALCIUM 9.3 mg/dL (8.4-10.2); CARBON DIOXIDE 26 mmol/L (22-30); CHLORIDE 102 mmol/L (98-107); GLUCOSE 191 mg/dL (75-110); POTASSIUM 5.5 mmol/L (3.6-5.0)
== END ==
LOC: OD 14:06
PROVIDERS: ATTEND Internal Medicine Nephrology
DX: I13.0 Hypertensive heart and chronic kidney disease with heart failure and stage 1 through stage 4 chronic kidney disease, or unspecified chronic kidney disease (principal); E11.22 Type 2 diabetes mellitus with diabetic chronic kidney disease; N18.3 Chronic kidney disease, stage 3 (moderate); I50.9 Heart failure, unspecified; D64.9 Anemia, unspecified
CPT/HCPCS: 36415; 80048; 81001; 83735

== ENCOUNTER → 2018-08-22 | Outpatient (CLI) | payer OTHER, MEDICARE ==
[2018-08-22 17:27] LABS: APPEARANCE,URINE SLIGHTLY-CLOUDY; BILIRUBIN,URINE NEGATIVE (NEGATIVE); COLOR,URINE STRAW; GLUCOSE, URINE 150 mg/dL (NEGATIVE); KETONES,URINE NEGATIVE (NEGATIVE); LEUKOCYTE ESTERASE,URINE NEGATIVE (NEGATIVE); NITRITE,URINE NEGATIVE (NEGATIVE); PROTEIN,URINE NEGATIVE (NEGATIVE); URINE SPECIFIC GRAVITY 1.009; UROBILINOGEN,URINE NEGATIVE mg/dL (<2.0)
[2018-08-22 17:28] LABS: HEMOGLOBIN 14.1 g/dL (13.5-17.0); MEAN CORPUSCULAR HEMOGLOBIN 28.9 pg (27.0-33.4); MEAN CORPUSCULAR HGB CONC 33.5 g/dL (32.0-36.0); MEAN CORPUSCULAR VOLUME 86 fl (80-97); PLATELET COUNT 298 10^3/uL (150-450); RED BLOOD COUNT 4.87 10^6/uL (4.35-5.55); RED CELL DISTRIBUTION WIDTH 16.9 % (11.5-14.0); WHITE BLOOD COUNT 4.6 10^3/uL (4.0-10.5)
[2018-08-22 17:41] LABS: UR PRO/CREAT RATIO RESULT 0.3 mg/mg (0.0-0.2); URINE CREATININE 50.4 mg/dL (22-328); URINE PROTEIN 13.9 mg/dL (<12)
[2018-08-22 17:49] LABS: ANION GAP 12 (5-19); BLOOD UREA NITROGEN 21 mg/dL (7-20); CALCIUM 8.8 mg/dL (8.4-10.2); CARBON DIOXIDE 27 mmol/L (22-30); CHLORIDE 98 mmol/L (98-107); GLUCOSE 335 mg/dL (75-110); POTASSIUM 4.7 mmol/L (3.6-5.0); SODIUM 136.8 mmol/L (137-145)
== END ==
LOC: OD 15:32
PROVIDERS: ATTEND Internal Medicine Nephrology
DX: I12.9 Hypertensive chronic kidney disease with stage 1 through stage 4 chronic kidney disease, or unspecified chronic kidney disease (principal); E11.22 Type 2 diabetes mellitus with diabetic chronic kidney disease; N18.3 Chronic kidney disease, stage 3 (moderate); E87.6 Hypokalemia; R80.9 Proteinuria, unspecified
CPT/HCPCS: 36415; 80048; 81001; 82570; 83735; 84156; 85027

== ENCOUNTER → 2018-09-16 | Outpatient (CLI) | payer MEDICARE, OTHER ==
[2018-09-16 16:20] LABS: HEMATOCRIT 44.4 % (37.9-51.0); HEMOGLOBIN 15.1 g/dL (13.5-17.0); MEAN CORPUSCULAR HEMOGLOBIN 28.8 pg (27.0-33.4); MEAN CORPUSCULAR VOLUME 85 fl (80-97); PLATELET COUNT 318 10^3/uL (150-450); RED BLOOD COUNT 5.23 10^6/uL (4.35-5.55); RED CELL DISTRIBUTION WIDTH 14.9 % (11.5-14.0); WHITE BLOOD COUNT 8.3 10^3/uL (4.0-10.5)
[2018-09-16 16:20] LABS: APPEARANCE,URINE SLIGHTLY-CLOUDY; BILIRUBIN,URINE NEGATIVE (NEGATIVE); COLOR,URINE YELLOW; GLUCOSE, URINE NEGATIVE (NEGATIVE); KETONES,URINE NEGATIVE (NEGATIVE); LEUKOCYTE ESTERASE,URINE NEGATIVE (NEGATIVE); NITRITE,URINE NEGATIVE (NEGATIVE); PROTEIN,URINE NEGATIVE (NEGATIVE); URINE SPECIFIC GRAVITY 1.011; UROBILINOGEN,URINE NEGATIVE mg/dL (<2.0)
[2018-09-16 16:38] LABS: UR PRO/CREAT RATIO RESULT 0.2 mg/mg (0.0-0.2); URINE CREATININE 100.2 mg/dL (22-328); URINE PROTEIN 24.6 mg/dL (<12)
[2018-09-16 16:49] LABS: ANION GAP 19 (5-19); BLOOD UREA NITROGEN 63 mg/dL (7-20); CARBON DIOXIDE 29 mmol/L (22-30); CHLORIDE 91 mmol/L (98-107); GLUCOSE 265 mg/dL (75-110); POTASSIUM 3.9 mmol/L (3.6-5.0); SODIUM 139.4 mmol/L (137-145)
== END ==
LOC: OD 15:18
PROVIDERS: ATTEND Internal Medicine Nephrology
DX: E11.22 Type 2 diabetes mellitus with diabetic chronic kidney disease (principal); I12.9 Hypertensive chronic kidney disease with stage 1 through stage 4 chronic kidney disease, or unspecified chronic kidney disease; N18.3 Chronic kidney disease, stage 3 (moderate); E87.6 Hypokalemia; R80.9 Proteinuria, unspecified
CPT/HCPCS: 36415; 80048; 81001; 82570; 83735; 84156; 85027

== ENCOUNTER 2018-10-18 10:51 | Emergency (ER) | payer OTHER, MEDICARE ==
--- NOTE | 2018-10-18 11:21 | ER Document Report ---
ED Medical Screen (RME) - General Chief Complaint: Skin Problem Stated Complaint: TOE PAIN Time Seen by Provider: 10/18/18 11:10 TRAVEL OUTSIDE OF THE [place] IN LAST 30 DAYS: No - Related Data Allergies/Adverse Reactions: Penicillins Allergy (Verified 10/18/18 11:19) piperacillin Allergy (Verified 10/18/18 11:19) Past Medical History - Social History Chew tobacco use (# tins/day): No Frequency of alcohol use: None Drug Abuse: None - Past Medical History Cardiac Medical History: Reports: Hx Atrial Fibrillation, Hx Congestive Heart Failure, Hx Coronary Artery Disease, Hx Hypercholesterolemia, Hx Hypertension, Hx Pulmonary Embolism Denies: Hx Heart Attack, Hx Peripheral Vascular Disease, Hx Heart Murmur Pulmonary Medical History: Reports: Hx Asthma, Hx Bronchitis, Hx COPD, Hx Sleep Apnea - unable to wear cpap Denies: Hx Pneumonia, Hx Respiratory Failure, Hx Tuberculosis Neurological Medical History: Reports: Hx Seizures - in 1968. Denies: Hx Cerebrovascular Accident Endocrine Medical History: Reports: Hx Diabetes Mellitus Type 1, Hx Diabetes Mellitus Type 2, Hx Hypothyroidism. Denies: Hx Graves' Disease, Hx Hyperthyroidism Renal/ Medical History: Reports: Hx Benign Prostatic Hyperplasia, Hx Hemodialysis - Temporarily while he was in the hospital, but no longer requires dialysis.. Denies: Hx End Stage Renal Disease, Hx Kidney Stones, Hx Peritoneal Dialysis Malignancy Medical History: Denies Hx Leukemia, Denies Hx Lung Cancer GI Medical History: Reports: Hx Gastroesophageal Reflux Disease, Hx Hiatal Hernia, Hx Irritable Bowel. Denies: Hx Crohn's Disease, Hx Hepatitis, Hx Liver Failure, Hx Pancreatitis, Hx Ulcer Musculoskeltal Medical History: Reports Hx Arthritis, Denies Hx Fibromyalgia, Denies Hx Multiple Sclerosis, Denies Hx Muscular Dystrophy Psychiatric Medical History: Reports: Hx Depression, Hx Post Traumatic Stress Disorder - nightmares Denies: Hx Bipolar Disorder, Hx Dementia, Hx Schizophrenia Traumatic Medical History: Reports: Hx Fractures - Rt elbow and scattered radial head Infectious Medical History: Denies: Hx Hepatitis, Hx HIV Past Surgical History: Reports: Hx Appendectomy, Hx Cardiac Catheterization - 3 VESSEL DISEASE NOT CANDIDATE FOR INTERVENTION, Hx Cholecystectomy, Hx Coronary Stent, Hx Orthopedic Surgery - CERVICAL AND L-S FUSION, Hx Pacemaker, Other - Tracheostomy-decannulated. J tube-removed. Denies: Hx Bowel Surgery, Hx Colostomy, Hx Coronary Artery Bypass Graft, Hx Gastric Bypass Surgery, Hx Herniorrhaphy, Hx Open Heart Surgery, Hx Tonsillectomy - Immunizations Hx Diphtheria, Pertussis, Tetanus Vaccination: Yes History of Influenza Vaccine for 08/2017 - 01/2018 Season: Yes Physical Exam - Vital signs Vitals: Temp Pulse Resp BP Pulse Ox 98 F 63 16 143/71 H 96 10/18/18 11:03 10/18/18 11:03 10/18/18 11:03 10/18/18 11:03 10/18/18 11:03 Course - Re-evaluation Re-evalutation: 10/18/18 11:20 73-year-old man with a myriad of medical problems. Presents for pain and redness in his right middle toe. Examination demonstrates an erythematous toe with a small comedone which was drained by his daughter who is a nurse last night. She noted to be frankly purulent. We will obtain CBC and CMP as well as x-rays of the toe for possible underlying ostia. I have seen and performed a rapid medical screening examination for this patient. They will require further investigation and disposition determination by a second provider . - Vital Signs Vital signs: Temp Pulse Resp BP Pulse Ox 98 F 63 16 143/71 H 96 10/18/18 11:03 10/18/18 11:03 10/18/18 11:03 10/18/18 11:03 10/18/18 11:03 Doctor's Discharge - Discharge Referrals: Ahmet OSORIO MD [Primary Care Provider] - Follow up as needed
[2018-10-18 12:08] LABS: ABSOLUTE BASOPHILS # (AUTO) 0.1 10^3/uL (0.0-0.2); ABSOLUTE EOSINOPHILS # (AUTO) 0.2 10^3/uL (0.0-0.6); ABSOLUTE LYMPHOCYTES (AUTO) 1.2 10^3/uL (0.5-4.7); ABSOLUTE MONOCYTES (AUTO) 1.2 10^3/uL (0.1-1.4); ABSOLUTE NEUT (AUTO) 3.5 10^3/uL (1.7-8.2); BASOPHILS % (AUTO) 1.4 % (0-2); EOSINOPHILS % (AUTO) 3.9 % (0-6); HEMATOCRIT 44.3 % (37.9-51.0); HEMOGLOBIN 14.8 g/dL (13.5-17.0); LYMPHOCYTES % (AUTO) 18.8 % (13-45); MEAN CORPUSCULAR HEMOGLOBIN 28.9 pg (27.0-33.4); MEAN CORPUSCULAR HGB CONC 33.3 g/dL (32.0-36.0); MEAN CORPUSCULAR VOLUME 87 fl (80-97); MONOCYTES % (AUTO) 18.6 % (3-13); PLATELET COUNT 294 10^3/uL (150-450); RED BLOOD COUNT 5.11 10^6/uL (4.35-5.55); RED CELL DISTRIBUTION WIDTH 15.1 % (11.5-14.0); SEGMENTED NEUTROPHILS % (AUTO) 57.3 % (42-78); TOTAL CELLS COUNTED % (AUTO) 100 %; WHITE BLOOD COUNT 6.2 10^3/uL (4.0-10.5)
--- NOTE | 2018-10-18 12:33 | RADIOLOGY REPORT (SQ) ---
EXAM DESCRIPTION: TOE RIGHT COMPLETED DATE/TIME: 10/18/2018 12:08 pm REASON FOR STUDY: infected to COMPARISON: None. NUMBER OF VIEWS: Three views. TECHNIQUE: AP, lateral, and oblique images acquired of the right third toe. LIMITATIONS: None. FINDINGS: MINERALIZATION: Normal. BONES: No acute fracture or dislocation. No worrisome bone lesions. JOINTS: No effusions. SOFT TISSUES: Mild soft tissue swelling involving the 3rd digit. OTHER: No other significant finding. IMPRESSION: Mild soft tissue swelling. No fracture. COMMENT: SITE OF TRAUMA/COMPLAINT MARKED/STAMP COMPLETED: Yes TECHNICAL DOCUMENTATION: JOB ID: [id number] [employer]- All Rights Reserved Reading location - IP/workstation name: [email or web address]
[2018-10-18 12:39] LABS: ALANINE AMINOTRANSFERASE 34 U/L (21-72); ALBUMIN 4.3 g/dL (3.5-5.0); ALKALINE PHOSPHATASE 75 U/L (38-126); ANION GAP 17 (5-19); ASPARTATE AMINO TRANSFERASE 30 U/L (17-59); BILIRUBIN,DIRECT 0.3 mg/dL (0.0-0.4); BILIRUBIN,TOTAL 0.5 mg/dL (0.2-1.3); BLOOD UREA NITROGEN 27 mg/dL (7-20); CALCIUM 9.8 mg/dL (8.4-10.2); CARBON DIOXIDE 26 mmol/L (22-30); CHLORIDE 99 mmol/L (98-107); GLUCOSE 278 mg/dL (75-110); POTASSIUM 4.5 mmol/L (3.6-5.0); SODIUM 142.2 mmol/L (137-145); TOTAL PROTEIN 8.1 g/dL (6.3-8.2)
[2018-10-18] MEDS ORDERED: MORPHINE SULFATE 10 MG/ML INJ IV ONE (15:06)
[2018-10-18] MEDS ORDERED: CLINDAMYCIN 600 MG/D5W RTU 600 MG/50 ML RTUPB IV ONE (15:06)
[2018-10-18] MEDS ORDERED: LIDOCAINE 1% INJ-PF (10 MG/ML) 30 ML SDV INJ ONE (15:06)
[2018-10-18] MEDS ORDERED: LEVOFLOXACIN 750 MG/D5W RTU 750 MG/150 ML RTUPB IV ONE (15:06)
--- NOTE | 2018-10-18 15:09 | ER Document Report ---
ED Skin Rash/Insect Bite/Abscs - General Chief Complaint: Skin Problem Stated Complaint: TOE PAIN Time Seen by Provider: 10/18/18 11:10 Mode of Arrival: Ambulatory Information source: Patient TRAVEL OUTSIDE OF THE [place] IN LAST 30 DAYS: No - HPI Patient complains to provider of: Tender/swollen area Onset: Yesterday Onset/Duration: Gradual Quality of pain: Pressure, Throbbing Severity: Moderate Pain Level: 4 Skin Character: Abscess, Erythema, Tenderness Skin Temperature: Warm Quality of rash: Painful Exacerbated by: Movement, Walking Relieved by: Denies Similar symptoms previously: No Recently seen / treated by doctor: No Notes: Patient is a 73-year-old male with a history of diabetes as well as other medical problems, presenting to the emergency room today complaining of tender swollen lesion on his right third toe that he first noticed yesterday, he does have a history of diabetic neuropathy so he has some decreased sensation in his foot, denies any specific injury, reports his daughter who is an RN used a pin to pop the area yesterday evening and was able to express a moderate amount of pus, however the toe remains erythematous, swollen and painful, denies any fevers or other symptoms - Related Data Allergies/Adverse Reactions: Penicillins Allergy (Verified 10/18/18 11:19) piperacillin Allergy (Verified 10/18/18 11:19) Past Medical History - General Information source: Patient - Social History Smoking Status: Never Smoker Chew tobacco use (# tins/day): No Frequency of alcohol use: None Drug Abuse: None Family History: CAD, DM, Hypertension Patient has suicidal ideation: No Patient has homicidal ideation: No - Past Medical History Cardiac Medical History: Reports: Hx Atrial Fibrillation, Hx Congestive Heart Failure, Hx Coronary Artery Disease, Hx Hypercholesterolemia, Hx Hypertension, Hx Pulmonary Embolism Denies: Hx Heart Attack, Hx Peripheral Vascular Disease, Hx Heart Murmur Pulmonary Medical History: Reports: Hx Asthma, Hx Bronchitis, Hx COPD, Hx Sleep Apnea - unable to wear cpap Denies: Hx Pneumonia, Hx Respiratory Failure, Hx Tuberculosis Neurological Medical History: Reports: Hx Seizures - in 1968. Denies: Hx Cerebrovascular Accident Endocrine Medical History: Reports: Hx Diabetes Mellitus Type 1, Hx Diabetes Mellitus Type 2, Hx Hypothyroidism. Denies: Hx Graves' Disease, Hx Hyperthyroidism Renal/ Medical History: Reports: Hx Benign Prostatic Hyperplasia, Hx Hemodialysis - Temporarily while he was in the hospital, but no longer requires dialysis.. Denies: Hx End Stage Renal Disease, Hx Kidney Stones, Hx Peritoneal Dialysis Malignancy Medical History: Denies Hx Leukemia, Denies Hx Lung Cancer GI Medical History: Reports: Hx Gastroesophageal Reflux Disease, Hx Hiatal Hernia, Hx Irritable Bowel. Denies: Hx Crohn's Disease, Hx Hepatitis, Hx Liver Failure, Hx Pancreatitis, Hx Ulcer Musculoskeletal Medical History: Reports Hx Arthritis, Denies Hx Fibromyalgia, Denies Hx Multiple Sclerosis, Denies Hx Muscular Dystrophy Psychiatric Medical History: Reports: Hx Depression, Hx Post Traumatic Stress Disorder - nightmares Denies: Hx Bipolar Disorder, Hx Dementia, Hx Schizophrenia Traumatic Medical History: Reports: Hx Fractures - Rt elbow and scattered radial head Infectious Medical History: Denies: Hx Hepatitis, Hx HIV Past Surgical History: Reports: Hx Appendectomy, Hx Cardiac Catheterization - 3 VESSEL DISEASE NOT CANDIDATE FOR INTERVENTION, Hx Cholecystectomy, Hx Coronary Stent, Hx Orthopedic Surgery - CERVICAL AND L-S FUSION, Hx Pacemaker, Other - Tracheostomy-decannulated. J tube-removed. Denies: Hx Bowel Surgery, Hx Colostomy, Hx Coronary Artery Bypass Graft, Hx Gastric Bypass Surgery, Hx Herniorrhaphy, Hx Open Heart Surgery, Hx Tonsillectomy - Immunizations Hx Diphtheria, Pertussis, Tetanus Vaccination: Yes Hx Pneumococcal Vaccination: 08/22/12 Review of Systems - Review of Systems Constitutional: No symptoms reported EENT: No symptoms reported Cardiovascular: No symptoms reported Respiratory: No symptoms reported Gastrointestinal: No symptoms reported Genitourinary: No symptoms reported Male Genitourinary: No symptoms reported Musculoskeletal: No symptoms reported Skin: See HPI Hematologic/Lymphatic: No symptoms reported Neurological/Psychological: No symptoms reported -: Yes All other systems reviewed and negative Physical Exam - Vital signs Vitals: Temp Pulse Resp BP Pulse Ox 98 F 63 16 143/71 H 96 10/18/18 11:03 10/18/18 11:03 10/18/18 11:03 10/18/18 11:03 10/18/18 11:03 Interpretation: Normal - General General appearance: Appears well, Alert - HEENT Head: Normocephalic, Atraumatic Eyes: Normal Pupils: PERRL - Respiratory Respiratory status: No respiratory distress Chest status: Nontender Breath sounds: Normal Chest palpation: Normal - Cardiovascular Rhythm: Regular Heart sounds: Normal auscultation Murmur: No - Abdominal Inspection: Normal Distension: No distension Bowel sounds: Normal Tenderness: Nontender Organomegaly: No organomegaly - Back Back: Normal, Nontender - Extremities General upper extremity: Normal inspection, Nontender, Normal color, Normal ROM , Normal temperature General lower extremity: No: Merle's sign Foot: Other - Right third toe with erythema, swelling, tenderness, distal sensation intact, brisk capillary refill, on the dorsal surface is a small pinpoint scabbed lesion with mild surrounding induration - Neurological Neuro grossly intact: Yes Cognition: Normal Orientation: AAOx4 Uziel Coma Scale Eye Opening: Spontaneous Rosalie Coma Scale Verbal: Oriented Rosalie Coma Scale Motor: Obeys Commands Rosalie Coma Scale Total: 15 Speech: Normal Motor strength normal: LUE, RUE, LLE, RLE Sensory: Normal - Psychological Associated symptoms: Normal affect, Normal mood - Skin Skin Temperature: Warm Skin Moisture: Dry Skin Color: Normal Course - Re-evaluation Re-evalutation: 10/18/18 17:42 Incision and drainage performed on patient's right third toe, sebaceous material was expressed from the area of concern, patient was started on antibiotics secondary to surrounding cellulitis and his history of diabetes, advised to follow-up with primary care and podiatry in 1-2 days or return if symptoms worsen, patient acknowledges understanding and agreement with this plan - Vital Signs Vital signs: Temp Pulse Resp BP Pulse Ox 97.8 F 63 16 135/83 H 98 10/18/18 17:35 10/18/18 17:35 10/18/18 17:35 10/18/18 17:35 10/18/18 17:35 - Laboratory Result Diagrams: 10/18/18 11:36 10/18/18 11:36 Laboratory results interpreted by me: 10/18/18 10/18/18 11:36 11:36 RDW 15.1 H Monocytes % 18.6 H BUN 27 H Creatinine 1.94 H Est GFR ( Amer) 41 L Est GFR (Non-Af Amer) 34 L Glucose 278 H - Diagnostic Test Radiology reviewed: Image reviewed, Reports reviewed Procedures - Incision and Drainage Right Foot 3rd digit Time completed: 16:40 Type: Simple Anesthetic type: 1% Lidocaine mL's of anesthetic: 4 Blade size: 11 I&D procedure: Chlorprep applied Incision Method: Incision made by scalpel Amount/type of drainage: sebaceous Discharge - Discharge Clinical Impression: Diabetic foot infection Condition: Stable Disposition: HOME, SELF-CARE Instructions: Foot or Leg Ulcer ([facility]), Infections ([facility]) Additional Instructions: Follow up with your primary care provider and security services manager in one to 2 days. Return to the emergency room immediately if symptoms worsen or any additional concerns. Prescriptions: Clindamycin HCl [Cleocin 150 mg Capsule] 450 mg PO Q6 10 Days capsule Referrals: Ahmet OSORIO MD [Primary Care Provider] - Follow up as needed
[2018-10-18 17:35] VITALS: BP 135/83
== END 2018-10-18 17:35 | disposition home or self-care (01) ==
LOC: ER 10:51
DX: E11.69 Type 2 diabetes mellitus with other specified complication (principal); L08.9 Local infection of the skin and subcutaneous tissue, unspecified; M79.674 Pain in right toe(s); I48.91 Unspecified atrial fibrillation; I50.9 Heart failure, unspecified; E78.00 Pure hypercholesterolemia, unspecified; I11.0 Hypertensive heart disease with heart failure; Z88.0 Allergy status to penicillin; Z98.1 Arthrodesis status
CPT/HCPCS: 99284; 96375; 96365; 96366; 96368; 36415; 87040; 85025; 87077; 80053; 87186; 73660; 10060; A6266; J2270; J1956

== ENCOUNTER → 2018-12-14 | Outpatient (CLI) | payer MEDICARE, OTHER ==
--- NOTE | 2018-12-14 16:18 | RADIOLOGY REPORT (SQ) ---
EXAM DESCRIPTION: BONE SURVEY COMPLETE COMPLETED DATE/TIME: 12/14/2018 2:39 pm REASON FOR STUDY: E88.09 OT DISORDERS OF PLASMA-PROTEIN METABOLISM, NEC (METASTATIC) E88.09 [facility] DI SORDERS OF PLASMA-PROTEIN METABOLISM, NEC COMPARISON: 11/08/2017. TECHNIQUE: Images of the axial and proximal appendicular skeleton are obtained, along with lateral s kull and frontal chest films. LIMITATIONS: None. FINDINGS: AP CHEST: No bony findings. Lungs are clear. LATERAL SKULL: No worrisome bone lesions. AP BOTH HUMERI: No worrisome bone lesions. TWO-VIEW LUMBAR SPINE: No worrisome bone lesions. Degenerative changes and surgical changes with lissette dware. TWO-VIEW THORACIC SPINE: No worrisome bone lesions. Degenerative changes. AP PELVIS: No worrisome bone lesions. AP BOTH FEMURS: No worrisome bone lesions. OTHER: No other significant finding. IMPRESSION: NO WORRISOME BONE LESIONS. TECHNICAL DOCUMENTATION: JOB ID: [id number] [employer]- All Rights Reserved Reading location - IP/workstation name: [email or web address]
== END ==
LOC: RAD 15:56
PROVIDERS: ATTEND Internal Medicine Medical Oncology
DX: E88.09 Other disorders of plasma-protein metabolism, not elsewhere classified (principal)
CPT/HCPCS: 77075

== ENCOUNTER → 2018-12-14 | Outpatient (CLI) | payer MEDICARE, OTHER ==
[2018-12-14 14:14] LABS: HEMOGLOBIN 14.3 g/dL (13.5-17.0); MEAN CORPUSCULAR HEMOGLOBIN 28.3 pg (27.0-33.4); MEAN CORPUSCULAR HGB CONC 33.3 g/dL (32.0-36.0); MEAN CORPUSCULAR VOLUME 85 fl (80-97); PLATELET COUNT 241 10^3/uL (150-450); RED BLOOD COUNT 5.05 10^6/uL (4.35-5.55); RED CELL DISTRIBUTION WIDTH 14.5 % (11.5-14.0); WHITE BLOOD COUNT 5.9 10^3/uL (4.0-10.5)
[2018-12-14 14:16] LABS: APPEARANCE,URINE CLEAR; BILIRUBIN,URINE NEGATIVE (NEGATIVE); COLOR,URINE STRAW; GLUCOSE, URINE 150 mg/dL (NEGATIVE); KETONES,URINE NEGATIVE (NEGATIVE); LEUKOCYTE ESTERASE,URINE NEGATIVE (NEGATIVE); NITRITE,URINE NEGATIVE (NEGATIVE); PROTEIN,URINE NEGATIVE (NEGATIVE); UROBILINOGEN,URINE NEGATIVE mg/dL (<2.0)
[2018-12-14 14:31] LABS: ANION GAP 11 (5-19); BLOOD UREA NITROGEN 39 mg/dL (7-20); CALCIUM 9.7 mg/dL (8.4-10.2); CARBON DIOXIDE 23 mmol/L (22-30); CHLORIDE 104 mmol/L (98-107); GLUCOSE 363 mg/dL (75-110); PHOSPHORUS 3.9 mg/dL (2.5-4.5); POTASSIUM 4.3 mmol/L (3.6-5.0); SODIUM 137.5 mmol/L (137-145)
== END ==
LOC: OD 13:26
PROVIDERS: ATTEND Physician Assistant Medical
DX: I13.0 Hypertensive heart and chronic kidney disease with heart failure and stage 1 through stage 4 chronic kidney disease, or unspecified chronic kidney disease (principal); N18.3 Chronic kidney disease, stage 3 (moderate); I50.9 Heart failure, unspecified; E87.5 Hyperkalemia
CPT/HCPCS: 36415; 80048; 81001; 83970; 84100; 85027

== ENCOUNTER → 2019-06-13 | Outpatient (CLI) | payer MEDICARE, OTHER ==
[2019-06-13 13:36] LABS: HEMATOCRIT 46.7 % (37.9-51.0); HEMOGLOBIN 15.2 g/dL (13.5-17.0); MEAN CORPUSCULAR HEMOGLOBIN 29.7 pg (27.0-33.4); MEAN CORPUSCULAR HGB CONC 32.6 g/dL (32.0-36.0); MEAN CORPUSCULAR VOLUME 91 fl (80-97); PLATELET COUNT 244 10^3/uL (150-450); RED BLOOD COUNT 5.11 10^6/uL (4.35-5.55); RED CELL DISTRIBUTION WIDTH 17.1 % (11.5-14.0); WHITE BLOOD COUNT 7.7 10^3/uL (4.0-10.5)
[2019-06-13 13:47] LABS: APPEARANCE,URINE CLEAR; BILIRUBIN,URINE NEGATIVE (NEGATIVE); COLOR,URINE YELLOW; GLUCOSE, URINE NEGATIVE (NEGATIVE); KETONES,URINE NEGATIVE (NEGATIVE); LEUKOCYTE ESTERASE,URINE TRACE (NEGATIVE); NITRITE,URINE NEGATIVE (NEGATIVE); PROTEIN,URINE NEGATIVE (NEGATIVE); UROBILINOGEN,URINE NEGATIVE mg/dL (<2.0)
[2019-06-13 14:01] LABS: ANION GAP 11 (5-19); BLOOD UREA NITROGEN 46 mg/dL (7-20); CALCIUM 9.3 mg/dL (8.4-10.2); CARBON DIOXIDE 27 mmol/L (22-30); CHLORIDE 99 mmol/L (98-107); GLUCOSE 230 mg/dL (75-110); PHOSPHORUS 4.3 mg/dL (2.5-4.5); POTASSIUM 4.1 mmol/L (3.6-5.0)
== END ==
LOC: OD 13:12
PROVIDERS: ATTEND Physician Assistant Medical
DX: E11.22 Type 2 diabetes mellitus with diabetic chronic kidney disease (principal); N18.3 Chronic kidney disease, stage 3 (moderate); M10.00 Idiopathic gout, unspecified site; E87.5 Hyperkalemia
CPT/HCPCS: 36415; 80048; 81001; 83970; 84100; 85027

== ENCOUNTER → 2019-09-13 | Outpatient (CLI) | payer MEDICARE, OTHER ==
[2019-09-13 12:15] LABS: ABSOLUTE BASOPHILS # (AUTO) 0.1 10^3/uL (0.0-0.2); ABSOLUTE EOSINOPHILS # (AUTO) 0.3 10^3/uL (0.0-0.6); ABSOLUTE LYMPHOCYTES (AUTO) 1.3 10^3/uL (0.5-4.7); ABSOLUTE MONOCYTES (AUTO) 0.9 10^3/uL (0.1-1.4); HEMATOCRIT 46.7 % (37.9-51.0); HEMOGLOBIN 15.3 g/dL (13.5-17.0); LYMPHOCYTES % (AUTO) 17.1 % (13-45); MEAN CORPUSCULAR HEMOGLOBIN 30.2 pg (27.0-33.4); MEAN CORPUSCULAR HGB CONC 32.7 g/dL (32.0-36.0); MEAN CORPUSCULAR VOLUME 92 fl (80-97); MONOCYTES % (AUTO) 11.8 % (3-13); PLATELET COUNT 243 10^3/uL (150-450); RED BLOOD COUNT 5.05 10^6/uL (4.35-5.55); RED CELL DISTRIBUTION WIDTH 16.8 % (11.5-14.0); SEGMENTED NEUTROPHILS % (AUTO) 66.1 % (42-78); TOTAL CELLS COUNTED % (AUTO) 100 %; WHITE BLOOD COUNT 7.6 10^3/uL (4.0-10.5)
[2019-09-13 12:28] LABS: ANION GAP 15 (5-19); BLOOD UREA NITROGEN 40 mg/dL (7-20); CALCIUM 9.6 mg/dL (8.4-10.2); CARBON DIOXIDE 26 mmol/L (22-30); CHLORIDE 97 mmol/L (98-107); GLUCOSE 208 mg/dL (75-110); PHOSPHORUS 3.7 mg/dL (2.5-4.5); POTASSIUM 4.3 mmol/L (3.6-5.0)
[2019-09-13 12:54] LABS: APPEARANCE,URINE CLEAR; BILIRUBIN,URINE NEGATIVE (NEGATIVE); COLOR,URINE YELLOW; GLUCOSE, URINE NEGATIVE (NEGATIVE); KETONES,URINE NEGATIVE (NEGATIVE); LEUKOCYTE ESTERASE,URINE NEGATIVE (NEGATIVE); NITRITE,URINE NEGATIVE (NEGATIVE); PROTEIN,URINE NEGATIVE (NEGATIVE); URINE SPECIFIC GRAVITY 1.009; UROBILINOGEN,URINE NEGATIVE mg/dL (<2.0)
[2019-09-13 13:12] LABS: UR PRO/CREAT RATIO RESULT 0.6 mg/mg (0.0-0.2); URINE CREATININE 52.7 mg/dL (22-328); URINE PROTEIN 33.4 mg/dL (<12)
== END ==
LOC: OD 11:44
PROVIDERS: ATTEND Physician Assistant Medical
DX: E87.5 Hyperkalemia (principal); I13.0 Hypertensive heart and chronic kidney disease with heart failure and stage 1 through stage 4 chronic kidney disease, or unspecified chronic kidney disease; I50.9 Heart failure, unspecified; N18.4 Chronic kidney disease, stage 4 (severe); E11.22 Type 2 diabetes mellitus with diabetic chronic kidney disease; R60.9 Edema, unspecified
CPT/HCPCS: 36415; 80048; 81001; 82570; 83970; 84100; 84156; 85025

== ENCOUNTER 2019-10-12 07:01 | Day surgery (SDC) | payer MEDICARE, OTHER ==
[2019-10-12] MEDS ORDERED: PROPOFOL INJ 200 MG/20 ML VIAL IV ONE ×2 (07:03→07:12)
--- NOTE | 2019-10-12 09:40 | Discharge Summary ---
Discharge Summary (SDC) - Discharge Final Diagnosis: 1. Multiple antral polyps 2. Ascending colon diverticula 3. Anal verge polyp 4. Transverse colon polyp Date of Surgery: 10/12/19 Discharge Date: 10/12/19 Condition: Good Treatment or Instructions: [facility] [address] [address] POST ENDOSCOPY DISCHARGE INSTRUCTIONS 1. Diet: Start clear liquids that a regular diet as tolerated. 2. Resume all preoperative medications. All oral anticoagulants and aspirins can be resumed 24 hours after procedure. 3. If a polypectomy was performed some bleeding per rectum may occur. This should stop within 3 days. If not, please contact the office. 4. If you had a colonoscopy you may experience some bloating and delayed return of normal bowel function for several days, your regular bowel movement pattern should resume within a week. 5. Please contact [facility] at to make an appointment with Dr. Eastman for 1 to 3 weeks following procedure. 6. If you have any questions or concerns regarding your care,treatment plan or follow up, please contact our office. 7. Per clinical guidelines we recommend you undergo a repeat colonoscopy in 3 to 5 years pending final path report. Referrals: [facility] [Primary Care Provider] - Discharge Activity: Activity As Tolerated Home Care Assistance: None Needed Report the Following to Your Physician Immediately: Shortness of Breath, Increase in Pain, Fever over 101 Degrees
--- NOTE | 2019-10-12 09:52 | Operative Report ---
Operative Report DATE OF SURGERY: 10/12/19 PREOPERATIVE DIAGNOSIS: 1. A screen for colorectal carcinoma. 2. Personal hi story of colon polyps. 3. History of gastric polyps POSTOPERATIVE DIAGNOSIS: 1. Multiple gastric antral polyps. 2. Anal verge polyp. 3. Right colon diverticulum. 4. Transverse colon polyp OPERATION: 1. Esophagogastroduodenoscopy with photodocumentation. 2. Hot snare polypectomy x2 gastric antral polyps with specimen retrieval. 3. Total colonoscopy to cecum with photodocumentation. 4. Ascending colon polypectomy SURGEON: DOMINGO MURCIA ANESTHESIA: LMAC TISSUE REMOVED OR ALTERED: Gastric polyps x2; transverse colon polyp COMPLICATIONS: None ESTIMATED BLOOD LOSS: Scant INTRAOPERATIVE FINDINGS: See below PROCEDURE: Patient was taken to the preop holding area to the endoscopy suite where appropriate level of LMAC anesthesia was induced under the supervision of the brine plant operator and the anesthesiologist. Surgical plan surgical timeout were conducted. The flexible adult upper endoscope was advanced to the oropharynx, down the esophagus through the stomach and into the first and second portion of the duodenum. The patient has multiple comorbidities, and had some transient desaturations but recovered swiftly. First and second portion of the duodenum were normal. The scope was brought back through the pylorus, and the distal antrum prepyloric area or multiple polyps, 5-8 in number. These were taken. These appeared to be fundic polyps. We hot snare 1 of the polyps successfully and brought it out through the patient's oropharynx but the specimen was not retrieved immediately. We therefore reinserted the upper endoscope, and performed a second hot snare polypectomy of a smaller polyp in the same vicinity. The specimen was brought out of the patient using the suction on the end of the scope. After this occurred, the patient coughed up in the first polyp. Therefore we successfully retrieve both snared polyps. The scope down the patient's oropharynx into the stomach, and inspection of the polypectomy sites showed nice cauterization no bleeding. The scope was withdrawn the stomach into the esophagus. The esophagus was grossly unremarkable. There is no evidence of tumor stricture bleeding or polyp. Scope was drawn the patient's oropharynx he tolerated the procedure well Obtaining informed consent the patient was taken from the preoperative holding area to the main endoscopy suite where monitoring devices were attached to the patient. Plan and surgical timeout were conducted The patient was placed in the left lateral decubitus position with knees to chest. A perianal examination was performed. There was a 1.5 cm polyp inside the anal verge there was no visible or palpable anorectal pathology. Sphincter tone was felt to be normal. The flexible adult colonoscope was advanced through the anal rectal canal, all the way to the cecum. Visualization of the cecum was achieved by demonstration of the ileocecal valve, the appendiceal orifice and transillumination of the anterior abdominal wall. There was some residual stool in the base of the cecum which was difficult to aspirate completely. This was an excellent study on the well-prepped bowel. The colonoscope was withdrawn slowly and methodically checked and the mucosa carefully. There was no evidence of tumor, stricture, bleeding; There was a small transverse colon polyp removed with the cold forceps device. Specimen sent to pathology. There was a single diverticulum in the ascending colon. The scope was slowly withdrawn through the anal rectal canal. Complete visualization of the rectum was achieved with photodocumentation. The scope was withdrawn to the patient's anus. The perianal polyp was not moved. The patient tolerated the procedure well and was taken to the recovery area in stable condition. Per surveillance guidelines, patient will be an appropriate candidate for follow-up colonoscopy in [3-5] years.
[2019-10-12 10:13] VITALS: BP 146/68
== END 2019-10-12 10:25 | disposition home or self-care (01) ==
LOC: END 07:01
PROVIDERS: ATTEND Surgery
DX: Z12.11 Encounter for screening for malignant neoplasm of colon (principal); K62.0 Anal polyp; K57.30 Diverticulosis of large intestine without perforation or abscess without bleeding; D12.3 Benign neoplasm of transverse colon; K29.50 Unspecified chronic gastritis without bleeding; K31.7 Polyp of stomach and duodenum; Z86.010 Personal history of colon polyps; R13.10 Dysphagia, unspecified; I11.9 Hypertensive heart disease without heart failure; E11.40 Type 2 diabetes mellitus with diabetic neuropathy, unspecified; I20.9 Angina pectoris, unspecified
CPT/HCPCS: 43251; 45380; 82962; 88342 ×2; 88305 ×2; 00813; J2704; 813